=== PATIENT | male | born 1955 | race Caucasian/White ===

== ENCOUNTER 2019-12-15 21:17 | Inpatient (IN) | payer MEDICARE, SELFPAY ==
--- NOTE | 2019-12-15 21:30 | CT_ITS ---
EXAMINATION: CT HEAD WITHOUT CONTRAST CT CERVICAL SPINE WITHOUT CONTRAST CLINICAL INFORMATION: Fall. COMPARISON: None available. TECHNIQUE: Contiguous axial imaging was performed from the skull base to vertex without intravenous administration of contrast. Contiguous axial imaging was performed from the upper chest through the skull base without intravenous administration of contrast. Coronal and sagittal reformats were obtained at the acquisition workstation. This CT examination was performed using dose optimization techniques as appropriate, variously including the following: *Automated exposure control. *Adjustment of mA and/or kV according to patient size (this includes techniques or standardized protocols for targeted exams where dose is matched to indication/reason for exam; i.e. extremities or head). *Use of iterative reconstruction technique. DLP: 1166 mGy-cm FINDINGS: Head: There is a heterogeneous space occupying lesion within the high right frontal lobe, measuring 3.8 x 3.5 x 3.6 cm. This lesion appears centrally necrotic with peripheral soft tissue components and potential small volume intralesional hemorrhagic products. Prominent perilesional edema throughout the right frontal lobe exerting moderate mass effect on the frontal horn of the right lateral ventricle and splenium of the corpus callosum. Mild associated leftward midline shift (0.2 cm). There also appears to be moderate heterogeneity in the brainstem at the pontomedullary junction of indeterminate etiology. There is a degree of streak artifact through the brainstem partially limiting evaluation. No evidence of acute edematous territorial infarction. Other than the aforementioned intralesional hemorrhagic products, there is no evidence of acute intracranial hemorrhage. Proportional prominence of the ventricles and sulcal spaces without evidence of obstructive hydrocephalus. No acute soft tissue or osseous abnormalities. Moderate mucosal thickening of the visualized paranasal sinuses. There is layering hyperattenuating material within the visualized maxillary sinuses that may represent a small volume of hemorrhagic products in the acute traumatic setting. No demonstrated fractures of the partially visualized maxillofacial bones. Moderate rightward nasal septal deviation. Moderate degenerative arthropathy of the temporal mandibular joints. Moderate rightward nasal septal deviation. Bilateral enophthalmos. Otherwise, no demonstrated abnormalities of the orbits on limited evaluation. Cervical Spine: The atlantooccipital and atlantoaxial articulations remain well aligned. Mild degenerative retrolisthesis of C3 on C4 and C5 on C6. Otherwise, there is anatomic alignment of the vertebral bodies and posterior elements. No evidence of acute fracture or subluxation. The vertebral body heights are maintained. Advanced degenerative disc disease at C3-C4, C5-C6, and C6-C7. Moderate multilevel facet and uncovertebral joint arthropathy leads to osseous encroachment on the neural foramina from C3-C7. There is no prevertebral soft tissue swelling. Layering mucus within the pharynx. The Thyroid gland and remaining cervical soft tissues are normal in appearance. The lung apices demonstrate no abnormalities. CT/CT cervical spine wo con IMPRESSION: There is a 3.8 cm heterogeneous mass lesion within the right frontal lobe with significant surrounding perilesional edema. This lesion appears centrally necrotic and likely with small volume of intralesional hemorrhage. There also is some degree of heterogeneity within the pontomedullary junction. This may be artifactual in nature; however, a second intracranial lesion remains a consideration. Recommend further characterization with brain MRI. No evidence of acute traumatic intracranial hemorrhage. No evidence of acute fracture or traumatic subluxation of the cervical spine. Moderate multilevel degenerative spondyloarthropathy of the cervical spine. Moderate sinonasal mucosal disease. Hyperattenuating material within the bilateral maxillary sinuses may represent hemorrhagic products. No demonstrated fractures of the partially visualized maxillofacial bones. This critical result was discussed with Dr. Velasquez at 22:14 on 12/15/2019 and it was ascertained that the content and urgency of the report was understood at the time of direct communication.
--- NOTE | 2019-12-15 21:31 | ECG_ITS ---
Test Reason : FALL Blood Pressure : / mmHG Vent. Rate : 134 BPM Atrial Rate : 134 BPM P-R Int : 128 ms QRS Dur : 070 ms QT Int : 312 ms P-R-T Axes : 081 051 062 degrees QTc Int : 465 ms Sinus tachycardia Biatrial enlargement Nonspecific ST abnormality Abnormal ECG No previous ECGs available Referred By: Marlen Rowe Electronically Signed By:AMANDA FAJARDO MD
--- NOTE | 2019-12-15 21:31 | XR_ITS ---
EXAMINATION: XR CHEST CLINICAL INFORMATION: Cough COMPARISON: None TECHNIQUE: Frontal view of the chest was obtained. FINDINGS: Overall increased interstitial markings in the lungs. This may be chronic. Interstitial infiltrate would be a consideration. No obvious failure or effusion. XR/XR chest 1V IMPRESSION: Increased interstitial markings as described. May be chronic versus infiltrate.
--- NOTE | 2019-12-15 21:50 | ED.FALL ---
HPI - Fall General Chief Complaint: Altered Mental Status Stated Complaint: fall/?etoh Time Seen by Provider: 12/15/19 21:30 Source: patient and EMS Mode of arrival: EMS Limitations: physical limitation History of Present Illness HPI Narrative: This is a 64-year-old male known to be an alcohol drinker who states that he fell yesterday and 2 weeks ago. Additional information provided by EMS is that patient was found on the floor by his neighbors who came by to check on him. Patient states that he has been having difficulty getting off of the floor since yesterday when he fell and states that he was only able to use his right side to try to roll over. Related Data Home Medications Medication Instructions Recorded Confirmed Unobtainable 12/15/19 12/15/19 Allergies Allergy/AdvReac Type Severity Reaction Status Date / Time No Known Allergies Allergy Unverified 11/02/19 15:52 [No Known Allergies*] Review of Systems Review of Systems: Pertinent positives and negatives as stated in HPI 10 point review systems is otherwise negative. [facility] Social History Social History Alcohol intake: unknown Smoking Status: Unknown if ever smoked Use of substances other than those prescribed or required for medical reasons: Unknown Advance Directives: No Physical Exam Vital Signs: Vital Signs: Vital Signs Temp Pulse Pulse Resp BP Pulse Ox 12/16/19 00:43 100.2 F 121 H 23 H 139/85 94 12/15/19 23:42 120 H 12/15/19 22:18 98.9 F 138 H 33 H 147/94 H 92 Body Mass Index 21.7 VITAL SIGNS: Reviewed. GENERAL: Well developed, well nourished, in no acute distress. HEAD: Normocephalic/atraumatic, EYES: PERRLA, EOMI intact without pain, no nystagmus/pallor/icterus noted EARS: Ext canals without abnormality, TMs non-bulging and non-erythematous NOSE: Nares patent bilateral OROPHARYNX: no oral lesions noted, posterior pharynx clear and non-erythematous without noted tonsillar enlargement/erythema/exudates NECK: Supple, no adenopathy LUNGS: Normal breath sounds. No adventitious sounds or accessory muscle use. SpO2<> CARDIOVASCULAR: Regular rate and rhythm without noted murmurs, no JVD or lower extremity edema. ABDOMEN: Soft, non-tender, non-distended with bowel sounds. No rigidity. No guarding. No palpable masses or hernias noted MUSCULOSKELETAL: No tenderness, deformities, or effusions noted on gross inspection. EXTREMITIES: No cyanosis, clubbing or edema. SKIN: Inspection of the skin reveals no rashes, ulcerations, jaundice, pallor, or petechiae. NEUROLOGIC: Alert and oriented x 3. NIHSS-11 Course Course Course Narrative: This is a 64-year-old male with history and clinical presentation consistent with possible intracranial hemorrhage versus hemorrhagic stroke, ischemic stroke (subacute), alcohol withdrawal, brain tumor. Given that patient reports falling yesterday and unable to get himself up despite using the right side of his body time of onset places him far outside the window if this is an ischemic etiology. Suspect patient has tachypnea and tachycardia are secondary to dehydration and intracranial pathology, but on review of laboratory findings patient will be treated for severe sepsis. all labs and imaging have been reviewed, to include the later obtained pelvis and left hip after nursing staff identified a bruise to the left greater trochanteric area but these images were negative for acute fracture or dislocation. 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 2342: Patient is in rhabdo. Multiple attempts to place a urinary catheter due to patient's inability to void have been unsuccessful and a urology consult has been placed and Dr. Greenberg will be in to place the catheter. We have been attempting multiple times to reach out to patient's healthcare proxy, who is his cousin and have left voice mails. Dr. Forbes recommends trending troponins, rehydration and feels that this is most likely due to rhabdomyolysis. MDM - Fall Lab Data Result diagrams: 12/15/19 22:59 12/15/19 22:59 Labs: Lab Results 12/15/19 12/15/19 12/15/19 Range/Units 22:59 22:59 22:59 WBC 15.7 H (4.8-10.8) X10*3/uL RBC 5.71 (4.60-5.80) X10*6/uL Hgb 18.0 (14.0-18.0) g/dl Hct 52.9 H (42-52) % MCV 92.6 (80-98) fL MCH 31.5 (27.0-33.0) pg MCHC 34.0 (31.0-36.0) g/dl RDW 13.7 (11.0-16.0) % Plt Count 413 H (160-400) X10*3/uL MPV 10.7 (9.4-12.4) fL Immature Gran % (Auto) 0.3 (0.0-0.4) % Neut % (Auto) 85.2 H (45-73) % Lymph % (Auto) 5.0 L (20-40) % Pickett % (Auto) 9.3 (2-11) % Eos % (Auto) 0.0 (0-4) % Baso % (Auto) 0.2 (0-2) % Lymph # (Auto) 0.8 L (1.2-4.9) X10*3/uL Pickett # (Auto) 1.5 H (0.1-1.2) X10*3/uL Eos # (Auto) 0.0 (0.0-0.4) X10*3/uL Baso # (Auto) 0.0 (0.0-0.2) X10*3/uL Abs Immat Gran (auto) 0.04 H (0.00-0.03) X10*3/uL Absolute Neuts (auto) 13.4 H (2.0-8.3) X10*3/uL Absolute Nucleated RBC 0.000 (0.0-0.012) X10*3/uL Nucleated RBC % (auto) 0.0 (0.0-0.2) /100WBC PT (10.8-13.0) SEC INR (0.9-1.1) Sodium 144 (135-145) mmol/L Potassium 4.3 (3.3-5.1) mmol/l Chloride 105 (96-108) mmol/L Carbon Dioxide 16 L (22-29) mmol/L Anion Gap 27 H (12-20) BUN 30 H (9-16) mg/dL Creatinine 1.06 (0.5-1.4) mg/dL Estim Creat Clear Calc 60.9 Estimated GFR > 60 Random Glucose 99 (60-115) mg/dL Lactic Acid Cancelled Calcium 10.2 (8.4-10.2) mg/dL Total Bilirubin 1.0 (0.0-1.0) mg/dL AST 105 H (5-37) U/L ALT 44 H (0-40) U/L Alkaline Phosphatase 105 (39-117) U/L Total Creatine Kinase 3407 H (38-174) U/L Troponin I High Sens (<3.5-35.0) ng/L Total Protein 8.2 H (6.5-8.0) g/dL Albumin 4.6 (3.5-5.0) g/dL Lipase 13 (8-78) U/L Ethyl Alcohol 12/15/19 12/15/19 12/15/19 Range/Units 22:59 22:59 23:15 WBC (4.8-10.8) X10*3/uL RBC (4.60-5.80) X10*6/uL Hgb (14.0-18.0) g/dl Hct (42-52) % MCV (80-98) fL MCH (27.0-33.0) pg MCHC (31.0-36.0) g/dl RDW (11.0-16.0) % Plt Count (160-400) X10*3/uL MPV (9.4-12.4) fL Immature Gran % (Auto) (0.0-0.4) % Neut % (Auto) (45-73) % Lymph % (Auto) (20-40) % Pickett % (Auto) (2-11) % Eos % (Auto) (0-4) % Baso % (Auto) (0-2) % Lymph # (Auto) (1.2-4.9) X10*3/uL Pickett # (Auto) (0.1-1.2) X10*3/uL Eos # (Auto) (0.0-0.4) X10*3/uL Baso # (Auto) (0.0-0.2) X10*3/uL Abs Immat Gran (auto) (0.00-0.03) X10*3/uL Absolute Neuts (auto) (2.0-8.3) X10*3/uL Absolute Nucleated RBC (0.0-0.012) X10*3/uL Nucleated RBC % (auto) (0.0-0.2) /100WBC PT 12.5 (10.8-13.0) SEC INR 1.1 (0.9-1.1) Sodium (135-145) mmol/L Potassium (3.3-5.1) mmol/l Chloride (96-108) mmol/L Carbon Dioxide (22-29) mmol/L Anion Gap (12-20) BUN (9-16) mg/dL Creatinine (0.5-1.4) mg/dL Estim Creat Clear Calc Estimated GFR Random Glucose (60-115) mg/dL Lactic Acid Calcium (8.4-10.2) mg/dL Total Bilirubin (0.0-1.0) mg/dL AST (5-37) U/L ALT (0-40) U/L Alkaline Phosphatase (39-117) U/L Total Creatine Kinase (38-174) U/L Troponin I High Sens 2747.9 H (<3.5-35.0) ng/L Total Protein (6.5-8.0) g/dL Albumin (3.5-5.0) g/dL Lipase (8-78) U/L Ethyl Alcohol Cancelled 12/16/19 12/16/19 Range/Units 00:26 00:26 WBC (4.8-10.8) X10*3/uL RBC (4.60-5.80) X10*6/uL Hgb (14.0-18.0) g/dl Hct (42-52) % MCV (80-98) fL MCH (27.0-33.0) pg MCHC (31.0-36.0) g/dl RDW (11.0-16.0) % Plt Count (160-400) X10*3/uL MPV (9.4-12.4) fL Immature Gran % (Auto) (0.0-0.4) % Neut % (Auto) (45-73) % Lymph % (Auto) (20-40) % Pickett % (Auto) (2-11) % Eos % (Auto) (0-4) % Baso % (Auto) (0-2) % Lymph # (Auto) (1.2-4.9) X10*3/uL Pickett # (Auto) (0.1-1.2) X10*3/uL Eos # (Auto) (0.0-0.4) X10*3/uL Baso # (Auto) (0.0-0.2) X10*3/uL Abs Immat Gran (auto) (0.00-0.03) X10*3/uL Absolute Neuts (auto) (2.0-8.3) X10*3/uL Absolute Nucleated RBC (0.0-0.012) X10*3/uL Nucleated RBC % (auto) (0.0-0.2) /100WBC PT (10.8-13.0) SEC INR (0.9-1.1) Sodium (135-145) mmol/L Potassium (3.3-5.1) mmol/l Chloride (96-108) mmol/L Carbon Dioxide (22-29) mmol/L Anion Gap (12-20) BUN (9-16) mg/dL Creatinine (0.5-1.4) mg/dL Estim Creat Clear Calc Estimated GFR Random Glucose (60-115) mg/dL Lactic Acid 1.4 Calcium (8.4-10.2) mg/dL Total Bilirubin (0.0-1.0) mg/dL AST (5-37) U/L ALT (0-40) U/L Alkaline Phosphatase (39-117) U/L Total Creatine Kinase (38-174) U/L Troponin I High Sens (<3.5-35.0) ng/L Total Protein (6.5-8.0) g/dL Albumin (3.5-5.0) g/dL Lipase (8-78) U/L Ethyl Alcohol < 10 Discharge Plan Discharge Clinical Impression: Brain mass, Elevated troponin Rhabdomyolysis Qualifiers: Rhabdomyolysis type: traumatic Encounter type: initial encounter Qualified Code(s): T79.6XXA - Traumatic ischemia of muscle, initial encounter Sepsis Qualifiers: Sepsis type: sepsis due to unspecified organism Sepsis acute organ dysfunction status: without acute organ dysfunction Qualified Code(s): A41.9 - Sepsis, unspecified organism Patient Disposition: Admitted As Inpatient
[2019-12-15 22:18] VITALS: BP 147/94; PULSE 138; RESP 33; TEMP 37.2; O2SAT 92; BMI 21.7
[2019-12-15 23:07] LABS: MANUAL DIFF FLAG NO
[2019-12-15 23:08] LABS: Basophils Percent Auto 0.2 % (0-2); Hematocrit 52.9 % (42-52); Imm Gran Abs Auto 0.04 X10*3/uL (0.00-0.03); Imm Gran Pct Auto 0.3 % (0.0-0.4); Lymphocytes Absolute Auto 0.8 X10*3/uL (1.2-4.9); Mean Corpuscular Hemoglobin 31.5 pg (27.0-33.0); Mean Corpuscular Volume 92.6 fL (80-98); Mean Platelet Volume 10.7 fL (9.4-12.4); Monocytes Absolute Auto 1.5 X10*3/uL (0.1-1.2); Monocytes Percent Auto 9.3 % (2-11); Neutrophils Absolute Auto 13.4 X10*3/uL (2.0-8.3); Neutrophils Percent Auto 85.2 % (45-73); Platelet Count 413 X10*3/uL (160-400); Red Blood Count 5.71 X10*6/uL (4.60-5.80); Red Cell Distribution Width 13.7 % (11.0-16.0); White Blood Count 15.7 X10*3/uL (4.8-10.8)
[2019-12-15] MEDS: SODIUM CHLORIDE 999 ML IV (23:18)
[2019-12-15] MEDS: dexAMETHasone sod phosphate 4 MG/ML VIAL 10 MG IVPUSH (23:27)
[2019-12-15] MEDS: Piperacillin Sodium/Tazobactam 3.375 GM in 0.9 % Sodium Chloride 50 ML IV (23:29)
[2019-12-15 23:38] LABS: Alanine Aminotransferase 44 U/L (0-40); Albumin Level 4.6 g/dL (3.5-5.0); Alkaline Phosphatase 105 U/L (39-117); Anion Gap 27 (12-20); Aspartate Amino Transferase 105 U/L (5-37); Blood Urea Nitrogen 30 mg/dL (9-16); Calcium 10.2 mg/dL (8.4-10.2); Carbon Dioxide 16 mmol/L (22-29); Chloride 105 mmol/L (96-108); Creatinine Clr Calc Pharmacy 60.9; Estimated Glomerular Filt Rate > 60; Glucose Random 99 mg/dL (60-115); Lipase 13 U/L (8-78); Potassium 4.3 mmol/l (3.3-5.1); Sodium 144 mmol/L (135-145); Total Protein 8.2 g/dL (6.5-8.0)
--- NOTE | 2019-12-15 23:39 | PC.NURSE ---
RECEIVED REPORT FROM JOSE ANGEL. PT IS ALERT, PT IS CONFUSED AND NEED TO BE REDIRECTED. PT MEDICATED PER APR. PLAN IS FOR PT TO BE ADMITTED. MULTIPLE ATTEMPTS TO PLACE A [facility] UNSUCCESSFUL, DUE TO PRIOR SHIFT. PROVIDER IS AWARE.
[2019-12-15 23:41] LABS: Troponin-I High Sensitivity 2747.9 ng/L (<3.5-35.0)
[2019-12-15 23:42] VITALS: PULSE 120
[2019-12-16] VITALS (12 sets, daily range): BP systolic 115–147; BP diastolic 78–96; PULSE 76–133; RESP 15–23; TEMP 36.4–37.9; O2SAT 92–98; BMI 20.1
--- NOTE | 2019-12-16 | ECG_ITS ---
Test Reason : Elevated trop Blood Pressure : / mmHG Vent. Rate : 084 BPM Atrial Rate : 084 BPM P-R Int : 130 ms QRS Dur : 080 ms QT Int : 432 ms P-R-T Axes : 078 046 063 degrees QTc Int : 510 ms Normal sinus rhythm with sinus arrhythmia Nonspecific T wave abnormality Abnormal ECG T wave amplitude has increased in Lateral leads Referred By: Marlen Rowe Electronically Signed By:AMANDA FAJARDO MD
--- NOTE | 2019-12-16 | XR_ITS ---
EXAMINATION: XR ABDOMEN KUB CLINICAL INDICATION: Rule out foreign body before MRI. COMPARISON: None TECHNIQUE: 2 views of the abdomen. FINDINGS: The lung bases are clear. There is a nonobstructive bowel gas pattern. No metallic foreign body is seen. There is a Caputo catheter in place. Advanced degenerative changes are seen within the lumbar spine. XR/XR KUB IMPRESSION: No metallic foreign body.
[2019-12-16 00:19] LABS: INTERNATIONAL NORM RATIO 1.1 (0.9-1.1); Prothrombin Time 12.5 SEC (10.8-13.0)
--- NOTE | 2019-12-16 00:40 | PC.NURSE ---
MULTIPLE ATTEMPTS TO CONTACT HCP KG RAYA WITH NO AVAIL. MD HEATH AWARE.
--- NOTE | 2019-12-16 00:48 | PC.NURSE ---
RESPIRATORY IN TO SUCTION PT. CALLED HEALTH CARE PROXY
[2019-12-16 00:56] LABS: Lactic Acid 1.4 mmol/L (0.5-2.0)
[2019-12-16 00:58] LABS: Ethanol < 10 mg/dL
--- NOTE | 2019-12-16 01:26 | PC.NURSE ---
Provider attempt to place sosa cath unsuccessful, urology will need to be consulted.
--- NOTE | 2019-12-16 01:28 | PC.NURSE ---
ATTEMPT TO CALL FOR REPORT, RN WILL BE CALLING BACK.
--- NOTE | 2019-12-16 02:30 | XR_ITS ---
EXAMINATION: XR HIP, LEFT CLINICAL INFORMATION: Ecchymosis. Pain. COMPARISON: None TECHNIQUE: Two views of the left hip. Frontal view of the pelvis. FINDINGS: No fracture or dislocation. The femoral heads are well-seated within their acetabula. Joint spaces are maintained with mild subchondral sclerosis. The pelvic rim is intact. The sacroiliac joints and pubic symphysis are intact. The bowel gas pattern is unremarkable. XR/XR hip LT w PEL1V IMPRESSION: No fracture or malalignment. Mild degenerative change.
[2019-12-16 03:00] LABS: SARS COV2 PCR INHOUSE NEGATIVE (Negative)
--- NOTE | 2019-12-16 03:21 | PC.NURSE ---
PT INCONTINENT OF URINE, PREMA CARE COMPLETED WITH BED CHANGE. PT HAS ARE KASEY AREA TO LEFT LOWER BACK , NOTIFIED PROVIDER AND IMAGING COMPLETED.
--- NOTE | 2019-12-16 03:30 | PM.IMHP ---
History of Present Illness Date of Service: 12/16/19 Chief Complaint: fall this is a 64-year-old male with past medical history of COPD who presents to the hospital after being found down on the floor by his friend. Although patient alert and oriented, it is not clear if he is completely a reliable historian. Patient lives alone, and is a daily drinker. Per patient he tripped on his cat, fell, and had difficulty getting up due to weakness. He reports no previous fall episodes, he denies feeling any weakness, no palpitations, no dizziness, no loss of consciousness, no prodromal symptoms and no loss of consciousness. Patient has very poor hygiene, is alert and oriented, he denies having any chest pain, shortness of breath, headache, no change in vision, no weakness tingling numbness in any of his extremities. patient reports that he uses a walker to walk around the house. He denies any abdominal pain, nausea or vomiting, no diarrhea or constipation, he reports blood in his urine. he reports that he was on the floor for 3 hours. he also tells me that he lost significant amount of weight in few days. On arrival to the ED patient found to have heart rate of 138, respiratory rate of 33, blood pressure 147/94, satting 92% on 2 L of oxygen labs are significant for WBC count of 15.7, sodium of 144, BUN of 30, creatinine of 1.06, AST of 105, ALT of 44, CPK of 3407, troponin of 2747, CT of the head shows a 3.8 cm heterogeneous mass lesion within the right frontal lobe with significant surrounding perilesional edema. Necrotic center and likely with a small volume of intralesional hemorrhage. No evidence of acute traumatic intracranial hemorrhage. patient will be admitted for further management past medical history: Reports only COPD, alcohol abuse surgical history: Denies Social history: Comes from home, uses a cane to ambulate, smokes about 2 packs a day, drinks about 15 beers daily, denies illicit drugs Review of Systems Review of Systems: Yes all other systems are reviewed and are negative [facility] Medical History Alcohol abuse COPD (chronic obstructive pulmonary disease) Social History Alcohol intake: unknown Smoking Status: Unknown if ever smoked Use of substances other than those prescribed or required for medical reasons: Unknown Advance Directives: No Meds Allergies Allergy/AdvReac Type Severity Reaction Status Date / Time No Known Allergies Allergy Unverified 11/02/19 15:52 [No Known Allergies*] Home Medications Medication Instructions Recorded Confirmed Type Unobtainable 12/15/19 12/15/19 History Physical Exam Vital Signs and Narrative: Vital Signs: Last Vital Signs Temp 100.2 F 12/16/19 00:43 Pulse 121 H 12/16/19 00:43 Resp 23 H 12/16/19 00:43 BP 139/85 12/16/19 00:43 Pulse Ox 94 12/16/19 00:43 Body Mass Index 21.7 Const: Other: very poor hygiene, appears malnourished, ill-appearing General: cooperative and no acute distress Orientation/consciousness: patient oriented x3 Eyes: General: appearance normal, both eyes and all related structures Pupils: Equal, round and reactive pupils present Resp: Effort & Inspection: normal respiratory effort, able to speak in complete sentences and abnormal respiratory pattern Auscultation: clear to auscultation bilaterally Cardio: Rate: regular rate Rhythm: regular rhythm GI: Palpation (GI): Soft to palpation Auscultation: normal bowel sounds Skin: General skin exam: no rashes or lesions noted Neuro: Other: has almost 0/5 strength in upper and lower extremity, reduced sensation, 1/5 strength in the right upper and lower extremity. General: patient oriented x3 Cranial nerves: Yes Equal, round and reactive pupils present Motor exam (neuro): no asterixis and Abnormal motor strength present Extrem: General: Yes normal to inspection and Yes no pedal edema Results Labs Labs: Laboratory Tests 12/15/19 12/15/19 12/15/19 22:59 22:59 22:59 WBC 15.7 H RBC 5.71 Hgb 18.0 Hct 52.9 H MCV 92.6 MCH 31.5 MCHC 34.0 RDW 13.7 Plt Count 413 H MPV 10.7 Immature Gran % (Auto) 0.3 Neut % (Auto) 85.2 H Lymph % (Auto) 5.0 L [place] % (Auto) 9.3 Eos % (Auto) 0.0 Baso % (Auto) 0.2 Lymph # (Auto) 0.8 L [place] # (Auto) 1.5 H Eos # (Auto) 0.0 Baso # (Auto) 0.0 Abs Immat Gran (auto) 0.04 H Absolute Neuts (auto) 13.4 H Absolute Nucleated RBC 0.000 Nucleated RBC % (auto) 0.0 PT INR Sodium 144 Potassium 4.3 Chloride 105 Carbon Dioxide 16 L Anion Gap 27 H BUN 30 H Creatinine 1.06 Estim Creat Clear Calc 60.9 Estimated GFR > 60 Random Glucose 99 Lactic Acid Cancelled Calcium 10.2 Total Bilirubin 1.0 AST 105 H ALT 44 H Alkaline Phosphatase 105 Total Creatine Kinase 3407 H Troponin I High Sens Total Protein 8.2 H Albumin 4.6 Lipase 13 Ethyl Alcohol Coronavirus (PCR) 12/15/19 12/15/19 12/15/19 22:59 22:59 23:15 WBC RBC Hgb Hct MCV MCH MCHC RDW Plt Count MPV Immature Gran % (Auto) Neut % (Auto) Lymph % (Auto) [place] % (Auto) Eos % (Auto) Baso % (Auto) Lymph # (Auto) [place] # (Auto) Eos # (Auto) Baso # (Auto) Abs Immat Gran (auto) Absolute Neuts (auto) Absolute Nucleated RBC Nucleated RBC % (auto) PT 12.5 INR 1.1 Sodium Potassium Chloride Carbon Dioxide Anion Gap BUN Creatinine Estim Creat Clear Calc Estimated GFR Random Glucose Lactic Acid Calcium Total Bilirubin AST ALT Alkaline Phosphatase Total Creatine Kinase Troponin I High Sens 2747.9 H Total Protein Albumin Lipase Ethyl Alcohol Cancelled Coronavirus (PCR) 12/16/19 12/16/19 12/16/19 00:26 00:26 01:58 WBC RBC Hgb Hct MCV MCH MCHC RDW Plt Count MPV Immature Gran % (Auto) Neut % (Auto) Lymph % (Auto) [place] % (Auto) Eos % (Auto) Baso % (Auto) Lymph # (Auto) [place] # (Auto) Eos # (Auto) Baso # (Auto) Abs Immat Gran (auto) Absolute Neuts (auto) Absolute Nucleated RBC Nucleated RBC % (auto) PT INR Sodium Potassium Chloride Carbon Dioxide Anion Gap BUN Creatinine Estim Creat Clear Calc Estimated GFR Random Glucose Lactic Acid 1.4 Calcium Total Bilirubin AST ALT Alkaline Phosphatase Total Creatine Kinase Troponin I High Sens Total Protein Albumin Lipase Ethyl Alcohol < 10 Coronavirus (PCR) NEGATIVE Imaging Hip x-ray: Radiologist's impression: IMPRESSION: No fracture or malalignment. Mild degenerative change. CT scan - head: Radiologist's impression: IMPRESSION: There is a 3.8 cm heterogeneous mass lesion within the right frontal lobe with significant surrounding perilesional edema. This lesion appears centrally necrotic and likely with small volume of intralesional hemorrhage. There also is some degree of heterogeneity within the pontomedullary junction. This may be artifactual in nature; however, a second intracranial lesion remains a consideration. Recommend further characterization with brain MRI. No evidence of acute traumatic intracranial hemorrhage. No evidence of acute fracture or traumatic subluxation of the cervical spine. Moderate multilevel degenerative spondyloarthropathy of the cervical spine. Moderate sinonasal mucosal disease. Hyperattenuating material within the bilateral maxillary sinuses may represent hemorrhagic products. No demonstrated fractures of the partially visualized maxillofacial bones. This critical result was discussed with Dr. Velasqeuz at 22:14 on 12/15/2019 and it was ascertained that the content and urgency of the report was understood at the time of direct communication. Chest x-ray: Radiologist's impression: IMPRESSION: Increased interstitial markings as described. May be chronic versus infiltrate. Assessment and Plan (1) Sepsis: Qualifiers: Sepsis acute organ dysfunction status: without acute organ dysfunction Sepsis type: sepsis due to unspecified organism Qualified Code(s): A41.9 - Sepsis, unspecified organism Status: Acute (2) Alcohol abuse: Status: Acute (3) Fall: Status: Acute (4) Brain mass: Status: Acute (5) Rhabdomyolysis: Qualifiers: Encounter type: initial encounter Rhabdomyolysis type: traumatic Qualified Code(s): T79.6XXA - Traumatic ischemia of muscle, initial encounter Status: Acute (6) Elevated troponin: Status: Acute (7) COPD (chronic obstructive pulmonary disease): Status: Acute (8) Hematuria: Status: Acute this is a 64-year-old male with past medical history of alcohol abuse as well COPD who presents to the hospital after being found down by his friend. Labs in the ED shows sepsis, rhabdo, and brain lesion # sepsis - source most likely urine versus pneumonia - chest x-ray concerning for infiltrate, urine is bloody, we are unable to insert catheter to obtain urine, patient has urinary retention - has leukocytosis, tachycardia, tachypnea, febrile, normal lactic acid Plan: - Will start patient on Zosyn - blood cultures drawn - urologist consulted for Caputo insertion - IV fluids # elevated troponin - possibly type 2 in the setting of rhabdomyolysis - patient denies chest pain, Plan: - Trend troponin - hold off on anticoagulation for now - consult cardiology # brain mass - it appears to be an incidental finding showing a large 3.8 cm brain mass with surrounding edema - Has hemiparesis of the extremities bilaterally although patient denies any symptoms prior to his fall - unclear primary versus metastatic disease - has heavy smoking history a chest x-ray negative for any abnormality except for infiltrate as above plan: - neurology consulted by ED, patient received dose of the Decadron, will continue Decadron 4 mg q.6 hours - further management per Neurology, consider Hematology-Oncology consult for further workup # fall - most likely multifactorial including weakness, and alcohol abuse - patient has rhabdomyolysis - 1 need PT OT, rehab and workup of above lesion # rhabdomyolysis - although patient states he was down for only 3 hours, unlikely given significant increase in CPK - will start IV fluids - follow CPK level # hematuria - unclear etiology, could be traumatic Caputo insertion versus UTI - other patient reports hematuria prior to presenting to the hospital, he also has sepsis with the source being possibly a urine plan: - Urology consulted - IV fluids - awaiting UA and urine culture # alcohol abuse - will start patient on phenobarb protocol - thiamine and folic acid improvement DVT prophylaxis: SCDs
[2019-12-16] MEDS: PHENobarbitaL sodium 130 MG/ML VIAL 245 MG IM (04:55)
[2019-12-16] MEDS: Lactated Ringers 1,000 ML 100 ML IVCONT (04:58)
[2019-12-16 05:43] LABS: Troponin-I High Sensitivity 1857.3 ng/L (<3.5-35.0)
[2019-12-16] MEDS: dexAMETHasone sod phosphate 4 MG/ML VIAL IVPUSH ×3 (05:59→17:26)
[2019-12-16] MEDS: Piperacillin Sodium/Tazobactam 3.375 GM in 0.9 % Sodium Chloride 50 ML IV ×3 (06:00→17:24)
[2019-12-16] MEDS: PHENobarbitaL sodium 130 MG/ML VIAL 184 MG IM ×2 (07:54→11:44)
[2019-12-16] MEDS: Folic Acid 1 MG TABLET PO (07:55)
[2019-12-16] MEDS: Thiamine HCL 100 MG TABLET PO (07:55)
[2019-12-16] MEDS: 0.9 % Sodium Chloride Flush 3 ML SYRINGE IVFLUSH (07:55)
--- NOTE | 2019-12-16 09:10 | P.CNUR_ITS ---
History of Present Illness Consult details Narrative: 64-year-old male admitted to the hospital 12/15/2019 Difficult Caputo catheter placement Baseline metastatic cancer Unable to place catheter emergency room One attempt made at placing of standard catheter One attempt made at placing catheter using wire Catheter placed using cystoscopy and [place] tip. See procedure note Review of Systems Constitutional: Constitutional: Denies chills and Denies fever(s) Cardiovascular: Cardiovascular: Reports no additional cardiovascular complaints and Denies syncope Respiratory: Respiratory: Denies cough Gastrointestinal: Gastrointestinal: Denies abdominal pain and Denies heartburn Genitourinary: Genitourinary: Reports as per HPI and Denies change in libido Neurologic: Denies syncope Psychiatric: Psychiatric: Denies change in libido Endocrine: Endocrine: Denies change in libido [facility] Past Medical History Medical History Alcohol abuse COPD (chronic obstructive pulmonary disease) Social History Social History Household Members: None Housing Other:: mobile home Do you presently have visiting nurse or other home services: No Alcohol intake: unknown Smoking Status: Current every day smoker Tobacco Type: Cigarette Packs Per Day: 2 Cigarettes Per Day: 40.0 Smoked in Last 30 Days: Yes Patient Interested in Nicotine Replacement: Yes Use of substances other than those prescribed or required for medical reasons: Yes Substance Use Type: Marijuana Substance Use Frequency: Daily Last Used Substance: Hours (ago) Have you been hit, kicked, punched, or otherwise hurt by someone within the past year? If so, by whom?: No Do you feel safe in your current relationship?: Yes Is there a partner from a previous relationship who is making you feel unsafe now?: No Are you made to feel afraid or neglected: No Advance Directives: No Do you have thoughts of harming others: None Do you have a plan to hurt others: No Plan Recently lost weight without trying: Yes Meds Allergies Allergy/AdvReac Type Severity Reaction Status Date / Time No Known Allergies Allergy Unverified 11/02/19 15:52 [No Known Allergies*] Home Medications Medication Instructions Recorded Confirmed Type Unobtainable 12/15/19 12/15/19 History Physical Exam Vital Signs: Vital Signs: Vital Signs Temp Pulse Pulse Resp BP Pulse Ox 12/16/19 08:00 98.3 F 119 H 20 140/90 H 93 12/16/19 04:00 102 H 135/96 H 12/16/19 03:57 97.5 F 102 H 20 135/96 H 94 12/16/19 03:50 97.5 F 102 H 20 135/96 H 94 12/16/19 02:00 99.2 F 121 H 20 139/85 94 12/16/19 00:43 100.2 F 121 H 23 H 139/85 94 12/15/19 23:42 120 H 12/15/19 22:18 98.9 F 138 H 33 H 147/94 H 92 Body Mass Index 20.1 Const: General: cooperative, healthy appearing, comfortable and no acute distress Nutritional Appearance: average body habitus Orientation/consciousness: oriented to person, oriented to place and oriented to time Eyes: General: appearance normal, both eyes and all related structures Chest: Chest palpation & inspection: normal inspection of the chest Resp: Effort & Inspection: normal respiratory effort Cardio: Rate: regular rate GI: Inspection: Yes normal to inspection Skin: Hair: normal Neuro: General: oriented to person, oriented to place and oriented to time Extrem: General: Yes normal to inspection Results Labs Result diagrams: 12/15/19 22:59 12/15/19 22:59 Labs: Abnormal lab results 12/15/19 12/15/19 12/15/19 Range/Units 22:59 22:59 22:59 WBC 15.7 H (4.8-10.8) X10*3/uL Hct 52.9 H (42-52) % Plt Count 413 H (160-400) X10*3/uL Neut % (Auto) 85.2 H (45-73) % Lymph % (Auto) 5.0 L (20-40) % Lymph # (Auto) 0.8 L (1.2-4.9) X10*3/uL [place] # (Auto) 1.5 H (0.1-1.2) X10*3/uL Abs Immat Gran (auto) 0.04 H (0.00-0.03) X10*3/uL Absolute Neuts (auto) 13.4 H (2.0-8.3) X10*3/uL Carbon Dioxide 16 L (22-29) mmol/L Anion Gap 27 H (12-20) BUN 30 H (9-16) mg/dL AST 105 H (5-37) U/L ALT 44 H (0-40) U/L Total Creatine Kinase 3407 H (38-174) U/L Troponin I High Sens 2747.9 H (<3.5-35.0) ng/L Total Protein 8.2 H (6.5-8.0) g/dL 12/16/19 12/16/19 Range/Units 04:46 04:46 WBC (4.8-10.8) X10*3/uL Hct (42-52) % Plt Count (160-400) X10*3/uL Neut % (Auto) (45-73) % Lymph % (Auto) (20-40) % Lymph # (Auto) (1.2-4.9) X10*3/uL [place] # (Auto) (0.1-1.2) X10*3/uL Abs Immat Gran (auto) (0.00-0.03) X10*3/uL Absolute Neuts (auto) (2.0-8.3) X10*3/uL Carbon Dioxide (22-29) mmol/L Anion Gap (12-20) BUN (9-16) mg/dL AST (5-37) U/L ALT (0-40) U/L Total Creatine Kinase 3799 H (38-174) U/L Troponin I High Sens 1857.3 H (<3.5-35.0) ng/L Total Protein (6.5-8.0) g/dL Short CBC 12/15/19 Range/Units 22:59 WBC 15.7 H (4.8-10.8) X10*3/uL Hgb 18.0 (14.0-18.0) g/dl Hct 52.9 H (42-52) % Plt Count 413 H (160-400) X10*3/uL BMP 12/15/19 22:59 Sodium 144 Potassium 4.3 Chloride 105 Carbon Dioxide 16 L BUN 30 H Creatinine 1.06 Calcium 10.2 Cardiac Enzymes 12/15/19 12/16/19 Range/Units 22:59 04:46 Total Creatine Kinase 3407 H 3799 H (38-174) U/L Liver Function 12/15/19 Range/Units 22:59 Total Bilirubin 1.0 (0.0-1.0) mg/dL AST 105 H (5-37) U/L ALT 44 H (0-40) U/L Alkaline Phosphatase 105 (39-117) U/L Albumin 4.6 (3.5-5.0) g/dL All other labs normal. Assessment and Plan (1) Urinary retention with incomplete bladder emptying: Status: Acute difficult Caputo catheter placement posterior [place] from emergency room On cystoscopy able to navigate anteriorly into the bladder Glidewire placed Ureteric catheter 5 [place] placed over the wire [place] tip Caputo catheter placed Procedures Catheter Insertion (Urinary) Date of insertion: 12/16/19 Replacement of catheter present on admission: No Reason for placing: Acute urinary retention Bladder scan/ultrasound used before catheterization: Yes Estimated amount of urine (mLs): 600 Antiseptic solution prep: Povidone-Iodine Topical anesthesia used: Yes Catheter type/location: 2-way Urethral Size ([place]): 16 Catheter balloon size (mL): 10 Results: successfully catheterized-immediate flow Procedure performed: without complications Comment: required use of cystoscopy is co
--- NOTE | 2019-12-16 09:31 | P.CNNE_ITS ---
History of Present Illness Data of Consult Primary Care Provider: Unknown Physician 64 years old man with past medical history of smoking, COPD, alcohol drinking, living alone with no children or was brought to hospital after he was found on the ground at home by his friend. There was no history of any convulsion. He was unable to provide any meaningful history and was noted to have left-sided weakness. A CT scan of brain was done that revealed abnormalities and he was admitted. When I saw him he was not in any distress. There was no history of recent trauma. Review of Systems Review of Systems: It was limited but there was no history of any recent trauma cold or flu-like illness or seizure. Cardiovascular: Cardiovascular: Denies syncope Neurologic: Denies syncope PMFSH Past Medical History Medical History Alcohol abuse COPD (chronic obstructive pulmonary disease) Social History Social History Household Members: None Housing Other:: mobile home Do you presently have visiting nurse or other home services: No Alcohol intake: unknown Smoking Status: Current every day smoker Tobacco Type: Cigarette Packs Per Day: 2 Cigarettes Per Day: 40.0 Smoked in Last 30 Days: Yes Patient Interested in Nicotine Replacement: Yes Use of substances other than those prescribed or required for medical reasons: Yes Substance Use Type: Marijuana Substance Use Frequency: Daily Last Used Substance: Hours (ago) Have you been hit, kicked, punched, or otherwise hurt by someone within the past year? If so, by whom?: No Do you feel safe in your current relationship?: Yes Is there a partner from a previous relationship who is making you feel unsafe now?: No Are you made to feel afraid or neglected: No Advance Directives: No Do you have thoughts of harming others: None Do you have a plan to hurt others: No Plan Recently lost weight without trying: Yes Meds Allergies Allergy/AdvReac Type Severity Reaction Status Date / Time No Known Allergies Allergy Unverified 11/02/19 15:52 [No Known Allergies*] Home Medications Medication Instructions Recorded Confirmed Type Unobtainable 12/15/19 12/15/19 History Physical Exam Vital Signs: Vital Signs: Vital Signs Temp Pulse Pulse Resp BP Pulse Ox 12/16/19 08:00 98.3 F 119 H 20 140/90 H 93 12/16/19 04:00 102 H 135/96 H 12/16/19 03:57 97.5 F 102 H 20 135/96 H 94 12/16/19 03:50 97.5 F 102 H 20 135/96 H 94 12/16/19 02:00 99.2 F 121 H 20 139/85 94 12/16/19 00:43 100.2 F 121 H 23 H 139/85 94 12/15/19 23:42 120 H 12/15/19 22:18 98.9 F 138 H 33 H 147/94 H 92 Body Mass Index 20.1 He was little bit drowsy but easily arousable maintain eye contact and answered questions appropriately. Spontaneity and fluency of speech were intact. Comprehension was intact. He told me that he lived in [facility] and about his situation that he was single. He also told me that his closest relative was a cousin, who had 1 eye. There was no nystagmus or eye jerking. Visual valle seem to be somewhat decreased on the left side. There was central left-sided facial weakness. He was unable to lift his leg against gravity in left arm was weak. Plantars were equivocal. Deep tendon reflexes were traced trace to absent. Results Labs CBC & Chem 7: 12/15/19 22:59 12/15/19 22:59 Labs: Short CBC 12/15/19 Range/Units 22:59 WBC 15.7 H (4.8-10.8) X10*3/uL Hgb 18.0 (14.0-18.0) g/dl Hct 52.9 H (42-52) % Plt Count 413 H (160-400) X10*3/uL BMP 12/15/19 22:59 Sodium 144 Potassium 4.3 Chloride 105 Carbon Dioxide 16 L BUN 30 H Creatinine 1.06 Calcium 10.2 Cardiac Enzymes 12/15/19 12/16/19 Range/Units 22:59 04:46 Total Creatine Kinase 3407 H 3799 H (38-174) U/L Liver Function 12/15/19 Range/Units 22:59 Total Bilirubin 1.0 (0.0-1.0) mg/dL AST 105 H (5-37) U/L ALT 44 H (0-40) U/L Alkaline Phosphatase 105 (39-117) U/L Albumin 4.6 (3.5-5.0) g/dL His noncontrast head CT revealed a large right frontal heterogeneous mass. There is also slight hypodensity in the pontomedullary junction that might be artifactual or another mass. There was significant edema around the right frontal mass. There was significant cerebral and cerebellar diffuse atrophy. Assessment and Plan (1) Brain mass: Status: Acute 64 years old man with underlying history of smoking, COPD, and alcohol abuse who presented with left-sided weakness and corresponding large right frontal mass. This likely was cancer. It was not clear if this was primary malignancy or secondary as this seems to be another lesion in brainstem. I recommend MRI of brain with and without contrast to define pathology. In the meantime he should be treated with Decadron 4 mg q.6 hours. At this time antiepileptics are not recommended. Further recommendations would depend upon MRI findings. If he had only 1 lesion in right frontal lobe, he might be a candidate for resection of this mass as it was in relatively resectable area of the brain. In that case he should have a neurosurgical evaluation but that was also not urgent. Also noted was underlying rhabdomyolysis that required hydration and appropriate treatment.
--- NOTE | 2019-12-16 11:27 | MHC.CM.PN ---
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 PT REPORTS HE USES A CANE AT BASELINE AND HAS NO HOME OR COMMUNITY SERVICES. PT REPORTS HE BELIEVES HE DOES HAVE A HCP COMPLETED NAMING HIS COUSIN KG HIS AGENT. PT DOES NOT HAVE A PCP BUT REPORTS HE KNOWS THE PROCESS TO OBTAIN ONE. PT CURRENTLY PLANS TO DISCHARGE HOME WITH NO SERVICES. PT UNSURE IF HE WILL HAVE A RIDE AND IS AWARE CM CAN ASSIST. IMM EXPLAINED AND COPY PROVIDED
--- NOTE | 2019-12-16 11:42 | MR_ITS ---
EXAMINATION: MR BRAIN WITHOUT AND WITH CONTRAST CLINICAL INFORMATION: Abnormal head CT. Brain mass. COMPARISON: Head CT from 12/15/2019. TECHNIQUE: MRI of the brain was obtained using routine sequences without and with contrast following the administration of 5.5 mL of Gadavist intravenous contrast. FINDINGS: Exam is moderately motion degraded. There is a centrally necrotic mass lesion with irregular peripheral enhancement in the high right frontal lobe, measuring 3.2 x 3.1 x 3.8 cm. Internal susceptibility artifact and intrinsic T1 shortening consistent with internal hemorrhagic products. Expansile perilesional edema throughout the right frontal lobe. Associated regional sulcal effacement as well as effacement of the frontal horn of the right lateral ventricle. Minimal leftward midline shift of 0.2 cm. Otherwise, proportional prominence of the ventricles and sulcal spaces without evidence of obstructive hydrocephalus. No focal restricted diffusion is demonstrated to suggest acute or subacute cerebral ischemia. No evidence of acute or chronic hemorrhagic products extrinsic to the aforementioned mass. Scattered periventricular deep white matter T2 FLAIR hyperintensities consistent with mild underlying microangiopathy. No uncal/transtentorial herniation. The suprasellar cistern remains widely patent. Normal appearance of the pituitary gland. No abnormalities of the posterior fossa with normal appearance of the brainstem and cerebellum. Normal positioning of the cerebellar tonsils. Normal arterial and venous vascular flow voids are present. No additional abnormal contrast enhancement. Normal, homogeneous marrow signal. Moderate mucosal thickening of the paranasal sinuses. No signal abnormalities within the mastoids. MR/MR head/brain wo/w con IMPRESSION: Heterogeneous 3.8 cm mass in the right frontal lobe with internal hemorrhagic products and prominent perilesional edema. No additional abnormal intracranial enhancement is demonstrated. 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 Mild underlying microangiopathy and generalized cerebral volume loss.
--- NOTE | 2019-12-16 11:47 | P.EN_ITS ---
Event Note Event Note: 64-year-old gentleman with past medical history of COPD active alcohol and tobacco use was brought into [facility] as he was found by his friend lying on the floor in the ER patient was noted to have left hemiparesis, labs showed an elevated WBC count of 15.7 creatinine of 1.06 elevated LFTs and CPK of 3407, troponin of to 2747, head and head CT showed 3.8 centimetre heterogenous mass lesion in the right frontal lobe with significant surrounding edema patient has been admitted with multiple medical problems. Left hemiparesis with right frontal lobe mass, case discussed with Dr. Jackson will obtain an MRI study and continue Decadron further treatment plan depending on MRI report alcohol abuse and withdrawal continue phenobarb protocols and IV fluid with thiamine and folic acid follow magnesium and electrolytes closely Aniongap metabolic acidosis likely due to alcohol abuse follow labs and c ontinue IV fluid Elevated troponin EKG with prolonged QTC, nonspecific ST change, elevated trope likely due to tachycardia and rhabdo will add beta blockers, continue tele monitor, check lipid profile Rhabdomyolysis due to fall continue IV fluids follow renal function and CPK sepsis low-grade fever with tachycardia, tachypnea chest x-ray showed interstitial marking question infiltrate continue IV Zosyn and follow urinalysis
[2019-12-16 12:12] LABS: Magnesium 2.3 mg/dL (1.6-2.6)
[2019-12-16] MEDS: Lactated Ringers 1,000 ML 125 ML IVCONT ×2 (13:18→23:05)
[2019-12-16 14:15] LABS: Glucose Urine UA NEG (NEG); Leukocyte Esterase Urine NEG (NEG); Nitrite Urine NEG (NEG); PH 5.5 (5.0-8.0); Specific Gravity - Urine 1.025 (1.005-1.025); Urine Blood 3+ (NEG); Urine Ketones 15 MG/DL (NEG); Urine Protein 1+ MG/DL (NEG-TRACE)
[2019-12-16 14:20] LABS: Appearance Urine CLOUDY; Color Urine PINK
[2019-12-16 14:33] LABS: Bacteria Urine 1+ /LPF; RBC Urine TNTC /HPF (0); Squamous Epithelial Cell Urine TRACE /LPF; Uric Acid Crystals Urine 3+ /LPF; WBC Urine 0-2 /HPF (0-4)
[2019-12-16 14:51] LABS: Amphetamine Screen Urine Not Detected (Not Detect); Barbiturates, Urine POSITIVE (Not Detect); Benzodiazepines Screen Urine Not Detected (Not Detect); Cannabinoid Screen Urine POSITIVE (Not Detect); Cocaine Screen Urine Not Detected (Not Detect); Opiate Screen Urine Not Detected (Not Detect); Phencyclidine Screen Urine Not Detected (Not Detect)
[2019-12-16 16:29] LABS: Vancomycin Trough < 3.0 mcg/mL (10.0-20.0)
[2019-12-16 16:34] LABS: Anion Gap 16 (12-20); Blood Urea Nitrogen 24 mg/dL (9-16); Carbon Dioxide 22 mmol/L (22-29); Chloride 109 mmol/L (96-108); Creatinine Clr Calc Pharmacy 70.2; Estimated Glomerular Filt Rate > 60; Glucose Fasting 124 mg/dL (60-99); Potassium 3.9 mmol/l (3.3-5.1); Sodium 143 mmol/L (135-145)
[2019-12-16 17:02] LABS: Calcium 9.2 mg/dL (8.4-10.2)
[2019-12-16] MEDS: vancomycin HCL 1,000 MG in 0.9 % Sodium Chloride 250 ML 180 MG IV (17:25)
[2019-12-16 20:31] LABS: Pt Ventilation O2% 2 L
[2019-12-16 20:43] LABS: ABG PCO2 28 mmhg (32-45); pH ABG 7.47 (7.35-7.45)
[2019-12-16 20:44] LABS: Base Excess ABG -2.3; HCO3 ABG 20 mmol/l (22-26); PO2 ABG 69 mmhg (83-108)
[2019-12-16 20:45] LABS: Blood Gas Serial # 5396
[2019-12-16] MEDS: Metoprolol Tartrate 25 MG TABLET PO (22:27)
[2019-12-17] MEDS: Piperacillin Sodium/Tazobactam 3.375 GM in 0.9 % Sodium Chloride 50 ML IV ×5 (00:02→23:28)
[2019-12-17] MEDS: dexAMETHasone sod phosphate 4 MG/ML VIAL IVPUSH ×4 (00:02→18:29)
[2019-12-17 03:52] VITALS: BP 143/94; PULSE 98; RESP 18; TEMP 37.3; O2SAT 95
[2019-12-17] MEDS: 0.9 % Sodium Chloride Flush 3 ML SYRINGE IVFLUSH ×2 (04:25→23:29)
[2019-12-17 05:36] LABS: Basophils Percent Auto 0.1 % (0-2); Hematocrit 44.8 % (42-52); Imm Gran Abs Auto 0.05 X10*3/uL (0.00-0.03); Imm Gran Pct Auto 0.4 % (0.0-0.4); Lymphocytes Absolute Auto 0.6 X10*3/uL (1.2-4.9); Lymphocytes Percent Auto 5.1 % (20-40); MANUAL DIFF FLAG SCAN; Mean Corpuscular HGB Conc 33.5 g/dl (31.0-36.0); Mean Corpuscular Hemoglobin 31.3 pg (27.0-33.0); Mean Corpuscular Volume 93.3 fL (80-98); Mean Platelet Volume 10.9 fL (9.4-12.4); Monocytes Absolute Auto 0.8 X10*3/uL (0.1-1.2); Monocytes Percent Auto 6.4 % (2-11); Neutrophils Absolute Auto 10.6 X10*3/uL (2.0-8.3); Platelet Count 307 X10*3/uL (160-400); Red Cell Distribution Width 13.6 % (11.0-16.0); SCAN SMEAR FLAG 1; White Blood Count 12.1 X10*3/uL (4.8-10.8)
[2019-12-17 05:50] LABS: Anion Gap 17 (12-20); Blood Urea Nitrogen 24 mg/dL (9-16); Calcium 8.8 mg/dL (8.4-10.2); Carbon Dioxide 21 mmol/L (22-29); Chloride 111 mmol/L (96-108); Creatinine Clr Calc Pharmacy 76.5; Estimated Glomerular Filt Rate > 60; Glucose Random 103 mg/dL (60-115); Potassium 4.3 mmol/l (3.3-5.1); Sodium 145 mmol/L (135-145)
[2019-12-17 05:55] LABS: SLIDE REVIEW VERIFIED
[2019-12-17 06:00] VITALS: BMI 26.7
[2019-12-17] MEDS: vancomycin HCL 1,000 MG in 0.9 % Sodium Chloride 250 ML 250 MG IV ×2 (06:13→17:03)
[2019-12-17] MEDS: Lactated Ringers 1,000 ML 125 ML IVCONT (06:16)
[2019-12-17 08:00] VITALS: BP 118/74; PULSE 77; RESP 18; TEMP 37.1; O2SAT 93
[2019-12-17 12:00] VITALS: BP 136/72; PULSE 88; RESP 19; TEMP 36.5; O2SAT 93
--- NOTE | 2019-12-17 13:19 | HO.PM.IMPN ---
Subjective Subjective Date of Service: 12/17/19 Interval History: patient resting in bed comfortably, is somnolent and arousable offers no complaints Review of Systems unable to obtain review of system due to somnolence and speech impairment Physical Exam Vital Signs: Vital Signs: Vital Signs Temp Pulse Resp BP Pulse Ox 12/17/19 08:00 98.8 F 77 18 118/74 93 12/17/19 03:52 99.2 F 98 18 143/94 H 95 12/16/19 22:54 99.1 F 116 H 18 92 12/16/19 22:27 110 H 115/81 12/16/19 19:27 99 F 97 15 128/82 98 12/16/19 15:58 97.6 F 76 18 128/78 95 Body Mass Index 26.7 General patient resting comfortably no acute distress. Neck is supple no JVD. CVS regular rate rhythm, Respiratory lungs clear to auscultation, no respiratory distress Gastrointestinal abdomen soft, nontender, bowel sounds audible, Extremities no clubbing cyanosis or edema. Neuro left hemiparesis. Objective Data Current Medications Generic Name Dose Route Start Last Admin Trade Name Freq PRN Reason Stop Dose Admin Acetaminophen 650 mg 12/16/19 03:53 Acetaminophen 325 Mg Tablet PO Q6H PRN Pain, Mild (Pain Scale 1-3) Dexamethasone Sodium Phosphate 4 mg 12/16/19 06:00 12/17/19 12:38 Dexamethasone Sod Phosphate 4 Mg/Ml Vial IVPUSH 4 mg Q6H CHRIS Administration Docusate Sodium 100 mg 12/16/19 03:53 Docusate Sodium 100 Mg Capsule PO DAILY PRN Constipation Folic Acid 1 mg 12/16/19 09:00 12/17/19 09:45 Folic Acid 1 Mg Tablet PO Not Given DAILY CHRIS Piperacillin Sod/Tazobactam 50 mls @ 100 mls/hr 12/16/19 06:00 12/17/19 13:07 Sod 3.375 gm/ Sodium Chloride IV Infused Q6H CHRIS Infusion Lactated Ringer's 1,000 mls @ 125 mls/hr 12/16/19 03:53 12/17/19 13:15 Lr IVCONT 100 mls/hr .Q8H CHRIS Infusion Vancomycin HCl 1,000 mg/ 270 mls @ 180 mls/hr 12/16/19 17:00 12/17/19 07:18 Sodium Chloride IV Infused Q12H [facility] Infusion Medication 1 each 12/16/19 09:00 No Benzodiazepines MISCELLANE DAILY CHRIS Metoprolol Tartrate 25 mg 12/16/19 16:00 12/17/19 09:46 Metoprolol Tartrate 25 Mg Tablet PO Not Given Q6H [facility] Protocol Ondansetron HCl 4 mg 12/16/19 03:53 Ondansetron Hcl 4 Mg/2 Ml Vial IVPUSH Q8H PRN Nausea and Vomiting Pharmacy Consult 1 each 12/16/19 15:24 Consult Rx Vancomycin Dosing MISCELLANE DAILY PRN Consult order Sodium Chloride 3 ml 12/16/19 08:00 12/17/19 07:53 0.9 % Sodium Chloride Flush 3 Ml Syringe IVFLUSH Not Given QSHIFT CHRIS Thiamine HCl 100 mg 12/16/19 09:00 12/17/19 09:46 Thiamine Hcl 100 Mg Tablet PO Not Given DAILY CHRIS Labs CBC & Chem 7: 12/17/19 04:28 12/17/19 04:28 Microbiology Microbiology Results: Microbiology 12/15/19 22:59 Blood - Venous Blood Culture - Preliminary 12/15/19 22:59 Blood - Venous Blood Culture - Preliminary Assessment and Plan (1) Brain mass: Status: Acute (2) Rhabdomyolysis: Status: Acute (3) Sepsis: Status: Acute (4) Urinary retention with incomplete bladder emptying: Status: Acute (5) Hematuria: Status: Acute (6) Alcohol abuse: Status: Acute (7) Fall: Status: Acute (8) COPD (chronic obstructive pulmonary disease): Status: Acute (9) Gram-positive bacteremia: Status: Acute Assessment and Plan: 64-year-old gentleman with past medical history of COPD, active alcohol and tobacco use was brought into [facility] as he was found by his friend lying on the floor, in the ER patient was noted to have left hemiparesis, labs showed an elevated WBC count of 15.7 creatinine of 1.06, elevated LFTs and CPK of 3407, troponin of to 2747, head CT showed 3.8 centimetre heterogenous mass lesion in the right frontal lobe with significant surrounding edema patient has been admitted with multiple medical problems. 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, continue Decadron , obtain Oncology eval will obtain PT OT and speech therapy eval alcohol abuse and withdrawal continue phenobarb protocols and IV fluid with thiamine and folic acid, normal magnesium and electrolytes Aniongap metabolic acidosis likely due to alcohol abuse resolved, continue IV fluid Elevated troponin EKG with prolonged QTC, nonspecific ST change, elevated trops likely due to tachycardia and rhabdo, added beta blockers, continue tele monitor, check lipid profile, patient denies chest pain, obtain echo and Cardio eval Rhabdomyolysis due to fall continue IV fluids , CPK trending down renal function stable sepsis low-grade fever with tachycardia, tachypnea , 2 set of blood cultures positive for gram-positive cocci chest x-ray showed interstitial marking question infiltrate , UA with 1+ bacteria normal WBC continue IV Zosyn and vancomycin DVT prophylaxis will place on lovenox.
[2019-12-17] MEDS: Enoxaparin Sodium 40 MG/0.4 ML SYRINGE SUBCUT (14:44)
[2019-12-17 15:45] VITALS: BP 130/75; PULSE 86; RESP 18; TEMP 36.8; O2SAT 93
[2019-12-17] MEDS: Lactated Ringers 1,000 ML 100 ML IVCONT (15:59)
[2019-12-17 19:48] VITALS: BP 132/76; PULSE 83; RESP 20; TEMP 36.9
[2019-12-18] VITALS (8 sets, daily range): BP systolic 115–140; BP diastolic 65–80; PULSE 73–113; RESP 16–22; TEMP 36.7–37; O2SAT 92–96; BMI 20.1
--- NOTE | 2019-12-18 | ECG_ITS ---
Test Reason : prolonged qtc Blood Pressure : / mmHG Vent. Rate : 081 BPM Atrial Rate : 082 BPM P-R Int : 102 ms QRS Dur : 078 ms QT Int : 426 ms P-R-T Axes : 081 051 058 degrees QTc Int : 494 ms Normal sinus rhythm Normal ECG When compared with ECG of 16-DEC-2019 04:46, T wave amplitude has decreased in Anterolateral leads Referred By: Guero Handley Electronically Signed By:AMANDA FAJARDO MD
[2019-12-18] MEDS: Morphine Sulfate 2 MG/ML CARTRIDGE 1 MG IVPUSH ×3 (00:16→12:51)
[2019-12-18] MEDS: dexAMETHasone sod phosphate 4 MG/ML VIAL IVPUSH ×4 (02:14→19:50)
[2019-12-18 04:02] LABS: Basophils Percent Auto 0.1 % (0-2); Hematocrit 42.6 % (42-52); Hemoglobin 14.2 g/dl (14.0-18.0); Imm Gran Abs Auto 0.04 X10*3/uL (0.00-0.03); Imm Gran Pct Auto 0.4 % (0.0-0.4); Lymphocytes Absolute Auto 0.7 X10*3/uL (1.2-4.9); Lymphocytes Percent Auto 6.5 % (20-40); MANUAL DIFF FLAG NO; Mean Corpuscular HGB Conc 33.3 g/dl (31.0-36.0); Mean Corpuscular Hemoglobin 31.8 pg (27.0-33.0); Mean Corpuscular Volume 95.3 fL (80-98); Mean Platelet Volume 9.9 fL (9.4-12.4); Monocytes Absolute Auto 0.7 X10*3/uL (0.1-1.2); Monocytes Percent Auto 6.3 % (2-11); Neutrophils Absolute Auto 9.5 X10*3/uL (2.0-8.3); Neutrophils Percent Auto 86.7 % (45-73); Platelet Count 271 X10*3/uL (160-400); Red Blood Count 4.47 X10*6/uL (4.60-5.80); Red Cell Distribution Width 13.4 % (11.0-16.0); White Blood Count 10.9 X10*3/uL (4.8-10.8)
[2019-12-18 04:45] LABS: Vancomycin Trough 9.9 mcg/mL (10.0-20.0)
[2019-12-18 04:59] LABS: Anion Gap 17 (12-20); Blood Urea Nitrogen 25 mg/dL (9-16); Calcium 8.2 mg/dL (8.4-10.2); Carbon Dioxide 22 mmol/L (22-29); Chloride 110 mmol/L (96-108); Cholesterol 190 mg/dL; Creatinine Clr Calc Pharmacy 99.5; Estimated Glomerular Filt Rate > 60; Glucose Random 105 mg/dL (60-115); HDL Cholesterol 41 mg/dL; LDL Cholesterol Calculated 119 mg/dl; Potassium 3.9 mmol/l (3.3-5.1); Sodium 145 mmol/L (135-145); Triglycerides 153 mg/dL
[2019-12-18] MEDS: Piperacillin Sodium/Tazobactam 3.375 GM in 0.9 % Sodium Chloride 50 ML IV ×3 (06:23→19:50)
[2019-12-18] MEDS: Lactated Ringers 1,000 ML 100 ML IVCONT (06:24)
[2019-12-18] MEDS: vancomycin HCL 1,000 MG in 0.9 % Sodium Chloride 250 ML 250 MG IV (06:35)
--- NOTE | 2019-12-18 07:27 | MHC.PIE ---
P - PT C/O BACK PAIN & REQUESTS MS1MG IV WITH EFFECT RIBS, BACK AND RESPONDS APPROPRIATELY/COOPERATIVE WITH CARE. IMPULSIVE - UPSET RE: NPO STATUS I - MEDICATED WITH MORPHINE 1MG IVX [address] CORONA WITH EFFECT OF NODDING OFF/ON, FREQUENT ORAL CARE & EDUCATION, FREQUENT REPOSITION E -CONTINUE TO MONITOR
[2019-12-18] MEDS: 0.9 % Sodium Chloride Flush 3 ML SYRINGE IVFLUSH ×2 (10:35→17:15)
--- NOTE | 2019-12-18 11:06 | P.CONCA_ITS ---
History of Present Illness History of Present Illness Date of Consult: December 18, 2019 Requesting physician: Guero Handley Chief complaint: Brain mass, sepsis, +troponins Narrative: 64-year-old gentleman who is presenting with left-sided weakness and was found down. His brain imaging has shown brain mass. He is also growing Gram-positive cocci in his blood. His CPKs and troponin levels were elevated. He currently has dense left-sided hemiparesis. He has been started on IV steroids to decrease the edema in the brain. He denies any chest discomfort shortness of breath to me. He does not remember what happened to him before he came to the hospital. He just remembers waking up in the hospital with left- sided weakness. He has background of alcoholism and is saying that he was drinking approximately 12 beers a day. Review of Systems Review of Systems: Left-sided weakness. No chest pain or shortness of breath. Yes all other systems are reviewed and are negative Cardiovascular: Cardiovascular: Denies syncope Neurologic: Denies syncope [facility] Past Medical History Medical History Alcohol abuse COPD (chronic obstructive pulmonary disease) Social History Social History Household Members: None Housing Other:: mobile home Do you presently have visiting nurse or other home services: No Alcohol intake: unknown Smoking Status: Current every day smoker Tobacco Type: Cigarette Packs Per Day: 2 Cigarettes Per Day: 40.0 Smoked in Last 30 Days: Yes Patient Interested in Nicotine Replacement: Yes Use of substances other than those prescribed or required for medical reasons: Yes Substance Use Type: Marijuana Substance Use Frequency: Daily Last Used Substance: Hours (ago) Currently Displaying Signs/Symptoms of Drug Intoxication Withdrawal: No Have you been hit, kicked, punched, or otherwise hurt by someone within the past year? If so, by whom?: No Do you feel safe in your current relationship?: Yes Is there a partner from a previous relationship who is making you feel unsafe now?: No Are you made to feel afraid or neglected: No Advance Directives: No Do you have thoughts of harming others: None Do you have a plan to hurt others: No Plan Recently lost weight without trying: Yes service: No Current occupational status: unemployed Meds Allergies Allergy/AdvReac Type Severity Reaction Status Date / Time No Known Allergies Allergy Unverified 11/02/19 15:52 [No Known Allergies*] Home Medications Medication Instructions Recorded Confirmed Type Unobtainable 12/15/19 12/15/19 History Physical Exam Vital Signs: Vital Signs: Vital Signs Temp Pulse Resp BP Pulse Ox 12/18/19 07:52 98.2 F 79 22 H 115/67 92 12/18/19 00:16 18 12/18/19 00:00 98.2 F 80 18 131/80 93 12/17/19 19:48 98.4 F 83 20 132/76 12/17/19 15:45 98.2 F 86 18 130/75 93 12/17/19 12:00 97.7 F 88 19 136/72 93 Body Mass Index 20.1 GENERAL APPEARANCE: in no acute distress. HEENT: unremarkable. HEAD: normocephalic, atraumatic. NECK/THYROID: no carotid bruit, no jugular venous distention. SKIN: no suspicious lesions, warm and dry. HEART: no murmurs, regular rate and rhythm, S1, S2 normal. LUNGS: clear to auscultation bilaterally. ABDOMEN: normal, bowel sounds present, soft, nontender, nondistended. EXTREMITIES: no clubbing, cyanosis, or edema. PERIPHERAL PULSES: equal. NEUROLOGIC: Dense left-sided hemiparesis. PSYCH: Depressed. Results Labs and Meds Result diagrams: 12/18/19 03:52 12/18/19 03:52 Lab results: Laboratory Results - last 24 hr 12/18/19 12/18/19 12/18/19 03:52 03:52 03:52 WBC 10.9 H RBC 4.47 L Hgb 14.2 Hct 42.6 MCV 95.3 MCH 31.8 MCHC 33.3 RDW 13.4 Plt Count 271 MPV 9.9 Immature Gran % (Auto) 0.4 Neut % (Auto) 86.7 H Lymph % (Auto) 6.5 L Brooke % (Auto) 6.3 Eos % (Auto) 0.0 Baso % (Auto) 0.1 Lymph # (Auto) 0.7 L Brooke # (Auto) 0.7 Eos # (Auto) 0.0 Baso # (Auto) 0.0 Abs Immat Gran (auto) 0.04 H Absolute Neuts (auto) 9.5 H Absolute Nucleated RBC 0.000 Nucleated RBC % (auto) 0.0 Sodium 145 Potassium 3.9 Chloride 110 H Carbon Dioxide 22 Anion Gap 17 BUN 25 H Creatinine 0.75 Estim Creat Clear Calc 99.5 Estimated GFR > 60 Random Glucose 105 Calcium 8.2 L Total Creatine Kinase 1082 H D Triglycerides 153 Cancelled Cholesterol 190 Cancelled LDL Cholesterol, Calc 119 Cancelled HDL Cholesterol 41 Cancelled Vancomycin Trough 12/18/19 03:52 WBC RBC Hgb Hct MCV MCH MCHC RDW Plt Count MPV Immature Gran % (Auto) Neut % (Auto) Lymph % (Auto) Brooke % (Auto) Eos % (Auto) Baso % (Auto) Lymph # (Auto) Brooke # (Auto) Eos # (Auto) Baso # (Auto) Abs Immat Gran (auto) Absolute Neuts (auto) Absolute Nucleated RBC Nucleated RBC % (auto) Sodium Potassium Chloride Carbon Dioxide Anion Gap BUN Creatinine Estim Creat Clear Calc Estimated GFR Random Glucose Calcium Total Creatine Kinase Triglycerides Cholesterol LDL Cholesterol, Calc HDL Cholesterol Vancomycin Trough 9.9 L Imaging MRI - head: Radiologist's impression: Heterogeneous 3.8 cm mass in the right frontal lobe with internal hemorrhagic products and prominent perilesional edema. No additional abnormal intracranial enhancement is demonstrated. 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 Mild underlying microangiopathy and generalized cerebral volume loss. EKG Interpretation EKG Comments: ECG from 12/15/2019 showing sinus tachycardia, normal axis, diffuse upsloping ST depressions. QTC 465 milliseconds. ECG from December 15 showing sinus rhythm, normal axis, increased T-wave amplitude in the lateral leads and prolonged QTC of 510 milliseconds. Assessment and Plan (1) Elevated troponin: Status: Acute (2) Rhabdomyolysis: Qualifiers: Encounter type: initial encounter Rhabdomyolysis type: traumatic Qualified Code(s): T79.6XXA - Traumatic ischemia of muscle, initial encounter Status: Acute (3) Brain mass: Status: Acute (4) Left hemiparesis: Status: Acute 64-year-old gentleman who was found down and has background of alcoholism. He has been found to have left-sided dense hemiparesis with brain mass with differentials of primary brain tumor versus metastatic disease. He has elevated CPKs as well as troponin levels. ECG initially was nonspecific but now is showing some prominent T-waves in the lateral leads with prolonged QTC. He has no symptoms. I think we should do an echocardiogram to assess LV for wall motion abnormalities. He has alcoholism and his potassium and magnesium must be closely monitored and repleted. Please avoid any medications which can prolong QT. His troponin elevation is likely due to rhabdomyolysis. Also with some hemorrhagic change in the brain mass, anticoagulation or antiplatelet therapy has its consequences. I think the likely issue here is fall due to his brain tumor leading to rhabdomyolysis. We will follow along with you. Thank you for allowing me to participate in the care of your patient. Please feel free to contact me if you have any questions.
--- NOTE | 2019-12-18 11:41 | MHC.CLN ---
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
--- NOTE | 2019-12-18 12:27 | MHC.CM.PN ---
per oneyda dis rounds no dc date at this time cm will continue to follow dc plan remanins home no servceis
[2019-12-18] MEDS: Enoxaparin Sodium 40 MG/0.4 ML SYRINGE SUBCUT (12:51)
--- NOTE | 2019-12-18 13:39 | HO.PM.IMPN ---
Subjective Subjective Date of Service: 12/18/19 Interval History: patient resting in bed comfortably, complaining of shoulder pain back pain, wants to drink water, no other acute issues overnight, patient's speech seen by speech therapy and they recommend to continue NPO. Review of Systems General no headache, no dizziness ,no fever chills. CVS no chest pain, no palpitation. Respiratory no cough Gastrointestinal no nausea, no vomiting, no abdominal pain Physical Exam Vital Signs: Vital Signs: Vital Signs Temp Pulse Resp BP Pulse Ox 12/18/19 12:00 98.4 F 84 20 116/65 94 12/18/19 07:52 98.2 F 79 22 H 115/67 92 12/18/19 00:16 18 12/18/19 00:00 98.2 F 80 18 131/80 93 12/17/19 19:48 98.4 F 83 20 132/76 12/17/19 15:45 98.2 F 86 18 130/75 93 Body Mass Index 20.1 General patient resting comfortably no acute distress. Neck is supple no JVD. CVS regular rate rhythm, Respiratory lungs clear to auscultation, no respiratory distress Gastrointestinal abdomen soft, nontender, bowel sounds audible, Extremities no clubbing cyanosis or edema. Neuro left hemiparesis. speech clear Caputo with clear urine Objective Data Current Medications Generic Name Dose Route Start Last Admin Trade Name Freq PRN Reason Stop Dose Admin Acetaminophen 650 mg 12/16/19 03:53 Acetaminophen 325 Mg Tablet PO Q6H PRN Pain, Mild (Pain Scale 1-3) Dexamethasone Sodium Phosphate 4 mg 12/16/19 06:00 12/18/19 12:51 Dexamethasone Sod Phosphate 4 Mg/Ml Vial IVPUSH 4 mg Q6H CHRIS Administration Docusate Sodium 100 mg 12/16/19 03:53 Docusate Sodium 100 Mg Capsule PO DAILY PRN Constipation Enoxaparin Sodium 40 mg 12/17/19 13:45 12/18/19 12:51 Enoxaparin Sodium 40 Mg/0.4 Ml Syringe SUBCUT 40 mg Q24H CHRIS Administration Folic Acid 1 mg 12/16/19 09:00 12/18/19 10:35 Folic Acid 1 Mg Tablet PO Not Given DAILY CHRIS Piperacillin Sod/Tazobactam 50 mls @ 100 mls/hr 12/16/19 06:00 12/18/19 12:52 Sod 3.375 gm/ Sodium Chloride IV 100 mls/hr Q6H CHRIS Administration Lactated Ringer's 1,000 mls @ 100 mls/hr 12/16/19 03:53 12/18/19 06:24 Lr IVCONT 100 mls/hr .Q10H CHRIS Administration Vancomycin HCl 1,000 mg/ 270 mls @ 180 mls/hr 12/16/19 17:00 12/18/19 07:57 Sodium Chloride IV Infused Q12H [facility] Infusion Medication 1 each 12/16/19 09:00 No Benzodiazepines MISCELLANE DAILY [facility] Metoprolol Tartrate 25 mg 12/16/19 16:00 12/18/19 10:36 Metoprolol Tartrate 25 Mg Tablet PO Not Given Q6H [facility] Protocol Morphine Sulfate 1 mg 12/18/19 11:30 12/18/19 12:51 Morphine Sulfate 2 Mg/Ml Cartridge IVPUSH 1 mg Q4H PRN Administration Pain and Fever Ondansetron HCl 4 mg 12/16/19 03:53 Ondansetron Hcl 4 Mg/2 Ml Vial IVPUSH Q8H PRN Nausea and Vomiting Pharmacy Consult 1 each 12/16/19 15:24 Consult Rx Vancomycin Dosing MISCELLANE DAILY PRN Consult order Sodium Chloride 3 ml 12/16/19 08:00 12/18/19 10:35 0.9 % Sodium Chloride Flush 3 Ml Syringe IVFLUSH 3 ml QSHIFT CHRIS Administration Thiamine HCl 100 mg 12/16/19 09:00 12/18/19 10:35 Thiamine Hcl 100 Mg Tablet PO Not Given DAILY [facility] Labs CBC & Chem 7: 12/18/19 03:52 12/18/19 03:52 Microbiology Microbiology Results: Microbiology 12/15/19 22:59 Blood - Venous Blood Culture - Preliminary Coagulase-neg Staphyloccocus 12/15/19 22:59 Blood - Venous Blood Culture - Preliminary Streptococcus mitis/oralis Coag negative Staphylococcus Gram positive cocci Assessment and Plan (1) Brain mass: Status: Acute (2) Rhabdomyolysis: Status: Acute (3) Sepsis: Status: Acute (4) Urinary retention with incomplete bladder emptying: Status: Acute (5) Hematuria: Status: Acute (6) Alcohol abuse: Status: Acute (7) Fall: Status: Acute (8) COPD (chronic obstructive pulmonary disease): Status: Acute (9) Gram-positive bacteremia: Status: Acute Assessment and Plan: 64-year-old gentleman with past medical history of COPD, active alcohol and tobacco use was brought into [facility] as he was found by his friend lying on the floor, in the ER patient was noted to have left hemiparesis, labs showed an elevated WBC count of 15.7 creatinine of 1.06, elevated LFTs and CPK of 3407, troponin of to 2747, head CT showed 3.8 centimetre heterogenous mass lesion in the right frontal lobe with significant surrounding edema patient has been admitted with multiple medical problems. 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 Spann she recommend to transfer patient for neuro surgical evaluation once hemodynamically stable. will discuss Decadron tapering with . patient seen by speech therapy they recommend continue NPO and modified barium swallow that will be ordered, patient seen by physical therapy they recommended rehab since patient have some left-sided neglect and severely impaired functional mobility, alcohol abuse and withdrawal continue phenobarb protocols and IV fluid with thiamine and folic acid, normal magnesium and electrolytes, will continue to follow magnesium and potassium since patient has elevated QTC mild LFT elevation likely due to alcohol no abdominal pain. Aniongap metabolic acidosis likely due to alcohol abuse resolved, continue IV fluid Elevated troponin EKG with prolonged QTC, nonspecific ST change, elevated trops likely due to tachycardia and rhabdo, added beta blockers, continue tele monitor,ldl 119,t.chol 190, patient denies chest pain, echo and Cardio eval pend. will start low-dose statins once able to tolerate by mouth Rhabdomyolysis due to fall continue IV fluids , CPK trending down, 3799 to 1082, renal function stable. sepsis low-grade fever with tachycardia, tachypnea , 2 set of blood cultures positive for gram-positive cocci chest x-ray showed interstitial marking question infiltrate , UA with 1+ bacteria normal WBC continue IV Zosyn and vancomycin consult ID Vanco trough 9.9 will adjust dose of vanco prolonged QTC no prior EKGs for comparison, will keep magnesium greater than 2 and potassium around 4. mild malnutrition pt. npo order MBSS if remains npo will consider peg tube DVT prophylaxis on lovenox. spoke with patient's healthcare proxy Matt at phone number [phone] and updated him about patient's condition.
--- NOTE | 2019-12-18 13:58 | FL_ITS ---
EXAMINATION: XR BARIUM SWALLOW CLINICAL INFORMATION: Dysphagia COMPARISON: None TECHNIQUE: Fluoroscopic guidance was provided to speech and hearing department for modified barium swallow. Liquid barium and various food mixed with barium was a financial market dealer. FINDINGS: There is significant retention in vallecula seen with all media. There was laryngeal penetration seen at the conclusion of the exam when the patient was given solid food followed by liquid barium. No altagracia aspiration seen. FLUOROSCOPY TIME: 4.1 minutes DOSE AREA PRODUCT: 4.5 henderson per centimeter squared.) FL/FL barium swallow modified IMPRESSION: Fluoroscopic guidance for modified barium swallow. Significant retention in the vallecula seen with all media. Laryngeal penetration seen with solid food mixed with barium followed by liquid barium. See speech and hearing report for detailed findings.
--- NOTE | 2019-12-18 14:00 | CA_ITS ---
Transthoracic Echocardiogram Patient (Last, First, Middle): Nathen De Jesus A Gender: Male Date of : 1955 Age: 64 Procedure Date: 12/18/2019 Procedure Type: Transthoracic Echocardiogram Location: [facility] [place] Height: 175.26 cm Weight: 65.77 kg BSA: 1.80 m2 Heart Rate: bpm BP: 12 / 60 mmHg Mobile Application Architect: Referring MD: Jannie Yuan MD Symptoms: elevtaed troponin Study Quality: Technically Difficult ECG Rhythm: Sinus Conclusions: - Technically limited echocardiogram with off axis imaging. - Normal LVEF. - The inferoseptal wall is hypokinetic. - The basal anteroseptal and mid anteroseptal segments are akinetic. - The left atrium is severely dilated. Findings Left Ventricle Normal left ventricular size, thickness, and systolic function. The visually estimated ejection fraction is between 55-60%. There is evidence of regional wall motion abnormalities. Diastolic function is normal for age. Wall Motion Rest Echo Findings The inferoseptal wall is hypokinetic. The basal anteroseptal and mid anteroseptal segments are akinetic. Right Ventricle Normal right ventricular cavity size and systolic function. Atria The left atrium is severely dilated. Aortic Valve The aortic valve was not well visualized. There is no aortic valve stenosis. There is no aortic valve regurgitation. Mitral Valve There is moderate mitral annular calcification. There is no mitral valve regurgitation. There is no mitral valve stenosis. Pulmonic Valve Normal pulmonic valve structure and function. There is trace pulmonic valve regurgitation. Tricuspid Valve Normal tricuspid valve structure and function. Normal right atrial pressure. There is no evidence of pulmonary hypertension. Great Vessels The aorta was not well visualized. The visualized portions of the pulmonary artery and branches are normal. Venous The inferior vena cava is normal in size and collapses greater than 50% with inspiration. Pericardium/Pleural There is no evidence of pericardial effusion. Prior Study Comparison No prior study available for comparison. Measurements 2D Linear Measurements IVSd: 0.95 0.6-0.9/0.6-1.0 cm LVIDd: 4.78 3.9-5.3/4.2-5.9 cm LVIDd Index: 2.66 2.4-3.2/2.2-3.1 cm/m2 LVIDs: 3.40 2.0-3.6 cm LVPWd: 0.98 0.7-1.1 cm Ao Root: 2.60 2.1-3.5 cm LA Diam: 3.90 2.7-3.8/3.0-4.0 cm LAIDs Index: 2.17 1.5-2.3 cm/m2 LV Mass: 201.46 67-162/88-224 g LV Mass Index: 111.92 43-95/49-115 g/m2 LVOT Diam: 1.90 3.0+(-)1.3 cm Mitral Valve MV Pk E: 0.78 MV PK A: 0.84 MV Decel Time: 209.00 E/A: 0.90 E'Lateral: 9.90 E'Medial: 8.70 E/E' Med: 9.00 E/E' Lat: 7.90 PHT: 61.00 MVA PHT: 3.61 Decel Cidra: 3.74 Aortic Valve AoV Pk Ming: 1.42 AoV Mn Ming: 0.87 AoV VTI: 0.31 AoV Pk Grad: 8.00 Aov Mn Grad: 4.00 BESS Cont.VTI: 2.14 LVOT LVOT Pk Ming: 0.98 LVOT Mn Ming: 0.65 LVOT VTI: 0.23 LVOT Pk Grad: 4.00 LVOT Mn Grad: 2.00 LVOT Diam: 1.90 LVOT Area: 2.84 Diastolic Function MV Pk E: 0.78 MV Pk A: 0.84 E/A: 0.90 E'Medial: 8.70 E/E' Med: 9.00 E' Laterial: 9.90 E/E' Lat: 7.90 Tricuspid Valve TR Pk Ming: 1.46 TR Pk Grad: 9.00 RA Press: 3.00 RVSP: 12.00 Great Vessels Aorta Ao Root-2D: 2.60 2.0-3.7 cm Updated in Other Vendor System with Status of Final Jeff Quintero MD electronically signed on 12/18/2019 6:36:19 PM with status of Final
[2019-12-18 14:16] LABS: Magnesium 2.1 mg/dL (1.6-2.6)
--- NOTE | 2019-12-18 15:41 | P.DS_ITS ---
DS: Providers Provider Date of admission: 12/16/19 00:54 Primary care physician: Unknown Physician Consults: 12/16/19 03:53 Consult to Neurology Routine Consulting Provider: [facility] Reason for consultation: brain mass Has provider been notified: Yes 12/17/19 13:36 Consult to Hematology / Oncology Routine Consulting Provider: Amadeo Ramírez Reason for consultation: brain mass Has provider been notified: No 12/17/19 13:44 Consult to Cardiology Routine Consulting Provider: Flavio Forbes Reason for consultation: elevated trop prolong qtc Has provider been notified: No 12/18/19 13:40 Consult to Infectious Diseases Routine Consulting Provider: Rocio Ferrara Reason for consultation: bacteremia Has provider been notified: Yes DS: Diagnosis Discharge Diagnosis (1) Brain mass: Status: Acute (2) Rhabdomyolysis: Status: Acute (3) Sepsis: Status: Acute (4) Urinary retention with incomplete bladder emptying: Status: Acute (5) Hematuria: Status: Acute (6) Alcohol abuse: Status: Acute (7) Fall: Status: Acute (8) COPD (chronic obstructive pulmonary disease): Status: Acute (9) Gram-positive bacteremia: Status: Acute DS: Summary Hospital Course Hospital Course: HPI from admission 12/16/[address] Rowe 64-year-old male with past medical history of COPD who presents to the hospital after being found down on the floor by his friend. Although patient alert and oriented, it is not clear if he is completely a reliable historian. Patient lives alone, and is a daily drinker. Per patient he tripped on his cat, fell, and had difficulty getting up due to weakness. He reports no previous fall episodes, he denies feeling any weakness, no palpitations, no dizziness, no loss of consciousness, no prodromal symptoms and no loss of consciousness. Patient has very poor hygiene, is alert and oriented, he denies having any chest pain, shortness of breath, headache, no change in vision, no weakness tingling numbness in any of his extremities. Patient reports that he uses a walker to walk around the house. He denies any abdominal pain, nausea or vomiting, no diarrhea or constipation, he reports blood in his urine. he reports that he was on the floor for 3 hours. he also tells me that he lost significant amount of weight in few days. On arrival to the ED patient found to have heart rate of 138, respiratory rate of 33, blood pressure 147/94, satting 92% on 2 L of oxygen. Labs are significant for WBC count of 15.7, sodium of 144, BUN of 30, creatinine of 1.06, AST of 105, ALT of 44, CPK of 3407, troponin of 2774. CT of the head 12/16/19 shows a 3.8 cm heterogeneous mass lesion within the right frontal lobe with significant surrounding perilesional edema. Necrotic center and likely with a small volume of intralesional hemorrhage. No evidence of acute traumatic intracranial hemorrhage. Past medical history: Reports only COPD, alcohol abuse Surgical history: DeniesSocial history: Comes from home, uses a cane to ambulate, smokes about 2 packs a day, drinks about 15 beers daily, denies illicit drug. 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 Was seen by DR. Jackson Neurologist on 12/15 and recommended MRI and since there was no seizure, he is not recommending anti seizure meds. Dr. Spann (oncologist) recommends transfer patient for neurosurgical evaluation, possible biopsy and likely radiation therapy. He will continue Decadron at 4 mg Q6 hrs Dysphagia likely related to brain mass. Speech therapy recommend NPO and modified barium swallow showed retention in the vallecula seen with all media. Laryngeal penetration seen with solid food mixed with barium followed by liquid barium, will keep NPO for now and have repeat a speech therapy evaluation at am, patient seen by physical therapy they recommended rehab Alcohol Dependence and withdrawal--He has been treated with phenobarb protocols and IV fluid , normal magnesium and electrolytes. Replace electrolytes as needed Milfd LFT elevation (AST 105, ALT 44) likely due to alcohol no abdominal pain. Monitor Aniongap Metabolic Acidosis with Bicab of 27 on admission, likely alcoholic ketoacidosis and has resolved with IVF, last AGAP on 12/17 is 17 Elevated hightly sensitive troponin EKG with prolonged QTC, nonspecific ST change, elevated trops likely due to tachycardia.. Cardiology (Dr. Quintero) think these changes all related to rhabdo and not acute ACS and further he's not a candidate for intervention and antiplatlets or anticoagulation due to mass with hemorragic component. Echo obtained report pending Rhabdomyolysis due to fall continue IV fluids , CPK trending down, 3407 on 12/15 and 1082 on 12/17 Polymicrobial bacteremia with coag neg staph in bottle, Strep mitis/oralis, gram positive cocci--no fever--Initially was on Zosyn and Vanco for presumed sepsis but once culture became apparent ID (Dr. Ferrara ) said He has multiple different bacteria in two blood cultures bottles Coagulase negative and strep appear to be contaminant at this time He has brain lesion doubt infection and no further antiboitcs Prolonged QTC no prior EKGs, Magnesium is normal. Initially 510 and now 494 today 12/17 Status at Discharge Functional status at discharge: bed bound Time Spent with Patient Time attestation: Total time spent providing and/or coordinating discharge services: Time spent: Greater than 30 minutes Physical Exam Vital Signs: Vital Signs: Vital Signs Temp Pulse Resp BP Pulse Ox 12/18/19 12:00 98.4 F 84 20 116/65 94 12/18/19 07:52 98.2 F 79 22 H 115/67 92 12/18/19 00:16 18 12/18/19 00:00 98.2 F 80 18 131/80 93 12/17/19 19:48 98.4 F 83 20 132/76 12/17/19 15:45 98.2 F 86 18 130/75 93 Body Mass Index 20.1 DS: Data Data Completed and Pending Labs on day of discharge: Laboratory Tests 12/15/19 12/17/19 12/18/19 22:59 04:28 03:52 WBC 15.7 H 12.1 H 10.9 H Hgb 18.0 15.0 14.2 Plt Count 413 H 307 D 271 Laboratory Tests 12/15/19 12/16/19 12/17/19 22:59 15:35 04:28 Sodium 144 145 Carbon Dioxide 16 L 21 L Anion Gap 27 H 17 BUN 30 H 24 H 24 H Creatinine 1.06 0.78 12/18/19 03:52 Sodium 145 Carbon Dioxide 22 Anion Gap 17 BUN 25 H Creatinine 0.75 Laboratory Tests 12/15/19 12/16/19 12/18/19 22:59 04:46 03:52 Magnesium 2.3 2.1 Total Creatine Kinase 3407 H 3799 H 1082 H D Laboratory Tests 12/18/19 03:52 Triglycerides 153 Cholesterol 190 HDL Cholesterol 41 Laboratory Tests Brain MRI 12/17:IMPRESSION: Heterogeneous 3.8 cm mass in the right frontal lobe with internal hemorrhagic products and prominent perilesional edema. No additional abnormal intracranial enhancement is demonstrated. 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 Mild underlying microangiopathy and generalized cerebral volume loss. Dictated By:HARINI CARDENAS DO Signed By:<Electronically signed by HARINI CARDENAS DO in OV>12/16/19 1546 HIP/Pelvis xray 05/15: INDINGS: No fracture or dislocation. The femoral heads are well-seated within their acetabula. Joint spaces are maintained with mild subchondral sclerosis. The pelvic rim is intact. The sacroiliac joints and pubic symphysis are intact. The bowel gas pattern is unremarkable. CXR 12/14:MPRESSION: Increased interstitial markings as described. May be chronic versus infiltrate. Brain CT: 12/14:MPRESSION: There is a 3.8 cm heterogeneous mass lesion within the right frontal lobe with significant surrounding perilesional edema. This lesion appears centrally necrotic and likely with small volume of intralesional hemorrhage. There also is some degree of heterogeneity within the pontomedullary junction. This may be artifactual in nature; however, a second intracranial lesion remains a consideration. Recommend further characterization with brain MRI. No evidence of acute traumatic intracranial hemorrhage. No evidence of acute fracture or traumatic subluxation of the cervical spine. Moderate multilevel degenerative spondyloarthropathy of the cervical spine. Moderate sinonasal mucosal disease. Hyperattenuating material within the bilateral maxillary sinuses may represent hemorrhagic products. No demonstrated fractures of the partially visualized maxillofacial bones. This critical result was discussed with Dr. Velasquez at 22:14 on 12/15/2019 and it was ascertained that the content and urgency of the report was understood at the time of direct communication. Microbiology: Blood cultures from 12/14 Organism 1 Streptococcus mitis/oralis Organism 2 Coag negative Staphylococcus Organism 3 Gram positive cocci S mitas/or M.I.C. RX --------- --- Ampicillin Strep <=0.25 S Ceftriaxone <=0.12 S Penicillin-G <=0.06 S Vancomycin (STREP) 0.5 S Discharge Plan Discharge Anticipated Discharge Date/Time: 12/18/19 15:31 Patient Disposition: [facility] Referrals: Physician,Unknown [Primary Care Provider] - Discharge Medications: New metoprolol tartrate 25 mg Tablet 25 mg PO Q6H Qty: 30 RF: 0 ondansetron HCl (PF) 4 mg/2 mL Solution 4 mg IVPUSH Q8H PRN (Reason: Nausea And Vomiting) 5 Days RF: 0 morphine 2 mg/mL Syringe 1 mg IVPUSH Q4H PRN (Reason: Pain And Fever) 5 Days Qty: 20 RF: 0 dexamethasone sodium phosphate 4 mg/mL Solution 4 mg IVPUSH Q6H 5 Days Qty: 20 RF: 0 Continued omeprazole magnesium [Prilosec OTC] 20 mg Tablet,Delayed Release (Dr/Ec) 20 mg PO DAILY RF: 0 Discontinued acetaminophen [Tylenol Arthritis] 650 mg Tablet Extended Release 650 mg PO Q8H PRN (Reason: Pain) RF: 0 Discharge Orders: Discharge Order (Routine); Ordered 12/18/19 Ordered By: Jannie Yuan Activity on Discharge: npo Visit Report Forms: Patient Portal Discharge page Care Plan Goals: By workup for brain mass, dysphagia Health Concerns: Likely glioblastoma, sepsis with polymicrobial organisms Plan of Treatment: Transfer to [facility] for neurosurgical evaluation and management of newly diagnosed right frontal lob mass likely glioblastom and will likely require urgent radiation therapy
--- NOTE | 2019-12-18 16:16 | P.CNID_ITS ---
History of Present Illness Data of Consult Service Date: 12/18/19 Requesting physician: Jannie Yuan Primary Care Provider: Unknown Physician HPI Reason for consult: bacteremia He presents to hospital after being found down by a friend He drinks alcohol to excess He has 3.8 cm brain lesion mass with necrotic center found in right frontal area of brain He has had blood cultures staph epi and one strep viridans Review of Systems Review of Systems: Yes Unobtainable due to mental condition Cardiovascular: Cardiovascular: Denies syncope Neurologic: Denies syncope [facility] Past Medical History Medical History Alcohol abuse COPD (chronic obstructive pulmonary disease) Cognitive capacity: poor Social History Social History Household Members: None Housing Other:: mobile home Do you presently have visiting nurse or other home services: No Alcohol intake: unknown Smoking Status: Current every day smoker Tobacco Type: Cigarette Packs Per Day: 2 Cigarettes Per Day: 40.0 Smoked in Last 30 Days: Yes Patient Interested in Nicotine Replacement: Yes Use of substances other than those prescribed or required for medical reasons: Yes Substance Use Type: Marijuana Substance Use Frequency: Daily Last Used Substance: Hours (ago) Currently Displaying Signs/Symptoms of Drug Intoxication Withdrawal: No Have you been hit, kicked, punched, or otherwise hurt by someone within the past year? If so, by whom?: No Do you feel safe in your current relationship?: Yes Is there a partner from a previous relationship who is making you feel unsafe now?: No Are you made to feel afraid or neglected: No Advance Directives: No Do you have thoughts of harming others: None Do you have a plan to hurt others: No Plan Recently lost weight without trying: Yes service: No Current occupational status: unemployed Meds Allergies Allergy/AdvReac Type Severity Reaction Status Date / Time No Known Allergies Allergy Unverified 11/02/19 15:52 [No Known Allergies*] Home Medications Medication Instructions Recorded Confirmed Type acetaminophen [Tylenol Arthritis] 650 mg PO Q8H PRN 12/18/19 12/18/19 History omeprazole magnesium [Prilosec OTC] 20 mg PO DAILY 12/18/19 12/18/19 History Physical Exam Vital Signs: Vital Signs: Vital Signs Temp Pulse Resp BP Pulse Ox 12/18/19 15:47 98.6 F 87 18 140/75 H 96 12/18/19 12:00 98.4 F 84 20 116/65 94 12/18/19 07:52 98.2 F 79 22 H 115/67 92 12/18/19 00:16 18 12/18/19 00:00 98.2 F 80 18 131/80 93 12/17/19 19:48 98.4 F 83 20 132/76 Body Mass Index 20.1 Const: General: cooperative, intoxicated appearing and poor hygiene Orie ntation/consciousness: oriented to person, oriented to place and oriented to time HENMT: Head: Yes normal to inspection Ears: hearing grossly normal bilaterally Mouth: Normal oral and palatal mucosa present Eyes: General: appearance normal, both eyes and all related structures Resp: Effort & Inspection: normal respiratory effort Cardio: Rate: regular rate Rhythm: regular rhythm GI: Inspection: Yes normal to inspection and Yes scaphoid : General: Yes no CVA tenderness Back/Spine/Pelvis: Back: no CVA tenderness Skin: General skin exam: no rashes or lesions noted Neuro: General: oriented to person, oriented to place, oriented to time and Unable to assess gait Gait exam (Neuro): Unable to assess gait Coordination: No [id number] test normal Comatose Patient: No decorticate rigidity Assessment and Plan (1) Gram-positive bacteremia: Problem details: He has multiple different bacteria in two blood cultures bottles Coagulase negative and strep appear to be contaminant at this time He has brain lesion doubt infection Status: Acute No Vancomycin at this time Evaluation per Neurosurgery see what brain lesion is If it appears to be infection, check echo,but looks like necrotic tumor Results Labs CBC & Chem 7: 12/18/19 03:52 12/18/19 03:52 Labs: Short CBC 12/18/19 Range/Units 03:52 WBC 10.9 H (4.8-10.8) X10*3/uL Hgb 14.2 (14.0-18.0) g/dl Hct 42.6 (42-52) % Plt Count 271 (160-400) X10*3/uL BMP 12/18/19 03:52 Sodium 145 Potassium 3.9 Chloride 110 H Carbon Dioxide 22 BUN 25 H Creatinine 0.75 Calcium 8.2 L Cardiac Enzymes 12/18/19 Range/Units 03:52 Total Creatine Kinase 1082 H D (38-174) U/L Microbiology Microbiology Results: Microbiology 12/15/19 22:59 Blood - Venous Blood Culture - Preliminary Coagulase-neg Staphyloccocus 12/15/19 22:59 Blood - Venous Blood Culture - Preliminary Streptococcus mitis/oralis Coag negative Staphylococcus Gram positive cocci
--- NOTE | 2019-12-18 16:25 | PM.EVENT ---
Full consult to follow. Reviewed imaging with radiologist, brain to male appears to be glioblastoma. He will need neurosurgical evaluation. Agree with Decadron for brain edema. Transfer to [facility] when patient is medically stable.
--- NOTE | 2019-12-18 16:51 | PM.DS ---
DS: Providers Provider Date of admission: 12/16/19 00:54 Primary care physician: Unknown Physician Consults: 12/16/19 03:53 Consult to Neurology Routine Consulting Provider: [facility] Reason for consultation: brain mass Has provider been notified: Yes 12/17/19 13:36 Consult to Hematology / Oncology Routine Consulting Provider: Amadeo Ramírez Reason for consultation: brain mass Has provider been notified: No 12/17/19 13:44 Consult to Cardiology Routine Consulting Provider: Flavio Forbes Reason for consultation: elevated trop prolong qtc Has provider been notified: No 12/18/19 13:40 Consult to Infectious Diseases Routine Consulting Provider: Rocio Ferrara Reason for consultation: bacteremia Has provider been notified: Yes DS: Diagnosis Discharge Diagnosis (1) Brain mass: Status: Acute (2) Rhabdomyolysis: Status: Acute (3) Sepsis: Status: Acute (4) Urinary retention with incomplete bladder emptying: Status: Acute (5) Hematuria: Status: Resolved (6) Alcohol abuse: (7) Fall: Status: Resolved (8) COPD (chronic obstructive pulmonary disease): (9) Gram-positive bacteremia: Status: Acute DS: Summary Hospital Course Hospital Course: HPI from admission 12/16/[address] Rowe 64-year-old male with past medical history of COPD who presents to the hospital after being found down on the floor by his friend. Although patient alert and oriented, it is not clear if he is completely a reliable historian. Patient lives alone, and is a daily drinker. Per patient he tripped on his cat, fell, and had difficulty getting up due to weakness. He reports no previous fall episodes, he denies feeling any weakness, no palpitations, no dizziness, no loss of consciousness, no prodromal symptoms and no loss of consciousness. Patient has very poor hygiene, is alert and oriented, he denies having any chest pain, shortness of breath, headache, no change in vision, no weakness tingling numbness in any of his extremities. Patient reports that he uses a walker to walk around the house. He denies any abdominal pain, nausea or vomiting, no diarrhea or constipation, he reports blood in his urine. he reports that he was on the floor for 3 hours. he also tells me that he lost significant amount of weight in few days. On arrival to the ED patient found to have heart rate of 138, respiratory rate of 33, blood pressure 147/94, satting 92% on 2 L of oxygen. Labs are significant for WBC count of 15.7, sodium of 144, BUN of 30, creatinine of 1.06, AST of 105, ALT of 44, CPK of 3407, troponin of 2774. CT of the head 12/16/19 shows a 3.8 cm heterogeneous mass lesion within the right frontal lobe with significant surrounding perilesional edema. Necrotic center and likely with a small volume of intralesional hemorrhage. No evidence of acute traumatic intracranial hemorrhage. Past medical history: Reports only COPD, alcohol abuse Surgical history: DeniesSocial history: Comes from home, uses a cane to ambulate, smokes about 2 packs a day, drinks about 15 beers daily, denies illicit drug. 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 Was seen by DR. Jackson Neurologist on 12/15 and recommended MRI and since there was no seizure, he is not recommending anti seizure meds. Dr. Spann (oncologist) recommends transfer patient for neurosurgical evaluation, possible biopsy and likely radiation therapy. He will continue Decadron at 4 mg Q6 hrs Dysphagia likely related to brain mass. modified barium swallow showed retention in the vallecula seen with all media. Laryngeal penetration seen with solid food mixed with barium followed by liquid barium, Speech therapy recommending ground solid and honey thick liquids by tsp and to take caution since patient is at high risk for aspiration, they recommend patient to sit up during meals for at least 30-60 minutes afterwards they recommend bed to be elevated and frequent oral care patient will need continued speech therapy monitoring, patient seen by physical therapy they recommended rehab Alcohol Dependence and withdrawal--He has been treated with phenobarb protocols and IV fluid , normal magnesium and electrolytes. Replace electrolytes as needed Milfd LFT elevation (AST 105, ALT 44) likely due to alcohol no abdominal pain. Monitor Aniongap Metabolic Acidosis with Bicab of 27 on admission, likely alcoholic ketoacidosis and has resolved with IVF, last AGAP on 12/17 is 17 Elevated hightly sensitive troponin EKG with prolonged QTC, nonspecific ST change,Echo from 12/17 showed septal wall motion abnormality, EF 55-60% Dr. Quintero from Cardiology evaluated the patient and felt he's not a candidate for intervention and antiplatlets or anticoagulation due to mass with hemorragic component. Rhabdomyolysis due to fall continue IV fluids , CPK trending down, 3407 on 12/15 and 1082 on 12/17 Polymicrobial bacteremia with coag neg staph in bottle, Strep mitis/oralis, gram positive cocci--no fever--Initially was on Zosyn and Vanco for presumed sepsis but once culture became apparent ID (Dr. Ferrara ) said He has multiple different bacteria in two blood cultures bottles Coagulase negative and strep appear to be contaminant at this time He has brain lesion doubt infection and no further antiboitcs Prolonged QTC no prior EKGs, Magnesium is normal. Initially 510 and now 494 today 12/17 Time Spent with Patient Time attestation: Total time spent providing and/or coordinating discharge services: Physical Exam Vital Signs: Vital Signs: Vital Signs Temp Pulse Resp BP Pulse Ox 12/18/19 15:47 98.6 F 87 18 140/75 H 96 12/18/19 12:00 98.4 F 84 20 116/65 94 12/18/19 07:52 98.2 F 79 22 H 115/67 92 12/18/19 00:16 18 12/18/19 00:00 98.2 F 80 18 131/80 93 12/17/19 19:48 98.4 F 83 20 132/76 Body Mass Index 20.1 General patient resting comfortably no acute distress. Neck is supple no JVD. CVS regular rate rhythm, Respiratory lungs clear to auscultation, no respiratory distress Gastrointestinal abdomen soft, nontender, bowel sounds audible, Extremities no clubbing cyanosis or edema. Neuro left hemiparesis. speech clear Caputo with clear urine DS: Data Data Completed and Pending Labs on day of discharge: Laboratory Tests 12/15/19 12/17/19 12/18/19 22:59 04:28 03:52 WBC 15.7 H 12.1 H 10.9 H Hgb 18.0 15.0 14.2 Plt Count 413 H 307 D 271 Laboratory Tests 12/15/19 12/16/19 12/17/19 22:59 15:35 04:28 Sodium 144 145 Carbon Dioxide 16 L 21 L Anion Gap 27 H 17 BUN 30 H 24 H 24 H Creatinine 1.06 0.78 12/18/19 03:52 Sodium 145 Carbon Dioxide 22 Anion Gap 17 BUN 25 H Creatinine 0.75 Laboratory Tests 12/15/19 12/16/19 12/18/19 22:59 04:46 03:52 Magnesium 2.3 2.1 Total Creatine Kinase 3407 H 3799 H 1082 H D Laboratory Tests 12/18/19 03:52 Triglycerides 153 Cholesterol 190 HDL Cholesterol 41 Laboratory Tests Brain MRI 12/17:IMPRESSION: Heterogeneous 3.8 cm mass in the right frontal lobe with internal hemorrhagic products and prominent perilesional edema. No additional abnormal intracranial enhancement is demonstrated. 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 Mild underlying microangiopathy and generalized cerebral volume loss. Dictated By:HARINI CARDENAS DO Signed By:<Electronically signed by HARINI CARDENAS DO in OV>12/16/19 1546 HIP/Pelvis xray 05/15: INDINGS: No fracture or dislocation. The femoral heads are well-seated within their acetabula. Joint spaces are maintained with mild subchondral sclerosis. The pelvic rim is intact. The sacroiliac joints and pubic symphysis are intact. The bowel gas pattern is unremarkable. CXR 12/14:MPRESSION: Increased interstitial markings as described. May be chronic versus infiltrate. Brain CT: 12/14:MPRESSION: There is a 3.8 cm heterogeneous mass lesion within the right frontal lobe with significant surrounding perilesional edema. This lesion appears centrally necrotic and likely with small volume of intralesional hemorrhage. There also is some degree of heterogeneity within the pontomedullary junction. This may be artifactual in nature; however, a second intracranial lesion remains a consideration. Recommend further characterization with brain MRI. No evidence of acute traumatic intracranial hemorrhage. No evidence of acute fracture or traumatic subluxation of the cervical spine. Moderate multilevel degenerative spondyloarthropathy of the cervical spine. Moderate sinonasal mucosal disease. Hyperattenuating material within the bilateral maxillary sinuses may represent hemorrhagic products. No demonstrated fractures of the partially visualized maxillofacial bones. This critical result was discussed with Dr. Velasquez at 22:14 on 12/15/2019 and it was ascertained that the content and urgency of the report was understood at the time of direct communication. Microbiology: Blood cultures from 12/14 Organism 1 Streptococcus mitis/oralis Organism 2 Coag negative Staphylococcus Organism 3 Gram positive cocci S mitas/or M.I.C. RX --------- --- Ampicillin Strep <=0.25 S Ceftriaxone <=0.12 S Penicillin-G <=0.06 S Vancomycin (STREP) 0.5 S Discharge Plan Discharge Anticipated Discharge Date/Time: 12/18/19 15:31 Patient Disposition: [facility] Referrals: Elizabet So MD [Physician] - Physician,Unknown [Primary Care Provider] - Discharge Medications: New metoprolol tartrate 25 mg Tablet 25 mg PO Q6H Qty: 30 RF: 0 ondansetron HCl (PF) 4 mg/2 mL Solution 4 mg IVPUSH Q8H PRN (Reason: Nausea And Vomiting) 5 Days RF: 0 morphine 2 mg/mL Syringe 1 mg IVPUSH Q4H PRN (Reason: Pain And Fever) 5 Days Qty: 20 RF: 0 dexamethasone sodium phosphate 4 mg/mL Solution 4 mg IVPUSH Q6H 5 Days Qty: 20 RF: 0 Continued omeprazole magnesium [Prilosec OTC] 20 mg Tablet,Delayed Release (Dr/Ec) 20 mg PO DAILY RF: 0 Discontinued acetaminophen [Tylenol Arthritis] 650 mg Tablet Extended Release 650 mg PO Q8H PRN (Reason: Pain) RF: 0 Discharge Orders: Discharge Order (Routine); Ordered 12/18/19 Ordered By: Jannie Yuan Diet: regular diet Activity on Discharge: bedrest Discharge Date/Time: 12/18/19 22:43 Visit Report Forms: Patient Portal Discharge page Care Plan Goals: By workup for brain mass, speech therapy recommend ground solids and honey thick liquids by tsp with caution as patient is high risk for aspiration. Health Concerns: Likely glioblastoma, sepsis with polymicrobial organisms Plan of Treatment: Transfer to [facility] for neurosurgical evaluation and management of newly diagnosed right frontal lob mass likely glioblastom and will likely require urgent radiation therapy
[2019-12-18] MEDS: Metoprolol Tartrate 25 MG TABLET PO ×2 (17:14→22:21)
[2019-12-18] MEDS: vancomycin HCL 1,250 MG in 0.9 % Sodium Chloride 250 ML 180 MG IV (19:59)
--- NOTE | 2019-12-19 03:53 | PC.NURSE ---
Pt failed barrium swallow eval, suggested nectar thick liquids tolerated well with aspiration precautions maintained. took lopressor crushed in a/s tolerated well. OOB with 2-3 assist tolerated poorly for moderate BM, karli care given. Pt aware of transfer to [facility] to [place] [id number], vss, stach 118-130 before lopressor decreased to upper 50's to 70's sbrady to [facility]. Report given to Bozena GARCIA @ [phone] @ [phone]. [facility] with LR infusing as ordered & f/c in tact - drained 150 cloudy dark bozena urine before discharge. Glasses left behind & transported to [facility] in am after shift end by this RN to Lidia Tolbert
== END 2019-12-18 22:43 | disposition short-term general hospital (02) | DRG 55 ==
LOC: HO.ED 23:46 → HO.IMC 12-16 01:13
PROVIDERS: Internal Medicine; Admitting Provider Internal Medicine; Emergency Provider Student in an Organized Health Care Education/Training Program; Visit Provider Hospitalist
DX: C71.1 Malignant neoplasm of frontal lobe (principal); G81.94 Hemiplegia, unspecified affecting left nondominant side; E44.1 Mild protein-calorie malnutrition; E87.2 Acidosis; F10.239 Alcohol dependence with withdrawal, unspecified; T79.6XXA Traumatic ischemia of muscle, initial encounter; W19.XXXA Unspecified fall, initial encounter; Y93.9 Activity, unspecified; Y92.9 Unspecified place or not applicable; Y99.9 Unspecified external cause status; Z20.828 Contact with and (suspected) exposure to other viral communicable diseases; R31.9 Hematuria, unspecified; R94.31 Abnormal electrocardiogram [ECG] [EKG]; R33.9 Retention of urine, unspecified; F17.210 Nicotine dependence, cigarettes, uncomplicated; Z68.20 Body mass index [BMI] 20.0-20.9, adult; Z71.6 Tobacco abuse counseling; Z79.899 Other long term (current) drug therapy
CPT/HCPCS: 36415; 36600; 70450; 70553; 71045; 72125; 73502; 74018; 74230; 80048; 80053; 80061; 80202; 80307; 80320; 81001; 82550; 82803; 83605; 83690; 83735; 84484; 85025; 85610; 87040; 87077; 87147; 87186; 92610; 92611; 93005; 93306; 96365; 96375; 97163; 99285; A9585; J1100; J1650; J2270; J2543; J2560; J3370; U0003

== ENCOUNTER 2023-06-10 07:10 | Emergency (ER) | payer MEDICARE, SELFPAY ==
--- NOTE | ~2023-06-10 | CT_ITS ---
EXAMINATION: CT ABDOMEN AND PELVIS WITHOUT CONTRAST CLINICAL INFORMATION: Abdominal pain. Constipation. COMPARISON: 03/25/2016 TECHNIQUE: Multidetector volumetric imaging was performed from the superior aspect of the liver through the pubic symphysis. Sagittal and coronal reformatted images were obtained on the technologist's workstation. This CT examination was performed using dose optimization techniques as appropriate, variously including the following: *Automated exposure control *Adjustment of mA and/or kV according to patient size (this includes techniques or standardized protocols for targeted exams where dose is matched to indication/reason for exam; i.e. extremities or head) *Use of iterative reconstruction technique DLP: 325 mGy-cm FINDINGS: LUNG BASES: Bronchial malone are chronically, diffusely, mildly thickened. HEPATOBILIARY: Liver has normal size, shape, and attenuation. Gallbladder has a normal appearance. No dilated bile ducts. PANCREAS: The coarse calcifications within the pancreas are consistent with sequela of prior/chronic pancreatitis. There are no acute inflammatory changes. SPLEEN: Normal. ADRENAL GLANDS: 1.3 x 1.6 cm solid, smoothly marginated nodule of the left adrenal gland has density of -15 Hounsfield units, consistent with lipid rich adenoma, and this nodule is unchanged in size compared to 03/25/2016. No adrenal imaging follow-up recommended. KIDNEYS AND URETERS: Kidneys are normal in size. 0.3 cm calcification in the right hilar region appears to be a calcification/phlebolith of the renal vein. There are no calyceal stones. No hydronephrosis or perinephric edema. The ureters are unremarkable. BLADDER: Normal. BOWEL AND PERITONEUM: There is contrast material within the nondilated small bowel and colon. The stomach is underdistended. The thickness of the gastric wall appears to be greater than typically seen in an underdistended stomach. This limited examination does not exclude gastritis. No evidence of wall thickening of small or large bowel. No pericolonic fat stranding, free fluid or pneumoperitoneum. Moderate amount of fecal material is present in the colon. The rectum is distended up to 6.5 cm transverse diameter by the fecal material. This could be a manifestation of constipation. There is mild haziness of the perirectal fat no perirectal fluid collection. ABDOMINAL WALL: Unremarkable. VASCULATURE: Atherosclerotic calcification of the abdominal aorta and iliac arteries without aneurysm. LYMPH NODES: No pathologic sized lymph nodes in the abdomen or pelvis. No inguinal lymphadenopathy. PELVIC VISCERA: Prostate gland is unremarkable. No pelvic fluid collection. MUSCULOSKELETAL: Chronic severe degenerative disc disease at L3-L4, L4-L5 and L5-S1. CT/CT abdomen pelvis wo IV con IMPRESSION: * There is prominent fecal material of the rectum and sigmoid colon. This could be a manifestation of constipation. The mild haziness of the perirectal fat requires clinical correlation. This could be a manifestation of a mild stercoral proctitis. * The stomach is poorly evaluated due to lack of distention, and this examination would not be able to exclude wall thickening from gastritis. * Chronic pancreatitis. However, no evidence of acute pancreatitis. 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
[2023-06-10 07:17] VITALS: BP 114/70; PULSE 81; RESP 17; TEMP 36.8; O2SAT 97
[2023-06-10 07:22] VITALS: BP 114/70; BP 118/76; PULSE 86; PULSE 90; RESP 18; TEMP 36.8; O2SAT 96; O2SAT 98; BMI 17.4
--- NOTE | 2023-06-10 07:26 | ED_ITS ---
HPI - General Adult General Chief complaint: Urogenital-Male Stated complaint: catheter problem Time Seen by Provider: 06/10/23 07:16 Source: patient Mode of arrival: ambulatory Limitations: no limitations History of Present Illness HPI narrative: 67 yo pmhx of frontal lobe mass s/p resection at [facility] on 06/03/23, rhabdomyolysis, copd, urinary retention w/ incomplete bladder emptying, alcohol use disorder presenting with constipation and inability to void X 1 week. Patient tells me he had a sosa put in for surgery and since then has not been able to urinate or have a normal bowel movment. Tells me that at times when he goes over a bump he has small amount of diarrhea noted. He thinks he was given opiates while in the hospital but unclear exactly which. He tells me whats bothering him most is his diffuse abdominal discomfort but its worse in the lower region. Tells me he is not passing gas. Denies CP, sob, fevers, chills, nausea, vomiting. Related Data Home Medications ?Medication ?Instructions ?Recorded ?Confirmed omeprazole magnesium 20 mg 20 mg PO DAILY 12/18/19 12/18/19 tablet,delayed release (Prilosec OTC) Previous Rx's ?Medication ?Instructions ?Recorded dexamethasone sodium phosphate 4 4 mg IVPUSH Q6H 5 days #20 mL 12/18/19 mg/mL injection solution metoprolol tartrate 25 mg tablet 25 mg PO Q6H #30 tabs 12/18/19 morphine 2 mg/mL intravenous 1 mg (0.5 mL) IVPUSH Q4H PRN Pain 12/18/19 syringe And Fever 5 days #20 mL ondansetron HCl (PF) 4 mg/2 mL 4 mg (2 mL) IVPUSH Q8H PRN Nausea 12/18/19 injection solution And Vomiting 5 days cefuroxime axetil 250 mg tablet 250 mg PO BID 7 days #14 tabs 06/10/23 docusate sodium 100 mg capsule 100 mg PO BID #20 caps 06/10/23 (Colace) polyethylene glycol 3350 17 17 g PO BID #238 grams 06/10/23 gram/dose oral powder (Miralax) sennosides 8.6 mg tablet (senna) 8.6 mg PO BEDTIME #14 tabs 06/10/23 Allergies Allergy/AdvReac Type Severity Reaction Status Date / Time No Known Allergies Allergy Verified 06/10/23 07:27 [No Known Allergies*] Review of Systems 2 Review of Systems: Yes all other systems are reviewed and are negative [facility] Past Medical History Attestation statement: The following information was validated with the patient. Source: old records reviewed and nursing notes reviewed Medical History Alcohol abuse COPD (chronic obstructive pulmonary disease) Social History Social History Household Members: None Housing Other:: mobile home Do you presently have visiting nurse or other home services: No Alcohol intake: current Alcohol intake frequency: 3 or more drinks per day Comment: avasystem + Cigarette Packs Per Day: 2 Cigarettes Per Day: 40.0 Smoked in Last 30 Days: Yes Use of substances other than those prescribed or required for medical reasons: Yes Substance Use Type: Marijuana Advance Directives: Yes Advance Directives on File: Yes Advance Directives Date on File: 12/19/19 Do you have a plan to hurt others: No Plan service: No Current occupational status: unemployed Physical Exam ED Vital Signs: Vital Signs - 24 hr 06/10/23 07:17 06/10/23 07:22 06/10/23 13:08 Temperature 98.2 F 98.2 F 97.9 F Pulse Rate 81 86 79 Respiratory Rate 17 18 17 Blood Pressure 114/70 114/70 108/70 Pulse Oximetry 97 96 98 Oxygen Delivery Method Room Air Room Air Room Air BMI result Body Mass Index 17.4 vss Appearance: Alert.? Oriented X3.? No acute distress.? Head: Normocephalic, atraumatic, no step-offs or deformities Eyes: Pupils equal, round and reactive to light.? Neck: Normal inspection.? Neck supple.? CVS: Normal heart rate and rhythm.? Pulses normal.? Respiratory: No respiratory distress.? Breath sounds normal.? Abdomen: Diffuse discomfort > lower region. Slightly distended & tense to lower region. Skin: Skin warm and dry.? Normal skin color.? Normal skin turgor.? Extremities: No lower extremity edema.? No calf ttp. 5/5 strength to bilateral upper and lower extremities Back: No midline tenderness, no C-spine tenderness, full range of motion, no CVA tenderness bilaterally Neuro: Oriented X 3.? No motor deficit.? No sensory deficit. CN 2-12 intact Course Reevaluation(s) Reevaluation #1: CBC with slight leukocytosis and left shift. Chemistry no acute findings requiring emergent intervention. Normal CPK. I was informed by nursing that patient had a bladder scan done that showed 590, he voided around 250, postvoid residual of about 300. I did discuss this with urology who recommends to place a Sosa catheter for 2 weeks and 7 days of antibiotics for UTI. Patient also did have a bowel movement while here in the department. He reports his abdominal pain is feeling better. CT scan pending Time: 11:13 Reevaluation #2: CT abdomen prominent fecal material in the rectum and sigmoid colon. This is likely from constipation. Mild haziness of the perirectal fat, I do not think this is stercoral proctitis no rectal pain. Plan dc w/ atbx and sosa cath w/ urology follow up he agrees and understands plan. Educated patient on diagnosis and treatment plan, answered all question, patient verbalizes understanding. At this time patient will be discharged home, advised to return with new or worsening symptoms. Educated on worrisome signs and symptoms and when to return. At this time I feel comfortable discharge home. Time: 13:25 Medications Administered Discontinued Medications Generic Name Dose Route Start Last Admin Trade Name Aurelianoq PRN Reason Stop Dose Admin Diatrizoate Meglum/Diatrizoate Sod 30 ml 06/10/23 11:24 06/10/23 11:24 Diatrizoate Meglumine, Sodium 30 Ml Solution PO 06/10/23 11:25 30 ml ONCE ONE Administration Lidocaine HCl 10 ml 06/10/23 10:13 06/10/23 11:32 Lidocaine Hcl 2 % Urojet 10 Ml Jel.Pf.Omega TOPICAL 06/10/23 10:14 10 ml ONCE ONE Administration Medical Decision Making Medical Decision Making MDM Narrative: 67 yo m presents w/ abd discomfort, not passing gas, constipation and inability to void X 1 week. PE Diffuse discomfort > lower region. Slightly distended & tense to lower region. HX and pe concerning for urinary retention w/ incomplete bladder emptying as he has hx of this likely worsened s/p surgery also concerns for constipation likely from opiates vs obstruction . Will rule out UTI, cystitis, rhabdo and nephrolithiasis. Will rule out metabolic derangments. I do not suspect cauda equina, cord compression, acute abdomen, ischemic bowel. No trauma. Plan- labs, imaging, urine Differential Diagnosis Differential Diagnoses: The differential diagnosis associated with the presentation includes HX and pe concerning for urinary retention w/ incomplete bladder emptying as he has hx of this likely worsened s/p surgery also concerns for constipation likely from opiates vs obstruction . Will rule out UTI, cystitis, rhabdo and nephrolithiasis. Will rule out metabolic derangments. I do not suspect cauda equina, cord compression, acute abdomen, ischemic bowel. No trauma. Admission/Observation Consideration of admission/observation: Escalation of care including admission/observation considered Lab Data MDM Lab Attestation statement: I reviewed the patient's lab results. 06/10/23 07:42 06/10/23 07:42 Labs: Lab Results 06/10/23 06/10/23 06/10/23 Range/Units 07:42 07:43 08:49 WBC 10.9 H (4.8-10.8) X10*3/uL RBC 4.04 L (4.60-5.80) X10*6/uL Hgb 12.8 L (14.0-18.0) g/dl Hct 37.2 L (42.0-52.0) % MCV 92.1 (80.0-98.0) fL MCH 31.7 (27.0-33.0) pg MCHC 34.4 (31.0-36.0) g/dl RDW 12.8 (11.0-16.0) % Plt Count 314 (160-400) X10*3/uL MPV 9.0 L (9.4-12.4) fL Immature Gran % (Auto) 0.5 H (0.0-0.4) % Neut % (Auto) 85.3 H (45-73) % Lymph % (Auto) 5.2 L (20-40) % [place] % (Auto) 8.2 (2-11) % Eos % (Auto) 0.5 (0-4) % Baso % (Auto) 0.3 (0-2) % Lymph # (Auto) 0.6 L (1.2-4.9) X10*3/uL [place] # (Auto) 0.9 (0.1-1.2) X10*3/uL Eos # (Auto) 0.1 (0.0-0.4) X10*3/uL Baso # (Auto) 0.0 (0.0-0.2) X10*3/uL Abs Immat Gran (auto) 0.05 H (0.00-0.03) X10*3/uL Absolute Neuts (auto) 9.3 H (2.0-8.3) x10*3/uL Absolute Nucleated RBC 0.000 (0.0-0.012) X10*3/uL Nucleated RBC % (auto) 0.0 (0.0-0.2) /100WBC PT 11.9 (11.1-13.3) SEC INR 1.0 (0.9-1.1) Sodium 139 (135-145) mmol/L Potassium 3.6 (3.3-5.1) mmol/L Chloride 104 (96-108) mmol/L Carbon Dioxide 28 (22-29) mmol/L Anion Gap 11 L (12-20) BUN 22 H (9-16) mg/dL Creatinine 0.85 (0.5-1.4) mg/dL Estim Creat Clear Calc 63.6 Estimated GFR > 60 Random Glucose 116 H (60-115) mg/dL Calcium 9.8 D (8.4-10.2) mg/dL Magnesium 1.9 (1.6-2.6) mg/dL Total Bilirubin 0.8 (0.0-1.0) mg/dL AST 18 (5-37) U/L ALT 31 (0-40) U/L Alkaline Phosphatase 112 (39-117) U/L Total Creatine Kinase 58 (38-174) U/L Total Protein 7.5 (6.5-8.0) g/dL Albumin 4.2 (3.5-5.0) g/dL Urine Color Yellow Urine Appearance Clear Urine pH 5.5 (5.0-9.0) Ur Specific [place] 1.020 (1.005-1.025) Urine Protein Trace (Neg-Trace) mg/dL Urine Glucose (UA) Negative (Negative) mg/dL Urine Ketones Negative (Negative) mg/dL Urine Blood Negative (Negative) Urine Nitrite Positive H (Negative) Ur Leukocyte Esterase Large (3+) H (Negative) Urine RBC 0-2 (0-2) /HPF Urine WBC >50 H (0-5) /HPF Ur Squamous Epith Cells 0-2 (0-2) /HPF Urine Bacteria Trace (None Seen) Hyaline Casts 0-2 (0-2) /LPF Ethyl Alcohol < 10 mg/dL Independent Interpretation I performed an independent interpretation of an: CT Scan (CT/CT abdomen pelvis wo IV con IMPRESSION: * There is prominent fecal material of the rectum and sigmoid colon. This could be a manifestation of constipation. The mild haziness of the perirectal fat requires clinical correlation. This could be a manifestation of a mild stercoral proctitis. * The) Radiology Impression Discussion of test interpretation with radiology: I have reviewed the radiologist's reading. Prescription Management I considered prescription management with: Antibiotic Chronic Conditions Patient?s care impacted by: Other (benedicto tumor sp resection) Critical Care Time Critical Care Time Critical Care Time: Yes Total Critical Care Time: 35 Attestation: I attest to this time spent taking care of the patient, obtaining history, physical, reviewing labs, imaging, speaking to my attending, specialist or hospitalist. Discharge Plan Discharge Clinical Impression: Acute UTI, Acute on chronic urinary retention, Constipation Patient Disposition: Home, Self-Care Instructions: Constipation (ED), Urinary Tract Infection in Men (ED), High Fiber Diet (ED), Acute Abdominal Pain (ED) Additional Instructions: Take your medications as prescribed. If you were prescribed antibiotics today, it is important that you take your medication to their entirety, do not skip any doses, do not finish them early. Follow-up with your primary care provider this week. Return to the emergency department with new or worsening symptoms. Such as fevers, chills, chest pain, shortness of breath, nausea, vomiting, dizziness, headache, vision changes, lethargy In case of emergency call 911 Call to schedule an appointment with Urology today. You should see them within [address]/CT abdomen pelvis wo IV con IMPRESSION: * There is prominent fecal material of the rectum and sigmoid colon. This could be a manifestation of constipation. The mild haziness of the perirectal fat requires clinical correlation. This could be a manifestation of a mild stercoral proctitis. * The stomach is poorly evaluated due to lack of distention, and this examination would not be able to exclude wall thickening from gastritis. * Chronic pancreatitis. However, no evidence of acute pancreatitis. 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 Prescriptions: New cefuroxime axetil 250 mg tablet 250 mg PO BID 7 Days Qty: 14 0RF sennosides [senna] 8.6 mg tablet 8.6 mg PO BEDTIME Qty: 14 0RF docusate sodium [Colace] 100 mg capsule 100 mg PO BID Qty: 20 0RF polyethylene glycol 3350 [Miralax] 17 gram/dose powder 17 g PO BID Qty: 238 0RF No Action omeprazole magnesium [Prilosec OTC] 20 mg Tablet,Delayed Release (Dr/Ec) 20 mg PO DAILY metoprolol tartrate 25 mg Tablet 25 mg PO Q6H Qty: 30 0RF Protocol: Hold for SBP/HR < HOLD for SBP < : 90 HOLD for HR < : 60 ondansetron HCl (PF) 4 mg/2 mL Solution 4 mg IVPUSH Q8H PRN (Reason: Nausea And Vomiting) 5 Days 0RF morphine 2 mg/mL Syringe 1 mg IVPUSH Q4H PRN (Reason: Pain And Fever) 5 Days Qty: 20 0RF dexamethasone sodium phosphate 4 mg/mL Solution 4 mg IVPUSH Q6H 5 Days Qty: 20 0RF Referrals: [facility] [place] [place] [facility] [Provider Group] - 1 day Braden Mullins MD [Primary Care Provider] - 2 days Stand Alone Forms: Work/School Release Print Language: Mohawk
--- NOTE | 2023-06-10 07:30 | PC.NURSE ---
pt is alert and oriented, skin pwd, respirations even and unlabored, pt reports having brain surgery performed on at [facility], had a sosa cath inserted for surgery and removed on last wednesday is reporting that he is unable to void for the last two days, and reports lower abd pain, abd slightly hard and tender at this time, pt reports pain at 8/10. pt does report drinking alcohol daily anywhere from 3-6 drinks, last drink was yesterday, no signs of alcohol with drawl at this time, vs stable
[2023-06-10 07:45] LABS: MANUAL DIFF FLAG NO
[2023-06-10 07:48] LABS: Basophils Percent Auto 0.3 % (0-2); Eosinophils Absolute Auto 0.1 X10*3/uL (0.0-0.4); Eosinophils Percent Auto 0.5 % (0-4); Hematocrit 37.2 % (42.0-52.0); Hemoglobin 12.8 g/dl (14.0-18.0); Imm Gran Abs Auto 0.05 X10*3/uL (0.00-0.03); Imm Gran Pct Auto 0.5 % (0.0-0.4); Lymphocytes Absolute Auto 0.6 X10*3/uL (1.2-4.9); Lymphocytes Percent Auto 5.2 % (20-40); Mean Corpuscular HGB Conc 34.4 g/dl (31.0-36.0); Mean Corpuscular Hemoglobin 31.7 pg (27.0-33.0); Mean Corpuscular Volume 92.1 fL (80.0-98.0); Monocytes Absolute Auto 0.9 X10*3/uL (0.1-1.2); Monocytes Percent Auto 8.2 % (2-11); Neutrophils Absolute Auto 9.3 x10*3/uL (2.0-8.3); Neutrophils Percent Auto 85.3 % (45-73); Platelet Count 314 X10*3/uL (160-400); Red Blood Count 4.04 X10*6/uL (4.60-5.80); Red Cell Distribution Width 12.8 % (11.0-16.0); White Blood Count 10.9 X10*3/uL (4.8-10.8)
--- OUTSIDE RECORDS SUMMARY | 2023-06-10 07:57 | XMS_ITS | Continuity of Care Document ---
Author Organization [facility] Ranjit Nicholson Jack Address [address] [place] [address]- Care Team Providers Care Master At Arms Name Role Phone Susanna NATH, Braden Blackburn Primary Care Physician Encounter [facility] Date(s): 08/27/21 - 09/26/21 [facility] Adult [address] [place] [address]- Allergies, Adverse Reactions, Alerts No Known Allergies Immunizations Given and Recorded Vaccine Date Status Refusal Reason SARS-CoV-2 mRNA ([id number]) vax 08/25/21 Given pneumococcal 13-valent vaccine 08/25/21 Given SARS-CoV-2 (COVID-19) mRNA BNT-162b2 vac 02/10/21 Given SARS-CoV-2 (COVID-19) mRNA BNT-162b2 vac 06/16/20 Recorded influenza virus vaccine, inactivated 12/04/20 Mark rded influenza virus vaccine, inactivated 12/20/19 Give n SARS-CoV-2 (COVID-19) mRNA-1273 vaccine 07/09/20 R ecorded SARS-CoV-2 (COVID-19) mRNA-1273 vaccine 06/10/20 R ecorded tetanus/diphtheria/pertussis, acel(Tdap) 01/29/20 Given pneumococcal 23-valent vaccine 12/28/19 Given pneumococcal 23-valent vaccine 05/18/17 Recorded Zoster Vaccine Live 06/12/16 Recorded tetanus-diphtheria toxoids (Td) 11/19/06 Recorded Not Given Vaccine Date Status Refusal Reason pneumococcal 23-valent vaccine 12/20/19 Not Given Patient Refuses Medications aspirin 81 mg oral delayed release tablet 81 mg, 1, tablet, By Mouth, Daily, Refills 0, Maintenance, 07/29/20 13:33:00 EDT, Partial fill uponpatient request if the prescription is for a schedule II opioid drug. Start Date: 07/29/20 Status: Ordered atorvastatin 40 mg oral tablet See Instructions, TAKE ONE TABLET BY MOUTH EVERY DAY, # 30 Unknown, 5 Refills, [facility], 167, cm, 05/20/21 13:36:00 EDT, Height, 57.2, kg, 05/20/21 13:36:00 EDT, Dry Weight Start Date: 05/23/21 Status: Ordered dexamethasone 4 mg oral tablet See Instructions, 1 tablet By Mouth 30 min before chemotherapy, # 20 tablet, 0 Refills, Maintenance, 06/27/21 14:53:00 EDT, [facility], 167, cm, 06/27/21 14:31:00 EDT, Height, 57.3,kg, 06/27/21 14:31:00 EDT, Dry Weight Start Date: 06/27/21 Status: Ordered folic acid 1 mg oral tablet See Instructions, TAKE ONE TABLET BY MOUTH EVERY DAY, # 90 tablet, Refills 1, Instructions Replace Required Details, Route to Pharmacy Electronically, [facility], 167, cm, 06/27/21 14:31:00 EDT, Height, 57.3, kg, 06/27/21 14:31:00 EDT, D... Start Date: 07/26/21 Status: Ordered levETIRAcetam 500 mg oral tablet 1 tablet = 500 mg, By Mouth, 2 times a day, # 180 tablet, 1 Refills, Maintenance, 05/13/21 20:17:00EDT, [facility], 167, cm, 04/23/21 13:19:00 EST, Height, 57.2, kg, 04/23/21 13:19:00 EST, Dry Weight Start Date: 05/13/21 Stop Date: 11/09/21 Status: Ordered LORazepam 1 mg oral tablet See Instructions, 1 tablet By Mouth 30 min before chemotherapy, # 10 tablet, 1 Refills, Maintenance, 06/27/21 14:53:00 EDT, [facility], 167, cm, 06/27/21 14:31:00 EDT, Height, 57.3,kg, 06/27/21 14:31:00 EDT, Dry Weight Start Date: 06/27/21 Status: Ordered Melatonin 10 mg oral tablet 1 tablet = 10 mg, By Mouth, Daily at bedtime, for 30 days, # 30 tablet, 11 Refills, Acute 08/20/22 14:43:00 EDT, 08/25/21 14:43:00 EDT, [facility], Partial fill upon patient requestif the prescription is for a schedule II opioid drug.,... Start Date: 08/25/21 Stop Date: 08/20/22 Status: Ordered Milk of Magnesia Liquid 30 mL, By Mouth, Daily, PRN Constipation, 0 Refills, Maintenance, 01/02/20 10:55:00 EST, Suspension, Partial fill upon patient request Start Date: 01/02/20 Status: Ordered ondansetron 8 mg oral tablet See Instructions, 1 tablet By Mouth 30 minutes before chemotherapy and every 8 hours if needed for nausea, # 15 tablet, 5 Refills, Maintenance, 03/20/21 13:40:00 EST, [facility], ., 167, cm, 03/20/21 13:12:00 EST, Height, 56.7, kg, 0... Start Date: 03/20/21 Status: Ordered ondansetron 8 mg oral tablet See Instructions, 1 tablet By Mouth 3 times a day, # 15 tablet, 6 Refills, Maintenance, 04/11/20 15:47:00 EST, Partial fill upon patient request if the prescription is for a schedule II opioid drug. Start Date: 04/11/20 Status: Ordered pantoprazole 40 mg oral delayed release tablet 1 tablet, By Mouth, Daily, # 90 tablet, 0 Refills, 167, cm, 09/08/21 14:08:00 EDT, Height, 54.4, kg, 09/08/21 14:08:00 EDT, Dry Weight Start Date: 09/18/21 Status: Ordered Senna Plus 50 mg-8.6 mg oral tablet 2 tablet, By Mouth, Daily at bedtime, PRN Constipation, # 60 tablet, 3 Refills, Maintenance, 07/29/21 15:04:00 EDT, Tablet, [facility], Partial fill upon patient request if the prescription is for a schedule II opioid drug., 2 tablet By... Start Date: 07/29/21 Status: Ordered Temozolomide Refills 0, Maintenance, 11/11/20 14:26:00 EDT, Partial fill upon patient request if the prescription is for a schedule II opioid drug. Start Date: 11/11/20 Status: Ordered traZODone 50 mg oral tablet 50 mg, 1, tablet, By Mouth, Daily at bedtime, # 30 tablet, Refills 5, Tot. Refills 5, Maintenance, 01/23/21 11:49:00 EST, Route to Pharmacy Electronically, [facility], Partial fill upon patient request if the prescription is for a schedu... Start Date: 01/23/21 Stop Date: 07/22/21 Status: Ordered Vitamin B6 25 mg oral tablet 1 tablet = 25 mg, By Mouth, Daily, # 30 tablet, 11 Refills, Acute 11/11/21 8:00:00 EDT, 11/11/20 13:19:00 EDT, [facility], Partial fill upon patient request if the prescription is for a schedule II opioid drug., 167, cm, 10/23/20 10:42:0... Start Date: 11/11/20 Stop Date: 11/11/21 Status: Ordered Problem List Condition Effective Dates Status Health Status Inform ant Alcohol dependence(Confirmed) Active Bacteremia(Confirmed) Active Bladder outlet obstruction(Confirmed) Active Cerebral venous sinus thrombosis(Confirmed) Active COPD (chronic obstructive pu lmonary disease)(Confirmed) Active Esophageal reflux(Confirmed) Active GBM (glioblastoma multiforme)(Confirmed) Active Hypercholesterolemia(Confirmed) Active Incarcerated right inguinal hernia(Confirmed) Active Brain mass(Confirmed) Active Elevated PSA(Confirmed) Active Rhabdomyolysis(Confirmed) Active Thrombosis cerebral vein(Confirmed) Active Tobacco abuse(Confirmed) Active Caputo catheter in place(Confirmed) Active Social History Social History Type Response Smoking Status 10 or more cigarette s (1/2 pack or more)/day in last 30 days entered on: 01/12/20 Sex
--- OUTSIDE RECORDS SUMMARY | 2023-06-10 07:57 | XMS_ITS | Continuity of Care Document ---
Author Organization [facility] Ranjit Nicholson Jack lt Address [address] [place] [address]- Care Team Providers Care Packing Tractor Machine Operator Name Role Phone Braden Mullins MD Primary Care Physician Encounter [facility] Date(s): 02/26/20 - 03/27/20 [facility] Adult [address] [place] [address]- Allergies, Adverse Reactions, Alerts Substance Reaction Severity Status NKA Active Immunizations Given and Recorded Vaccine Date Status Refusal Reason tetanus/diphtheria/pertussis, acel(Tdap) 01/29/20 Given pneumococcal 23-valent vaccine 12/28/19 Given influenza virus vaccine, inactivated 12/20/19 Give n Not Given Vaccine Date Status Refusal Reason pneumococcal 23-valent vaccine 12/20/19 Not Given Patient Refuses Medications atorvastatin 40 mg oral tablet 1 tablet = 40 mg, By Mouth, Daily, # 30 tablet, 3 Refills, Maintenance, 01/29/20 12:17:00 EST, Tablet, [id number], Partial fill upon patient request if the prescription is for a schedule II opioid drug., 167, cm, 01/29/20 11:32:00 EST... Start Date: 01/29/20 Stop Date: 05/28/20 Status: Ordered Bactrim DS 800 mg-160 mg oral tablet See Instructions, 1 tablet By Mouth Every Wed during radiation therapy, # 18 tablet, 0 Refills, Maintenance, 01/10/20 15:51:00 EST, Partial fill upon patient request Start Date: 01/10/20 Status: Ordered folic acid 1 mg oral tablet 1 mg, 1, tablet, By Mouth, Daily, # 30 tablet, Refills 5, Tot. Refills 5, Maintenance, 02/15/20 6:50:00 EST, Route to Pharmacy Electronically, [facility] #[id number], Partial fill upon patient request if the prescription is for a schedule II opio... Start Date: 02/15/20 Stop Date: 08/13/20 Status: Ordered Keppra 500 mg oral tablet 1 tablet = 500 mg, By Mouth, 2 times a day, # 60 tablet, 11 Refills, Maintenance, 03/11/20 11:26:00EST, Tablet, [facility] #[id number], Partial fill upon patient request if the prescription is for a schedule II opioid drug., 167, cm, 03/11/20 10... Start Date: 03/11/20 Status: Ordered Melatonin 10 mg oral tablet 1 tablet = 10 mg, By Mouth, Daily at bedtime, for 30 days, need ov in 6 months, # 30 tablet, 5 Refills, Acute 08/13/20 6:50:00 EDT, 02/15/20 6:50:00 EST, [facility] #[id number], Partial fill upon patient request if the prescription is for a sched... Start Date: 02/15/20 Stop Date: 08/13/20 Status: Ordered Milk of Magnesia Liquid 30 mL, By Mouth, Daily, PRN Constipation, 0 Refills, Maintenance, 01/02/20 10:55:00 EST, Suspension, Partial fill upon patient request Start Date: 01/02/20 Status: Ordered pantoprazole 40 mg oral delayed release tablet 1 tablet = 40 mg, By Mouth, Daily, # 30 tablet, 0 Refills, Maintenance, 01/02/20 10:55:00 EST, EC Tablet Start Date: 01/02/20 Status: Ordered Pradaxa 150 mg oral capsule 1 capsule = 150 mg, By Mouth, 2 times a day, # 180 capsule, 1 Refills, Maintenance, 03/27/20 13:42:00 EST, Capsule, [facility], Partial fill upon patient request if the prescriptionis for a schedule II opioid drug., 167, cm, 03/11/20 10... Start Date: 03/27/20 Stop Date: 09/23/20 Status: Ordered traZODone 50 mg oral tablet 50 mg, 1, tablet, By Mouth, Daily at bedtime, # 30 tablet, Refills 11, Tot. Refills 11, Maintenance, 01/29/20 11:49:00 EST, Route to Pharmacy Electronically, [facility] #[id number], Partial fillupon patient request if the prescription is for a s... Start Date: 01/29/20 Stop Date: 01/23/21 Status: Ordered Vitamin B6 25 mg oral tablet 1 tablet = 25 mg, By Mouth, Daily, for 30 days, # 30 tablet, 5 Refills, Acute 08/13/20 6:50:00 EDT,02/15/20 6:50:00 EST, [facility] #[id number], Partial fill upon patient request if the prescription is for a schedule II opioid drug., 167, cm, 12... Start Date: 02/15/20 Stop Date: 08/13/20 Status: Ordered Problem List Condition Effective Dates Status Health Status Inform ant Alcohol dependence(Confirmed) Active Bacteremia(Confirmed) Active Bladder outlet obstruction(Confirmed) Active Cerebral venous sinus thrombosis(Confirmed) Active COPD (chronic obstructive pu lmonary disease)(Confirmed) Active GBM (glioblastoma multiforme)(Confirmed) Active Hypercholesterolemia(Confirmed) Active Brain mass(Confirmed) Active Elevated PSA(Confirmed) Active Rhabdomyolysis(Confirmed) Active Thrombosis cerebral vein(Confirmed) Active Tobacco abuse(Confirmed) Active Caputo catheter in place(Confirmed) Active Social History Social History Type Response Smoking Status 10 or more cigarette s (1/2 pack or more)/day in last 30 days entered on: 01/12/20 Sex
--- OUTSIDE RECORDS SUMMARY | 2023-06-10 07:57 | XMS_ITS | Continuity of Care Document ---
Author Organization [facility] Address [address] [place] [address]- Care Team Providers Care Surgeon Chief Name Role Phone Braden Mullins MD Primary Care Physician [place] [facility] [place]02/20 [facility] [address] [place] [id number] Attending Physician: AdmAsya beverly Admitting Physician: AdmtrAsya Referring Physician: AdmtrAsya Allergies, Adverse Reactions, Alerts Substance Reaction Severity [...] 3 Refills, Maintenance, 01/29/20 12:17:00 EST, Tablet, [id number], Partial fill upon patient request if the [...] patient request Start Date: 01/10/20 Status: Ordered Carafate 1 gm oral tablet 1 Gm, 1, tablet, By Mouth, 2 times a day, # 60 tablet, Refills 0, Maintenance, 01/12/20 11:15:00 EST, Partial fill upon patient request Start Date: 01/12/20 Status: Ordered folic acid 1 mg oral tablet 1 mg, 1, tablet, By Mouth, Daily, # 30 tablet, Refills 0, Maintenance, 12/19/19 1:28:00 EST Start Date: 12/19/19 Status: Ordered levETIRAcetam 100 mg/mL oral solution 5 mL = 500 mg, By Mouth, 2 times a day, 0 Refills, Maintenance, 01/02/20 10:55:00 EST, Solution, Partial fill upon patient request Start Date: 01/02/20 Status: Ordered melatonin 10 mg oral tablet By Mouth, Daily at bedtime, 0 Refills, Maintenance, 01/02/20 10:55:00 EST, Tablet, Partial fill upon patient request Start Date: 01/02/20 Status: Ordered Milk of Magnesia Liquid 30 mL, By Mouth, Daily, PRN Constipation, 0 Refills, Maintenance, 01/02/20 10:55:00 EST, Suspension, Partial fill upon patient request Start Date: 01/02/20 Status: Ordered ondansetron 8 mg oral tablet 1 tablet = 8 mg, By Mouth, Daily, 30 minutes before chemotherapy, # 42 tablet, 0 Refills, Maintenance, 01/10/20 15:51:00 EST, Partial fill upon patient request Start Date: 01/10/20 Stop Date: 02/21/20 Status: Ordered pantoprazole 40 mg oral delayed release tablet 1 tablet = 40 mg, By Mouth, Daily, # 30 tablet, 0 Refills, Maintenance, 01/02/20 10:55:00 EST, EC Tablet Start Date: 01/02/20 Status: Ordered Pradaxa 150 mg oral capsule 1 capsule = 150 mg, By Mouth, 2 times a day, # 180 capsule, 1 Refills, Maintenance, 01/30/20 13:00:00 EST, [facility]apsule, [id number], Partial fill upon patient request if the prescription is for a schedule II opioid drug., 167, cm, 01/29/20... Start Date: 01/30/20 Stop Date: 07/28/20 Status: Ordered temozolomide 100 mg oral capsule 1 capsule = 100 mg, By Mouth, Daily at bedtime, for 42 days, total daily dose 130 mg, # 42 capsule,0 Refills, Acute 02/21/20 15:50:00 EST, 01/10/20 15:50:00 EST, Partial fill upon patient request Start Date: 01/10/20 Stop Date: 02/21/20 Status: Ordered temozolomide 20 mg oral capsule 1 capsule = 20 mg, By Mouth, Daily at bedtime, for 42 days, total daily dose 130 mg, # 42 capsule, 0 Refills, Acute 02/21/20 15:50:00 EST, 01/10/20 15:50:00 EST, Partial fill upon patient request Start Date: 01/10/20 Stop Date: 02/21/20 Status: Ordered temozolomide 5 mg oral capsule 2 capsule = 10 mg, By Mouth, Daily at bedtime, for 42 days, total daily dose 130 mg, # 84 capsule, 0 Refills, Acute 02/21/20 15:50:00 EST, 01/10/20 15:50:00 EST, Partial fill upon patient request Start Date: 01/10/20 Stop Date: 02/21/20 Status: Ordered traZODone 50 mg oral tablet 50 mg, 1, tablet, By Mouth, Daily at bedtime, # 30 tablet, Refills 11, Tot. Refills 11, Maintenance, 01/29/20 11:49:00 EST, Route to Pharmacy Electronically, [facility] #[id number], Partial fillupon patient request if the prescription is for a s... Start Date: 01/29/20 Stop Date: 01/23/21 Status: Ordered Problem List Condition Effective Dates [...]
--- OUTSIDE RECORDS SUMMARY | 2023-06-10 07:58 | XMS_ITS | Continuity of Care Document ---
Author Organization [facility] Bharat Jack lt Address [address] [place] [address]- Care Team Providers Care Dethistler Operator Name Role Phone Braden Mullins MD Primary Care Physician [phone] Encounter [facility] Date(s): 10/26/22 - 11/02/22 [facility] Adult [address] [place] [address]- Attending Physician: Braden Mullins MD Allergies, Adverse Reactions, Alerts No Known Allergies Immunizations Given and Recorded Vaccine Date Status Refusal Reason [id number] 12y+ bivalent booster vax 02/02/22 Recorded influenza virus vaccine, inactivated 12/04/21 Mark rded influenza virus vaccine, inactivated 12/04/20 Mark rded influenza virus vaccine, inactivated 12/20/19 Give n influenza virus vaccine, inactivated 12/09/16 Mark rded SARS-CoV-2 mRNA ([id number]) vax 08/25/21 Given pneumococcal 13-valent vaccine 08/25/21 Given tetanus-diphtheria toxoids (Td) 07/29/21 Recorded tetanus-diphtheria toxoids (Td) 11/19/06 Recorded SARS-CoV-2 (COVID-19) mRNA BNT-162b2 vac 02/10/21 Given SARS-CoV-2 (COVID-19) mRNA BNT-162b2 vac 06/16/20 Recorded SARS-CoV-2 (COVID-19) mRNA-1273 vaccine 07/09/20 R ecorded SARS-CoV-2 (COVID-19) mRNA-1273 vaccine 06/10/20 R ecorded tetanus/diphtheria/pertussis, acel(Tdap) 01/29/20 Given pneumococcal 23-valent vaccine 12/28/19 Given pneumococcal 23-valent vaccine 05/18/17 Recorded Zoster Vaccine Live 06/12/16 Recorded Medications aspirin 81 mg oral delayed release tablet 81 mg, 1, tablet, By Mouth, Daily, Refills 0, Maintenance, 07/29/20 13:33:00 EDT, Partial fill uponpatient request if the prescription is for a schedule II opioid drug. Start Date: 07/29/20 Status: Ordered atorvastatin 40 mg oral tablet 1 tablet, By Mouth, Daily, # 90 tablet, 3 Refills, Maintenance, 03/24/22 15:24:00 EST, [facility], 167, cm, 03/24/22 14:57:00 EST, Height, 55.3, kg, 03/16/22 13:19:00 EST, Dry Weight Start Date: 03/24/22 Stop Date: 03/19/23 Status: Ordered folic acid 1 mg oral tablet 1, tablet, By Mouth, Daily, # 90 tablet, Refills 1, Maintenance, 09/18/22 6:30:00 EDT, Route to Pharmacy Electronically, [facility], 167, cm, 06/22/22 13:02:00 EDT, Height, 56.7, kg, 06/22/22 13:02:00 EDT, Dry Weight Start Date: 09/18/22 Status: Ordered levETIRAcetam 500 mg oral tablet 1 tablet = 500 mg, By Mouth, 2 times a day, # 180 tablet, 3 Refills, Maintenance, 03/24/22 15:24:00EST, [facility], 167, cm, 03/24/22 14:57:00 EST, Height, 55.3, kg, 03/16/22 13:19:00 EST, Dry Weight Start Date: 03/24/22 Stop Date: 03/19/23 Status: Ordered pantoprazole 40 mg oral delayed release tablet 1 tablet, By Mouth, Daily, for 90 days, # 90 tablet, 3 Refills, Physician Stop 03/19/23 15:24:00 EST, 03/24/22 15:24:00 EST, 167, cm, 03/24/22 14:57:00 EST, Height, 55.3, kg, 03/16/22 13:19:00 EST, Dry Weight Start Date: 03/24/22 Stop Date: 03/19/23 Status: Ordered Senna Plus 50 mg-8.6 mg oral tablet 2 tablet, By Mouth, Daily at bedtime, PRN Constipation, # 60 tablet, 3 Refills, Maintenance, 07/29/21 15:04:00 EDT, Tablet, [facility], Partial fill upon patient request if the prescription is for a schedule II opioid drug., 2 tablet By... Start Date: 07/29/21 Status: Ordered traZODone 50 mg oral tablet 1, tablet, By Mouth, Daily at bedtime, # 270 tablet, Refills 0, Maintenance, 11/12/21 14:35:00 EDT,Route to Pharmacy Electronically, [facility], 167, cm, 11/10/21 10:17:00 EDT, Height, 55.4, kg, 11/10/21 10:17:00 EDT, Dry Weight Start Date: 11/12/21 Status: Ordered Problem List Condition Confirmation Course Effective Dates Status Health Status Informant Alcohol dependence Confirmed Active Bacteremia Confirmed Active Bladder outlet obstruction Confirmed Active Cerebral venous sinus thrombosis Confirmed Active COPD (chronic obstructive pulmonary disease) Confirmed Active Esophageal reflux Confirmed Active GBM (glioblastoma multiforme) Confirmed Active Hypercholesterolemia Confirmed Active Incarcerated right inguinal hernia Confirmed Active Brain mass Confirmed Active Elevated PSA Confirmed Active Rhabdomyolysis Confirmed Active Thrombosis cerebral vein Confirmed Active Tobacco abuse Confirmed Active Caputo catheter in place Confirmed Active Vital Signs Most recent to oldest [Reference Range]: 1 Height 167 cm (10/26/22 1:46 PM) Weight 57.6 kg (10/26/22 1:46 PM) Oxygen Saturation [94-100 %] 96 % (10/26/22 1:46 PM) Pulse Rate [55-90 bpm] 69 bpm (10/26/22 1:46 PM) Body Mass Index [18.5-24.99 kg/m2] 20.65 kg/m2 (10/26/22 1:46 PM) Blood Pressure [90-138/55-84 mm Hg] 84/5 0mm Hg *L* (10/26/22 1:46 PM) Mode of Delivery (Oxygen) Room air (10/26/22 1:46 PM) Blood pressure sites Arm, left (10/26/22 1:46 PM) Weight Obtained Via Standing scale (10/26/22 1:46 PM) Social History Social History Type Response Smoking Status 10 or more cigarette s (1/2 pack or more)/day in last 30 days entered on: 01/12/20 Sex Patient Care team information Care Team Personnel Name: Mayte , Fadumo Position: [facility] RN Member Role: Primary Care Nurse Name: Manuel Rees MA Position: [facility] RN Member Role: Primary Care Nurse Name: Debbie Franks RN Position: [facility] ED RN W/OE and Tasks Member Role: Primary Care Nurse Name: Tonie Castro RN Position: [facility] Onco RN Member Role: Primary Care Nurse Name: Myrna Banda Position: [facility] Onco RN Member Role: Primary Care Nurse Name: Braden Mullins MD Position: [facility] Physician - Primary Care Member Role: PCP Address: Address: [address] [place] [id number]- Name: Candy Moreno RN Position: [facility] OB RN Member Role: Primary Care Nurse Name: Ranjit Puri RN Position: S RN Member Role: Primary Care Nurse Name: Levon Kenyon RN Position: [facility] RN Supv Member Role: Primary Care Nurse Name: Elysia Byers MA Position: [facility] Onco RN Member Role: Primary Care Nurse Name: Bridgette Lewis RN Position: S RN Member Role: Primary Care Nurse Name: Rosa Brunner RN Position: S RN Member Role: Primary Care Nurse Name: Christi Florentino RN Position: [facility] RN Supv Member Role: Primary Care Nurse Name: Miguel Ruiz RN Position: S RN Member Role: Primary Care Nurse Name: Roxann Estrada RN Position: S RN Member Role: Primary Care Nurse Care Team Related Persons Name: KG RAYA
--- OUTSIDE RECORDS SUMMARY | 2023-06-10 07:58 | XMS_ITS | Continuity of Care Document ---
Author Organization [facility] Bharat Jack Address [address] [place] [address]- Care Team Providers Care Wire Drawing Die Maker Name Role Phone Braden Mullins MD Primary Care Physician Encounter [facility] [place] Date(s): 11/11/20 - 11/18/20 [facility] Adult [address] [place] [address]- Encounter Diagnosis Alcohol dependence(Discharge Diagnosis) - 11/11/20 COPD (chronic obstructive pulmonary disease)(Discharge Diagnosis) - 11/11/20 GBM (glioblastoma multiforme)(Discharge Diagnosis) - 11/11/20 Tobacco abuse(Discharge Diagnosis) - 11/11/20 Hypercholesterolemia(Discharge Diagnosis) - 11/11/20 Attending Physician: Braden Mullins MD Allergies, Adverse Reactions, Alerts Substance Reaction Severity Status NKA Active Immunizations Given and Recorded Vaccine Date Status Refusal Reason SARS-CoV-2 (COVID-19) mRNA BNT-162b2 vac 06/16/20 Recorded SARS-CoV-2 (COVID-19) mRNA-1273 vaccine 06/10/20 R ecorded [...] Ordered atorvastatin 40 mg oral tablet 1 tablet = 40 mg, By Mouth, Daily, # 30 tablet, 5 Refills, Maintenance, 05/24/20 11:49:00 EDT, Tablet, [facility], Partial fill upon patient request if the prescription is for a schedule II opioid drug., 167, cm, 05/16/20 10:57:00 EDT, H... Start Date: 05/24/20 Stop Date: 11/20/20 Status: Ordered folic acid 1 mg oral tablet 1 mg, 1, tablet, By Mouth, Daily, # 30 tablet, Refills 4, Tot. Refills 4, Maintenance, 05/10/20 16:21:00 EDT, Route to Pharmacy Electronically, [facility], Partial fill upon patientrequest if the prescription is for a schedule II opioid... Start Date: 05/10/20 Stop Date: 10/07/20 Status: Ordered Keppra 500 mg oral tablet 1 tablet = 500 mg, By Mouth, 2 times a day, # 60 tablet, 11 Refills, Maintenance, 03/11/20 11:26:00EST, Tablet, [facility] #[id number], Partial fill upon patient request if the prescription is for a schedule II opioid drug., 167, cm, 03/11/20 10... Start Date: 03/11/20 Status: Ordered Milk of Magnesia Liquid 30 [...] = 40 mg, By Mouth, Daily, # 90 tablet, 3 Refills, Maintenance, 05/24/20 12:29:00 EDT, EC Tablet, 167, cm, 05/16/20 10:57:00 EDT, Height, 56.2, kg, 05/16/20 10:57:00 EDT, Dry Weight Start Date: 05/24/20 Stop Date: 05/19/21 Status: Ordered Temozolomide Refills 0, Maintenance, 11/11/20 [...] Date: 11/11/20 Stop Date: 11/11/21 Status: Ordered Vitamin B6 25 mg oral tablet 1 tablet = 25 mg, By Mouth, Daily, for 30 days, # 30 tablet, 11 Refills, Acute 11/06/22 8:00:00 EDT, 11/11/21 8:00:00 EDT, [facility], Partial fill upon patient request if the prescription is for a schedule II opioid drug., 167, cm, 10/17... Start Date: 11/11/21 Stop Date: 11/06/22 Status: Ordered Problem List Condition Effective Dates [...] abuse(Confirmed) Active Caputo catheter in place(Confirmed) Active Diagnosis Diagnosis Type Effective Dates Health Status Clinical Service Informant Alcohol dependence Discharge Diagnosis 11/11/20 COPD (chronic obstructive pulmonary disease) Discharge Diagnosis 11/11/20 GBM (glioblastoma multiforme) Discharge Diagnosis 11/11/20 Tobacco abuse Discharge Diagnosis 11/11/20 Hypercholesterolemia Discharge Diagnosis 11/11/20 Vital Signs Most recent to oldest [Reference Range]: 1 Height 167 cm (11/11/20 1:59 PM) Weight 57.3 kg (11/11/20 1:59 PM) Oxygen Saturation [94-100 %] 98 % (11/11/20 1:59 PM) Pulse Rate [55-90 bpm] 84 bpm (11/11/20 1:59 PM) Body Mass Index [18.5-24.99] 20.55 (11/11/20 1:59 PM) Blood Pressure [90-138/55-84 mm Hg] 112/ 66mm Hg (11/11/20 1:59 PM) Mode of Delivery (Oxygen) Room air (11/11/20 1:59 PM) Blood pressure sites Arm, left (11/11/20 1:59 PM) Weight Obtained Via Standing scale (11/11/20 1:59 PM) Social History Social History Type Response Smoking Status 10 or more cigarette s (1/2 pack or more)/day in last 30 days entered on: 01/12/20 Sex
--- OUTSIDE RECORDS SUMMARY | 2023-06-10 07:58 | XMS_ITS | Continuity of Care Document ---
Author Organization [facility] Address [address] [place] [address]- Care Team Providers Care Fruit Packer Face And Fill Name Role Phone Braden Mullins MD Primary Care Physician Encounter [facility] [place] Date(s): 03/11/20 - 03/18/20 [facility] Ranj[facility] Sterlingley Adult [address] [place] [address]- Encounter Diagnosis Alcohol dependence(Discharge Diagnosis) - 03/11/20 COPD (chronic obstructive pulmonary disease)(Discharge Diagnosis) - 03/11/20 GBM (glioblastoma multiforme)(Discharge Diagnosis) - 03/11/20 Elevated PSA(Discharge Diagnosis) - 03/11/20 Hypercholesterolemia(Discharge Diagnosis) - 03/11/20 Thrombosis cerebral vein(Discharge Diagnosis) - 03/11/20 Tobacco abuse(Discharge Diagnosis) - 03/11/20 Attending Physician: Braden Mullins MD Allergies, Adverse [...] 3 Refills, Maintenance, 01/29/20 12:17:00 EST, Tablet, [facility] #[id number], Partial fill upon patient request if the [...] 02/15/20 6:50:00 EST, Route to Pharmacy Electronically, [facility] #[id number], Partial fill upon patient request if the prescription is for a schedule II opio... Start Date: 02/15/20 Stop Date: 08/13/20 Status: Ordered Keppra 500 mg oral tablet 1 tablet = 500 mg, By Mouth, 2 times a day, # 60 tablet, 11 Refills, Maintenance, 03/11/20 11:26:00EST, Tablet, [facility] #[id number], Partial fill upon patient request if the prescription is for a schedule II opioid drug., 167, cm, 03/11/20 10... Start Date: 03/11/20 Status: Ordered Melatonin 10 mg oral tablet 1 tablet = 10 mg, By Mouth, Daily at bedtime, for 30 days, need ov in 6 months, # 30 tablet, 5 Refills, Acute 08/13/20 6:50:00 EDT, 02/15/20 6:50:00 EST, [facility] #[id number], Partial fill upon patient request if the [...] 1 Refills, Maintenance, 01/30/20 13:00:00 EST, Capsule, [facility] #[id number], Partial fill upon patient request if the prescription is for a schedule II opioid drug., 167, cm, 01/29/20... Start Date: 01/30/20 Stop Date: 07/28/20 Status: Ordered traZODone 50 mg oral tablet 50 mg, 1, tablet, By Mouth, Daily at bedtime, # 30 tablet, Refills 11, Tot. Refills 11, Maintenance, 01/29/20 11:49:00 EST, Route to Pharmacy Electronically, [facility] #[id number], Partial fillupon patient request if the prescription is for a s... Start Date: 01/29/20 Stop Date: 01/23/21 Status: Ordered Vitamin B6 25 mg oral tablet 1 tablet = 25 mg, By Mouth, Daily, for 30 days, # 30 tablet, 5 Refills, Acute 08/13/20 6:50:00 EDT,02/15/20 6:50:00 EST, [facility] #[id number], Partial fill upon patient request if the [...] Clinical Service Informant Alcohol dependence Discharge Diagnosis 03/11/20 COPD (chronic obstructive pulmonary disease) Discharge Diagnosis 03/11/20 GBM (glioblastoma multiforme) Discharge Diagnosis 03/11/20 Elevated PSA Discharge Diagnosis 03/11/20 Hypercholesterolemia Discharge Diagnosis 03/11/20 Thrombosis cerebral vein Discharge Diagnosis 03/11/20 Tobacco abuse Discharge Diagnosis 03/11/20 Vital Signs Most recent to oldest [Reference Range]: 1 Height 167 cm (03/11/20 10:58 AM) Weight 58.2 kg (03/11/20 10:58 AM) Oxygen Saturation [94-100 %] 96 % (03/11/20 10:58 AM) Pulse Rate [55-90 bpm] 86 bpm (03/11/20 10:58 AM) Body Mass Index [18.5-24.99] 20.87 (03/11/20 10:58 AM) Blood Pressure [90-138/55-84 mm Hg] 102/ 64mm Hg (03/11/20 10:58 AM) Respiratory Rate [16-30 br/min] 16 br/mi n (03/11/20 10:58 AM) Temperature [96.8-100.4 DegF] 97.9 DegF (03/11/20 10:58 AM) Mode of Delivery (Oxygen) Room air (03/11/20 10:58 AM) Blood pressure sites Arm, right (03/11/20 10:58 AM) Temperature Route Oral (03/11/20 10:58 AM) Weight Obtained Via Standing scale (03/11/20 10:58 AM) Social History Social History Type Response Smoking Status 10 or more cigarette s (1/2 pack or more)/day in last 30 days entered on: 01/12/20 Sex
--- OUTSIDE RECORDS SUMMARY | 2023-06-10 07:58 | XMS_ITS | Continuity of Care Document ---
Author Organization [facility] Address [address] [place] [address] [address], [address] [place] [address]- Care Team Providers Care Forming And Assembling Supervisor Name Role Phone Susanna NATH, Braden Blackburn Primary Care Physician Encounter [facility] Date(s): 04/21/23 - 05/21/[address] [place], [place] [address] Allergies, Adverse Reactions, Alerts No Known Allergies Immunizations Given and Recorded Vaccine Date Status Refusal Reason RSV vaccine, preF A-preF B, recombinant 11/13/22 R ecorded influenza virus vaccine, inactivated 11/13/22 Mark rded influenza virus vaccine, inactivated 12/04/21 Mark rded influenza virus vaccine, inactivated 12/04/20 Mark rded influenza virus vaccine, inactivated 12/20/19 Give n influenza virus vaccine, inactivated 12/09/16 Mark rded SARS-CoV-2(COVID-19)mRNA-LNP vac([id number]) 11/13/22 Recorded [id number] 12y+ bivalent booster vax 02/02/22 Recorded SARS-CoV-2 mRNA ([id number]) vax 08/25/21 Given pneumococcal 13-valent vaccine 08/25/21 [...] tablet, 3 Refills, Maintenance, 03/24/22 15:24:00 EST, [facility], 167, cm, 03/24/22 14:57:00 EST, Height, 55.3, kg, 03/16/22 13:19:00 EST, Dry Weight Start Date: 03/24/22 Stop Date: 03/19/23 Status: Ordered folic acid 1 mg oral tablet 1, tablet, By Mouth, Daily, # 90 tablet, Refills 3, Maintenance, 04/19/23 14:36:00 EST, Route to Pharmacy Electronically, [facility], 167, cm, 04/12/23 13:17:00 EST, Height, 56.2, kg, 04/07/23 14:11:00 EST, Dry Weight Start Date: 04/19/23 Status: Ordered levETIRAcetam 500 mg oral tablet 1 tablet = 500 mg, By Mouth, 2 times a day, # 180 tablet, 3 Refills, Maintenance, 03/24/22 15:24:00EST, [facility], 167, cm, 03/24/22 14:57:00 EST, Height, 55.3, kg, 03/16/22 13:19:00 EST, Dry Weight Start Date: 03/24/22 Stop Date: 03/19/23 Status: Ordered pantoprazole 40 mg oral delayed release tablet 0 Refills, Maintenance, 04/12/23 13:17:00 EST Start Date: 04/12/23 Status: Ordered Senna Plus 50 mg-8.6 mg oral tablet 2 tablet, By Mouth, Daily at bedtime, PRN Constipation, # 60 tablet, 3 Refills, Maintenance, 07/29/21 15:04:00 EDT, Tablet, [facility], Partial fill upon patient request if the prescription is for a schedule II opioid drug., 2 tablet By... Start Date: 07/29/21 Status: Ordered tamsulosin 0.4 mg oral capsule Refills 0, Maintenance, 04/12/23 13:17:00 EST, Partial fill upon patient request if the prescription is for a schedule II opioid drug. Start Date: 04/12/23 Status: Ordered traZODone 50 mg oral tablet 1, tablet, By Mouth, Daily at bedtime, # 270 tablet, Refills 0, Maintenance, 11/12/21 14:35:00 EDT,Route to Pharmacy Electronically, [facility], 167, cm, 11/10/21 10:17:00 EDT, Height, 55.4, kg, 11/10/21 10:17:00 EDT, Dry Weight Start Date: 11/12/21 Status: Ordered Vit B Complex Tablet 0 Refills, Maintenance, 04/27/23 15:07:00 EDT, Partial fill upon patient request if the prescription is for a schedule II opioid drug. Start Date: 04/27/23 Status: Ordered Problem List Condition Confirmation Course Effective Dates Status Health Status Informant Alcohol dependence Confirmed Active Bacteremia Confirmed Active Bladder outlet obstruction Confirmed Active Cerebral venous sinus thrombosis Confirmed Active COPD (chronic obstructive pulmonary disease) Confirmed Active Esophageal reflux Confirmed Active GBM (glioblastoma multiforme) Confirmed Active History of insomnia Confirmed Active Hypercholesterolemia Confirmed Active Incarcerated right inguinal hernia Confirmed Active Brain mass Confirmed Active Elevated PSA Confirmed Active Rhabdomyolysis Confirmed Active Shoulder pain, bilateral Confirmed Active Thrombosis cerebral vein Confirmed Active Tobacco abuse Confirmed Active Caputo catheter in place Confirmed Active Social History Social History Type Response Smoking Status 10 or more cigarette s (1/2 pack or more)/day in last 30 days; Interested in cessation: No; Patient wants NRT during admission No entered on: 05/19/23 Sex Patient Care team information Care Team Personnel Name: Fadumo Hu Position: S [facility] RN Member Role: Primary Care Nurse Name: Debbie Franks RN Position: [facility] ED RN W/OE and Tasks Member Role: Primary Care Nurse Name: Tonie Castro RN Position: [facility] RN Member Role: Primary Care Nurse Name: Myrna Banda Position: [facility] On[facility] RN Member Role: Primary Care Nurse Name: Braden Mullins MD Position: [facility] Physician - Primary Care Member Role: PCP Address: Address: [address] [place] [address]- Name: Candy Moreno RN Position: [facility] OB RN Member Role: Primary Care Nurse Name: Ranjit Puri RN Position: S RN Member Role: Primary Care Nurse Name: Levon Kenyon RN Position: [facility] RN Supv Member Role: Primary Care Nurse Name: Elysia Byers [place] Position: [facility] Onco RN Member Role: Primary Care Nurse Name: Bridgette Lewis RN Position: S RN Member Role: Primary Care Nurse Name: Rosa Brunner RN Position: S RN Member Role: Primary Care Nurse Name: Christi Florentino RN Position: [facility] RN Supv Member Role: Primary Care Nurse Name: Miguel Ruiz RN Position: [facility] RN Member Role: Primary Care Nurse Care Team Related Persons Name: KG RAYA
--- OUTSIDE RECORDS SUMMARY | 2023-06-10 07:58 | XMS_ITS | Continuity of Care Document ---
Author Organization [facility] Address [address] [place] [address] [address]inger del [address], [address] [place] [address]- Care Team Providers Care Tea And Spice Supervisor Name Role Phone Braden Mullins MD Primary Care Physician Encounter [facility] Date(s): 01/10/20 - 02/09/20 [facility] [address] [place] [address] Drive, [address] [place], [place] [address] Allergies, Adverse Reactions, Alerts Substance Reaction Severity [...] 3 Refills, Maintenance, 01/29/20 12:17:00 EST, Tablet, [facility] #[id number], Partial fill upon patient request if the [...] 1 Refills, Maintenance, 01/30/20 13:00:00 EST, Capsule, [facility] #[id number], Partial fill upon patient request if the [...] 01/29/20 11:49:00 EST, Route to Pharmacy Electronically, [facility] #[id number], Partial fillupon patient request if the prescription [...]
--- OUTSIDE RECORDS SUMMARY | 2023-06-10 07:58 | XMS_ITS | Continuity of Care Document ---
Author Organization [facility] Address [address] [place] [address]- Care Team Providers Care Tobacco Stripper Name Role Phone Susanna NATH, Braden Blackburn Primary Care Physician [phone] [place]counter [facility] [place] Date(s): 02/25/22 - 03/27/22 [facility] [address] [place] [address]- Allergies, Adverse Reactions, Alerts No Known Allergies Immunizations Given and Recorded Vaccine Date Status Refusal Reason [id number] 12y+ bivalent booster vax 02/02/22 Recorded influenza virus vaccine, inactivated 12/04/21 Mark rded influenza virus vaccine, inactivated 12/04/20 Mark rded influenza virus vaccine, inactivated 12/20/19 Give n influenza virus vaccine, inactivated 12/09/16 Mark rded SARS-CoV-2 mRNA ([id number]) vax 08/25/21 Given pneumococcal 13-valent vaccine 08/25/21 [...] 05/18/17 Recorded Zoster Vaccine Live 06/12/16 Recorded Not Given Vaccine Date Status Refusal [...] tablet, 3 Refills, Maintenance, 03/24/22 15:24:00 EST, [facility], 167, cm, 03/24/22 14:57:00 EST, Height, 55.3, kg, 03/16/22 13:19:00 EST, Dry Weight Start Date: 03/24/22 Stop Date: 03/19/23 Status: Ordered folic acid 1 mg oral tablet 1, tablet, By Mouth, Daily, # 90 tablet, Refills 1, Maintenance, 02/18/22 7:38:00 EST, Route to Pharmacy Electronically, [facility], 167, cm, 02/02/22 12:58:00 EST, Height, 55.5, kg, 02/02/22 12:58:00 EST, Dry Weight Start Date: 02/18/22 Status: Ordered levETIRAcetam 500 mg oral tablet 1 tablet = 500 mg, By Mouth, 2 times a day, # 180 tablet, 3 Refills, Maintenance, 03/24/22 15:24:00EST, [facility], 167, cm, 03/24/22 14:57:00 EST, Height, 55.3, kg, 03/16/22 13:19:00 EST, Dry Weight Start Date: 03/24/22 Stop Date: 03/19/23 Status: Ordered Melatonin 10 mg oral tablet 1 tablet = 10 mg, By Mouth, Daily at bedtime, for 30 days, # 30 tablet, 11 Refills, Acute 08/20/22 14:43:00 EDT, 08/25/21 14:43:00 EDT, [facility], Partial fill upon patient requestif the prescription is for a schedule II opioid drug.,... Start Date: 08/25/21 Stop Date: 08/20/22 Status: Ordered pantoprazole 40 mg oral delayed [...] Care Team Personnel Name: Fadumo Hu Position: [facility] Onco RN Member Role: Primary Care Nurse Name: Debbie Franks RN Position: [facility] ED RN W/OE and Tasks Member Role: Primary Care Nurse Name: Tonie Castro RN Position: [facility] Onco RN Member Role: Primary Care Nurse Name: Myrna Banda Position: [facility] Onco RN Member Role: Primary Care Nurse Name: Braden Mullins MD Position: [facility] Primary Care Physician Member Role: PCP Address: Address: [address] [place] [address]- Name: Candy Moreno RN Position: [facility] OB RN Member Role: Primary Care Nurse Name: Ranjit Puri RN Position: S RN Member Role: Primary Care Nurse Name: Levon Kenyon RN Position: [facility] RN Supv Member Role: Primary Care Nurse Name: Elysia Byers [place] Position: [facility] Onco RN Member Role: Primary Care Nurse Name: Bridgette Lewis RN Position: [facility] RN Member Role: Primary Care Nurse Name: Rosa Brunner RN Position: [facility] RN Member Role: Primary Care Nurse Name: Christi Florentino RN Position: [facility] RN Supv Member Role: Primary Care Nurse Name: Miguel Ruiz RN Position: [facility] RN Member Role: Primary Care Nurse Name: Roxann Estrada RN Position: [facility] RN Member Role: Primary Care Nurse Care Team Related Persons Name: KG RAYA
--- OUTSIDE RECORDS SUMMARY | 2023-06-10 07:58 | XMS_ITS | Continuity of Care Document ---
Author Organization [facility] Address [address] [place] [address]- Care Team Providers Care Clip Bolter And Wrapper Name Role Phone Braden Mullins MD Primary Care Physician Encounter [facility] [place] Date(s): 04/26/23 - 05/03/23 [facility] Adult [address] [place] [address]- Attending Physician: Braden Mullins MD Allergies, Adverse [...] virus vaccine, inactivated 12/09/16 Mark rded SARS-CoV-2(COVID-19)mRNA-LNP vac([id number]) 11/13/22 Recorded [id number] 12y+ bivalent booster vax 02/02/22 Recorded SARS-CoV-2 mRNA ([id number]-[id number]) vax 08/25/21 Given pneumococcal 13-valent vaccine 08/25/21 [...] Refills, Maintenance, 03/24/22 15:24:00 EST, [facility], 167, cm, 03/24/22 14:57:00 EST, Height, 55.3, kg, 03/16/22 13:19:00 EST, Dry Weight Start Date: 03/24/22 Stop Date: 03/19/23 Status: Ordered folic acid 1 mg oral tablet 1, tablet, By Mouth, Daily, # 90 tablet, Refills 3, Maintenance, 04/19/23 14:36:00 EST, Route to Pharmacy Electronically, [facility], 167, cm, 04/12/23 13:17:00 EST, Height, 56.2, kg, 04/07/23 14:11:00 EST, Dry Weight Start Date: 04/19/23 Status: Ordered levETIRAcetam 500 mg oral tablet 1 tablet = 500 mg, By Mouth, 2 times a day, # 180 tablet, 3 Refills, Maintenance, 03/24/22 15:24:00EST, [facility], 167, cm, 03/24/22 14:57:00 EST, [...] oldest [Reference Range]: 1 Height 167 cm (04/26/23 4:09 PM) Weight 56.5 kg (04/26/23 4:09 PM) Oxygen Saturation [94-100 %] 96 % (04/26/23 4:09 PM) Pulse Rate [55-90 bpm] 116 bpm *H* (04/26/23 4:09 PM) Body Mass Index [18.5-24.99 kg/m2] 20.26 kg/m2 (04/26/23 4:09 PM) Blood Pressure [90-138/55-84 mm Hg] 102/ 60mm Hg (04/26/23 4:09 PM) Mode of Delivery (Oxygen) Room air (04/26/23 4:09 PM) Blood pressure sites Arm, left (04/26/23 4:09 PM) Weight Obtained Via Standing scale (04/26/23 4:09 PM) Social History Social History Type Response Smoking Status 10 or more cigarette s (1/2 pack or more)/day in last 30 days entered on: 01/12/20 Sex Patient Care team information Care Team Personnel Name: Fadumo Hu Position: [facility] Onco RN Member Role: Primary Care Nurse Name: Debbie Franks RN Position: [facility] ED RN W/OE and Tasks Member Role: Primary Care Nurse Name: Tonie Castro RN Position: [facility] Onco RN Member Role: Primary Care Nurse Name: Myrna Banda Position: [facility] Onco RN Member Role: Primary Care Nurse Name: Braden Mullins MD Position: [facility] Physician - Primary Care Member Role: PCP Address: Address: [address] [place] [id number] Name: Candy Moreno RN Position: [facility] OB RN Member Role: Primary Care Nurse Name: Ranjit Puri RN Position: S RN Member Role: Primary Care Nurse Name: Levon Kenyon RN Position: S RN Supv Member Role: Primary Care Nurse Name: Elysia Byers [place] Position: [facility] Onco RN Member Role: Primary Care Nurse Name: Bridgette Lewis RN Position: S RN Member Role: Primary Care Nurse Name: Rosa Brunner RN Position: S RN Member Role: Primary Care Nurse Name: Christi Florentino RN Position: S RN Supv Member Role: Primary Care Nurse Name: Miguel Ruiz RN Position: S RN Member Role: Primary Care Nurse Care Team Related Persons Name: KG RAYA
--- OUTSIDE RECORDS SUMMARY | 2023-06-10 07:58 | XMS_ITS | Continuity of Care Document ---
Author Organization [facility] Ranjit Nicholson Jack lt Address [address] [place] [address]- Care Team Providers Care Embossing Machine Operator Name Role Phone Braden Mullins MD Primary Care Physician [place] [facility] [place] - 04/11/20 [facility] Adult [address] [place] [address]- Allergies, Adverse Reactions, Alerts Substance Reaction Severity [...] 3 Refills, Maintenance, 01/29/20 12:17:00 EST, Tablet, [id number], Partial fill upon patient request if the [...] 02/15/20 6:50:00 EST, Route to Pharmacy Electronically, [facility] #[id number], Partial fill upon patient request if the prescription is for a schedule II opio... Start Date: 02/15/20 Stop Date: 08/13/20 Status: Ordered Keppra 500 mg oral tablet 1 tablet = 500 mg, By Mouth, 2 times a day, # 60 tablet, 11 Refills, Maintenance, 03/11/20 11:26:00EST, Tablet, [facility] #[id number], Partial fill upon patient request if the prescription is for a schedule II opioid drug., 167, cm, 03/11/20 10... Start Date: 03/11/20 Status: Ordered Melatonin 10 mg oral tablet 1 tablet = 10 mg, By Mouth, Daily at bedtime, for 30 days, need ov in 6 months, # 30 tablet, 3 Refills, Acute 08/08/20 14:21:00 EDT, 04/10/20 14:21:00 EST, [facility], Partial fill upon patient request if the prescription is for a schedu... Start Date: 04/10/20 Stop Date: 08/08/20 Status: Ordered Milk of Magnesia Liquid 30 [...] Date: 03/27/20 Stop Date: 09/23/20 Status: Ordered temozolomide 100 mg oral capsule 1 capsule = 100 mg, By Mouth, Daily at bedtime, for 5 days, total daily dose 245 mg, # 5 capsule, 0Refills, Acute 04/16/20 15:49:00 EST, 04/11/20 15:49:00 EST, Partial fill upon patient request if the prescription is for a schedule II opioid drug. Start Date: 04/11/20 Stop Date: 04/16/20 Status: Ordered temozolomide 140 mg oral capsule 1 capsule = 140 mg, By Mouth, Daily at bedtime, for 5 days, total daily dose 245 mg, # 5 capsule, 0Refills, Acute 04/16/20 15:50:00 EST, 04/11/20 15:50:00 EST, Partial fill upon patient request if the prescription is for a schedule II opioid drug. Start Date: 04/11/20 Stop Date: 04/16/20 Status: Ordered temozolomide 5 mg oral capsule 1 capsule = 5 mg, By Mouth, Daily at bedtime, for 5 days, total daily dose 245 mg, # 5 capsule, 0 Refills, Acute 04/16/20 15:49:00 EST, 04/11/20 15:49:00 EST, Partial fill upon patient request if theprescription is for a schedule II opioid drug. Start Date: 04/11/20 Stop Date: 04/16/20 Status: Ordered traZODone 50 mg oral tablet 50 mg, 1, tablet, By Mouth, Daily at bedtime, # 30 tablet, Refills 11, Tot. Refills 11, Maintenance, 01/29/20 11:49:00 EST, [id number], Partial fillupon patient request if the prescription is for a s... Start Date: 01/29/20 Stop Date: 01/23/21 Status: Ordered Vitamin B6 25 mg oral tablet 1 tablet = 25 mg, By Mouth, Daily, for 30 days, # 30 tablet, 3 Refills, Acute 08/08/20 14:21:00 EDT, 04/10/20 14:21:00 EST, [facility], Partial fill upon patient request if the prescription is for a schedule II opioid drug., 167, cm, 01/... Start Date: 04/10/20 Stop Date: 08/08/20 Status: Ordered Problem List Condition Effective Dates [...]
--- OUTSIDE RECORDS SUMMARY | 2023-06-10 07:58 | XMS_ITS | Continuity of Care Document ---
Author Organization [facility] Bharat Jack lt Address [address] [place] [address]- Care Team Providers Care News Editor Name Role Phone Braden Mullins MD Primary Care Physician [place] [facility] [place]/20 [facility] Adult [address] [place] [address]- Allergies, Adverse Reactions, Alerts Substance Reaction Severity Status NKA Active Immunizations Given and Recorded Vaccine Date Status Refusal Reason SARS-CoV-2 (COVID-19) mRNA BNT-162b2 vac 06/16/20 Recorded tetanus/diphtheria/pertussis, acel(Tdap) 01/29/20 Given pneumococcal 23-valent vaccine [...] Date: 05/24/20 Stop Date: 11/20/20 Status: Ordered Bactrim DS 800 mg-160 mg [...] tablet, 11 Refills, Maintenance, 03/11/20 11:26:00EST, Tablet, [id number], Partial fill upon patient request if the [...] Date: 05/24/20 Stop Date: 05/19/21 Status: Ordered Pradaxa 150 mg oral capsule [...] a schedule II opioid drug., 167, cm, ... Start Date: 04/10/20 Stop Date: 08/08/20 Status: [...]
--- OUTSIDE RECORDS SUMMARY | 2023-06-10 07:58 | XMS_ITS | Continuity of Care Document ---
Author Organization [facility] Address [address] [place] [address], [address] [place] [address]- Care Team Providers Care Security Director Name Role Phone Braden Mullins MD Primary Care Physician Encounter [facility] Date(s): 03/09/23 - 04/08/23 [facility] [address] [place] [address], [address] [place], [place] [address] Allergies, Adverse Reactions, Alerts No Known Allergies Immunizations Given and Recorded Vaccine Date Status Refusal Reason [id number] 12y+ bivalent booster vax 02/02/22 Recorded influenza virus vaccine, inactivated 12/04/21 Mark rded influenza virus vaccine, inactivated 12/04/20 Mark rded influenza virus vaccine, inactivated 12/20/19 Give n influenza virus vaccine, inactivated 12/09/16 Mark rded SARS-CoV-2 mRNA ([id number]) vax 08/25/21 Given pneumococcal 13-valent vaccine 08/25/21 [...] 09/18/22 6:30:00 EDT, Route to Pharmacy Electronically, [facility] #[facility], 167, cm, 06/22/22 13:02:00 EDT, Height, 56.7, kg, 06/22/22 13:02:00 EDT, Dry Weight Start Date: 09/18/22 Status: Ordered levETIRAcetam 500 mg oral tablet 1 tablet = 500 mg, By Mouth, 2 times a day, # 180 tablet, 3 Refills, Maintenance, 03/24/22 15:24:00EST, [facility], 167, cm, 03/24/22 14:57:00 EST, Height, 55.3, kg, 03/16/22 13:19:00 EST, Dry Weight Start Date: 03/24/22 Stop Date: 03/19/23 Status: Ordered Senna Plus 50 mg-8.6 mg oral tablet 2 tablet, By Mouth, Daily at bedtime, PRN Constipation, # 60 tablet, 3 Refills, Maintenance, 07/29/21 15:04:00 EDT, Tablet, [facility], Partial fill upon [...] Care Team Personnel Name: Fadumo Hu Position: [facility] Onco RN Member Role: Primary Care Nurse Name: Debbie Franks RN Position: [facility] ED RN W/OE and Tasks Member Role: Primary Care Nurse Name: Tonie Castro RN Position: [facility] Onco RN Member Role: Primary Care Nurse Name: Myrna Banda Position: [facility] Onco RN Member Role: Primary Care Nurse Name: Braden Mullins MD Position: [facility] Physician - Primary Care Member Role: PCP Address: Address: [address] [place] [id number] Name: Candy Moreno RN Position: [facility] OB RN Member Role: Primary Care Nurse Name: Ranjit Puri RN Position: S RN Member Role: Primary Care Nurse Name: Levon Kenyon RN Position: [facility] RN Supv Member Role: Primary Care Nurse Name: Elysia Byers [place] Position: [facility] Onco RN Member Role: Primary Care Nurse Name: Bridgette Lewis RN Position: S RN Member Role: Primary Care Nurse Name: Rosa Brunner RN Position: S RN Member Role: Primary Care Nurse Name: Christi Florentino RN Position: [facility] RN Supv Member Role: Primary Care Nurse Name: Miguel Ruiz RN Position: [facility] RN Member Role: Primary Care Nurse Care Team Related Persons Name: KG RAYA
--- OUTSIDE RECORDS SUMMARY | 2023-06-10 07:58 | XMS_ITS | Continuity of Care Document ---
Author Organization [facility] Bharat Jack lt Address [address] [place] [address]- Care Team Providers Care Electrician Substation Supervisor Name Role Phone Braden Mullins MD Primary Care Physician [place] [facility] [place] [facility] [address] [place] [address]- Encounter Diagnosis Alcohol dependence(Discharge Diagnosis) - 08/25/21 COPD (chronic obstructive pulmonary disease)(Discharge Diagnosis) - 08/25/21 GBM (glioblastoma multiforme)(Discharge Diagnosis) - 08/25/21 Hypercholesterolemia(Discharge Diagnosis) - 08/25/21 Tobacco abuse(Discharge Diagnosis) - 08/25/21 Attending Physician: Braden Mullins MD Allergies, Adverse Reactions, Alerts No Known Allergies Immunizations Given and Recorded Vaccine Date Status Refusal Reason SARS-CoV-2 mRNA ([id number]) vax 08/25/21 Given pneumococcal 13-valent vaccine 08/25/21 Given SARS-CoV-2 (COVID-19) mRNA BNT-162b2 vac 02/10/21 Given SARS-CoV-2 (COVID-19) mRNA BNT-162b2 vac 06/16/20 Recorded influenza virus vaccine, inactivated 12/04/20 Mark rded influenza virus vaccine, inactivated 12/20/19 Give n SARS-CoV-2 (COVID-19) mRNA-1273 vaccine 07/09/20 R ecorded SARS-CoV-2 (COVID-19) mRNA-1273 vaccine 06/10/20 R ecorded tetanus/diphtheria/pertussis, acel(Tdap) 01/29/20 Given pneumococcal 23-valent vaccine 12/28/19 Given pneumococcal 23-valent vaccine 4/3/18 Recorded Zoster Vaccine Live 06/12/16 Recorded tetanus-diphtheria [...] EVERY DAY, # 30 Unknown, 5 Refills, [facility], 167, cm, 05/20/21 13:36:00 EDT, Height, 57.2, kg, 05/20/21 13:36:00 EDT, Dry Weight Start Date: 05/23/21 Status: Ordered dexamethasone 4 mg oral tablet See Instructions, 1 tablet By Mouth 30 min before chemotherapy, # 20 tablet, 0 Refills, Maintenance, 06/27/21 14:53:00 EDT, [facility] #[facility], 167, cm, 06/27/21 14:31:00 EDT, Height, 57.3,kg, 06/27/21 14:31:00 EDT, Dry Weight Start Date: 06/27/21 Status: Ordered folic acid 1 mg oral tablet See Instructions, TAKE ONE TABLET BY MOUTH EVERY DAY, # 90 tablet, Refills 1, Instructions Replace Required Details, Route to Pharmacy Electronically, [facility] #[facility], 167, cm, 06/27/21 14:31:00 EDT, Height, 57.3, kg, 06/27/21 14:31:00 EDT, D... Start Date: 07/26/21 Status: Ordered levETIRAcetam 500 mg oral tablet 1 tablet = 500 mg, By Mouth, 2 times a day, # 180 tablet, 1 Refills, Maintenance, 05/13/21 20:17:00EDT, [facility] #[facility], 167, cm, 04/23/21 13:19:00 EST, [...] tablet, 5 Refills, Maintenance, 03/20/21 13:40:00 EST, [facility], ., 167, cm, 03/20/21 13:12:00 [...] pantoprazole 40 mg oral delayed release tablet See Instructions, TAKE ONE TABLET BY MOUTH EVERY DAY, # 90 tablet, 0 Refills, 167, cm, 05/20/21 13:36:00 EDT, Height, 57.2, kg, 05/20/21 13:36:00 EDT, Dry Weight Start Date: 05/23/21 Status: Ordered Senna Plus 50 mg-8.6 mg [...] Clinical Service Informant Alcohol dependence Discharge Diagnosis 08/25/21 COPD (chronic obstructive pulmonary disease) Discharge Diagnosis 08/25/21 GBM (glioblastoma multiforme) Discharge Diagnosis 08/25/21 Hypercholesterolemia Discharge Diagnosis 08/25/21 Tobacco abuse Discharge Diagnosis 08/25/21 Vital Signs Most recent to oldest [Reference Range]: 1 Height 167 cm (08/25/21 2:21 PM) Weight 58.3 kg (08/25/21 2:21 PM) Oxygen Saturation [94-100 %] 95 % (08/25/21 2:21 PM) Pulse Rate [55-90 bpm] 84 bpm (08/25/21 2:21 PM) Body Mass Index [18.5-24.99] 20.9 (08/25/21 2:21 PM) Blood Pressure [90-138/55-84 mm Hg] 110/ 78mm Hg (08/25/21 2:21 PM) Mode of Delivery (Oxygen) Room air (08/25/21 2:21 PM) Blood pressure sites Arm, left (08/25/21 2:21 PM) Weight Obtained Via Standing scale (08/25/21 2:21 PM) Social History Social History Type Response Smoking Status 10 or more cigarette s (1/2 pack or more)/day in last 30 days entered on: 01/12/20 Sex
--- OUTSIDE RECORDS SUMMARY | 2023-06-10 07:58 | XMS_ITS | Continuity of Care Document ---
Author Organization [facility] Address [address] [place] [address] D[address] [place] [address]- Care Team Providers Care Anesthesia Assistant Name Role Phone Braden Mullins MD Primary Care Physician [phone] Encounter [facility] [place] Date(s): 08/02/20 - 09/01/[address] [place] [address]- Allergies, Adverse Reactions, Alerts Substance Reaction Severity [...] tablet, 11 Refills, Maintenance, 03/11/20 11:26:00EST, Tablet, [facility] #[id number], Partial fill upon patient request if the [...] Date: 05/24/20 Stop Date: 05/19/21 Status: Ordered traZODone 50 mg oral tablet 50 mg, 1, tablet, By Mouth, Daily at bedtime, # 30 tablet, Refills 5, Tot. Refills 5, Maintenance, 01/23/21 11:49:00 EST, Route to Pharmacy Electronically, [facility], Partial fill upon patient request if the prescription is for a schedu... Start Date: 01/23/21 Stop Date: 07/22/21 Status: Ordered Problem List Condition Effective Dates [...]
--- OUTSIDE RECORDS SUMMARY | 2023-06-10 07:58 | XMS_ITS | Continuity of Care Document ---
Author Organization [facility] Address [address] [place] [address]- Care Team Providers Care Operating Room Surgical Technician Name Role Phone Braden Mullins MD Primary Care Physician [phone] [place] [facility] [place] 03[place] [facility] [address] [place] [id number] Attending Physician: AdmAsya beverly Admitting Physician: AdmtrAsya Referring Physician: Admtr, Ar8 Allergies, Adverse Reactions, Alerts No Known Allergies Immunizations Given and Recorded Vaccine Date Status Refusal Reason SARS-CoV-2 (COVID-19) mRNA BNT-162b2 vac 02/10/21 Given [...] [facility], 167, cm, 11/20/20 13:48:00 EDT, Height, 57.2, kg, 11/20/20 13:48:00 EDT, Dry Weight Start Date: 11/21/20 Status: Ordered folic acid 1 mg oral tablet 1 mg, 1, tablet, By Mouth, Daily, # 90 tablet, Refills 1, Tot. Refills 1, Maintenance, 01/21/21 10:29:00 EST, Route to Pharmacy Electronically, [facility], Partial fill upon patientrequest if the prescription is for a schedule II opioid... Start Date: 01/21/21 Stop Date: 06/20/21 Status: Ordered Keppra 500 mg oral tablet 1 tablet = 500 mg, By Mouth, 2 times a day, # 60 tablet, 11 Refills, Maintenance, 03/11/20 11:26:00EST, Tablet, [facility] #[id number], Partial fill upon patient request if the [...] tablet, 5 Refills, Maintenance, 03/20/21 13:40:00 EST, [facility], ., 167, cm, 03/20/21 [...] 01/23/21 11:49:00 EST, Route to Pharmacy Electronically, [facility], Partial fill upon patient request if the prescription is for a schedu... Start Date: 01/23/21 Stop Date: 07/22/21 Status: Ordered Vitamin B6 25 mg oral tablet 1 tablet = 25 mg, By Mouth, Daily, # 30 tablet, 11 Refills, Acute 11/11/21 8:00:00 EDT, 11/11/20 13:19:00 EDT, [facility], Partial fill upon patient request if the prescription is for a schedule II opioid drug., 167, cm, 10/23/20 10:42:0... Start Date: 11/11/20 Stop Date: 11/11/21 Status: Ordered Vitamin B6 25 mg oral tablet 1 tablet = 25 mg, By Mouth, Daily, for 30 days, # 30 tablet, 11 Refills, Acute 11/06/22 8:00:00 EDT, 11/11/21 8:00:00 EDT, [facility], Partial fill upon patient request [...]
--- OUTSIDE RECORDS SUMMARY | 2023-06-10 07:58 | XMS_ITS | Continuity of Care Document ---
Author Organization [facility] Ranjit Nicholson Jack lt Address [address] [place] [address]- Care Team Providers Care Commodity Management Specialist Name Role Phone Braden Mullins MD Primary Care Physician [place] [facility] [place] 02[place]20 [facility] Adult [address] [place] [address]- Allergies, Adverse Reactions, Alerts Substance Reaction Severity [...] 3 Refills, Maintenance, 01/29/20 12:17:00 EST, Tablet, [facility] #[id number], Partial fill upon patient request if the [...] 02/15/20 6:50:00 EST, Route to Pharmacy Electronically, [facility] #[id number], Partial fill upon patient request if the prescription is for a schedule II opio... Start Date: 02/15/20 Stop Date: 08/13/20 Status: Ordered folic acid 1 mg oral tablet 1 mg, 1, tablet, By Mouth, Daily, # 30 tablet, Refills 0, Maintenance, 12/19/19 1:28:00 EST Start Date: 12/19/19 Status: Ordered levETIRAcetam 100 mg/mL oral solution 5 mL = 500 mg, By Mouth, 2 times a day, 0 Refills, Maintenance, 01/02/20 10:55:00 EST, Solution, Partial fill upon patient request Start Date: 01/02/20 Status: Ordered Melatonin 10 mg oral tablet 1 tablet = 10 mg, By Mouth, Daily at bedtime, for 30 days, need ov in 6 months, # 30 tablet, 5 Refills, Acute 08/13/20 6:50:00 EDT, 02/15/20 6:50:00 EST, [facility] #[id number], Partial fill upon patient request if the prescription is for a sched... Start Date: 02/15/20 Stop Date: 08/13/20 Status: Ordered melatonin 10 mg oral tablet [...] Daily, # 30 tablet, 5 Refills, Maintenance, 02/15/20 6:50:00 EST, [facility], 167, cm, 01/29/20 11:32:00 EST, Height, 57.8, kg, 01/10/20 13:18:00 EST, Dry Weight Start Date: 02/15/20 Stop Date: 08/13/20 Status: Ordered pantoprazole 40 mg oral delayed release tablet 1 tablet = 40 mg, By Mouth, Daily, # 30 tablet, 0 Refills, Maintenance, 01/02/20 10:55:00 EST, [facility] Tablet Start Date: 01/02/20 Status: Ordered Pradaxa 150 mg oral capsule 1 capsule = 150 mg, By Mouth, 2 times a day, # 180 capsule, 1 Refills, Maintenance, 01/30/20 13:00:00 EST, Capsule, [facility] #[id number], Partial fill upon patient request if the prescription is for a schedule II opioid drug., 167, cm, 01/29/20... Start Date: 01/30/20 Stop Date: 07/28/20 Status: Ordered traZODone 50 mg oral tablet 50 mg, 1, tablet, By Mouth, Daily at bedtime, # 30 tablet, Refills 11, Tot. Refills 11, Maintenance, 01/29/20 11:49:00 EST, Route to Pharmacy Electronically, [facility] #[id number], Partial fillupon patient request if the prescription is for a s... Start Date: 01/29/20 Stop Date: 01/23/21 Status: Ordered Vitamin B6 25 mg oral tablet 1 tablet = 25 mg, By Mouth, Daily, for 30 days, # 30 tablet, 5 Refills, Acute 08/13/20 6:50:00 EDT,02/15/20 6:50:00 EST, [facility] #[id number], Partial fill upon patient request if the [...]
--- OUTSIDE RECORDS SUMMARY | 2023-06-10 07:58 | XMS_ITS | Continuity of Care Document ---
Author Organization [facility] Ranjit Nicholson Jack lt Address [address] [place] [address]- Care Team Providers Care Hat Cutter Name Role Phone Braden Mullins MD Primary Care Physician [phone] En[place] [facility] [place](s): 05/10/20 - 06/09/20 [facility] [address] [place] [address]- Allergies, Adverse Reactions, Alerts Substance Reaction Severity [...] tablet, 11 Refills, Maintenance, 03/11/20 11:26:00EST, Tablet, [facility] #[id number], Partial fill upon patient request if the [...] Status: Ordered temozolomide 100 mg oral capsule 3 capsule = 300 mg, By Mouth, Daily at bedtime, for 5 days, total daily dose 320 mg, # 15 capsule, 4 Refills, Acute 06/10/20 16:49:00 EDT, 05/16/20 16:49:00 EDT, Partial fill upon patient request if the prescription is for a schedule II opioid drug. Start Date: 05/16/20 Stop Date: 06/10/20 Status: Ordered temozolomide 20 mg oral capsule 1 capsule = 20 mg, By Mouth, Daily at bedtime, for 5 days, total daily dose 320 mg, # 5 capsule, 4 Refills, Acute 06/10/20 16:49:00 EDT, 05/16/20 16:49:00 EDT, Partial fill upon patient request if the prescription is for a schedule II opioid drug. Start Date: 05/16/20 Stop Date: 06/10/20 Status: Ordered traZODone 50 mg oral tablet 50 mg, 1, tablet, By Mouth, Daily at bedtime, for 30 days, # 30 tablet, Refills 11, Tot. Refills 11, Hard Stop 01/23/21 11:49:00 EST, 01/29/20 11:49:00 EST, [id number], Partial fill upon patient reque... Start Date: 01/29/20 Stop Date: 01/23/21 Status: Ordered traZODone 50 mg oral tablet [...] a schedule II opioid drug., 167, cm, . Start Date: 04/10/20 Stop Date: 08/08/20 Status: [...]
--- OUTSIDE RECORDS SUMMARY | 2023-06-10 07:58 | XMS_ITS | Continuity of Care Document ---
Author Organization [facility] Ranjit Nicholson Jack lt Address [address] [place] [address]- Care Team Providers Care Cosmetics Machine Operator Name Role Phone Braden Mullins MD Primary Care Physician [phone] [place] [facility] [place](s[place] 03/24/22 - 03/31/22 [facility] Ranjit Sterlingley Adult [address] [place] [address]- Encounter Diagnosis Alcohol dependence(Discharge Diagnosis) - 03/24/22 COPD (chronic obstructive pulmonary disease)(Discharge Diagnosis) - 03/24/22 GBM (glioblastoma multiforme)(Discharge Diagnosis) - 03/24/22 Hypercholesterolemia(Discharge Diagnosis) - 03/24/22 Tobacco abuse(Discharge Diagnosis) - 03/24/22 Attending Physician: Braden Mullins MD Allergies, Adverse Reactions, Alerts No Known Allergies Immunizations Given and Recorded Vaccine Date Status Refusal Reason [id number] 12y+ bivalent booster vax 02/02/22 Recorded influenza virus vaccine, inactivated 12/04/21 Mark rded influenza virus vaccine, inactivated 12/04/20 Mark rded influenza virus vaccine, inactivated 12/20/19 Give n influenza virus vaccine, inactivated 12/09/16 Mark rded SARS-CoV-2 mRNA ([id number]) vax 08/25/21 Given pneumococcal 13-valent vaccine 08/25/21 [...] Refills, Maintenance, 03/24/22 15:24:00 EST, [facility], 167, cm, 03/24/22 14:57:00 EST, Height, 55.3, kg, 03/16/22 13:19:00 EST, Dry Weight Start Date: 03/24/22 Stop Date: 03/19/23 Status: Ordered folic acid 1 mg oral tablet 1, tablet, By Mouth, Daily, # 90 tablet, Refills 1, Maintenance, 02/18/22 7:38:00 EST, Route to Pharmacy Electronically, [facility] #[facility], 167, cm, 02/02/22 12:58:00 EST, Height, 55.5, kg, 02/02/22 12:58:00 EST, Dry Weight Start Date: 02/18/22 Status: Ordered levETIRAcetam 500 mg oral tablet 1 tablet = 500 mg, By Mouth, 2 times a day, # 180 tablet, 3 Refills, Maintenance, 03/24/22 15:24:00EST, [facility] #[facility], 167, cm, 03/24/22 14:57:00 EST, Height, 55.3, kg, 03/16/22 13:19:00 EST, Dry Weight Start Date: 03/24/22 Stop Date: 03/19/23 Status: Ordered Melatonin 10 mg oral tablet 1 tablet = 10 mg, By Mouth, Daily at bedtime, for 30 days, # 30 tablet, 11 Refills, Acute 08/20/22 14:43:00 EDT, 08/25/21 14:43:00 EDT, [facility], Partial fill upon patient requestif [...] 3 Refills, Maintenance, 07/29/21 15:04:00 EDT, Tablet, [facility], Partial fill upon patient request if the prescription is for a schedule II opioid drug., 2 tablet By... Start Date: 07/29/21 Status: Ordered traZODone 50 mg oral tablet 1, tablet, By Mouth, Daily at bedtime, # 270 tablet, Refills 0, Maintenance, 11/12/21 14:35:00 EDT,Route to Pharmacy Electronically, [facility], 167, cm, 11/10/21 10:17:00 EDT, [...] Active Caputo catheter in place Confirmed Active Diagnosis Diagnosis Type Effective Dates Health Status Clinical Service Informant Alcohol dependence Discharge Diagnosis 03/24/22 COPD (chronic obstructive pulmonary disease) Discharge Diagnosis 03/24/22 GBM (glioblastoma multiforme) Discharge Diagnosis 03/24/22 Hypercholesterolemia Discharge Diagnosis 03/24/22 Tobacco abuse Discharge Diagnosis 03/24/22 Vital Signs Most recent to oldest [Reference Range]: 1 Height 167 cm (03/24/22 2:57 PM) Weight 55.8 kg (03/24/22 2:57 PM) Oxygen Saturation [94-100 %] 97 % (03/24/22 2:57 PM) Pulse Rate [55-90 bpm] 89 bpm (03/24/22 2:57 PM) Body Mass Index [18.5-24.99 kg/m2] 20.01 kg/m2 (03/24/22 2:57 PM) Blood Pressure [90-138/55-84 mm Hg] 108/ 64mm Hg (03/24/22 2:57 PM) Mode of Delivery (Oxygen) Room air (03/24/22 2:57 PM) Blood pressure sites Arm, left (03/24/22 2:57 PM) Weight Obtained Via Standing scale (03/24/22 2:57 PM) Social History Social History Type Response Smoking Status 10 or more cigarette s (1/2 pack or more)/day in last 30 days entered on: 01/12/20 Sex Note * Shannon Gibson: PERFORM, SIGN, VERIFY Event Display: Patient Education/Instruction Authored Date: [id number] [facility] *[facility] Char López Clinical Summary Name COLEMAN MARTINEZ Age 66 Years 1955 PCP Braden Mullins MD PCP [facility]# [id number] Visit Date 03/24/2022 14:49:00 Additional Instructions: Scheduled Appointments?? Future Appointments ?No Future Appointments Scheduled Follow-Up Instructions ?? With: Address: When: Braden Mullins MD In 6 months Diagnosis Pure hypercholesterolemia, unspecified; Tobacco use; Chronic obstructive pulmonary disease, unspecified; Alcohol dependence, uncomplicated; Malignant neoplasm of brain, unspecified Medications: Please continue your medications until treatment is completed or stopped by your provider. Discuss any questions related to medications with your provider. Medications to Continue Taking That Have Changed [facility], [address] [place] [id number], [phone] - Atorvastatin (atorvastatin 40 mg oral tablet) 1 tab(s) Oral Daily for 90 Days. Refills: 3. Next Dose: - Pantoprazole (pantoprazole 40 mg oral delayed release tablet) 1 tab(s) Oral Daily for 90 Days. Refills: 3. Next Dose: Medications to Continue with No Changes [facility] [address] [place] [id number], [phone] levETIRAcetam (levETIRAcetam 500 mg oral tablet) 1 tab(s) Oral twice a day for 90 Days. Refills: 3. Next Dose: These medications were not printed or sent to your pharmacy Aspirin (aspirin 81 mg oral delayed release tablet) 1 tab(s) Oral Daily. Next Dose: Docusate-Senna (Senna Plus 50 mg-8.6 mg oral tablet) 2 tab(s) Oral Daily at Bedtime as needed Constipation. Refills: 3. Next Dose: Folic Acid (folic acid 1 mg oral tablet) 1 tab(s) Oral Daily. Refills: 1. Next Dose: Melatonin (Melatonin 10 mg oral tablet) 1 tab(s) Oral Daily at Bedtime for 30 Days. Refills: 11. Next Dose: Trazodone (traZODone 50 mg oral tablet) 1 tab(s) Oral Daily at Bedtime. Refills: 0. Next Dose: No Longer Take the Following Medications Dexamethasone (dexamethasone 2 mg oral tablet) 1 tab(s) Oral Daily. with food. Refills: 1. Dexamethasone (dexamethasone 4 mg oral tablet) 1 tablet By Mouth 30 min before chemotherapy. Refills: 0. Famotidine (famotidine 20 mg oral tablet) 1 tab(s) Oral twice a day for 30 Days. Refills: 11. Lorazepam (LORazepam 1 mg oral tablet) 1 tablet By Mouth 30 min before chemotherapy. Refills: 1. Milk of Magnesia (Milk of Magnesia Liquid) 30 Milliliter Oral Daily as needed Constipation. Ondansetron (ondansetron 8 mg oral tablet) 1 tablet By Mouth 30 minutes before chemotherapy and every 8 hours if needed for nausea. Refills: 5. Ondansetron (ondansetron 8 mg oral tablet) 1 tablet By Mouth 3 times a day. Refills: 6. Temozolomide Allergy Info:?? NKA Medications Given This Visit Future Orders ?No future orders Vital Signs Height 167 cm Weight 55.8 kg BMI 20.01 kg/m2 Blood Pressure 108 mm Hg/64 mm Hg Temperature Pulse Rate 89 bpm Respiratory Rate 02 Sat Mode of Delivery 97 %/Room air You can now view a summary of your hospital visit from the comfort of your home through a free online portal called Tuee. Tuee is a website that allows you to securely view your medical information including discharge summary, medications and follow-up visits. ??You can alsosend a secure electronic message to your doctor???s office to request appointments, renew medications or just ask a question. You can enroll at [email or web address] or register during your next office visit. Disclaimer:?? The information provided is of a general nature and is intended to be used in conjunction with the recommendations and advice of your health care practitioner. ??Every effort has been made to ensure that the information provided is accurate and complete at the time it is provided to you however, as your needs change, or, as new ??information becomes available, different or additional instructions may be required. If you have questions, please consult with your primary care provider or pharmacist, as appropriate. ??This information is not intended to serve as substitution for assessment and evaluation by a qualified health care provider. If you do not have a primary care provider, you may find a [facility] provider by calling [facility] Link at [phone]. For information about the plan of care including goals and instructions for your diagnosis, please see the patient education orders section of this document. Patient Education Materials?? The content of this educational material or handout may have been modified, supplemented, or adapted from its original content and format to support your individualized medical care. Patient Care team information Care Team Personnel Name: Fadumo Hu Position: [facility] Onco RN Member Role: Primary Care Nurse Name: Debbie Franks RN Position: [facility] ED RN W/OE and Tasks Member Role: Primary Care Nurse Name: Tonie Castro RN Position: [facility] Onco RN Member Role: Primary Care Nurse Name: Myrna Banda Position: [facility] Onco RN Member Role: Primary Care Nurse Name: Braden Mullins MD Position: [facility] Primary Care Physician Member Role: PCP Address: Address: [address] [place] [id number] Name: Candy Moreno RN Position: [facility] OB RN Member Role: Primary Care Nurse Name: Ranjit Puri RN Position: S RN Member Role: Primary Care Nurse Name: Levon Kenyon RN Position: S RN Supv Member Role: Primary Care Nurse Name: Elysia Byers [place] Position: [facility] Onco RN Member Role: Primary Care Nurse [...]
--- OUTSIDE RECORDS SUMMARY | 2023-06-10 07:58 | XMS_ITS | Continuity of Care Document ---
Author Organization [facility] Address [address] [place] [address]- Care Team Providers Care Golf Cart Attendant Name Role Phone Braden Mullins MD Primary Care Physician [id number] Date[facility] - 10/28/20 [facility] Care [address] [place] [address]- Discharge Disposition: A-D/C Home Attending Physician: Tiffani Lowe MD Admitting Physician: Tiffani Lowe MD Referring Physician: Braden Mullins MD Allergies, Adverse Reactions, [...] tablet, 11 Refills, Maintenance, 03/11/20 11:26:00EST, Tablet, [id number], Partial fill upon patient request if the [...] abuse(Confirmed) Active Caputo catheter in place(Confirmed) Active Vital Signs Most recent to oldest [Reference Range]: 1 Height 167 cm (10/23/20 10:42 AM) Weight 56.5 kg (10/23/20 10:42 AM) Pulse Rate [55-90 bpm] 77 bpm (10/23/20 10:42 AM) Body Mass Index [18.5-24.99] 20.26 (10/23/20 10:42 AM) Blood Pressure [90-138/55-84 mm Hg] 105/ 62mm Hg (10/23/20 10:42 AM) Temperature [96.8-100.4 DegF] 99.3 DegF (10/23/20 10:42 AM) Blood pressure sites Arm, left (10/23/20 10:42 AM) Temperature Route Temporal (10/23/20 10:42 AM) Dry Weight 56.5 kg (10/23/20 10:42 AM) Weight Obtained Via Standing scale (10/23/20 10:42 AM) Dry Weight Obtained Via Standing scale (10/23/20 10:42 AM) Social History Social History Type Response Smoking Status 10 or more cigarette s (1/2 pack or more)/day in last 30 days entered on: 01/12/20 Sex
--- OUTSIDE RECORDS SUMMARY | 2023-06-10 07:58 | XMS_ITS | Continuity of Care Document ---
Author Organization [facility] ancer [facility] Address [address] [place] [address]- Care Team Providers Care Restaurant Crew Member Name Role Phone Braden Mullins MD Primary Care Physician Encounter [facility] [place] Date(s): 05/15/20 - 06/14/20 [facility] [address] [place] [id number] Attending Physician: Asya Copeland Admitting Physician: AdmtrAsya Referring Physician: AdmtrAsya Allergies, [...] tablet, 11 Refills, Maintenance, 03/11/20 11:26:00EST, [id number], Partial fill upon patient request if the [...] 01/29/20 11:49:00 EST, Route to Pharmacy Electronically, [facility] #[id number], Partial fill upon patient reque... Start Date: [...]
--- OUTSIDE RECORDS SUMMARY | 2023-06-10 07:58 | XMS_ITS | Continuity of Care Document ---
Author Organization [facility] Address [address], [address] Floor, [address] [place] [address]- Care Team Providers Care Records Management Manager Name Role Phone Braden Mullins MD Primary Care Physician Encounter [facility] Date(s): 04/13/23 - 05/13/23 [facility] [address], [address] [place] [id number] Allergies, Adverse Reactions, Alerts No Known Allergies Immunizations Given and Recorded Vaccine Date Status Refusal Reason RSV vaccine, preF A-preF B, recombinant 11/13/22 R ecorded influenza virus vaccine, inactivated 11/13/22 Mark rded influenza virus vaccine, inactivated 12/04/21 Mark rded influenza virus vaccine, inactivated 12/04/20 Mark rded influenza virus vaccine, inactivated 12/20/19 Give n influenza virus vaccine, inactivated 12/09/16 Mark rded SARS-CoV-2(COVID-19)mRNA-LNP vac([id number]) 11/13/22 Recorded [id number] 12y+ bivalent booster vax 02/02/22 Recorded SARS-CoV-2 mRNA ([id number]-[id number]) vax 08/25/21 Given pneumococcal 13-valent vaccine 08/25/21 [...] Refills, Maintenance, 03/24/22 15:24:00 EST, [facility], 167, cm, 03/24/22 14:57:00 EST, Height, 55.3, kg, 03/16/22 13:19:00 EST, Dry Weight Start Date: 03/24/22 Stop Date: 03/19/23 Status: Ordered folic acid 1 mg oral tablet 1, tablet, By Mouth, Daily, # 90 tablet, Refills 3, Maintenance, 04/19/23 14:36:00 EST, Route to Pharmacy Electronically, [facility], 167, cm, 04/12/23 13:17:00 EST, Height, 56.2, kg, 04/07/23 14:11:00 EST, Dry Weight Start Date: 04/19/23 Status: Ordered levETIRAcetam 500 mg oral tablet 1 tablet = 500 mg, By Mouth, 2 times a day, # 180 tablet, 3 Refills, Maintenance, 03/24/22 15:24:00EST, [facility], 167, cm, 03/24/22 14:57:00 EST, [...] Care Nurse Name: Debbie Franks RN Position: [facility] ED RN W/OE and Tasks Member Role: Primary Care Nurse Name: Tonie Castro RN Position: S Onco RN Member Role: Primary Care Nurse Name: Myrna Banda Position: [facility] RN Member Role: Primary Care Nurse Name: Braden Mullins MD Position: [facility] Physician - Primary Care Member Role: PCP Address: Address: [address] [place] [address]- Name: Candy Moreno RN Position: [facility] OB RN Member Role: Primary Care Nurse Name: Ranjit Puri RN Position: S RN Member Role: Primary Care Nurse Name: Levon Kenyon RN Position: [facility] RN Supv Member Role: Primary Care Nurse Name: Elysia Byers [place] Position: [facility] Onco RN Member Role: Primary Care Nurse Name: Bridgette Lewis RN Position: S RN Member Role: Primary Care Nurse Name: Rosa Brunner RN Position: [facility] RN Member Role: Primary Care Nurse Name: Christi Florentino RN Position: [facility] RN Supv Member Role: Primary Care Nurse Name: Miguel Ruiz RN Position: S RN Member Role: Primary Care Nurse Care Team Related Persons Name: KG RAYA
--- OUTSIDE RECORDS SUMMARY | 2023-06-10 07:58 | XMS_ITS | Continuity of Care Document ---
Author Organization [facility] Bharat Jack lt Address [address] [place] [address]- Care Team Providers Care Economics Analyst Name Role Phone Braden Mullins MD Primary Care Physician [place] [facility] [place] 11[place]26/22 [facility] Adult [address] [place] [address]- Allergies, Adverse Reactions, Alerts No Known Allergies Immunizations Given and Recorded Vaccine Date Status Refusal Reason [id number] 12y+ bivalent booster vax 02/02/22 Recorded influenza virus vaccine, inactivated 12/04/21 Mark rded influenza virus vaccine, inactivated 12/04/20 Mark rded influenza virus vaccine, inactivated 12/20/19 Give n influenza virus vaccine, inactivated 12/09/16 Mark rded SARS-CoV-2 mRNA (eiduxyr-tesd-unuxx) vax 08/25/21 Given pneumococcal 13-valent vaccine 08/25/21 [...] Refills, Maintenance, 03/24/22 15:24:00 EST, [facility], 167, cm, 03/24/22 14:57:00 EST, Height, 55.3, kg, 03/16/22 13:19:00 EST, Dry Weight Start Date: 03/24/22 Stop Date: 03/19/23 Status: Ordered folic acid 1 mg oral tablet 1, tablet, By Mouth, Daily, # 90 tablet, Refills 1, Maintenance, 09/18/22 6:30:00 EDT, Route to Pharmacy Electronically, [facility], 167, cm, 06/22/22 13:02:00 EDT, Height, 56.7, kg, 06/22/22 13:02:00 EDT, Dry Weight Start Date: 09/18/22 Status: Ordered levETIRAcetam 500 mg oral tablet 1 tablet = 500 mg, By Mouth, 2 times a day, # 180 tablet, 3 Refills, Maintenance, 03/24/22 15:24:00EST, [facility], 167, cm, 03/24/22 14:57:00 EST, [...] Care Team Personnel Name: Fadumo Hu Position: [facility] Onco RN Member Role: Primary Care Nurse Name: Manuel Rees [place] Position: [facility] Onco RN Member Role: Primary Care Nurse Name: Debbie Franks RN Position: [facility] ED RN W/OE and Tasks Member Role: Primary Care Nurse Name: Tonie Castro RN Position: [facility] Onco RN Member Role: Primary Care Nurse Name: Myrna Banda Position: S [facility] RN Member Role: Primary Care Nurse Name: Braden Mullins MD Position: [facility] Physician - Primary Care Member Role: PCP Address: Address: [address] [place] [address]- Name: Candy Moreno RN Position: [facility] OB RN Member Role: Primary Care Nurse Name: Ranjit uPri RN Position: [facility] RN Member Role: Primary Care Nurse Name: Levon Kenyon RN Position: [facility] RN Supv Member Role: Primary Care Nurse Name: Elysia Byers [place] Position: [facility] Onco RN Member Role: Primary Care Nurse Name: Bridgette Lewis RN Position: [facility] RN Member Role: Primary Care Nurse Name: Rosa Brunner RN Position: [facility] RN Member Role: Primary Care Nurse Name: Christi Florentino RN Position: [facility] RN Supv Member Role: Primary Care Nurse Name: Miguel Ruiz RN Position: [facility] RN Member Role: Primary Care Nurse Care Team Related Persons Name: KG RAYA
--- OUTSIDE RECORDS SUMMARY | 2023-06-10 07:58 | XMS_ITS | Continuity of Care Document ---
Author Organization [facility] Address [address] [place] [address]- Care Team Providers Care Milk Drying Machine Operator Name Role Phone Braden Mullins MD Primary Care Physician Encounter [facility] [place] Date(s): 06/18/22 - 07/18/22 [facility] Care [address] [place] [address]- Attending Physician: AdmAsya beverly Admitting Physician: AdmtrAsya Referring Physician: Admtr, Ar8 Allergies, Adverse Reactions, Alerts No Known Allergies Immunizations Given and Recorded Vaccine Date Status Refusal Reason [id number] 12y+ bivalent booster vax 02/02/22 Recorded influenza virus vaccine, inactivated 12/04/21 Mark rded influenza virus vaccine, inactivated 12/04/20 Mark rded influenza virus vaccine, inactivated 12/20/19 Give n influenza virus vaccine, inactivated 12/09/16 Mark rded SARS-CoV-2 mRNA (oljrzzw-gnux-jpvcq) vax 08/25/21 Given pneumococcal 13-valent vaccine 08/25/21 [...] 02/18/22 7:38:00 EST, Route to Pharmacy Electronically, [facility], 167, cm, 02/02/22 12:58:00 EST, [...] last 30 days entered on: 01/12/20 Sex Radiology * Event Display: MRI Head, Non- BH Authored Date: Patient Care team information Care Team Personnel Name: Fadumo Hu Position: [facility] Onco RN Member Role: Primary Care Nurse Name: Debbie Franks RN Position: [facility] ED RN W/OE and Tasks Member Role: Primary Care Nurse Name: Tonie Castro RN Position: [facility] Onco RN Member Role: Primary Care Nurse Name: Myrna Banda Position: [facility] Onco RN Member Role: Primary Care Nurse Name: Braden Mullins MD Position: [facility] Physician - Primary Care Member Role: PCP Address: Address: [address] [place] [address]- Name: Candy Moreno RN Position: [facility] OB RN Member Role: Primary Care Nurse Name: Ranjit Puri RN Position: [facility] RN Member Role: Primary Care Nurse Name: Levon Kenyon RN Position: [facility] RN Supv Member Role: Primary Care Nurse Name: Elysia Byers [place] Position: [facility] Onco RN Member Role: Primary Care Nurse Name: Bridgette Lewis RN Position: [facility] RN Member Role: Primary Care Nurse Name: Rosa Brunner RN Position: [facility] RN Member Role: Primary Care Nurse Name: Christi Florentino RN Position: [facility] RN Supv Member Role: Primary Care Nurse Name: Miguel Ruiz RN Position: [facility] RN Member Role: Primary Care Nurse Name: Roxann Estrada RN Position: [facility] RN Member Role: Primary Care Nurse Care Team Related Persons Name: KG RAYA
--- OUTSIDE RECORDS SUMMARY | 2023-06-10 07:58 | XMS_ITS | Continuity of Care Document ---
Author Organization [facility] Bharat Jack lt Address [address] [place] [address]- Care Team Providers Care Residential Pest Control Technician Name Role Phone Braden Mullins MD Primary Care Physician Encounter [facility] [place] Date(s): 06/21/20 - 06/28/20 [facility] Adult [address] [place] [address]- Encounter Diagnosis Alcohol dependence(Discharge Diagnosis) - 06/21/20 COPD (chronic obstructive pulmonary disease)(Discharge Diagnosis) - 06/21/20 GBM (glioblastoma multiforme)(Discharge Diagnosis) - 06/21/20 Hypercholesterolemia(Discharge Diagnosis) - 06/21/20 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 Tobacco abuse(Discharge Diagnosis) - 06/21/20 Attending Physician: Braden Mullins MD Allergies, Adverse [...] Instructions, 1 tablet By Mouth Every Wed Wed Wed during radiation therapy, # 18 tablet, [...] tablet, 11 Refills, Maintenance, 03/11/20 11:26:00EST, Tablet, [facility] #[id number], Partial fill upon patient request if the [...] Clinical Service Informant Alcohol dependence Discharge Diagnosis 06/21/20 COPD (chronic obstructive pulmonary disease) Discharge Diagnosis 06/21/20 GBM (glioblastoma multiforme) Discharge Diagnosis 06/21/20 Hypercholesterolemia Discharge Diagnosis 06/21/20 Thrombosis cerebral vein Discharge Diagnosis 06/21/20 Tobacco abuse Discharge Diagnosis 06/21/20 Vital Signs Most recent to oldest [Reference Range]: 1 Height 167 cm (06/21/20 10:48 AM) Weight 59.0 kg (06/21/20 10:48 AM) Oxygen Saturation [94-100 %] 93 % *L* (06/21/20 10:48 AM) Body Mass Index [18.5-24.99] 21.16 (06/21/20 10:48 AM) Blood Pressure [90-138/55-84 mm Hg] 82/5 2mm Hg *L* (06/21/20 10:48 AM) Respiratory Rate [16-30 br/min] 64 br/mi n *H* (06/21/20 10:48 AM) Mode of Delivery (Oxygen) Room air (06/21/20 10:48 AM) Blood pressure sites Arm, left (06/21/20 10:48 AM) Weight Obtained Via Standing scale (06/21/20 10:48 AM) Social History Social History Type Response Smoking Status 10 or more cigarette s (1/2 pack or more)/day in last 30 days entered on: 01/12/20 Sex
--- OUTSIDE RECORDS SUMMARY | 2023-06-10 07:58 | XMS_ITS | Continuity of Care Document ---
Author Organization [facility] Address [address] [place] [address]- Care Team Providers Care Hatchery Attendant Name Role Phone Braden Mullins MD Primary Care Physician Encounter [facility] Date(s): 09/23/20 - 10/23/20 [facility] [address] [place], [place] [address] Attending Physician: Admtr, Ar8 Admitting Physician: Admtr, Ar8 Referring Physician: Admtr, Ar8 Allergies, Adverse Reactions, Alerts Substance Reaction Severity [...] tablet, 11 Refills, Maintenance, 03/11/20 11:26:00EST, Tablet, [facility] #[id number], Partial fill upon patient request if the [...]
--- OUTSIDE RECORDS SUMMARY | 2023-06-10 07:58 | XMS_ITS | Continuity of Care Document ---
Author Organization [facility] ter Address [address] [place] [address]- Care Team Providers Care Painter Structural Steel Name Role Phone Braden Mullins MD Primary Care Physician En[place] [facility] Date(s): 12/20/19 - 01/25/[address] [address] Attending Physician: Medhat Trevino MD Referring Physician: Medhat Trevino MD Allergies, Adverse Reactions, Alerts Substance Reaction Severity Status NKA Active Immunizations Given and Recorded Vaccine Date Status Refusal Reason pneumococcal 23-valent vaccine 12/28/19 Given influenza virus vaccine, inactivated 12/20/19 Give n Not Given Vaccine Date Status Refusal Reason pneumococcal 23-valent vaccine 12/20/19 Not Given Patient Refuses Medications Bactrim DS 800 mg-160 mg oral tablet [...] patient request Start Date: 01/12/20 Status: Ordered Enoxaparin 0.9 mL = 90 mg, Subcutaneous Injection, Every 24 hours, 0 Refills, Maintenance, 01/02/20 10:55:00 EST, Injection, Partial fill upon patient request Start Date: 01/02/20 Status: Ordered folic acid 1 mg oral [...] EC Tablet Start Date: 01/02/20 Status: Ordered Pyridoxine Tablet 50 mg, By Mouth, Daily, Refills 0, Maintenance, 01/02/20 10:55:00 EST, Partial fill upon patient request Start Date: 01/02/20 Status: Ordered temozolomide 100 mg oral capsule [...] Date: 01/10/20 Stop Date: 02/21/20 Status: Ordered thiamine 100 mg oral tablet 100 mg, 1, tablet, By Mouth, Daily, # 14 tablet, Refills 0, Maintenance, 12/19/19 1:34:00 EST Start Date: 12/19/19 Stop Date: 01/02/20 Status: Ordered traZODone 50 mg oral tablet 25 mg, 0.5, tablet, By Mouth, Daily at bedtime, PRN, Refills 0, Maintenance, Insomnia, 01/02/20 10:55:00 EST, Partial fill upon patient request Start Date: 01/02/20 Status: Ordered Tylenol 325 mg oral tablet 650 mg, 2, tablet, By Mouth, Every 6 hours, PRN, # 120 tablet, Refills 0, Maintenance, Pain , Mild,12/19/19 1:26:00 EST Start Date: 12/19/19 Status: Ordered Problem List Condition Effective Dates Status Health Status Inform ant Alcohol dependence(Confirmed) Active Bacteremia(Confirmed) Active Bladder outlet obstruction(Confirmed) Active Cerebral venous sinus thrombosis(Confirmed) Active COPD (chronic obstructive pu lmonary disease)(Confirmed) Active GBM (glioblastoma multiforme)(Confirmed) Active Brain mass(Confirmed) Active Rhabdomyolysis(Confirmed) Active Tobacco abuse(Confirmed) Active Caputo catheter in place(Confirmed) Active Social History Social History Type Response Smoking Status 10 or more cigarette s (1/2 pack or more)/day in last 30 days entered on: 01/12/20 Sex
--- OUTSIDE RECORDS SUMMARY | 2023-06-10 07:58 | XMS_ITS | Continuity of Care Document ---
Author Organization [facility] Address [address] [place] [address] [address] [place] [address]- Care Team Providers Care Casino Worker Name Role Phone Braden Mullins MD Primary Care Physician [phone] [place] [facility] [place] - 07/24/[address] [place] [address]- Attending Physician: Krunal Vegas MD Referring Physician: Braden Mullins MD Allergies, [...] tablet, 11 Refills, Maintenance, 03/11/20 11:26:00EST, Tablet, [facility] #[id number], Partial fill upon patient request if the [...]
--- OUTSIDE RECORDS SUMMARY | 2023-06-10 07:58 | XMS_ITS | Continuity of Care Document ---
Author Organization [facility] ter Address [address] [place] [address]- Care Team Providers Care Press Tender Star Signal Name Role Phone Braden Mullins MD Primary Care Physician Encounter [facility] Date(s): 04/13/23 - 05/29/[address] [address] Attending Physician: Medhat Trevino MD Referring Physician: Medhat Trevino MD Allergies, Adverse Reactions, Alerts No Known Allergies Immunizations Given and Recorded Vaccine Date Status Refusal Reason RSV vaccine, preF A-preF B, recombinant 11/13/22 R ecorded influenza virus vaccine, inactivated 11/13/22 Mark rded influenza virus vaccine, inactivated 12/04/21 Mark rded influenza virus vaccine, inactivated 12/04/20 Mark rded influenza virus vaccine, inactivated 12/20/19 Give n influenza virus vaccine, inactivated 12/09/16 Mark rded SARS-CoV-2(COVID-19)mRNA-LNP vac([id number]) 11/13/22 Recorded [id number] 12y+ bivalent booster vax 02/02/22 Recorded SARS-CoV-2 mRNA ([id number]) vax 08/25/21 Given pneumococcal 13-valent vaccine 08/25/21 [...] Refills, Maintenance, 03/24/22 15:24:00 EST, [facility], 167, cm, 03/24/22 14:57:00 EST, Height, 55.3, kg, 03/16/22 13:19:00 EST, Dry Weight Start Date: 03/24/22 Stop Date: 03/19/23 Status: Ordered folic acid 1 mg oral tablet 1, tablet, By Mouth, Daily, # 90 tablet, Refills 3, Maintenance, 04/19/23 14:36:00 EST, Route to Pharmacy Electronically, [facility] #[facility], 167, cm, 04/12/23 13:17:00 EST, Height, 56.2, kg, 04/07/23 14:11:00 EST, Dry Weight Start Date: 04/19/23 Status: Ordered levETIRAcetam 500 mg oral tablet 1 tablet = 500 mg, By Mouth, 2 times a day, # 180 tablet, 3 Refills, Maintenance, 03/24/22 15:24:00EST, [facility], 167, cm, 03/24/22 14:57:00 EST, [...] vein Confirmed Active Tobacco abuse Confirmed Active Underweight Confirmed Active Caputo catheter in place Confirmed Active Vital Signs Most recent to oldest [Reference Range]: 1 Height 167.0 cm (04/27/23 3:19 PM) Weight 56.5 kg (04/27/23 3:19 PM) Body Mass Index [18.5-24.99 kg/m2] 20.26 kg/m2 (04/27/23 3:19 PM) Dry Weight 56.5 kg (04/27/23 3:19 PM) Dry Weight Obtained Via Patient/family s tated (04/27/23 3:19 PM) Social History Social History Type Response Smoking Status 10 or more cigarette s (1/2 pack or more)/day in last 30 days; Interested in cessation: No; Patient wants NRT during admission No entered on: 05/19/23 Sex Patient Care team information Care Team Personnel Name: Fadumo Hu Position: S Onco RN Member Role: Primary Care Nurse Name: Debbie Franks RN Position: [facility] ED RN W/OE and Tasks Member Role: Primary Care Nurse Name: Tonie Castro RN Position: [facility] Onco RN Member Role: Primary Care Nurse Name: Myrna Banda Position: [facility] Onco RN Member Role: Primary Care Nurse Name: Braden Mullins MD Position: [facility] Physician - Primary Care Member Role: PCP Address: Address: [address] [place] [address]- Name: Candy Moreno RN Position: [facility] OB RN Member Role: Primary Care Nurse Name: Ranjit Puri RN Position: S RN Member Role: Primary Care Nurse Name: Levon Kenyon RN Position: [facility] RN Supv Member Role: Primary Care Nurse Name: Elysia Byers [place] Position: [facility] Onco RN Member Role: Primary Care Nurse Name: Arnel Owens RN Position: S RN Member Role: Primary Care Nurse Name: Bridgette Lewis RN Position: S RN Member Role: Primary Care Nurse Name: Rosa Brunner RN Position: S RN Member Role: Primary Care Nurse Name: Christi Florentino RN Position: [facility] RN Supv Member Role: Primary Care Nurse Name: Miguel Ruiz RN Position: [facility] RN Member Role: Primary Care Nurse Care Team Related Persons Name: KG RAYA Address: [facility]
--- OUTSIDE RECORDS SUMMARY | 2023-06-10 07:58 | XMS_ITS | Continuity of Care Document ---
Author Organization [facility] Address [address] [place] [address] abundio, [address] [place] [address]- Care Team Providers Care Junior Loan Processor Name Role Phone Braden Mullins MD Primary Care Physician Encounter [facility] Date(s): 01/08/20 - 02/07/20 [facility] [address] [place] [address], [address] [place], [place] [address] Attending Physician: AdmAsya beverly Admitting [...] 3 Refills, Maintenance, 01/29/20 12:17:00 EST, Tablet, [facility] #[id number], Partial fill upon patient request if the [...] 1 Refills, Maintenance, 01/30/20 13:00:00 EST, Capsule, [facility] #[id number], Partial fill upon patient request if the [...] 01/29/20 11:49:00 EST, Route to Pharmacy Electronically, [facility] #[id number], Partial fillupon patient request if the prescription [...]
--- OUTSIDE RECORDS SUMMARY | 2023-06-10 07:58 | XMS_ITS | Continuity of Care Document ---
Author Organization [facility] Ranjit Nicholson Jack lt Address [address] [place] [address]- Care Team Providers Care Carpenter General Name Role Phone Braden Mullins MD Primary Care Physician [phone] Encounter [facility] Date(s): 12/17/21 - 12/24/21 [facility] Nicholson Adult [address] [place] [address]- Attending Physician: Braden Mullins MD Allergies, Adverse Reactions, Alerts No Known Allergies Immunizations Given and Recorded Vaccine Date Status Refusal Reason influenza virus vaccine, inactivated 12/04/21 Mark rded influenza virus vaccine, inactivated 12/04/20 Mark rded influenza virus vaccine, inactivated 12/20/19 Give n SARS-CoV-2 mRNA ([id number]) vax 08/25/21 Given pneumococcal 13-valent vaccine 08/25/21 [...] tablet 1 tablet, By Mouth, Daily, # 30 Unknown, 5 Refills, Maintenance, 12/19/21 15:53:00 EDT, [facility], 167, cm, 12/17/21 14:50:00 EDT, Height, 56.1, kg, 12/08/21 13:32:00 EDT, Dry Weight Start Date: 12/19/21 Status: Ordered dexamethasone 2 mg oral tablet 1 tablet = 2 mg, By Mouth, Daily, with food, # 30 tablet, 1 Refills, Maintenance, 10/17/21 15:23:00EDT, [facility], Partial fill upon patient request if the prescription is for a schedule II opioid drug., 167, cm, 10/14/21 13:34:00 EDT,... Start Date: 10/17/21 Status: Ordered dexamethasone 4 mg oral tablet See Instructions, 1 tablet By Mouth 30 min before chemotherapy, # 20 tablet, 0 Refills, Maintenance, 06/27/21 14:53:00 EDT, [facility], 167, cm, 06/27/21 14:31:00 EDT, Height, 57.3,kg, 06/27/21 14:31:00 EDT, Dry Weight Start Date: 06/27/21 Status: Ordered famotidine 20 mg oral tablet 20 mg, 1, tablet, By Mouth, 2 times a day, # 60 tablet, Refills 11, Tot. Refills 11, Maintenance, 12/17/21 15:08:00 EDT, Route to Pharmacy Electronically, [facility], Partial fill upon patient request if the prescription is for a schedul... Start Date: 12/17/21 Stop Date: 12/12/22 Status: Ordered folic acid 1 mg oral [...] 180 tablet, 1 Refills, Maintenance, 05/13/21 20:17:00EDT, [facility] #[facility], 167, cm, 04/23/21 13:19:00 EST, Height, 57.2, kg, 04/23/21 13:19:00 EST, Dry Weight Start Date: 05/13/21 Stop Date: 11/09/21 Status: Ordered LORazepam 1 mg oral tablet See Instructions, 1 tablet By Mouth 30 min before chemotherapy, # 10 tablet, 1 Refills, Maintenance, 06/27/21 14:53:00 EDT, [facility], 167, cm, 06/27/21 14:31:00 EDT, Height, 57.3,kg, 06/27/21 14:31:00 EDT, Dry Weight Start Date: 06/27/21 Status: Ordered Melatonin 10 mg oral tablet 1 tablet = 10 mg, By Mouth, Daily at bedtime, for 30 days, # 30 tablet, 11 Refills, Acute 08/20/22 14:43:00 EDT, 08/25/21 14:43:00 EDT, [facility], Partial fill upon patient requestif [...] tablet, 5 Refills, Maintenance, 03/20/21 13:40:00 EST, [facility], ., 167, cm, 03/20/21 [...] tablet 1 tablet, By Mouth, Daily, for 30 days, # 30 tablet, 11 Refills, Physician Stop 12/12/22 15:09:00 EDT, 12/17/21 15:09:00 EDT, 167, cm, 12/17/21 14:50:00 EDT, Height, 56.1, kg, 12/08/21 13:32:00 EDT, Dry Weight Start Date: 12/17/21 Stop Date: 12/12/22 Status: Ordered Senna Plus 50 mg-8.6 mg oral tablet 2 tablet, By Mouth, Daily at bedtime, PRN Constipation, # 60 tablet, 3 Refills, Maintenance, 07/29/21 15:04:00 EDT, Tablet, [facility], Partial fill upon patient request [...] 14:35:00 EDT,Route to Pharmacy Electronically, [facility], 167, cm, 11/10/21 10:17:00 EDT, [...] oldest [Reference Range]: 1 Height 167 cm (12/17/21 2:50 PM) Weight 58.9 kg (12/17/21 2:50 PM) Oxygen Saturation [94-100 %] 97 % (12/17/21 2:50 PM) Pulse Rate [55-90 bpm] 89 bpm (12/17/21 2:50 PM) Body Mass Index [18.5-24.99 kg/m2] 21.12 kg/m2 (12/17/21 2:50 PM) Blood Pressure [90-138/55-84 mm Hg] 98/5 2mm Hg (12/17/21 2:50 PM) Mode of Delivery (Oxygen) Room air (12/17/21 2:50 PM) Blood pressure sites Arm, left (12/17/21 2:50 PM) Weight Obtained Via Standing scale (12/17/21 2:50 PM) Social History Social History Type Response Smoking Status 10 or more cigarette s (1/2 pack or more)/day in last 30 days entered on: 01/12/20 Sex Patient Care team information Care Team Personnel Name: Fadumo Hu Position: [facility] Onco RN Member Role: Primary Care Nurse Name: Myrna Banda Position: S Onco RN Member Role: Primary Care Nurse Name: Braden Mullins MD Position: [facility] Primary Care Physician Member Role: PCP Address: Address: [address] [place] [id number] Name: Candy Moreno RN Position: [facility] OB RN Member Role: Primary Care Nurse Name: Ranjit Puri RN Position: S RN Member Role: Primary Care Nurse Name: Levon Kenyon RN Position: [facility] RN Supv Member Role: Primary Care Nurse Name: Elysia Byers [place] Position: [facility] Onco RN Member Role: Primary Care Nurse Name: Bridgette Lewis RN Position: S RN Member Role: Primary Care Nurse Name: Rosa Brunner RN Position: S RN Member Role: Primary Care Nurse Name: Debbie Delgado RN Position: [facility] ED RN W/OE and Tasks Member Role: Primary Care Nurse Name: Christi Florentino RN Position: [facility] RN Member Role: Primary Care Nurse Name: Miguel Ruiz RN Position: [facility] RN Member Role: Primary Care Nurse Name: Roxann Estrada RN Position: [facility] RN Member Role: Primary Care Nurse Name: Tonie Boyer RN Position: [facility] Onco RN Member Role: Primary Care Nurse Care Team Related Persons Name: KG RAYA
--- OUTSIDE RECORDS SUMMARY | 2023-06-10 07:58 | XMS_ITS | Continuity of Care Document ---
Author Organization [facility] Bharat Jack lt Address [address] [place] [address]- Care Team Providers Care Kersey Department Supervisor Name Role Phone Braden Mullins MD Primary Care Physician [phone] Encounter [facility] Date(s): 04/19/23 - 05/19/23 [facility] Adult [address] [place] [address]- Allergies, Adverse Reactions, Alerts No Known Allergies Immunizations Given and Recorded Vaccine Date Status Refusal Reason RSV vaccine, preF A-preF B, recombinant 11/13/22 R ecorded influenza virus vaccine, inactivated 11/13/22 Mark rded influenza virus vaccine, inactivated 12/04/21 Mark rded influenza virus vaccine, inactivated 12/04/20 Mark rded influenza virus vaccine, inactivated 12/20/19 Give n influenza virus vaccine, inactivated 12/09/16 Mark rded SARS-CoV-2(COVID-19)mRNA-LNP vac([id number]) 11/13/22 Recorded [id number] 12y+ bivalent booster vax 02/02/22 Recorded SARS-CoV-2 mRNA ([id number]) vax 08/25/21 Given pneumococcal 13-valent vaccine 08/25/21 [...] Refills, Maintenance, 03/24/22 15:24:00 EST, [facility], 167, cm, 03/24/22 14:57:00 EST, Height, 55.3, kg, 03/16/22 13:19:00 EST, Dry Weight Start Date: 03/24/22 Stop Date: 03/19/23 Status: Ordered folic acid 1 mg oral tablet 1, tablet, By Mouth, Daily, # 90 tablet, Refills 3, Maintenance, 04/19/23 14:36:00 EST, Route to Pharmacy Electronically, [facility] #[facility], 167, cm, 04/12/23 13:17:00 EST, Height, 56.2, kg, 04/07/23 14:11:00 EST, Dry Weight Start Date: 04/19/23 Status: Ordered levETIRAcetam 500 mg oral tablet 1 tablet = 500 mg, By Mouth, 2 times a day, # 180 tablet, 3 Refills, Maintenance, 03/24/22 15:24:00EST, [facility] #[facility], 167, cm, 03/24/22 14:57:00 EST, [...] Care Nurse Name: Debbie Franks RN Position: [facility] ED RN W/OE and Tasks Member Role: Primary Care Nurse Name: Tonie Castro RN Position: [facility] Onco RN Member Role: Primary Care Nurse Name: Myrna Banda Position: [facility] Onco RN Member Role: Primary Care Nurse Name: Braden Mullins MD Position: [facility] Physician - Primary Care Member Role: PCP Address: Address: [address] [place] [address]- Name: Candy Moreno RN Position: [facility] OB RN Member Role: Primary Care Nurse Name: Ranjit Puri RN Position: S RN Member Role: Primary Care Nurse Name: Levon Kenyon RN Position: [facility] RN Supv Member Role: Primary Care Nurse Name: Elysia Byers [place] Position: [facility] Onco RN Member Role: Primary Care Nurse Name: Bridgette Lewis RN Position: S RN Member Role: Primary Care Nurse Name: Rosa Brunner RN Position: [facility] RN Member Role: Primary Care Nurse Name: Christi Florentino RN Position: [facility] RN Supv Member Role: Primary Care Nurse Name: Miguel Ruiz RN Position: [facility] RN Member Role: Primary Care Nurse Care Team Related Persons Name: KG RAYA
--- OUTSIDE RECORDS SUMMARY | 2023-06-10 07:58 | XMS_ITS | Continuity of Care Document ---
Author Organization [facility] Address [address] [place] [address]- Care Team Providers Care Surveillance Observer Name Role Phone Susanna NATH, Braden Blackburn Primary Care Physician [phone] Encounter [facility] [place] [facility] Date(s): 01/03/20 - 05/15/20 [facility] [address] [place], [place] [address] Discharge Disposition: A-D/C Home Attending Physician: Chrissy NATH, Tiffani Georges Admitting Physician: Shiva NATH, [place] Referring Physician: Not on Staff, Referring MD Allergies, Adverse Reactions, Alerts Substance Reaction [...] tablet = 40 mg, By Mouth, Daily, for 30 days, # 30 tablet, 3 Refills, Hard Stop 05/28/20 12:17:00EDT, 01/29/20 12:17:00 EST, Tablet, [id number], Partial fill upon patient request if the prescription is for a schedule II opioid drug... Start Date: 01/29/20 Stop Date: 05/28/20 Status: Ordered atorvastatin 40 mg oral tablet 1 tablet = 40 mg, By Mouth, Daily, # 30 tablet, 5 Refills, Maintenance, 05/28/20 12:17:00 EDT, Tablet, [facility], Partial fill upon patient request if the prescription is for a schedule II opioid drug., 167, cm, 04/11/20 14:12:00 EST, H... Start Date: 05/28/20 Stop Date: 11/24/20 Status: Ordered Bactrim DS 800 mg-160 mg [...] tablet, 11 Refills, Maintenance, 03/11/20 11:26:00EST, Tablet, [facility] #[id number], Partial fill upon patient request if the [...] 01/29/20 11:49:00 EST, Route to Pharmacy Electronically, [id number], Partial fill upon patient reque... Start Date: [...] Most recent to oldest [Reference Range]: 1 2 3 Height 167 cm (04/11/20 2:12 PM) 167 cm (01/19/20 2:08 PM) 175 cm (01/10/20 1:18 PM) Weight 57.9 kg (04/11/20 2:12 PM) 56.3 kg (01/19/20 2:08 PM) 57.8 kg (01/10/20 1:18 PM) Pulse Rate [55-90 bpm] 75 bpm (04/11/20 2:12 PM) 100 bpm *H* (01/10/20 1:18 PM) Body Mass Index [18.5-24.99] 20.76 (04/11/20 2:12 PM) 18.87 (01/10/20 1:18 PM) Blood Pressure [90-138/55-84 mm Hg] 126/71mm Hg (04/11/20 2:12 PM) 123/78mm Hg (01/10/20 1:18 PM) Temperature [96.8-100.4 DegF] 98.8 DegF (04/11/20 2:12 PM) 99.0 DegF (01/10/20 1:18 PM) Blood pressure sites Arm, left (04/11/20 2:12 PM) Arm, left (01/10/20 1:18 PM) Temperature Route Temporal (04/11/20 2:12 PM) Temporal (01/10/20 1:18 PM) Dry Weight 57.9 kg (04/11/20 2:12 PM) 57.8 kg (01/10/20 1:18 PM) Weight Obtained Via Standing scale (04/11/20 2:12 PM) Standing scale (01/19/20 2:08 PM) Standing scale (01/10/20 1:18 PM) Dry Weight Obtained Via Standing scale (04/11/20 2:12 PM) Standing scale (01/10/20 1:18 PM) Social History Social History Type Response Smoking Status 10 or more cigarette s (1/2 pack or more)/day in last 30 days entered on: 01/12/20 Sex
--- OUTSIDE RECORDS SUMMARY | 2023-06-10 07:58 | XMS_ITS | Continuity of Care Document ---
Author Organization [facility] Bharat Jack lt Address [address] [place] [address]- Care Team Providers Care Weigher Production Name Role Phone Braden Mullins MD Primary Care Physician [phone] Encounter [facility] Date(s): 07/29/20 - 08/05/20 [facility] Adult [address] [place] [address]- Encounter Diagnosis Alcohol dependence(Discharge Diagnosis) - 07/29/20 GBM (glioblastoma multiforme)(Discharge Diagnosis) - 07/29/20 Tobacco abuse(Discharge Diagnosis) - 07/29/20 Incarcerated right inguinal hernia(Discharge Diagnosis) - 07/29/20 Cerebral venous sinus thrombosis(Discharge Diagnosis) - 07/29/20 Attending Physician: Braden Mullins MD Allergies, Adverse [...] tablet, 11 Refills, Maintenance, 03/11/20 11:26:00EST, Tablet, [facility] #[id number], Partial fill upon patient request if the [...] EST, Route to Pharmacy Electronically, [facility], Partial fill upon patient request if the prescription is for a schedu... Start Date: 01/23/21 Stop Date: 07/22/21 Status: Ordered Vitamin B6 25 mg oral tablet 1 tablet = 25 mg, By Mouth, Daily, for 30 days, # 30 tablet, 3 Refills, Acute 08/08/20 14:21:00 EDT, 04/10/20 14:21:00 EST, [facility], Partial fill upon patient request [...] Clinical Service Informant Alcohol dependence Discharge Diagnosis 07/29/20 GBM (glioblastoma multiforme) Discharge Diagnosis 07/29/20 Tobacco abuse Discharge Diagnosis 07/29/20 Incarcerated right inguinal hernia Discharge Diagnosis 07/29/20 Cerebral venous sinus thrombosis Discharge Diagnosis 07/29/20 Vital Signs Most recent to oldest [Reference Range]: 1 Height 167 cm (07/29/20 1:07 PM) Weight 58.3 kg (07/29/20 1:07 PM) Oxygen Saturation [94-100 %] 98 % (07/29/20 1:07 PM) Pulse Rate [55-90 bpm] 86 bpm (07/29/20 1:07 PM) Body Mass Index [18.5-24.99] 20.9 (07/29/20 1:07 PM) Blood Pressure [90-138/55-84 mm Hg] 98/6 2mm Hg (07/29/20 1:07 PM) Blood pressure sites Arm, left (07/29/20 1:07 PM) Weight Obtained Via Standing scale (07/29/20 1:07 PM) Social History Social History Type Response Smoking Status 10 or more cigarette s (1/2 pack or more)/day in last 30 days entered on: 01/12/20 Sex
--- OUTSIDE RECORDS SUMMARY | 2023-06-10 07:59 | XMS_ITS | Continuity of Care Document ---
Author Organization [facility] Address [address] [place] [address]- Care Team Providers Care Associate Professor Computer Science Name Role Phone Braden Mullins MD Primary Care Physician Encounter [facility] [place] Date(s): 05/15/20 - 09/23/20 [facility] Care [address] [place] [address]- Discharge Disposition: A-D/C Home Attending Physician: Tiffani Lowe MD Admitting Physician[facility] Referring Physician: Braden Mullins MD Allergies, Adverse [...] tablet, 11 Refills, Maintenance, 03/11/20 11:26:00EST, Tablet, [facility] #[id number], Partial fill upon patient request if the [...] Date: 05/24/20 Stop Date: 05/19/21 Status: Ordered temozolomide 100 mg oral capsule 3 capsule = 300 mg, By Mouth, Daily at bedtime, for 5 days, total daily dose 320 mg, # 15 capsule, 4 Refills, Acute 10/15/20 15:31:00 EDT, 09/20/20 15:31:00 EDT, [facility], Dx: Glioblastoma, 167, cm, 09/11/20 11:15:00 EDT, Height, 57... Start Date: 09/20/20 Stop Date: 10/15/20 Status: Ordered temozolomide 20 mg oral capsule 1 capsule = 20 mg, By Mouth, Daily at bedtime, for 5 days, total daily dose 320 mg, # 5 capsule, 4 Refills, Acute 10/15/20 15:32:00 EDT, 09/20/20 15:32:00 EDT, [facility], dx: glioblastoma, 167, cm, 09/11/20 11:15:00 EDT, Height, 57.4... Start Date: 09/20/20 Stop Date: 10/15/20 Status: Ordered traZODone 50 mg oral tablet [...] Range]: 1 2 3 Height 167 cm (7/28/21 11:15 AM) 167 cm (07/18/20 AM) 167 cm (06/20/20 AM) Weight 57.4 kg (09/11/20 AM) 56.7 kg (07/18/20: AM) 58.6 kg (06/20/20 AM) Oxygen Saturation [94-100 %] 99 % (07/18/20 AM) Pulse Rate [55-90 bpm] 68 bpm (09/11/20 AM) 75 bpm (07/18/20 AM) 74 bpm (06/20/20 AM) Body Mass Index [18.5-24.99] 20.58 (09/11/20 AM) 20.33 (07/18/20 AM) 21.01 (06/20/20 AM) Blood Pressure [90-138/55-84 mm Hg] 112/69mm Hg (09/11/20 AM) 123/71mm Hg (07/18/20 AM) 106/62mm Hg (06/20/20 AM) Temperature [96.8-100.4 DegF] 97.8 DegF (09/11/20 AM) 97.9 DegF (07/18/20 AM) 97.4 DegF (06/20/20 AM) Blood pressure sites Arm, left (09/11/20 AM) Arm, left (07/18/20 AM) Arm, left (06/20/20 AM) Temperature Route Temporal (09/11/20 AM) Temporal (07/18/20 AM) Temporal (06/20/20 AM) Dry Weight 57.4 kg (09/11/20:15 AM) 56.7 kg (07/18/20 AM) 58.6 kg (06/20/20 AM) Weight Obtained Via Standing scale (09/11/20:15 AM) Standing scale (07/18/20:09 AM) Standing scale (06/20/20 AM) Dry Weight Obtained Via Standing scale (7/28/21 11:15 AM) Standing scale (07/18/20 11:09 AM) Standing scale (06/20/20 11:51 AM) Social History Social History Type Response Smoking Status 10 or more cigarette s (1/2 pack or more)/day in last 30 days entered on: 01/12/20 Sex
--- OUTSIDE RECORDS SUMMARY | 2023-06-10 07:59 | XMS_ITS | Continuity of Care Document ---
Author Organization [facility] Address [address] [place] [address]- Care Team Providers Care Automatic Die Cutting Machine Operator Name Role Phone Susanna NATH, Braden Blackburn Primary Care Physician [place] [facility] [place](s[place] 10/08/21 - 11/07/21 [facility] [address] [place] [address]- Attending Physician: Asya Copeland Admitting Physician: Asya Copeland Referring Physician: AdmtrAsya Allergies, Adverse Reactions, Alerts No Known Allergies Immunizations Given and Recorded Vaccine Date Status Refusal Reason SARS-CoV-2 mRNA ([id number]) vax 08/25/21 Given pneumococcal 13-valent vaccine 08/25/21 [...] Weight Start Date: 05/23/21 Status: Ordered dexamethasone 2 mg oral tablet [...] Maintenance, 07/29/21 15:04:00 EDT, Tablet, [facility], Partial fill upon patient request [...] EST, Route to Pharmacy Electronically, [facility] #[facility], Partial fill upon patient request if the prescription is for a schedu... Start Date: 01/23/21 Stop Date: 07/22/21 Status: Ordered Vitamin B6 25 mg oral tablet 1 tablet = 25 mg, By Mouth, Daily, # 30 tablet, 11 Refills, Acute 11/11/21 8:00:00 EDT, 11/11/20 13:19:00 EDT, [facility] #[facility], Partial fill upon patient request [...] last 30 days entered on: 01/12/20 Sex Care Team Personnel Name: Susanna NATH, Braden Blackburn Address: [address] [place] [address]-
--- OUTSIDE RECORDS SUMMARY | 2023-06-10 07:59 | XMS_ITS | Continuity of Care Document ---
Author Organization [facility] Address [address] [place] [address]- Care Team Providers Care Wrist Closer Name Role Phone Braden Mullins MD Primary Care Physician Encounter [facility] [place] Date(s): 01/29/20 - 02/05/20 [facility] [address] [place] [address]- Encounter Diagnosis Tobacco abuse(Discharge Diagnosis) - 01/29/20 GBM (glioblastoma multiforme)(Discharge Diagnosis) - 01/29/20 Attending Physician: Braden Mullins MD Allergies, Adverse [...] 3 Refills, Maintenance, 01/29/20 12:17:00 EST, Tablet, [facility] #[id number], Partial fill upon patient request if the [...] 1 Refills, Maintenance, 01/30/20 13:00:00 EST, Capsule, [email or web address] #[id number], Partial fill upon patient request if the [...] 01/29/20 11:49:00 EST, Route to Pharmacy Electronically, [facility] #[id number], Partial fillupon patient request if the prescription [...] Diagnosis Diagnosis Type Effective Dates Health Status Cl inical Service Informant Tobacco abuse Discharge Diagnosis 01/29/20 GBM (glioblastoma multiforme) Discharge Diagnosis 01/29/20 Vital Signs Most recent to oldest [Reference Range]: 1 Height 167 cm (01/29/20 11:32 AM) Weight 60.5 kg (01/29/20 11:32 AM) Oxygen Saturation [94-100 %] 96 % (01/29/20 11:32 AM) Pulse Rate [55-90 bpm] 92 bpm *H* (01/29/20 11:32 AM) Body Mass Index [18.5-24.99] 21.69 (01/29/20 11:32 AM) Blood Pressure [90-138/55-84 mm Hg] 98/6 0mm Hg (01/29/20 11:32 AM) Mode of Delivery (Oxygen) Room air (01/29/20 11:32 AM) Blood pressure sites Arm, left (01/29/20 11:32 AM) Weight Obtained Via Standing scale (01/29/20 11:32 AM) Social History Social History Type Response Smoking Status 10 or more cigarette s (1/2 pack or more)/day in last 30 days entered on: 01/12/20 Sex
--- OUTSIDE RECORDS SUMMARY | 2023-06-10 07:59 | XMS_ITS | Continuity of Care Document ---
Author Organization [facility] Address [address] [place] [address] Dr [address] [place] [address]- Care Team Providers Care Rn Cvor Name Role Phone Braden Mullins MD Primary Care Physician [phone] [place] [facility] [place] - 08/21/[address] [place] [address]- Attending Physician: Admtr, Ar8 Admitting Physician: Admtr, [...] tablet, 11 Refills, Maintenance, 03/11/20 11:26:00EST, Tablet, [facility] #[id number], Partial fill upon patient request if the [...]
--- OUTSIDE RECORDS SUMMARY | 2023-06-10 07:59 | XMS_ITS | Continuity of Care Document ---
Author Organization [facility] Address [address] [place] [address]- Care Team Providers Care Prison Keeper Name Role Phone Braden Mullins MD Primary Care Physician [place] [facility] [place](s): 03/05/23 - 04/04/23 [facility] Care [address] [place] [id number] Attending Physician: AdmAsya beverly Admitting Physician: AdmtrAsya Referring Physician: Admtr, Ar8 Allergies, Adverse Reactions, Alerts No Known Allergies Immunizations Given and Recorded Vaccine Date Status Refusal Reason [id number] 12y+ bivalent booster vax 02/02/22 Recorded influenza virus vaccine, inactivated 12/04/21 Mark rded influenza virus vaccine, inactivated 12/04/20 Mark rded influenza virus vaccine, inactivated 12/20/19 Give n influenza virus vaccine, inactivated 12/09/16 Mrak rded SARS-CoV-2 mRNA ([id number]-[id number]-rdkhh) vax 08/25/21 Given pneumococcal 13-valent vaccine 08/25/21 Given tetanus-diphtheria toxoids (Td) 07/29/21 Recorded tetanus-diphtheria toxoids (Td) 11/19/06 Recorded SARS-CoV-2 (COVID-19) mRNA BNT-162b2 vac 02/10/21 Given SARS-CoV-2 (COVID-19) mRNA BNT-162b2 vac 06/16/20 Recorded SARS-CoV-2 (COVID-19) mRNA-1273 vaccine 07/09/20 R ecorded SARS-CoV-2 (COVID-19) mRNA-1273 vaccine 06/10/20 R ecorded tetanus/diphtheria/pertussis, acel(Tdap) 12/14/20 Given pneumococcal 23-valent vaccine 12/28/19 Given pneumococcal [...] Refills, Maintenance, 03/24/22 15:24:00 EST, [email or web address], 167, cm, 03/24/22 14:57:00 EST, Height, 55.3, kg, 03/16/22 13:19:00 EST, Dry Weight Start Date: 03/24/22 Stop Date: 03/19/23 Status: Ordered folic acid 1 mg oral tablet 1, tablet, By Mouth, Daily, # 90 tablet, Refills 1, Maintenance, 09/18/22 6:30:00 EDT, Route to Pharmacy Electronically, [facility], 167, cm, 06/22/22 13:02:00 EDT, Height, 56.7, kg, 06/22/22 13:02:00 EDT, Dry Weight Start Date: 09/18/22 Status: Ordered levETIRAcetam 500 mg oral tablet 1 tablet = 500 mg, By Mouth, 2 times a day, # 180 tablet, 3 Refills, Maintenance, 03/24/22 15:24:00EST, [email or web address], 167, cm, 03/24/22 14:57:00 EST, [...] Care Team Personnel Name: Fadumo Hu Position: [facility] Onco RN Member Role: Primary Care Nurse Name: Debbie Franks RN Position: [facility] ED RN W/OE and Tasks Member Role: Primary Care Nurse Name: Tonie Castro RN Position: [facility] Onco RN Member Role: Primary Care Nurse Name: Myrna Banda Position: [facility] Onco RN Member Role: Primary Care Nurse Name: Braden Mullins MD Position: [facility] Physician - Primary Care Member Role: PCP Address: Address: [address] [place] [address]- [place] Name: Candy Moreno RN Position: [facility] OB RN Member Role: Primary Care Nurse Name: Ranjit Puri RN Position: S RN Member Role: Primary Care Nurse Name: Levon Kenyon RN Position: [facility] RN Supv Member Role: Primary Care Nurse Name: Elysia Byers [place] Position: [facility] Onco RN Member Role: Primary Care Nurse Name: Bridgette Lewis RN Position: S RN Member Role: Primary Care Nurse Name: Rosa Brunner RN Position: [facility] RN Member Role: Primary Care Nurse Name: Christi Florentino RN Position: [facility] RN Supv Member Role: Primary Care Nurse Name: Miguel Ruiz RN Position: [facility] RN Member Role: Primary Care Nurse Care Team Related Persons Name: KG RAYA
--- OUTSIDE RECORDS SUMMARY | 2023-06-10 07:59 | XMS_ITS | Continuity of Care Document ---
Author Organization [facility] Address [address] [place] [address], [address] [place] [address]- Care Team Providers Care Marine Oiler Name Role Phone Susanna NATH, Braden Blackburn Primary Care Physician [phone] [place] [facility] [place]s): 04/12/23 - 04/19/23 [facility] [address] [place] [address], [address] [place], [place] [address] Attending Physician: Medhat Trevino MD Referring Physician: Jean Mullins MD Allergies, Adverse Reactions, Alerts No Known Allergies Immunizations Given and Recorded Vaccine Date Status Refusal Reason [id number] 12y+ bivalent booster vax 02/02/22 Recorded influenza virus vaccine, inactivated 12/04/21 Mark rded influenza virus vaccine, inactivated 12/04/20 Mark rded influenza virus vaccine, inactivated 12/20/19 Give n influenza virus vaccine, inactivated 12/09/16 Mark rded SARS-CoV-2 mRNA ([id number]) vax 08/25/21 Given pneumococcal 13-valent vaccine 08/25/21 [...] 04/19/23 14:36:00 EST, Route to Pharmacy Electronically, [facility], 167, cm, 04/12/23 13:17:00 EST, [...] oldest [Reference Range]: 1 Height 167 cm (04/12/23 1:17 PM) Weight 56.2 kg (04/12/23 1:17 PM) Body Mass Index [18.5-24.99 kg/m2] 20.15 kg/m2 (04/12/23 1:17 PM) Social History Social History Type Response Smoking Status 10 or more cigarette s (1/2 pack or more)/day in last 30 days entered on: 01/12/20 Sex Patient Care team information Care Team Personnel Name: Fadumo Hu Position: [facility] Onco RN Member Role: Primary Care Nurse Name: Debbie Franks RN Position: [facility] ED RN W/OE and Tasks Member Role: Primary Care Nurse Name: Tonie Castro RN Position: S Onco RN Member Role: Primary Care Nurse Name: Myrna Banda Position: S Onco RN Member Role: Primary Care Nurse Name: Braden Mullins MD Position: [facility] Physician - Primary Care Member Role: PCP Address: Address: [address] [facility] [address]- [place] Name: Candy Moreno RN Position: [facility] OB RN Member Role: Primary Care Nurse Name: Ranjit Puri RN Position: S RN Member Role: Primary Care Nurse Name: Levon Kenyon RN Position: [facility] RN Supv Member Role: Primary Care Nurse Name: Elysia Byers [place] Position: [facility] Onco RN Member Role: Primary Care Nurse Name: Bridgette Lewis RN Position: S RN Member Role: Primary Care Nurse Name: Rosa Brunner RN Position: S RN Member Role: Primary Care Nurse Name: Christi Florentino RN Position: [facility] RN Supv Member Role: Primary Care Nurse Name: Miguel Ruiz RN Position: [facility] RN Member Role: Primary Care Nurse Care Team Related Persons Name: KG RAYA
--- OUTSIDE RECORDS SUMMARY | 2023-06-10 07:59 | XMS_ITS | Continuity of Care Document ---
Author Organization [facility] Address [address] [place] [address]- Care Team Providers Care Inventory Worker Name Role Phone Susanna NATH, Braden Blackbrun Primary Care Physician [place] [facility] [place] 04/13/23 - 05/22/23 [facility] [address] [place], [place] [address] Attending Physician: Jerald Arciniega MD Referring Physician: Belinda NATH, Medhat Irwin Allergies, Adverse Reactions, Alerts No Known Allergies Immunizations Given and Recorded Vaccine Date Status Refusal Reason RSV vaccine, preF A-preF B, recombinant 11/13/22 R ecorded influenza virus vaccine, inactivated 11/13/22 Mark rded influenza virus vaccine, inactivated 12/04/21 Mark rded influenza virus vaccine, inactivated 12/04/20 Mark rded influenza virus vaccine, inactivated 12/20/19 Give n influenza virus vaccine, inactivated 12/09/16 Mark rded SARS-CoV-2(COVID-19)mRNA-LNP vac([id number]) 11/13/22 Recorded [id number] 12y+ bivalent booster vax 02/02/22 Recorded SARS-CoV-2 mRNA (ahsrooc-kfqy-yefrr) vax 08/25/21 Given pneumococcal 13-valent vaccine 08/25/21 [...] tablet, 3 Refills, Maintenance, 03/24/22 15:24:00 EST, [facility], 167, cm, 03/24/22 14:57:00 EST, Height, 55.3, kg, 03/16/22 13:19:00 EST, Dry Weight Start Date: 03/24/22 Stop Date: 03/19/23 Status: Ordered folic acid 1 mg oral tablet 1, tablet, By Mouth, Daily, # 90 tablet, Refills 3, Maintenance, 04/19/23 14:36:00 EST, Route to Pharmacy Electronically, [facility] #[facility], 167, cm, 04/12/23 13:17:00 EST, Height, 56.2, kg, 04/07/23 14:11:00 EST, Dry Weight Start Date: 04/19/23 Status: Ordered levETIRAcetam 500 mg oral tablet 1 tablet = 500 mg, By Mouth, 2 times a day, # 180 tablet, 3 Refills, Maintenance, 03/24/22 15:24:00EST, [facility] #[facility], 167, cm, 03/24/22 14:57:00 EST, [...] Care Nurse Name: Debbie Franks RN Position: [facility] ED RN W/OE and Tasks Member Role: Primary Care Nurse Name: Tonie Castro RN Position: [facility] Onco RN Member Role: Primary Care Nurse Name: Myrna Banda Position: S Onco RN Member Role: Primary Care Nurse Name: Braden Mullins MD Position: [facility] Physician - Primary Care Member Role: PCP Address: Address: [address] [place] [address]- Name: Candy Moreno RN Position: [facility] OB RN Member Role: Primary Care Nurse Name: Ranjit Puri RN Position: S RN Member Role: Primary Care Nurse Name: Levon Kenyon RN Position: [facility] RN Supv Member Role: Primary Care Nurse Name: Elysia Byers [place] Position: [facility] Onco RN Member Role: Primary Care Nurse Name: Bridgette Lewis RN Position: S RN Member Role: Primary Care Nurse Name: Rosa Brunner RN Position: S RN Member Role: Primary Care Nurse Name: Christi Florentino RN Position: [facility] RN Supv Member Role: Primary Care Nurse Name: Miguel Ruiz RN Position: [facility] RN Member Role: Primary Care Nurse Care Team Related Persons Name: KG RAYA
--- OUTSIDE RECORDS SUMMARY | 2023-06-10 07:59 | XMS_ITS | Continuity of Care Document ---
Author Organization [facility] Address [address] [place] [address] [address] [place] [address]- Care Team Providers Care In Flight Technician Name Role Phone Braden Mullins MD Primary Care Physician Encounter [facility] [place] Date(s): 07/22/20 - 07/29/[address] [place] [address]- Attending Physician: Krunal Vegas MD Referring Physician: [...] See Instructions, 1 tablet By Mouth Every Mon Wed Wed during radiation therapy, # 18 [...] tablet, 11 Refills, Maintenance, 03/11/20 11:26:00EST, Tablet, [facility] #[id number], Partial fill upon patient request if the [...] EST, Route to Pharmacy Electronically, [facility], Partial fill upon patient request if the prescription is for a schedu... Start Date: 01/23/21 Stop Date: 07/22/21 Status: Ordered Vitamin B6 25 mg oral tablet 1 tablet = 25 mg, By Mouth, Daily, for 30 days, # 30 tablet, 3 Refills, Acute 08/08/20 14:21:00 EDT, 04/10/20 14:21:00 EST, [facility], Partial fill upon patient request if the prescription is for a schedule II opioid drug., 167, cm, .. Start Date: 04/10/20 Stop Date: 08/08/20 Status: [...] oldest [Reference Range]: 1 Height 167 cm (07/22/20 9:46 AM) Weight 56.5 kg (07/22/20 9:46 AM) Oxygen Saturation [94-100 %] 97 % (07/22/20 9:46 AM) Pulse Rate [55-90 bpm] 77 bpm (07/22/20 9:46 AM) Body Mass Index [18.5-24.99] 20.26 (07/22/20 9:46 AM) Blood Pressure [90-138/55-84 mm Hg] 115/ 70mm Hg (07/22/20 9:46 AM) Respiratory Rate [16-30 br/min] 14 br/mi n *L* (07/22/20 9:46 AM) Blood pressure sites Arm, left (07/22/20 9:46 AM) Weight Obtained Via Pediatric scale (07/22/20 9:46 AM) Social History Social History Type Response Smoking Status 10 or more cigarette s (1/2 pack or more)/day in last 30 days entered on: 01/12/20 Sex
--- OUTSIDE RECORDS SUMMARY | 2023-06-10 07:59 | XMS_ITS | Continuity of Care Document ---
Author Organization [facility] Address [address] [place] [address]- Care Team Providers Care Staff Development Manager Name Role Phone Braden Mullins MD Primary Care Physician Encounter [facility] [place] Date(s): 10/23/20 - 02/18/21 [facility] [address] [place] [address]- Discharge Disposition: A-D/C Home Attending Physician: Chrissy NATH, Tiffani Georges Admitting Physician: Tiffani Lowe MD Referring Physician: [...] tablet, By Mouth, Daily, Refills 0, Maintenance, 06/14/21 13:33:00 EDT, Partial fill uponpatient request if [...] tablet, 11 Refills, Maintenance, 03/11/20 11:26:00EST, Tablet, [facility] #[id number], Partial fill upon patient request if the [...] opioid drug. Start Date: 11/11/20 Status: Ordered temozolomide 100 mg oral capsule 3 capsule = 300 mg, By Mouth, Daily at bedtime, for 5 days, total daily dose 320 mg, # 15 capsule, 1 Refills, Acute 02/28/21 20:05:00 EST, 02/18/21 20:05:00 EST, [facility], Partial fill upon patient request if the prescription is for... Start Date: 02/18/21 Stop Date: 02/28/21 Status: Ordered temozolomide 20 mg oral capsule 1 capsule = 20 mg, By Mouth, Daily at bedtime, for 5 days, total daily dose 320 mg, # 5 capsule, 1 Refills, Acute 02/28/21 20:06:00 EST, 02/18/21 20:06:00 EST, [facility], Partial fill upon patient request if the prescription is for a... Start Date: 02/18/21 Stop Date: 02/28/21 Status: Ordered traZODone 50 mg oral tablet [...] 8:00:00 EDT, 11/11/21 8:00:00 EDT, [facility], Partial [...] Range]: 1 2 3 Height 167 cm (02/18/21 2:02 PM) 167 cm (01/20/21 2:55 PM) 167 cm (12/17/20 2:43 PM) Weight 57.2 kg (02/18/21 2:02 PM) 56.1 kg (01/20/21 2:55 PM) 57.7 kg (12/17/20 2:43 PM) Pulse Rate [55-90 bpm] 62 bpm (02/18/21 2:02 PM) 81 bpm (01/20/21 2:55 PM) 84 bpm (12/17/20 2:43 PM) Body Mass Index [18.5-24.99] 20.51 (02/18/21 2:02 PM) 20.12 (01/20/21 2:55 PM) 20.69 (12/17/20 2:43 PM) Blood Pressure [90-138/55-84 mm Hg] 135/74mm Hg (02/18/21 2:02 PM) 125/77mm Hg (01/20/21 2:55 PM) 123/75mm Hg (12/17/20 2:43 PM) Temperature [96.8-100.4 DegF] 98.7 DegF (02/18/21 2:02 PM) 98.6 DegF (01/20/21 2:55 PM) 98.6 DegF (12/17/20 2:43 PM) Blood pressure sites Arm, left (02/18/21 2:02 PM) Arm, left (01/20/21 2:55 PM) Arm, left (12/17/20 2:43 PM) Temperature Route Temporal (02/18/21 2:02 PM) Temporal (01/20/21 2:55 PM) Temporal (12/17/20 2:43 PM) Dry Weight 57.2 kg (02/18/21 2:02 PM) 56.1 kg (01/20/21 2:55 PM) 57.7 kg (12/17/20 2:43 PM) Weight Obtained Via Standing scale (02/18/21 2:02 PM) Standing scale (01/20/21 2:55 PM) Standing scale (12/17/20 2:43 PM) Dry Weight Obtained Via Standing scale (02/18/21 2:02 PM) Standing scale (01/20/21 2:55 PM) Standing scale (12/17/20 2:43 PM) Social History Social History Type Response Smoking Status 10 or more cigarette s (1/2 pack or more)/day in last 30 days entered on: 01/12/20 Sex
--- OUTSIDE RECORDS SUMMARY | 2023-06-10 07:59 | XMS_ITS | Continuity of Care Document ---
Author Organization [facility] ancer Care Address [address] [place] [address]- Care Team Providers Care Ham Clerk Name Role Phone Susanna NATH, Braden Blackburn Primary Care Physician Encounter [facility] Date(s): 03/16/22 - 04/15/22 [facility] [address] [place] [address]- Allergies, Adverse Reactions, Alerts No Known Allergies Immunizations Given and Recorded Vaccine Date Status Refusal Reason [id number] 12y+ bivalent booster vax 02/02/22 Recorded influenza virus vaccine, inactivated 12/04/21 Mark rded influenza virus vaccine, inactivated 12/04/20 Mark rded influenza virus vaccine, inactivated 12/20/19 Give n influenza virus vaccine, inactivated 12/09/16 Mark rded SARS-CoV-2 mRNA ([id number]) vax 08/25/21 Given pneumococcal 13-valent vaccine 08/25/21 [...] EST, Route to Pharmacy Electronically, [facility], 167, cm, 02/02/22 12:58:00 EST, [...] 14:43:00 EDT, 08/25/21 14:43:00 EDT, [facility], Partial fill upon patient requestif [...] 14:35:00 EDT,Route to Pharmacy Electronically, [facility], 167, cm, 11/10/21 10:17:00 EDT, [...] Care Team Personnel Name: Fadumo Hu Position: [facility] Onco RN Member Role: Primary Care Nurse Name: Debbie Franks RN Position: [facility] ED RN W/OE and Tasks Member Role: Primary Care Nurse Name: Tonie Castro RN Position: [facility] Onco RN Member Role: Primary Care Nurse Name: Myrna Banda Position: [facility] Onco RN Member Role: Primary Care Nurse Name: Braden Mullins MD Position: [facility] Primary Care Physician Member Role: PCP Address: Address: [address] [place] [address]- Name: Candy Moreno RN Position: [facility] OB RN Member Role: Primary Care Nurse Name: Ranjit Puri RN Position: S RN Member Role: Primary Care Nurse Name: Levon Kenyon RN Position: [facility] RN Supv Member Role: Primary Care Nurse Name: Elysia Byers [place] Position: [facility] Onco RN Member Role: Primary Care Nurse Name: Bridgette Lewis RN Position: [facility] RN Member Role: Primary Care Nurse Name: Rosa Brunner RN Position: [facility] RN Member Role: Primary Care Nurse Name: Christi Florentino RN Position: [facility] RN Supv Member Role: Primary Care Nurse Name: Miguel Ruiz RN Position: [facility] RN Member Role: Primary Care Nurse Name: Roxann Estrada RN Position: [facility] RN Member Role: Primary Care Nurse Care Team Related Persons Name: KG RAYA
--- OUTSIDE RECORDS SUMMARY | 2023-06-10 07:59 | XMS_ITS | Continuity of Care Document ---
Author Organization [facility] Jack Address [address] [place] [address]- Care Team Providers Care Blow Molder Name Role Phone Braden Mullins MD Primary Care Physician En[place] [facility] [place](s): 02/10/21 - 02/17/21 [facility] Adult [address] [place] [address]- Attending Physician: Braden Mullins MD Allergies, Adverse [...] tablet, 11 Refills, Maintenance, 03/11/20 11:26:00EST, Tablet, [facility] #[id number], Partial fill upon patient request if the [...] 8:00:00 EDT, 11/11/21 8:00:00 EDT, [facility], Partial fill upon patient request [...] oldest [Reference Range]: 1 Height 167 cm (02/10/21 1:57 PM) Weight 58.6 kg (02/10/21 1:57 PM) Oxygen Saturation [94-100 %] 98 % (02/10/21 1:57 PM) Pulse Rate [55-90 bpm] 79 bpm (02/10/21 1:57 PM) Body Mass Index [18.5-24.99] 21.01 (02/10/21 1:57 PM) Blood Pressure [90-138/55-84 mm Hg] 113/ 65mm Hg (02/10/21 1:57 PM) Blood pressure sites Arm, right (02/10/21 1:57 PM) Weight Obtained Via Standing scale (02/10/21 1:57 PM) Social History Social History Type Response Smoking Status 10 or more cigarette s (1/2 pack or more)/day in last 30 days entered on: 01/12/20 Sex
--- OUTSIDE RECORDS SUMMARY | 2023-06-10 07:59 | XMS_ITS | Continuity of Care Document ---
Author Organization [facility] Ranjit Nicholson Jack lt Address [address] [place] [address]- Care Team Providers Care Visitor Service Assistant Name Role Phone Braden Mullins MD Primary Care Physician [phone] Encounter [facility] [place] Date(s): 02/26/20 - 03/27/20 [facility] Adult [address] [place] [address]- Allergies, Adverse Reactions, Alerts Substance Reaction Severity [...] 3 Refills, Maintenance, 01/29/20 12:17:00 EST, Tablet, [id number], Partial fill upon patient request if the [...] Route to Pharmacy Electronically, [facility] #[id number], Partial fill upon patient request if the prescription is for a schedule II opio... Start Date: 02/15/20 Stop Date: 08/13/20 Status: Ordered Keppra 500 mg oral tablet 1 tablet = 500 mg, By Mouth, 2 times a day, # 60 tablet, 11 Refills, Maintenance, 03/11/20 11:26:00EST, Tablet, [facility] #[id number], Partial fill upon patient request if the prescription is for a schedule II opioid drug., 167, cm, 03/11/20 10... Start Date: 03/11/20 Status: Ordered Melatonin 10 mg oral tablet 1 tablet = 10 mg, By Mouth, Daily at bedtime, for 30 days, need ov in 6 months, # 30 tablet, 5 Refills, Acute 08/13/20 6:50:00 EDT, 02/15/20 6:50:00 EST, [facility] #[id number], Partial fill upon patient request if the [...] 01/29/20 11:49:00 EST, Route to Pharmacy Electronically, [facility] #[id number], Partial fillupon patient request if the prescription is for a s... Start Date: 01/29/20 Stop Date: 01/23/21 Status: Ordered Vitamin B6 25 mg oral tablet 1 tablet = 25 mg, By Mouth, Daily, for 30 days, # 30 tablet, 5 Refills, Acute 08/13/20 6:50:00 EDT,02/15/20 6:50:00 EST, [facility] #[id number], Partial fill upon patient request if the [...]
--- OUTSIDE RECORDS SUMMARY | 2023-06-10 07:59 | XMS_ITS | Continuity of Care Document ---
Author Organization [facility] an[facility] Address [address] [place] [address]- Care Team Providers Care Fiscal Services Manager Name Role Phone Braden Mullins MD Primary Care Physician [place] [facility] [place] 10/08/21 - 05/16/22 [facility] [address] [place] [address] Discharge Disposition: A-D/C Home Attending Physician: Evelio NATH, Nacho Yeung Admitting Physician: Nacho Fraser MD Referring Physician: Braden Mullins MD Allergies, Adverse Reactions, Alerts No Known Allergies Immunizations Given and Recorded Vaccine Date Status Refusal Reason [id number] 12y+ bivalent booster vax 02/02/22 Recorded influenza virus vaccine, inactivated 12/04/21 Mark rded influenza virus vaccine, inactivated 12/04/20 Mark rded influenza virus vaccine, inactivated 12/20/19 Give n influenza virus vaccine, inactivated 12/09/16 Mark rded SARS-CoV-2 mRNA ([id number]) vax 08/25/21 Given pneumococcal 13-valent vaccine 08/25/21 [...] Refills, Maintenance, 03/24/22 15:24:00 EST, [facility], 167, cm, 03/24/22 14:57:00 EST, Height, 55.3, kg, 03/16/22 13:19:00 EST, Dry Weight Start Date: 03/24/22 Stop Date: 03/19/23 Status: Ordered folic acid 1 mg oral tablet 1, tablet, By Mouth, Daily, # 90 tablet, Refills 1, Maintenance, 02/18/22 7:38:00 EST, Route to Pharmacy Electronically, [facility], 167, cm, 02/02/22 12:58:00 EST, Height, 55.5, kg, 02/02/22 12:58:00 EST, Dry Weight Start Date: 02/18/22 Status: Ordered levETIRAcetam 500 mg oral tablet 1 tablet = 500 mg, By Mouth, 2 times a day, # 180 tablet, 3 Refills, Maintenance, 03/24/22 15:24:00EST, [facility], 167, cm, 03/24/22 14:57:00 EST, [...] 3 Refills, Maintenance, 07/29/21 15:04:00 EDT, Tablet, [facility] #[facility], Partial fill upon patient request if the prescription is for a schedule II opioid drug., 2 tablet By... Start Date: 07/29/21 Status: Ordered traZODone 50 mg oral tablet 1, tablet, By Mouth, Daily at bedtime, # 270 tablet, Refills 0, Maintenance, 11/12/21 14:35:00 EDT,Route to Pharmacy Electronically, [facility] #[facility], 167, cm, 11/10/21 10:17:00 EDT, [...] Range]: 1 2 3 Height 167 cm (03/16/22 1:19 PM) 167 cm (02/02/22 12:58 PM) 167 cm (01/05/22 2:36 PM) Weight 55.3 kg (03/16/22 1:19 PM) 55.5 kg (02/02/22 12:58 PM) 56.4 kg (01/05/22 2:36 PM) Oxygen Saturation [94-100 %] 97 % (03/16/22 1:19 PM) 99 % (02/02/22 12:58 PM) 95 % (12/08/21 1:32 PM) Pulse Rate [55-90 bpm] 78 bpm (03/16/22 1:19 PM) 82 bpm (02/02/22 12:58 PM) 94 bpm *H* (01/05/22 2:36 PM) Body Mass Index [18.5-24.99 kg/m2] 19.83 kg/m2 (03/16/22 1:19 PM) 19.9 kg/m2 (02/02/22 12:58 PM) 20.22 kg/m2 (01/05/22 2:36 PM) Blood Pressure [90-138/55-84 mm Hg] 125/75mm Hg (03/16/22 1:19 PM) 124/74mm Hg (02/02/22 12:58 PM) 125/85mm Hg (01/05/22 2:36 PM) Temperature [96.8-100.4 DegF] 98.5 DegF (03/16/22 1:19 PM) 97.7 DegF (02/02/22 12:58 PM) 98.4 DegF (01/05/22 2:36 PM) Mode of Delivery (Oxygen) Room air (03/16/22 1:19 PM) Room air (02/02/22 12:58 PM) Blood pressure sites Arm, right (03/16/22 1:19 PM) Arm, right (02/02/22 12:58 PM) Arm, left (01/05/22 2:36 PM) Temperature Route Oral (03/16/22 1:19 PM) Oral (02/02/22 12:58 PM) Temporal (01/05/22 2:36 PM) Dry Weight 55.3 kg (03/16/22 1:19 PM) 55.5 kg (02/02/22 12:58 PM) 56.4 kg (01/05/22 2:36 PM) Weight Obtained Via Standing scale (03/16/22 1:19 PM) Standing scale (02/02/22 12:58 PM) Standing scale (01/05/22 2:36 PM) Dry Weight Obtained Via Standing scale (03/16/22 1:19 PM) Standing scale (02/02/22 12:58 PM) Standing scale (01/05/22 2:36 PM) Social History Social History Type Response Smoking Status 10 or more cigarette s (1/2 pack or more)/day in last 30 days entered on: 01/12/20 Sex Note * Myrna Banda: PERFORM, SIGN, VERIFY Event Display: Patient Education/Instruction Authored Date: [id number] [facility] *Heme/Onc Adult Clinical Summary Name COLEMAN MARTINEZ Age 66 Years 1955 PCP Braden Mullins MD PCP Visit Date 10/08/2021 08:35:00 Additional Instructions: Scheduled Appointments?? Future Appointments ?*[facility] [address],??[address] ?Phone:??--?Fax:??-- ?Appt. Date:??03/24/2022?2:50 PM ?Scheduled Provider:??Braden Mullins MD Follow-Up Instructions ?? With: Address: When: [facility] [address] [place] [address] [place] [address] Business (1) 06/08/2022 1:45 PM With: Address: [facility] [place] [address] Business (1) 03/16/2022 1:15 PM Diagnosis Medications: Please continue your medications until treatment is completed or stopped by your provider. Discuss any questions related to medications with your provider. Medications to Continue Taking That Have Changed [facility], [address] [place] [id number], [phone] - Dexamethasone (dexamethasone 2 mg oral tablet) 1 tab(s) Oral Daily. with food. Refills: 1. Next Dose: These medications were not printed or sent to your pharmacy - Atorvastatin (atorvastatin 40 mg oral tablet) 1 tab(s) Oral Daily. Refills: 5. Next Dose: - Dexamethasone (dexamethasone 4 mg oral tablet) 1 tablet By Mouth 30 min before chemotherapy. Refills: 0. Next Dose: - Folic Acid (folic acid 1 mg oral tablet) 1 tab(s) Oral Daily. Refills: 1. Next Dose: - Pantoprazole (pantoprazole 40 mg oral delayed release tablet) 1 tab(s) Oral Daily for 30 Days. Refills: 11. Next Dose: - Temozolomide Next Dose: - Trazodone (traZODone 50 mg oral tablet) 1 tab(s) Oral Daily at Bedtime. Refills: 0. Next Dose: Medications to Continue with No Changes These medications were not printed or sent to your pharmacy Aspirin (aspirin 81 mg oral delayed release tablet) 1 tab(s) Oral Daily. Next Dose: Docusate-Senna (Senna Plus 50 mg-8.6 mg oral tablet) 2 tab(s) Oral Daily at Bedtime as needed Constipation. Refills: 3. Next Dose: Famotidine (famotidine 20 mg oral tablet) 1 tab(s) Oral twice a day for 30 Days. Refills: 11. Next Dose: levETIRAcetam (levETIRAcetam 500 mg oral tablet) 1 tab(s) Oral twice a day for 90 Days. Refills: 1. Next Dose: Lorazepam (LORazepam 1 mg oral tablet) 1 tablet By Mouth 30 min before chemotherapy. Refills: 1. Next Dose: Melatonin (Melatonin 10 mg oral tablet) 1 tab(s) Oral Daily at Bedtime for 30 Days. Refills: 11. Next Dose: Milk of Magnesia (Milk of Magnesia Liquid) 30 Milliliter Oral Daily as needed Constipation. Next Dose: Ondansetron (ondansetron 8 mg oral tablet) 1 tablet By Mouth 30 minutes before chemotherapy and every 8 hours if needed for nausea. Refills: 5. Next Dose: Ondansetron (ondansetron 8 mg oral tablet) 1 tablet By Mouth 3 times a day. Refills: 6. Next Dose: Allergy Info:?? NKA Medications Given This Visit Future Orders ?CBC w/ Differential? Order Date:04/13/22?- Complete by?04/20/22 Vital Signs Height 167 cm Weight 55.3 kg BMI 19.83 kg/m2 Blood Pressure 125 mm Hg/75 mm Hg Temperature 98.5 DegF Pulse Rate 78 bpm Respiratory Rate 02 Sat Mode of Delivery 97 %/Room air You can now view a summary of your hospital visit from the comfort of your home through a free online portal called [employer]. [employer] is a website that allows you to securely view your medical information including discharge summary, medications and follow-up visits. ??You can alsosend a secure electronic message to your doctor???s office to request appointments, renew medications or just ask a question. You can enroll at [email or web address] or register during your next office visit. [...] primary care provider, you may find a [facility] provider by calling [facility] at [phone]. For information about the plan of care including goals and instructions for your diagnosis, please see the patient education orders section of this document. Patient Education Materials?? The content of this educational material or handout may have been modified, supplemented, or adapted from its original content and format to support your individualized medical care. * Caterina Morrow: PERFORM, SIGN, VERIFY Event Display: Patient Education/Instruction Authored Date: [id number] [facility] *Heme/Onc Adult Clinical Summary Name COLEMAN MARTINEZ Age 66 Years 1955 PCP Susanna NATH, Braden Blackburn PCP Visit Date 10/08/2021 08:35:00 Additional Instructions: Scheduled Appointments?? Future Appointments ?*[facility] [address] ?Phone:??--?Fax:??-- ?Appt. Date:??03/24/2022?2:50 PM ?Scheduled Provider:??Susanna NATH, Braden Blackburn Follow-Up Instructions ?? With: Address: When: [facility], [facility] [place] [address] Business (1) 03/16/2022 1:15 PM Diagnosis Medications: Please continue your medications until treatment is completed or stopped by your provider. Discuss any questions related to medications with your provider. Medications to Continue Taking That Have Changed [facility], [address] [place] [phone], [phone] - Dexamethasone (dexamethasone 2 mg oral tablet) 1 tab(s) Oral Daily. with food. Refills: 1. Next Dose: These medications were not printed or sent to your pharmacy - Atorvastatin (atorvastatin 40 mg oral tablet) 1 tab(s) Oral Daily. Refills: 5. Next Dose: - Dexamethasone (dexamethasone 4 mg oral tablet) 1 tablet By Mouth 30 min before chemotherapy. Refills: 0. Next Dose: - Pantoprazole (pantoprazole 40 mg oral delayed release tablet) 1 tab(s) Oral Daily for 30 Days. Refills: 11. Next Dose: - Temozolomide Next Dose: - Trazodone (traZODone 50 mg oral tablet) 1 tab(s) Oral Daily at Bedtime. Refills: 0. Next Dose: Medications to Continue with No Changes These medications were not printed or sent to your pharmacy Aspirin (aspirin 81 mg oral delayed release tablet) 1 tab(s) Oral Daily. Next Dose: Docusate-Senna (Senna Plus 50 mg-8.6 mg oral tablet) 2 tab(s) Oral Daily at Bedtime as needed Constipation. Refills: 3. Next Dose: Famotidine (famotidine 20 mg oral tablet) 1 tab(s) Oral twice a day for 30 Days. Refills: 11. Next Dose: Folic Acid (folic acid 1 mg oral tablet) TAKE ONE TABLET BY MOUTH EVERY DAY. Refills: 1. Next Dose: levETIRAcetam (levETIRAcetam 500 mg oral tablet) 1 tab(s) Oral twice a day for 90 Days. Refills: 1. Next Dose: Lorazepam (LORazepam 1 mg oral tablet) 1 tablet By Mouth 30 min before chemotherapy. Refills: 1. Next Dose: Melatonin (Melatonin 10 mg oral tablet) 1 tab(s) Oral Daily at Bedtime for 30 Days. Refills: 11. Next Dose: Milk of Magnesia (Milk of Magnesia Liquid) 30 Milliliter Oral Daily as needed Constipation. Next Dose: Ondansetron (ondansetron 8 mg oral tablet) 1 tablet By Mouth 30 minutes before chemotherapy and every 8 hours if needed for nausea. Refills: 5. Next Dose: Ondansetron (ondansetron 8 mg oral tablet) 1 tablet By Mouth 3 times a day. Refills: 6. Next Dose: Allergy Info:?? NKA Medications Given This Visit Future Orders ?No future orders Vital Signs Height 167 cm Weight 55.5 kg BMI 19.9 kg/m2 Blood Pressure 124 mm Hg/74 mm Hg Temperature 97.7 DegF Pulse Rate 82 bpm Respiratory Rate 02 Sat Mode of Delivery 99 %/Room air You can now view a summary of your hospital visit from the comfort of your home through a free online portal called [employer]. [employer] is a website that allows you to securely view your medical information including discharge summary, medications and follow-up visits. ??You can alsosend a secure electronic message to your doctor???s office to request appointments, renew medications or just ask a question. You can enroll at [email or web address] or register during your next office visit. [...] primary care provider, you may find a [facility] provider by calling [facility] at [phone]. For information about the plan of care including goals and instructions for your diagnosis, please see the patient education orders section of this document. Patient Education Materials?? The content of this educational material or handout may have been modified, supplemented, or adapted from its original content and format to support your individualized medical care. Patient Care team information Care Team Personnel Name: MayteFadumo mckeon Position: [facility] RN Member Role: Primary Care Nurse Name: Debbie Franks RN Position: [facility] ED RN W/OE and Tasks Member Role: Primary Care Nurse Name: Tonie Castro RN Position: [facility] Onco RN Member Role: Primary Care Nurse Name: Myrna Banda Position: [facility] RN Member Role: Primary Care Nurse Name: Braden Mullins MD Position: [facility] Primary Care Physician Member Role: PCP Address: Address: [address] [place] [address] Name: Candy Moreno RN Position: [facility] OB RN Member Role: Primary Care Nurse Name: Ranjit Puri RN Position: S RN Member Role: Primary Care Nurse Name: Levon Kenyon RN Position: [facility] RN Supv Member Role: Primary Care Nurse Name: Elysia Byers [place] Position: [facility] Onco RN Member Role: Primary [...]
--- OUTSIDE RECORDS SUMMARY | 2023-06-10 07:59 | XMS_ITS | Summary of Care ---
Author Organization [facility] Address [address] [place] [id number]- Care Team Providers Care Silk Worker Name Role Phone Susanna NATH, Braden Blackburn Primary Care Physician Unavaila ble Encounter 06/02/23 - 06/07/[address] [address]- Discharge Disposition: 01H Discharged to Home or Self Care Attending Physician: Dominic NATH, Garrett Cloud Admitting Physician: Garrett Alfaro MD Referring Physician: Medhat Trevino M.D. Allergies, Adverse Reactions, Alerts No Known Medication Allergies Substance Reaction Severity Status Pollen Active Medications albuterol CFC free 90 mcg/inh inhalation aerosol 180 mcg, 2 puff, Aerosol, INH, q4hr RT PRN, 1 EA, 0 Refill(s), Shortness of breath or wheezing, Route to Pharmacy Electronically, [facility], 175, cm, 06/03/23 11:55:00 EDT, Height/Length Dosing, 55.8, kg, 06/02/23 19:12:00 EDT, Weight D... Start Date: 06/06/23 Status: Ordered aspirin 81 mg oral delayed release tablet 81 mg, = 1 tab, Indication: Transient ischemic event, Tx and prophyl Tab-EC, Oral, Daily, 0 Refill(s) Start Date: 06/06/23 Status: Ordered atorvastatin 40 mg oral tablet 40 mg = 1 tab, Tab, Oral, QHS, 30 tab, 0 Refill(s), Route to Pharmacy Electronically, [facility], 175, 06/03/23 11:55:00 EDT, Height/Length Dosing, cm, 55.8, 06/02/23 19:12:00 EDT, Weight Dosing, kg Start Date: 06/06/23 Status: Ordered folic acid 1 mg oral tablet 1 mg = 1 tab, Tab, Oral, Daily, 0 Refill(s) Start Date: 06/06/23 Status: Ordered levETIRAcetam 500 mg oral tablet 500 mg, 1 tab, Tab, Oral, BID, 60 tab, 0 Refill(s), Route to Pharmacy Electronically, [facility], 175, 06/03/23 11:55:00 EDT, Height/Length Dosing, cm, 55.8, 06/02/23 19:12:00 EDT, Weight Dosing, kg Start Date: 06/06/23 Status: Ordered Lidoderm 5% topical film 1 patch, Film, Transdermal, qAM, 30 patch, 0 Refill(s), Route to Pharmacy Electronically, [facility], 398, 06/03/23 11:55:00 EDT, Height/Length Dosing, cm, 55.8, 06/02/23 19:12:00 EDT, Weight Dosing, kg Start Date: 06/06/23 Status: Ordered magnesium oxide 400 mg oral tablet 400 mg = 1 tab, Tab, Oral, Daily, 15 tab, 0 Refill(s), Route to Pharmacy Electronically, [facility], 862, 06/03/23 11:55:00 EDT, Height/Length Dosing, cm, 55.8, 06/02/23 19:12:00 EDT, Weight Dosing, kg Start Date: 06/06/23 Status: Ordered melatonin 3 mg oral tablet 3 mg = 1 tab, Tab, Oral, QHS, 0 Refill(s) Start Date: 06/06/23 Status: Ordered Multiple Vitamins oral tablet 1 tab, Tab, Oral, QLUNCH, 0 Refill(s) Start Date: 06/06/23 Status: Ordered oxyCODONE 5 mg oral tablet 5 mg = 1 tab, Tab, Oral, q6hr PRN, 20 tab, 0 Refill(s), Partial fill upon patient request., PAIN (Scale 1-10), Route to Pharmacy Electronically, [facility], 590, 06/03/23 11:55:00 EDT, Height/Length Dosing, cm, 55.8, 06/02/23 19:12:00 ED... Start Date: 06/06/23 Status: Ordered pantoprazole 40 mg oral delayed release tablet 40 mg = 1 tab, Tab-DR, Oral, Before breakfast, 30 tab, 0 Refill(s), Route to Pharmacy Electronically, [facility], 175, 06/03/23 11:55:00 EDT, Height/Length Dosing, cm, 55.8, 06/02/23 19:12:00 EDT, Weight Dosing, kg Start Date: 06/06/23 Status: Ordered tamsulosin 0.4 mg oral capsule 0.4 mg = 1 cap, Cap, Oral, QHS, 0 Refill(s) Start Date: 06/06/23 Status: Ordered traZODone 50 mg oral tablet 50 mg = 1 tab, Tab, Oral, QHS, 0 Refill(s) Start Date: 06/06/23 Status: Ordered Trelegy Ellipta 200 mcg-62.5 mcg-25 mcg/inh inhalation powder 1 puff, Powder, INH, Daily RT, 1 EA, 0 Refill(s), [facility], [facility], cm, 06/03/23 11:55:00 EDT, Height/Length Dosing, 55.8, kg, 06/02/23 19:12:00 EDT, Weight Dosing Start Date: 06/06/23 Status: Ordered Vitamin B1 100 mg oral tablet 100 mg = 1 tab, Tab, Oral, Daily, 0 Refill(s) Start Date: 06/06/23 Status: Ordered Vitamin C 500 mg oral tablet 500 mg = 1 tab, Tab, Oral, Daily, 0 Refill(s) Start Date: 06/06/23 Status: Ordered Zinc-220 oral capsule 220 mg = 1 cap, Cap, Oral, Daily, 0 Refill(s) Start Date: 06/06/23 Status: Ordered Problem List Condition Confirmation Course Effective Dates Status H ealth Status Informant Alcohol dependence Confirmed Active At risk of venous thromboembolus 1 Confirmed 01/03/20 Active Bladder outlet obstruction Confirmed Active Cerebral venous thrombosis Confirmed Active colon cancer Confirmed Active COPD - Chronic obstructive pulmonary disease Confirmed Active EtOH - Alcohol Confirmed Active GERD - Gastro-esophageal reflux disease Confirmed Active Glioblastoma Confirmed Active HLD - Hyperlipidemia Confirmed Active HTN - Hypertension Confirmed Active Suspected disease caused by 2019 novel coronavirus 2 Confirmed 06/03/23 - 06/03/23 Resolved 1Problem added by Discern Expert Rule: EBN_VTERISKPROB_3 2Problem added automatically by Discern Expert based on clinical documentation Results Most recent to oldest [Reference Range]: 1 2 Creatinine Level 0.77 mg/dL (06/05/23 3:19 PM) 0.77 mg/dL (06/03/23 6:39 PM) Estimated Creatinine Clearance 56.58 mL/ min 1 (06/05/23 3:19 PM) 56.58 mL/min 2 (06/03/23 6:39 PM) 1Result Comment: Calculated using method: Cockcroft-Gault (default) Calculated using Formula : (140-ageInYears)*weightInKG/(72) Age: 67 (13739349264.0) Serum Creatinine: 0.77 mg/dL (57476150594.0) Height: 175 cm (08880372458.0) Weight: 55.8 kg (Actual Body Weight used) 2Result Comment: Calculated using method: Cockcroft-Gault (default) Calculated using Formula : (140-ageInYears)*weightInKG/(72) Age: 67 (60682505772.0) Serum Creatinine: 0.77 mg/dL (86670261865.0) Height: 175 cm (36732872717.0) Weight: 55.8 kg (Actual Body Weight used) Vital Signs Most recent to oldest [Reference Range]: 1 2 3 Temperature Oral F [96.4-99.1 DegF] 97.7 DegF (06/07/23 4:22 AM) 98.6 DegF (06/06/23 2:48 PM) 98.4 DegF (06/06/23 4:27 AM) Peripheral Pulse Rate [60-100 bpm] 75 bpm (06/07/23 4:23 AM) 79 bpm (06/06/23 2:48 PM) 72 bpm (06/06/23 4:27 AM) Respiratory Rate [14-20 br/min] 18 br/min (06/07/23 4:22 AM) 18 br/min (06/06/23 2:48 PM) 18 br/min (06/06/23 4:27 AM) Blood Pressure [90-140/60-90 mmHg] 112/65mmHg (06/07/23 4:22 AM) 105/64mmHg (06/06/23 2:48 PM) 112/77mmHg (06/06/23 4:27 AM) Mean Arterial Pressure, Cuff 80 mmHg (06/07/23 4:22 AM) 77 mmHg (06/06/23 2:48 PM) 89 mmHg (06/06/23 4:27 AM) Extremity used to obtain blood pressure Right Arm (06/04/23 8:08 PM) Temperature Oral 36.5 DegC 1 (06/07/23 4:22 AM) 37.0 DegC 2 (06/06/23 2:48 PM) 36.9 DegC 3 (06/06/23 4:27 AM) 1Result Comment: Charted by SYSTEM secondary to charting of Temperature Oral F on a Vitals Monitor. Rule: VITALSLINK_CALCULATIONS_2 2Result Comment: Charted by SYSTEM secondary to charting of Temperature Oral F on a Vitals Monitor. Rule: VITALSLINK_CALCULATIONS_2 3Result Comment: Charted by SYSTEM secondary to charting of Temperature Oral F on a Vitals Monitor. Rule: VITALSLINK_CALCULATIONS_2 Social History Social History Type Response Sex Male Patient Care team information Personnel Name: Braden Mullins MD
--- OUTSIDE RECORDS SUMMARY | 2023-06-10 07:59 | XMS_ITS | Continuity of Care Document ---
Author Organization [facility] Address [address] [place] [address], [address] [place] [address]- Care Team Providers Care Services Rep Name Role Phone Susanna NATH, Braden Blackburn Primary Care Physician Encounter [facility] Date(s): 03/19/23 - 04/23/23 [facility] [address] [place] [address], [address] [place], [place] [address] Attending Physician: Medhat Trevino MD Referring Physician: Brent VACA, Tiffani Allergies, Adverse Reactions, Alerts No Known Allergies Immunizations Given and Recorded Vaccine Date Status Refusal Reason [id number] 12y+ bivalent booster vax 02/02/22 Recorded influenza virus vaccine, inactivated 12/04/21 Mark rded influenza virus vaccine, inactivated 12/04/20 Mark rded influenza virus vaccine, inactivated 12/20/19 Give n influenza virus vaccine, inactivated 12/09/16 Mark rded SARS-CoV-2 mRNA ([id number]) vax 08/25/21 Given pneumococcal 13-valent vaccine 08/25/21 [...] EST, Route to Pharmacy Electronically, [facility], 167, cm, 04/12/23 13:17:00 EST, [...] Care Team Personnel Name: Fadumo Hu Position: [facility] Onco RN Member Role: Primary Care Nurse Name: Debbie Franks RN Position: [facility] ED RN W/OE and Tasks Member Role: Primary Care Nurse Name: Tonie Castro RN Position: [facility] Onco RN Member Role: Primary Care Nurse Name: Myrna Banda Position: [facility] Onco RN Member Role: Primary Care Nurse Name: Braden Mullins MD Position: [facility] Physician - Primary Care Member Role: PCP Address: Address: [address] [place] [id number]- Name: Candy Moreno RN Position: [facility] OB RN Member Role: Primary Care Nurse Name: Ranjit Puri RN Position: S RN Member Role: Primary Care Nurse Name: Levon Kenyon RN Position: [facility] RN Supv Member Role: Primary Care Nurse Name: Elysia Byers [place] Position: [facility] Onco RN Member Role: Primary Care Nurse Name: Bridgette [place] RN Position: [facility] RN Member Role: Primary Care Nurse Name: Rosa Brunner RN Position: S RN Member Role: Primary Care Nurse Name: Christi Florentino RN Position: [facility] RN Supv Member Role: Primary Care Nurse Name: Miguel Ruiz RN Position: [facility] RN Member Role: Primary Care Nurse Care Team Related Persons Name: KG RAYA
--- OUTSIDE RECORDS SUMMARY | 2023-06-10 07:59 | XMS_ITS | Continuity of Care Document ---
Author Organization [facility] ter Address [address] [place] [id number]- Care Team Providers Care Product Mgr Name Role Phone Susanna NATH, Braden Blackburn Primary Care Physician Encounter [facility] Date(s): 05/27/23 - 06/02/[address] [address] Discharge Disposition: Transferred to short-term general hospit Attending Physician: Medhat Trevino MD Admitting Physician: Medhat Trevino MD Referring Physician: Medhat [...] virus vaccine, inactivated 12/09/16 Mark rded SARS-CoV-2(COVID-19)mRNA-LNP vac([id number]) 11/13/22 Recorded [id number] 12y+ bivalent booster vax 02/02/22 Recorded SARS-CoV-2 mRNA ([id number]) vax 08/25/21 Given pneumococcal 13-valent vaccine 08/25/21 [...] Refills, Maintenance, 03/24/22 15:24:00 EST, [facility], 167, cm, 03/24/22 14:57:00 EST, Height, 55.3, kg, 03/16/22 13:19:00 EST, Dry Weight Start Date: 03/24/22 Stop Date: 03/19/23 Status: Ordered folic acid 1 mg oral tablet 1, tablet, By Mouth, Daily, # 90 tablet, Refills 3, Maintenance, 04/19/23 14:36:00 EST, Route to Pharmacy Electronically, [facility] #[facility], 167, cm, 04/12/23 13:17:00 EST, Height, 56.2, kg, 04/07/23 14:11:00 EST, Dry Weight Start Date: 04/19/23 Status: Ordered levETIRAcetam 500 mg oral tablet 1 tablet = 500 mg, By Mouth, 2 times a day, # 180 tablet, 3 Refills, Maintenance, 03/24/22 15:24:00EST, [facility], 167, cm, 03/24/22 14:57:00 EST, Height, 55.3, kg, 03/16/22 13:19:00 EST, Dry Weight Start Date: 03/24/22 Stop Date: 03/19/23 Status: Ordered oxyCODONE 5 mg oral tablet 5 mg, 1, tablet, By Mouth, Every 6 hours, PRN, for 5 days, # 20 tablet, Refills 0, Tot. Refills 0, Acute 06/07/23 12:32:00 EDT, Pain , Moderate, 06/02/23 12:32:00 EDT, Print Requisition, Partial fillupon patient request if the prescription is for a s... 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 Active Esophageal reflux Confirmed Active GBM (glioblastoma multiforme) Confirmed Active History of insomnia Confirmed Active Hypercholesterolemia Confirmed Active Moderate malnutrition Confirmed Active Alcohol use disorder, moderate, dependence Confirmed Active Tobacco use disorder Confirmed Active Underweight Confirmed Active Results Radiology Reports * Exam Date Time Procedure Performing Provider Status 05/28/23 2:11 AM MRI Brain W+W/O Contrast Aguila Brown; Auth (Verified) Notes: (MRI Brain W+W/O Contrast) Reason For Exam: post-operative craniotomy;Other: RESULT: MRI Brain W+W/O Contrast MRI Brain W+W/O Contrast INDICATION / CLINICAL QUESTION: Reason: Other:; post-operative craniotomy; Order Comment: Please see Reference Text for complete list of contraindications TECHNIQUE: MRI of the brain was performed with and without contrast utilizing sagittal and axial T1, axial T2, axial FLAIR, axial SWAN, and axial DWI sequences, and post-contrast 3D T1 MORALES with multiplanar reformats. 12 mL of Clariscan was administered intravenously. COMPARISON: MRI brain 05/24/2013. FINDINGS: BRAIN and EXTRA-AXIAL SPACES: There has been interval right pterional craniotomy for resection of tumor. Bifrontal pneumocephalusis noted. Small postoperative extra axial fluid adjacent to the craniotomy site as well as mild dural thickening and enhancement of this region is noted. Small amount of blood products are present within the right anterior temporal resection cavity, greatest medially, with a rim of intrinsic T1 shortening. Evaluation for superimposed enhancement is somewhat degraded by the area of intrinsic T1 shortening, but there appears to be some mild superimposed enhancement at the margins of the cavity, greatest superiorly measuring up to 4 mm in thickness (e.g. 801:32). The bulk of the previously seen nodularity has been resected. There is a thin band of shifted diffusion compatible with marginal ischemia in the anterior right temporal lobe with slight superior extension to the posterior insula. Nodistant areas of diffusion restriction are seen. The extent of surrounding edema in the right temporal lobe is not significantly changed. There remains medialization of the right uncus. No new mass effect is seen. Chronic changes from prior right superior frontal parietal craniotomy are similar to prior examination. There remains mild dural thickening and enhancement of the craniotomy site, as well as linear enhancement extending through the resection cavity. Patchy and linear enhancement in the deep aspect o f the resection cavity extending towards the frontal horn is unchanged in size and configuration from the prior examination. There is ex vacuo dilatation of the adjacent right frontal horn. No new nodularity or mass effect is seen. Confluent T2 prolongation is noted in the centrum semiovale, right greater than left, similar to the prior study. Punctate microhemorrhages noted in the left centrum semiovale, unchanged. Small enhancing nodules posterior to the intradural vertebral arteries are unchanged from multiple prior studies, compatible with benign enhancing lesions of the foramen magnum. No new sites of abnormal enhancement are seen. The midline structures are unremarkable. Ventricles, cisterns, and sulci are moderately prominent, consistent with volume loss, without hydrocephalus. There is no change in a chronic nonocclusive filling defect in the left transverse and sigmoid sinuses extending to the left jugular bulb. Remaining major intracranial flow voids are present. EXTRACRANIAL SOFT TISSUES: Orbits are unremarkable. There is minimal scattered mucosal thickening in the paranasal sinuses, without fluid levels. Gas and fluid are noted in the right frontotemporal scalp adjacent to the craniotomy site. BONES: Marrow signal is preserved. IMPRESSION: 1. Interval resection of the right anterior frontal lobe enhancing mass, with expected postoperative findings. There is mild intrinsic T1 hyperintense signal at the margin of the resection cavity related to blood products, degrading evaluation for superimposed enhancement; within this limitation, there is likely a thin rim of residual enhancement, greatest superiorly. Continued close follow- up isrecommended. 2. Small area of marginal ischemia at the posterior margin of the right temporal resection cavity. 3. Unchanged chronic posttreatment appearance of the superior right frontal lobe. 4. Unchanged chronic nonocclusive thrombus in the left transverse and sigmoid sinuses. WSN: [id number] Ordering Physician: Salma Fairchild Dictated By: Patti Tapia MD Dictated Date/Time: 05/28/23 9:12 am Reviewed By: Patti Tapia MD Signed By: Patti Tapia MD Signed Date/Time: 05/28/23 9:12 am Transcribed By: DELROY Transcribed Date/Time: 05/28/23 8:54 am * Exam Date Time Procedure Performing Provider Status 05/27/23 5:[address] Head/Brain W/O Contrast Karina Resendiz [facility]; Auth (Verified) Notes: (CT Head/Brain W/O Contrast) Reason For Exam: post-crani left sided weakness;Other: RESULT: CT Head/Brain W/O Contrast CT Head/Brain W/O Contrast Reason: post-crani left sided weakness; TECHNIQUE: Noncontrast head CT using axial technique and reconstructed in axial and coronal planes.Iterative reconstruction techniques are used to optimize dose and image quality. CTDIvol Head: 48.30 mGy, DLP Head: 773 mGy*cm. COMPARISON: MRI brain with and without gadolinium enhancement-05/25/2023. FINDINGS: Front End Developer view findings, lines and tubes: None. BRAIN AND EXTRA-AXIAL SPACES: No parenchymal hemorrhage, midline shift, or mass effect. Reid-white matter differentiation is wellpreserved. No acute infarct. Negative insular ribbon sign. Atherosclerotic vascular calcification of the carotid arteries but negative hyperdense vessel sign. Postoperative cavity with heterogeneous internal contents in the anterior right medial temporal lobe measures about 2.4 x 3.8 cm (202:41), slightly increased from the comparison MRI. Moderate pneumocephalus in the bilateral anterior frontotemporal regions with additional extension along the falx. Postsurgical changes following tumor resection in the left frontal lobe, also with pneumocephalus which may be due to recent instrumentation in the right side. Encephalomalacia in the anterior right frontal lobe. Moderate prominence of the ventricles and sulci consistent with parenchymal volume loss. Mild low-density white matter changes. No subarachnoid hemorrhage. No subdural or epidural collection. CALVARIUM, SKULL BASE, AND SOFT TISSUES: No fractures or suspicious bony lesions. Craniotomy defects in the anterior left frontal bone and right temporal bone. Trace mucosal thickening in the right frontal sinus and left maxillary sinus. Otherwise, visualizedparanasal sinuses and mastoid air cells are clear. Visualized orbits and globes are intact. Soft tissue gas and edema overlying the right temporal bone in the region of the craniotomy defect. IMPRESSION: 1. Moderate pneumocephalus in the bilateral anterior frontal/frontotemporal regions, with evidence of extension superiorly along the falx. 2. No obvious intracranial hemorrhage or herniation. 3. Postoperative cavity in the anterior right medial temporal lobe is minimally increased when compared to the MRI dated 05/25/2023. I have personally reviewed the images and I agree with this report. WSN: [id number] Ordering Physician: Salma Fairchild Dictated By: Jerel Valentin MD Dictated Date/Time: 05/27/23 6:08 pm Reviewed By: Donnell Nicole MD Signed By: Donnell Nicole MD Signed Date/Time: 05/27/23 6:13 pm Transcribed By: DELROY Transcribed Date/Time: 05/27/23 6:07 pm Vital Signs Most recent to oldest [Reference Range]: 1 2 3 Height 175.26 cm (06/01/23 3:37 PM) 175.26 cm (06/01/23 8:14 AM) 175.26 cm (05/30/23 3:52 AM) Weight 58 kg (05/31/23 9:51 AM) 58 kg (05/31/23 9:50 AM) 58.9 kg (05/29/23 6:47 AM) Oxygen Saturation [94-100 %] 97 % (06/02/23 8:00 AM) 96 % (06/02/23 3:00 AM) 97 % (06/02/23 12:00 AM) Pulse Rate [55-90 bpm] 78 bpm (06/02/23 8:00 AM) 54 bpm *L* (06/02/23 3:00 AM) 63 bpm (06/02/23 12:00 AM) Body Mass Index [18.5-24.99 kg/m2] 18.35 kg/m2 *L* (05/27/23 8:35 AM) 18.35 kg/m2 *L* (05/26/23 8:40 AM) 20.51 kg/m2 (05/25/23 10:24 AM) Blood Pressure [90-138/55-84 mm Hg] 113/61mm Hg (06/02/23 8:00 AM) 101/52mm Hg (06/02/23 3:00 AM) 116/67mm Hg (06/02/23 12:00 AM) Respiratory Rate [16-30 br/min] 18 br/min (06/02/23 8:00 AM) 18 br/min (06/02/23 3:00 AM) 18 br/min (06/02/23 12:00 AM) Temperature [96.8-100.4 DegF] 97.9 DegF (06/02/23 8:00 AM) 98.3 DegF (06/02/23 3:00 AM) 97.4 DegF (06/02/23 12:00 AM) Liters per Minute 4 L/min (05/27/23 12:00 PM) Mode of Delivery (Oxygen) Room air (06/02/23 8:00 AM) Room air (06/02/23 3:00 AM) Room air (06/02/23 12:00 AM) Blood pressure sites Arm, right (06/02/23 8:00 AM) Arm, right (06/02/23 3:00 AM) Arm, right (06/02/23 12:00 AM) Temperature Route Oral (06/02/23 8:00 AM) Temporal (06/02/23 3:00 AM) Temporal (06/02/23 12:00 AM) Dry Weight 56.3 kg (05/27/23 8:35 AM) 56.36 kg (05/26/23 8:40 AM) 57.2 kg (05/25/23 10:24 AM) Weight Obtained Via Bed scale (05/29/23 6:47 AM) Bed scale (05/28/23 5:31 AM) Bed scale (05/27/23 3:28 PM) Dry Weight Obtained Via Standing scale (05/27/23 8:35 AM) Patient/family stated (05/26/23 8:40 AM) Social History Social History Type Response Smoking Status 10 or more cigarette s (1/2 pack or more)/day in last 30 days; Interested in cessation: No; Patient wants NRT during admission No entered on: 05/19/23 Sex History and physical note * Event Display: History and Physical Hospital Authored Date: Admission evaluation note * Salma Fairchild MD: MODIFY, MODIFY, MODIFY, MODIFY, SIGN, VERIFY, MODIFY, PERFORM, MODIFY, MODIFY, MODIFY, MODIFY, MODIFY, MODIFY Event Display: Admission Note Authored Date: Patient: NATHEN MARTINEZ Age: 67 years Sex: Male : 1955 Associated Diagnoses: None Author: Salma Fairchild MD History of Present Illness: Nathen Martinez is a 67yo male with prior history of glioblastoma multiforme s/p right frontal craniotomy, resection, chemotherapy and radiation (2019), cerebral venous thrombosis, prior EtOH use, COPD, HLD, and GERD. He had been doing well since his initial surgery however he was found to have a new focal uptake of contrast seen on surveillance imaging, concerning for possible tumor in the right medial temporal lobe. He presented to [facility] on 05/26 and underwent right temporal craniotomy and tumor resection with Neurosurgery. Postoperatively, he was transferred to STICU for Q1 hour neuro checksand close hemodynamic monitoring. Past Medical History: -Glioblastoma multiforme -Cerebral venous thrombosis -COPD -HLD -GERD Past Surgical History: -Craniotomy, resection of mass -Appendectomy -Inguinal hernia repair Medications: -Atorvastatin -Aspirin -Folic acid -Keppra -Senna -Tamsulosin -Trazodone Allergies: -No known drug allergies Family History: -No family history reported Social History: -Prior history of EtOH use -Tobacco use -Prior history of marijuana use Review of systems: Constitutional: No fevers, chills, or fatigue Eyes: No changes in vision ENT: No difficulty swallowing or hemoptysis Cardiovascular: No chest pain or palpitations Respiratory: no SOB, cough or wheezes Gastrointestinal: No abdominal pain, nausea, vomiting, diarrhea, or constipation Genitourinary: No dysuria Musculoskeletal: No stiffness or swelling Integumentary: no rashes Neurological: no headaches or numbness Endocrine: no excessive thirst or sweating All others negative as per HPI Health Status Problem list All Problems Alcohol dependence / SNOMED CT 365060860 / Confirmed Bacteremia / SNOMED CT 27795689 / Confirmed Bladder outlet obstruction / SNOMED CT 312053925 / Confirmed Cerebral venous sinus thrombosis / SNOMED CT 422841188 / Confirmed COPD (chronic obstructive pulmonary disease) / SNOMED CT 09173089 / Confirmed Esophageal reflux / SNOMED CT 303408557 / Confirmed GBM (glioblastoma multiforme) / SNOMED CT 2277482440 / Confirmed History of insomnia / SNOMED CT 747381703 / Confirmed Hypercholesterolemia / SNOMED CT 35037947 / Confirmed Incarcerated right inguinal hernia / SNOMED CT 603375729 / Confirmed Brain mass / SNOMED CT 5641477182 / Confirmed Elevated PSA / SNOMED CT 3616860609 / Confirmed Rhabdomyolysis / SNOMED CT 707361666 / Confirmed Shoulder pain, bilateral / SNOMED CT 67953071 / Confirmed Thrombosis cerebral vein / SNOMED CT 322200921 / Confirmed Tobacco abuse / SNOMED CT 486153983 / Confirmed Underweight / SNOMED CT 702275238 / Confirmed Caputo catheter in place / SNOMED CT 6049424037 / Confirmed Current medications (Selected) Inpatient Medications Ordered Bisacodyl Supp: 10 mg, Suppository, Rectally, 2 times a day, PRN for Constipation, Routine, 05/27/23 12:31:00 EDT Colace Liquid: 100 mg, Liquid, By Mouth, 2 times a day, PRN for Constipation, Routine, 05/27/23 12:31:00 EDT Milk of Magnesia Liquid: 30 mL, Suspension, By Mouth, 2 times a day, PRN for Constipation, Routine,05/27/23 12:31:00 EDT ceFAZolin Inj *: 1 Gm, IV Push Slowly, Injection, call worker to OR for 1 doses/times, Indicated for: Surgical Prophylaxis, Routine, 05/27/23 7:02:00 EDT Incomplete Ancef Inj: 1 Gm, Premix, IVPB, call worker to OR for 1 doses/times, Indicated for: Surgical Prophylaxis, Routine, 04/28/23 9:46:00 EDT Prescriptions Prescribed Senna Plus 50 mg-8.6 mg oral tablet: 2 tablet, By Mouth, Daily at bedtime, PRN Constipation, # 60 tablet, 3 Refills, Maintenance, 07/29/21 15:04:00 EDT, Tablet, [facility], Partial fill upon patient request if the prescription is for a schedule II opioid drug., 2 tablet By... atorvastatin 40 mg oral tablet: 1 tablet, By Mouth, Daily, # 90 tablet, 3 Refills, Maintenance, 03/24/22 15:24:00 EST, [facility], 167, cm, 03/24/22 14:57:00 EST, Height, 55.3, kg, 03/16/22 13:19:00 EST, Dry Weight folic acid 1 mg oral tablet: 1, tablet, By Mouth, Daily, # 90 tablet, Refills 3, Maintenance, 04/19/23 14:36:00 EST, Route to Pharmacy Electronically, [facility], 167, cm, 04/12/23 13:17:00 EST, Height, 56.2, kg, 04/07/23 14:11:00 EST, Dry Weight levETIRAcetam 500 mg oral tablet: 1 tablet = 500 mg, By Mouth, 2 times a day, # 180 tablet, 3 Refills, Maintenance, 03/24/22 15:24:00 EST, [facility], 167, cm, 03/24/22 14:57:00 EST, Height, 55.3, kg, 03/16/22 13:19:00 EST, Dry Weight traZODone 50 mg oral tablet: 1, tablet, By Mouth, Daily at bedtime, # 270 tablet, Refills 0, Maintenance, 11/12/21 14:35:00 EDT, Route to Pharmacy Electronically, [facility], 167, cm, 11/10/21 10:17:00 EDT, Height, 55.4, kg, 11/10/21 10:17:00 EDT, Dry Weight Documented Medications Documented Vit B Complex Tablet: 0 Refills, Maintenance, 04/27/23 15:07:00 EDT, Partial fill upon patient request if the prescription is for a schedule II opioid drug. aspirin 81 mg oral delayed release tablet: 81 mg, 1, tablet, By Mouth, Daily, Refills 0, Maintenance, 07/29/20 13:33:00 EDT, Partial fill upon patient request if the prescription is for a schedule IIopioid drug. pantoprazole 40 mg oral delayed release tablet: 0 Refills, Maintenance, 04/12/23 13:17:00 EST tamsulosin 0.4 mg oral capsule: Refills 0, Maintenance, 04/12/23 13:17:00 EST, Partial fill upon patient request if the prescription is for a schedule II opioid drug. Results Review Recent Labs: BLOOD BANK RBC Unit ID [id number] () 05/27/2023 09:11 RBC Available IS () 05/27/2023 09:11 Vital Signs Weight 05/27/2023 8:35 EDT Weight 56.36 kg Pulse Rate 05/27/2023 8:35 EDT Pulse Rate 90 bpm Respiratory Rate 05/27/2023 8:35 EDT Respiratory Rate 17 br/min Temperature 05/27/2023 8:35 EDT Temperature 98 DegF Oxygen Saturation 05/27/2023 8:35 EDT Oxygen Saturation 96 % Labs WBC 05/12/2023 14:50 EDT WBC 4.5 k/mm3 Hct 05/12/2023 14:50 EDT Hct 37.3 % L Platelet Count 05/12/2023 14:50 EDT Platelet Count 266 k/mm3 Sodium 05/12/2023 14:57 EDT Sodium 141 mmol/L Potassium 05/12/2023 14:57 EDT Potassium 3.4 mmol/L L Chloride 05/12/2023 14:57 EDT Chloride 104 mmol/L Bicarbonate Level 05/12/2023 14:57 EDT Bicarbonate Level 23 mmol/L BUN 05/12/2023 14:57 EDT BUN 17 mg/dL Creatinine-Blood 05/12/2023 14:57 EDT Creatinine-Blood 1.0 mg/dL Glucose level 05/12/2023 14:57 EDT Glucose Level 107 mg/dL H New Results 05/12/2023 14:57 EDT Calcium 9.6 mg/dL 03/08/2023 15:27 EST Calcium 9.5 mg/dL 10/26/2022 14:34 EDT Calcium 9.8 mg/dL Magnesium 03/08/2023 15:27 EST Magnesium 1.5 mg/dL L Physical Examination Vitals: Temperature 98 (08:45) Systolic Blood Pressure 126 (08:45) Diastolic Blood Pressure 76 (08:45) Pulse 90 (08:45) SpO2 96 (08:45) Respiratory Rate 17 (08:45) Drips- None Tubes, Lines, & Drains- Left radial arterial line Caputo catheter Physical Examination- Constitutional: patient lying supine in bed, responsive, follows commands. Neuro: GCS 15. Pupils 2mm brisk bilaterally. 5/5 strength in right upper and lower extremities. 4/5strength in left upper and lower extremities with some delayed response. Unable to raise right eyebrow. Tongue deviates slightly to the right, smile slightly droops towards the right. HEENT: Head normocephalic & atraumatic. Mucous membranes pink, moist, and intact. CV: Regular rate & rhythm. Pulm: Breathing comfortably on room air. GI: Abdomen soft, non-tender, non-distended. : Caputo catheter in place with yellow urine noted. Integ/MSK: Right craniotomy incision with dressing c/d/i. Intake and Output Results No results in record. Impression and Plan Nathen Martinez is a 67yo male with prior history of glioblastoma multiforme s/p right frontal craniotomy, resection, chemotherapy and radiation (2019), cerebral venous thrombosis, prior EtOH use, COPD, HLD, and GERD. He had been doing well since his initial surgery however he was found to have a new focal uptake of contrast seen on surveillance imaging, concerning for possible tumor in the right medial temporal lobe. He presented to [facility] on 05/26 and underwent right temporal craniotomy and tumor resection with Neurosurgery. Postoperatively, he was transferred to STICU for Q1 hour neuro checksand close hemodynamic monitoring. He was found to be slightly weak on the left upper and lower extremities and had some facial drooping. STAT CT head ordered to evaluate post-operatively. Neuro Acute postop pain Hx Glioblastoma multiforme s/p crani, rxn, chemo/rads (2019) Hx Cerebral venous thrombosis Hx Daily EtOH use Home meds: Keppra, trazodone, folic acid, Aspirin Plan -STAT CT head due to left-sided weakness/facial drooping -Pain regimen: Tylenol 650mg Q6h PRN, Oxycodone 5mg Q6h PRN -Holding home Aspirin -Keppra 500mg BID -Trazodone 50mg PRN QHS for sleep -CIWA protocol -Phenobarbital PRN for symptoms of EtOH withdrawal -Daily multivitamin, folic acid, pyridoxine, BID thiamine -Q1 hour neuro checks -HOB >30 degrees -Dexamethasone 4mg Q6 hours -MRI brain with and without contrast tonight at 8pm CV Hx Hyperlipidemia Home meds: atorvastatin Plan -Continue home atorvastatin 40mg daily -Continuous cardiac monitoring -Goal SBP 100-140 -Fluid boluses as needed -Monitor BP/HR Pulm Hx COPD Plan -ABG PRN -Duonebs PRN -Incentive spirometry, acapella FEN/GI Hx GERD Home meds: omeprazole Plan -Diet: Dental soft diet -Monitor and record bowel movements -Bowel regimen: Colace, Milk of Magnesia, Suppository PRN -Omeprazole 20mg daily -Monitor daily Ins/Outs -Replete lytes per ICU Ca/Phos/Potassium protocol Renal Hx urinary incontinence Caputo placed 05/26 Baseline Cr: 1.0 Plan -Caputo catheter for critical output monitoring -Daily renal labs -Monitor urine output -Tamsulosin 0.4mg daily MSK/Integ Incisions: Right temporal craniotomy incision Plan -Dry dressing to craniotomy incision -Monitor skin for breakdown -PT consult for discharge planning Heme No active heme issues Plan -Will obtain STAT CBC and transfuse for Hgb < 7.0 per ICU protocol -Daily CBC -Monitor H/H trends -Holding chemical DVT ppx Endocrine No active endocrine issues Plan -ICU insulin protocol -Daily glucose level ID Completed Antibiotics: Ancef 2mg perioperatively Plan -Monitor fever curve -Trend WBC's Social HCP: Matt Mena [phone] Prophylaxis HOB > 30 degrees GI: Omeprazole 20mg daily DVT: Pneumoboots, holding chemical DVT ppx Code Status: Full Code Primary Team: Neurosurgery Consultants: None Disposition: Continue SICU Critical Care due to q1 neuro checks. Please page [phone] or call [phone] SICU Team with any questions Patient seen and plan of care discussed with attending, Dr. Castro. Cardiology * Event Display: Cardiac Rhythm Strips Authored Date: * Event Display: Cardiac Rhythm Strips Authored Date: Hospital Progress note * Nina Joe RN: SIGN, PERFORM, SIGN, VERIFY, MODIFY Event Display: Progress Note Hospital Authored Date: Patient: NATHEN MARTINEZ Age: 67 years Sex: Male : 1955 Associated Diagnoses: None Author: Nina Joe RN Findings Problem Related to Alteration in Neurological : Alteration in Neurological Function/new 06/02/2023 8:00 EDT Alteration in Neuro status Related to Neurology Procedure Goals & Outcomes, Neurological Lab studies/diagnostic tests within pt specific limits, Pt is safe with transfers & activities, Pt will be discharged without infection, Pt will be hemodynamically stable, Pt will be Neurologically stable, Pt will become pain free with appropriate intervention, Pt will maintain intact skin integrity, Pt will remain free from injury, Pt will resume/maintain ad equate cardiac output, Pt will state importance of adhering to medication regime, Pt/caregiver willreceive psychosocial support as needed, Pt/caregiver will state understanding of rehab plan, Pt/caregiver will state strategies to reduce risk factors Interventions, Neurological Assess/monitor for abnormal posturing, Assess/monitor for gaze pattern/extraocular movements, Assess/monitor for increased Intracranial Pressure, Assess/monitor neurologicstatus, Assess/monitor VS per unit standards & prn, Call/Report variances in assessments to provider, Maintain patient safety if unsteady gait, Monitor for headaches, nausea, vomiting, Monitor speech fluency, aphasia, word finding difficulty, Physical assessment per unit standards, Provide emotional support to Pt/caregiver Goals/Interventions, Neurological Yes Neurological, Problem Start 02/15/2024 15:25 Reviewed plan with, Neurological Patient Patient Progression, Neurological Pt progressing according to plan . Nursing Data Neurological Data. : Neurological Data. 06/02/2023 8:00 EDT Neurological Symptoms Alteration in level of consciousness, Double vision, Unsteady gait/Ataxia Level of Consciousness Confusion (Modified) Orientated to person, place, time Person, Place, Time Facial Symmetry Intact Characteristics of Speech Clear and normal Pupil description, left Regular Pupil description, right Regular Pupil reaction, left Brisk Pupil reaction, right Brisk Strength LUE 5-Active movement against gravity & full resistance Strength RUE 5-Active movement against gravity & full resistance Strength LLE 5-Active movement against gravity & full resistance Strength RLE 5-Active movement against gravity & full resistance Tone LUE Normal Tone RUE Normal Tone LLE Normal Tone RLE Normal Sensation LUE Intact Sensation RUE Intact Sensation LLE Intact Sensation RLE Intact Movement LUE To command, Spontaneous Movement RUE To command, Spontaneous Movement LLE To command, Spontaneous Movement RLE To command, Spontaneous Gait Unsteady Response Eye Opening Spontaneously Motor Response-Adult Obeys commands Verbal Response-Adult Oriented and converses Harpreet Coma Score 15 1 - 10 Pain Scale Score 5 Neuro WNL except Corneal/Blink Reflex Intact right, Intact left Eyes and Movements Conjugate gaze: Move in same direction at same speed Swallow - Neuro Normal . Evaluation Pt. Is A&O x3 confused. Pt. denies dizziness, blurry and double vision. Complains of 5/10 headache, Tylenol given with some relief. Visual valle appear to be intact, no cuts or deficits reportedor observed, + PEERL. Complains of double vision, MD aware Face is symmetrical, ? right eye ptosis no changes in speech or swallow reported or observed, takes pills whole with water. Strength: ESPARZA 5/5 denies numbness, tingling, or pain. Pt one assist to bathroom. Lung sounds are clear, occasional cough no SOB or chest pain reported, Normal Sinus rhythm on telemetry. Abdomen is soft, non-tender, +bowel sounds in all four quadrants last BM 05/31, voiding with urinal. Surgical incision on head, clean dry and intact. Safety precautions in place Bed alarm activated, call ferrera within reach, bed in lowest position, wheels locked. Pt awaiting discharge to facility today. Report given to ambulance, IV removed and intact. Discharge instructions given to ambulance. . Discharge Information Case Management Discharge Plan : Case Management Discharge Plan Data 06/02/2023 10:55 EDT Discharge Level of Care at Discharge Inpatient Rehab Facility/Unit Discharge Nursing Homes/Rehab Facilities [facility] Discharge Transportation Arranged [facility] [phone] [facility] [id number] [phone] Discharge Arranged Transport Date/Time 06/02/2023 12:30 Mode of Transportation Arranged Ambulance Service Categories #1 Occupational Therapy, Physical Therapy, Correction Name of Person Notified of Transfer The pt is aware of the planned discharge to rehab today Rehabilitation Discharge : Rehab Discharge Index 05/31/2023 10:54 EDT Walker: distance >50 05/31/2023 8:49 EDT Comments on treatment indicated ADLs, func mob, txfers, safety, visual/perceptual exercises Full chart review completed Yes Hospital course See comment: 05/28/2023 8:58 EDT Comments on treatment indicated See pt for ther ex, ther act, and gait with LRD Walker: distance >50 Distance pt will ambulate 100 ft with LRD Full chart review completed Yes Hospital course see comment Other findings See comments Plan of care PT Gait training, Transfer training, Therapeutic exercise, Functional Activities, Balance training * Sonya Love RN: MODIFY, SIGN, VERIFY, PERFORM Event Display: Progress Note Hospital Authored Date: Patient: NATHEN MARTINEZ Age: 67 years Sex: Male : 1955 Associated Diagnoses: None Author: Sonya Love RN Findings Problem Related to Alteration in Neurological : Alteration in Neurological Function/new 06/02/2023 0:00 EDT Alteration in Neuro status Related to Neurology Procedure Goals & Outcomes, Neurological Lab studies/diagnostic tests within pt specific limits, Pt is safe with transfers & activities, Pt will be discharged without infection, Pt will be hemodynamically stable, Pt will be Neurologically stable, Pt will become pain free with appropriate intervention, Pt will maintain intact skin integrity, Pt will remain free from injury, Pt will resume/maintain ad equate cardiac output, Pt will state importance of adhering to medication regime, Pt/caregiver willreceive psychosocial support as needed, Pt/caregiver will state understanding of rehab plan, Pt/caregiver will state strategies to reduce risk factors Interventions, Neurological Assess/monitor for abnormal posturing, Assess/monitor neurologic status, Assess/monitor VS per unit standards & prn, Call/Report variances in assessments to provider, Collaborate w/ provider to implement appropriate guidelines, Collaborate with Nutrition, Collaboratewith provider re: medication regime, Document & Monitor O2 Sats; Administer O2 as ordered, Emergency airway equipment at bedside, Identify psychosocial issues related to diagnosis/illness, If no bowel movement in 3 days activate bowel regime, [place] alternate means of communication, Keep patient's head & body in good alignment, Maintain HOB at least 30 deg, Maintain normothermia, report temp >101.5 F, Maintain patient safety if unsteady gait, Maintain strict intake & output, Monitor Fluid & Electrolytes, Serum Osmolarity, Monitor for headaches, nausea, vomiting, Monitor speech fluency, aphasia, word finding difficulty, Physical assessment per unit standards, Provide emotional support to Pt/caregiver, Teach & encourage deep breath & cough exercises, Teach and e ncourage use of Incentive spirometer, Teach pt/caregiver discharge plan & follow up care, Teachpt/caregiver on plan of care, treatment, s/s & meds, Teach pt/caregiver on use of pain scale Goals/Interventions, Neurological Yes Neurological, Problem Start 02/15/2024 15:25 Reviewed plan with, Neurological Patient Patient Progression, Neurological Pt progressing according to plan . Nursing Data Neurological Data. : Neurological Data. 06/01/2023 21:00 EDT Neurological Symptoms Alteration in level of consciousness, Back pain, Double vision, Headache: persistent, changing or sudden, Weakness or loss of muscle strength Level of Consciousness Confusion Orientated to person, place, time Person, Place, Time Facial Symmetry Ptosis right Characteristics of Speech Clear and normal Swallowing Difficulty None Pupil description, left Regular Pupil description, right Regular Pupil reaction, left Brisk Pupil reaction, right Brisk Strength LUE 5-Active movement against gravity & full resistance Strength RUE 5-Active movement against gravity & full resistance Strength LLE 5-Active movement against gravity & full resistance Strength RLE 5-Active movement against gravity & full resistance Tone LUE Normal Tone RUE Normal Tone LLE Normal Tone RLE Normal Sensation LUE Intact Sensation RUE Intact Sensation LLE Intact Sensation RLE Intact Movement LUE Spontaneous, To command Movement RUE Spontaneous, To command Movement LLE Spontaneous, To command Movement RLE Spontaneous, To command Response Eye Opening Spontaneously Motor Response-Adult Obeys commands Verbal Response-Adult Disoriented and converses [place] Coma Score 14 Pain Interventions Pharmacological Pain relief acceptable Yes Neuro WNL except Eyes and Movements Conjugate gaze: Move in same direction at same speed Swallow - Neuro Normal . Evaluation A&Ox3. Forgetful. Paranoid at times. Able to make needs known and follow commands. Speech clear. R eye ptosis. Pt reports double vision. ESPARZA 06/19. VSS on RA. On tele, NSR. Mixed incontinence. LastBM 05/31. R head incision wero, cdi. Seizure precautions maintained, no seizure activity noted this shift.Safety maintained. See CIS for more information.. Discharge Information Rehabilitation Discharge : Rehab Discharge Index 05/31/2023 10:54 EDT Walker: distance >50 05/31/2023 8:49 EDT Comments on treatment indicated ADLs, func mob, txfers, safety, visual/perceptual exercises Full chart review completed Yes Hospital course See comment: 05/28/2023 8:58 EDT Comments on treatment indicated See pt for ther ex, ther act, and gait with LRD Walker: distance >50 Distance pt will ambulate 100 ft with LRD Full chart review completed Yes Hospital course see comment Other findings See comments Plan of care PT Gait training, Transfer training, Therapeutic exercise, Functional Activities, Balance training * Ryan Santos DO: PERFORM Event Display: Progress Note Hospital Authored Date: [id number] Patient: ??NATHEN MARTINEZ ? Age:??67 Years?Sex:??Male?:??1955?? Subjective Patient seen and examined at bedside. Continues to endorse some hallucinations of wavy background similar to being on LSD. He does report diplopia which is new, also commented on yesterday. This appears to be distance dependent as any object I hold up at arms length and even at foot of the bed seems to reproduce these disturbances, however moving to the far back wall of the patient room there is no concern of diplopia. It is unlikely that delirium or steroids are causing diplopia, recommendations for head imaging or neuro consult communicated with primary team. He denies any auditory hallucinations or SI/HI or other individuals in the room at this time, but does acknowledge previously he was seeing friends. Review of Systems A full review of systems was completed and is otherwise negative except as mentioned in history of present illness. Allergies Allergies ?(Active and Proposed Allergies Only) NKA? (Severity: Unknown severity, Onset: Unknown) ? Objective Vital Signs?? Temperature: 97.3 DegF (06/01/23 08:14:00) Temperature Route: Temporal (06/01/23 08:14:00) Pulse Rate: 80 bpm (06/01/23 08:14:00) Respiratory Rate: 20 br/min (06/01/23 08:14:00) Systolic Blood Pressure: 105 mm Hg (06/01/23 08:14:00) Diastolic Blood Pressure: 70 mm Hg (06/01/23 08:14:00) Blood pressure sites: Arm, right (06/01/23 08:14:00) Mean Arterial Pressure: 82 mm Hg (06/01/23 08:14:00) Pulse Pressure: 35 mm Hg (06/01/23 08:14:00) Oxygen Saturation: 96 % (06/01/23 08:14:00) Mode of Delivery (Oxygen): Room air (06/01/23 08:14:00) Early Warning Score: 3 (06/01/23 08:14:41) ? Ventilator Settings?? No qualifying data available. ?? Intake/Output? 05/26 06:56 05/31 07:00 05/30 07:00 05/29 07:00 05/28 07:00 ?? 05/31 14:06 05/31 14:06 05/31 06:59 05/30 06:59 05/29 06:59 Intake ? 6197 ?0 ? 1500 ?954 ?360 Output ? 7310 ?400 ? 1575 ? 2175 ?850 Net Total ?-1113 ? -400 ?-75 ?-1221 ? -490 ? Urine Count ? 10 ?0 ?1 ?3 ?6 ? Physical Exam General: No acute distress HEENT: EOMI, mucous membranes moist. Pupils equal and reactive bilaterally with normal convergence CV: RRR S1 S2 present. No murmurs, gallops, rubs appreciated. No JVD. No edema. Respiratory: All valle clear to auscultation bilaterally. No wheezes, rales, rhonchi appreciated Abdominal: Soft, nontender. No rebound tenderness. Bowel sounds noted all four quadrants. : No suprapubic tenderness. Neuro: A&OX3. Moving upper and lower extremities. No gross neurological deficits Psych: Affect appropriate Skin: No acute lesions, wounds, rashes. _ Inpatient Medications Medications (25) Active SCHEDULED: (14) Aspirin 81 mg EC Tablet (aspirin 81 mg oral delayed release tablet) ??81 mg, By Mouth, Daily Atorvastatin 40 mg Tablet (atorvastatin 40 mg oral tablet) ??40 mg, By Mouth, Daily ceFAZolin 1 Gm Inj (ceFAZolin Inj *) ??1 Gm, IV Push Slowly, call worker to OR Dexamethasone 4 mg Tablet (Decadron Tablet) ??4 mg, By Mouth, 2 times a day Folic Acid 1 mg Tablet (Folic Acid Tablet) ??1 mg, By Mouth, Daily Levetiracetam 250 mg Tablet (Keppra 500 mg oral tablet) ??750 mg, By Mouth, 2 times a day Multivitamin Therapeutic / Minerals Tablet (Multivit Therapeutic/Minerals Tablet) ??1 tablet, By Mouth, Daily Nicotine 14 mg / 24 hour Patch (Nicotine Topical) ??14 mg, Topically, Daily Pantoprazole 20 mg EC Tablet (Protonix 20 mg oral delayed release tablet) ??20 mg, By Mouth, 2 times a day Pyridoxine 50 mg Tablet (Pyridoxine Tablet) ??50 mg, By Mouth, Daily Remove Patch (Remove ??Patch) ??1 each, Topically, Daily Remove Patch (Remove ??Patch) ??1 each, Topically, Daily Tamsulosin 0.4 mg Capsule (tamsulosin 0.4 mg oral capsule) ??0.4 mg, By Mouth, Daily Thiamine 100 mg Tablet (Thiamine Tablet) ??100 mg, By Mouth, 2 times a day CONTINUOUS: (1) Lactated Ringers (1000 mL) Cont IV 1,000 mL (LR 1,000 mL) ??1,000 mL, IV Infusion, 75 mL/hr PRN: (10) Acetaminophen 325 mg Tablet (Acetaminophen Tablet) ??650 mg, By Mouth, Every 6 hours Albuterol/Ipratropium Inhalation Aileen 3mL (Duoneb Inhalation Solution) ??1 vials, BAND Nebulizer, Every 4 hours Bisacodyl 10 mg Suppository (Bisacodyl Supp) ??10 mg 1 supp, Rectally, 2 times a day Docusate Sodium 10 mg/mL Liquid UD (Colace Liquid) ??100 mg 10 mL, By Mouth, 2 times a day Magnesium Hydroxide 8% Susp UD (Milk of Magnesia Liquid) ??30 mL, By Mouth, 2 times a day Ondansetron 2mg/mL Inj (2mL Vial) (Zofran Inj) ??4 mg, IV Push, Every 6 hours OxyCODONE 5 mg IR Tablet (oxyCODONE 5 mg oral tablet) ??5 mg, By Mouth, Every 4 hours Phenobarbital 130 mg/mL Inj (Phenobarbital Inj) ??130 mg 1 mL, IV Push, Once Phenobarbital 65 mg/mL Inj (Phenobarbital Inj) ??65 mg 1 mL, IV Push, Every 2 hours Trazodone 50 mg Tablet (traZODone 50 mg oral tablet) ??50 mg, By Mouth, Daily at bedtime ? Results Recent Labs BLOOD COUNT & DIFF WBC 8.8 k/mm3 ()?? 06/01/2023 01:31 RBC 3.78 m/mm3 (Low)?? 06/01/2023 01:31 Hgb 12.1 Gm/dL (Low)?? 06/01/2023 01:31 Hct 34.9 % (Low)?? 06/01/2023 01:31 MCV 92.3 femtoliters ()?? 06/01/2023 01:31 MCH 32.0 pg ()?? 06/01/2023 01:31 MCHC 34.7 g/dL ()?? 06/01/2023 01:31 Platelet Count 268 k/mm3 ()?? 06/01/2023 01:31 RDW-SD 42.8 femtoliters ()?? 06/01/2023 01:31 MPV 9.7 femtoliters ()?? 06/01/2023 01:31 Nucleated RBC (Automated) 0.0 #/100 WBC'S ()?? 06/01/2023 01:31 Abs. NRBC 0.0 k/mm3 ()?? 06/01/2023 01:31 Abs. Neut 7.6 k/mm3 (High)?? 06/01/2023 01:31 Abs. Lymph 0.6 k/mm3 (Low)?? 06/01/2023 01:31 Abs. [place] 0.6 k/mm3 ()?? 06/01/2023 01:31 Abs. Eo 0.0 k/mm3 ()?? 06/01/2023 01:31 Abs. Baso 0.0 k/mm3 ()?? 06/01/2023 01:31 Neut % 85.7 % (High)?? 06/01/2023 01:31 Lymph % 6.8 % (Low)?? 06/01/2023 01:31 [place] % 6.7 % ()?? 06/01/2023 01:31 Eos % 0.2 % ()?? 06/01/2023 01:31 Baso % 0.1 % ()?? 06/01/2023 01:31 Imm Gran 0.5 % ()?? 06/01/2023 01:31 Abs. Imm Gran 0.0 k/mm3 ()?? 06/01/2023 01:31 ?? CHEM GENERAL Sodium 135 mmol/L ()?? 06/01/2023 01:31 Potassium 4.1 mmol/L ()?? 06/01/2023 01:31 Chloride 98 mmol/L ()?? 06/01/2023 01:31 Bicarbonate Level 25 mmol/L ()?? 06/01/2023 01:31 Anion Gap 12 ()?? 06/01/2023 01:31 Glucose Level 129 mg/dL (High)?? 06/01/2023 01:31 BUN 24 mg/dL (High)?? 06/01/2023 01:31 Creatinine-Blood 0.8 mg/dL ()?? 06/01/2023 01:31 Estimated GFR Creatinine 98 ML/MIN/1.73 M2 ()?? 06/01/2023 01:31 Calcium, Ionized pH Corrected 1.35 mmol/L (High)?? 06/01/2023 01:31 Phosphorus 3.8 mg/dL ()?? 06/01/2023 01:31 Magnesium 1.7 mg/dL ()?? 06/01/2023 01:31 ?? ENDOCRINE/TUMOR MARKER PTH, Intact 27 pg/mL ()?? 05/31/2023 02:19 ?? MISC. CHEMISTRY 25 OH-Vitamin D Level 41.3 ng/mL ()?? 05/31/2023 02:19 ?? URINE OTHER Est Creatinine Clearance 71.35 mL/min ()?? 06/01/2023 02:19 ? Assessment/Plan ??NATHEN??MICHELLE??is a??67 Years??Male??with glioblastoma status post right frontal craniotomy and resection (05/26; Dr. Sanchez) course complicated by visual hallucinations. ?? Diplopia (H53.2) Visual hallucination (R44.1):? Presents with what seems like complex visual hallucinations with people in the room who are previously . He also notes what sounds like diplopia with duplicates of objects. He also notes movement of the ceiling. He has a history of alcohol use disorder and drinks approximately 6 pack of beer per day and has no history of alcohol withdrawal seizures. His last drink was 05/26 which was 4 days prior to today. Neurological exam otherwise unremarkable except for right unilateral brow ptosis. He is alert and oriented x 3 on exam and CAM negative making delirium less likely. Given the duration of time from his last drink, alcohol withdrawal seizures are less likely. Given the diplopia and right brow ptosis, recommend CT imaging to assess for any structural changes but ultimately defer to the primary neurosurgical team. ?? Recommendations: ??? Seizure precautions ??? CT head without contrast but ultimately defer to primary neurosurgical team ?? Glioblastoma (C71.9):? Recommendations: - Continue steroids per primary team - Pain regimen and DVT prophylaxis per primary team ?? Hypercalcemia (E83.52):??75cc/hr LR and trend daily. Elevated ionized Ca with inappropriately normal PTH, can follow outpatient. Unlikely cause for patient's mental status changes Hypophosphatemia (E83.39):??resolved ?? Normocytic anemia (D64.9):??Baseline 13 to 14 g/dL.??At baseline ?? Moderate malnutrition (E44.0):??Nutrition following COPD (chronic obstructive pulmonary disease) (J44.9):??Not in exacerbation. Duonebs PRN Tobacco use disorder (F17.200):??Smokes 1 pack/day with [id number]-[id number] history. Nicotine replacement therapy and cessation information on discharge Alcohol use disorder, moderate, dependence (F10.20):??Likely not in withdrawal. 6 beers a day. 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 Patient seen and discussed with attending physician, Dr. Marcos Santos, DO, PGY-3 Medicine consult service to sign off Histories Allergies Allergies ?(Active and Proposed Allergies Only) NKA? (Severity: Unknown severity, Onset: Unknown) ? 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 Past Surgical History Craniotomy-frontal for GBM: 12/26/19 ORIF - right arm, multilevel ORIF - right hand fracture Appendectomy; History of inguinal hernia surgery Right frontal craniotomy and resection (05/26; Dr. Sanchez) ?? Social History 1 ppd tobacco smoker since 14 for 53 pack year history.?? Drinks 6 beers a day.?? Takes marijuana edibles daily and smokes occasionally. ?? Family History Mother: Stomach cancer aged 84 Father: [place] aged 72 Maternal aunt:??Brain cance Medications Home Medications Aspirin (aspirin 81 mg oral delayed release tablet)?81?Milligram?1?tablet?By Mouth?Daily Atorvastatin (atorvastatin 40 mg oral tablet)?1?tab(s)?By Mouth?Daily?for 90?Days Docusate-Senna (Senna Plus 50 mg-8.6 mg oral tablet)?2?tab(s)?By Mouth?Daily at bedtime?as needed?Constipation Folic Acid (folic acid 1 mg oral tablet)?1?tablet?By Mouth?Daily levETIRAcetam (levETIRAcetam 500 mg oral tablet)?1?tab(s)?500?Milligram?By Mouth?2 times a day?for 90?Days Trazodone (traZODone 50 mg oral tablet)?1?tablet?By Mouth?Daily at bedtime ? Results ?Test Name ??Test Result ??Date/Time ??Hgb ??13.1 Gm/dL ??05/31/2023 02:19 EDT ??Bicarbonate Level ??19 mmol/L ??05/31/2023 02:19 EDT ??Glucose Level ??125 mg/dL ??05/31/2023 02:19 EDT ??Calcium, Ionized pH Corrected ??1.34 mmol/L ??05/31/2023 02:19 EDT ??Phosphorus ??2.4 mg/dL ??05/31/2023 02:19 EDT ? Remainder of CBC, electrolytes, BUN, creatinine unremarkable. ?? Imaging(s) ?CT Head/Brain W/O Contrast ?? 05/27/2023 17:05??by Donnell Nicole MD ?1. Moderate pneumocephalus in the bilateral anterior frontal/frontotemporal regions, with evidence of extension superiorly along the falx. 2. No obvious intracranial hemorrhage or herniation. 3. Postoperative cavity in the anterior right medial temporal lobe is minimally increased when compared to the MRI dated 05/25/2023. ?MRI Brain W+W/O Contrast ?? 05/28/2023 02:11??by Patti Tapia MD ?1. Interval resection of the right anterior frontal lobe enhancing mass, with expected postoperative findings. There is mild intrinsic T1 hyperintense signal at the margin of the resection cavity related to blood products, degrading evaluation for superimposed enhancement; within this li mitation, there is likely a thin rim of residual enhancement, greatest superiorly. Continued close follow-up is recommended. 2. Small area of marginal ischemia at the posterior margin of the right temporal resection cavity. 3. Unchanged chronic posttreatment appearance of the superior right frontal lobe. Consult note * Joni Rodríguez MD: MODIFY, PERFORM, MODIFY Event Display: Consultation Note Authored Date: Patient: ??NATHEN MARTINEZ ? Age:??67 Years?Sex:??Male?:??1955?? History of Present Illness NATHEN??MICHELLE??is a??67 Years??Male??with glioblastoma status post right frontal craniotomy andresection (05/26; Dr. Sanchez). ?? Initially presented for confusion and hallucination with imaging showing brain mass status post subtotal resection (12/26/2019) followed by chemoradiation therapy with temozolomide completed 04/07 andreceived Temodar 3/21 - 03/09 is been on surveillance since then.?? He was seen by hematology/oncology on 05/19/2023 (Dr. Page) where concern for recurrent disease were raised.?? He underwent right frontal craniotomy and resection (05/27/2023; Dr. Sanchez).?? STICU course significant for slight left upper and lower extremity weakness and facial drooping with unremarkable CT head and MRI for ischemia.?? He underwent EEG on 05/27 with potentially epileptogenic activity seen on the right central temporal region with up titration of Keppra.?? Medicine was consulted for hallucinations. ?Referring Physician: Consultation question:??Visual hallucinations Review of Systems ROS positive for: Visual hallucinations, R1/2 numbness ?? CONSTITUTIONAL: ??Denies any fever EYES:??Denies any changes to vision, burning or diplopia. CV:??Denies any CP PULM: Denies any SOB, wheezing, cough or production of phlegm. ABD: Denies any abdominal pain, N/V/D : Denies dysuria MS: Denies any joint or muscle pain NEURO: Visual hallucinations.??Denies any weakness, changes to speech confusion or memory loss.?? PSYCH: Denies any depression or anxiety.?? Objective ?? Physical Exam Vital Signs (24 hrs) Last Charted?? Minimum?? Maximum?? Resp Rate?? 18?? 05/31/2023 12:00?? 16?? 05/30/2023 21:14 ?? 18?? 05/30/2023 16:00?? SBP?? 121?? 05/31/2023 12:00?? 110?? 05/31/2023 03:00 ?? 121?? 05/31/2023 12:00?? DBP?? 81?? 05/31/2023 12:00?? 66?? 05/31/2023 07:00 ?? 81?? 05/31/2023 12:00? General Appearance: The patient is?? in NAD. Cardiovascular: RRR S1 and S2 heard with no M/R/G.?? Respiratory: ??Breath sounds clear to auscultation bilaterally. No wheezing. Good air movement throughout both lungs. GI: Soft. Nontender and nondistended. Normal bowel sounds present throughout abdomen.?? MS: ??No edema or erythema in the lower extremities.?? Neuro: ??No slurred speech. ??Patient seen moving their upper and lower extremities independently.??CN II - XII intact except for right brow??ptosis.??EOM's intact. Upper and??lower??extremity??strength??5/5??equal and bilateral.?? Psych: Alert and oriented x3. Appropriate and pleasant. CAM Negative. Lines: Peripheral IV in place.?? Assessment/Plan Assessment:??NATHEN??MICHELLE??is a??67 Years??Male??with glioblastoma status post right frontal craniotomy and resection (05/26; Dr. Sanchez) course complicated by visual hallucinations. ?? Visual hallucination (R44.1):? Presents with what seems like complex visual hallucinations with people in the room who are previously . He also notes what sounds like diplopia with duplicates of objects. He also notes movement of the ceiling. He has a history of alcohol use disorder and drinks approximately 6 pack of beer per day and has no history of alcohol withdrawal seizures. His last drink was 05/26 which was 4 days prior to today. Neurological exam otherwise unremarkable except for right unilateral brow ptosis. He is alert and oriented x 3 on exam and CAM negative making delirium less likely. Given the duration of time from his last drink, alcohol withdrawal seizures are less likely. Given the diplopia and right brow ptosis, I recommend CT imaging to assess for any structural changes but ultimately defer to the primary neurosurgical team. I would also recommend touching base with the neurology team who signed off 05/27 to see if repeat EEG is indicated and whether further titration of Keppra is indicated at this time. ?? Recommendations: ??? Seizure precautions ??? CT head without contrast but ultimately defer to primary neurosurgical team ??? Discuss with neurology whether further EEG is necessary to further characterize etiology of visual hallucinations ?? Glioblastoma (C71.9):? Recommendations: - Continue steroids per primary team - Pain regimen and DVT prophylaxis per primary team ?? Hypercalcemia (E83.52):??75cc/hr LR and trend daily. ?? Hypophosphatemia (E83.39):??Add on PTH and vitamin D3. Replete ?? Normocytic anemia (D64.9):??Baseline 13 to 14 g/dL.??At baseline ?? Moderate malnutrition (E44.0):??Nutrition following COPD (chronic obstructive pulmonary disease) (J44.9):??Not in exacerbation. Duonebs PRN Tobacco use disorder (F17.200):??Smokes 1 pack/day with 73-[id number]-bbir history. Nicotine replacement therapy and cessation information on discharge Alcohol use disorder, moderate, dependence (F10.20):??Likely not in withdrawal. 6 beers a day. 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 Recommendations sent to primary team (Filomena HAN) on 05/31/2023 via [facility] ?? Please page [phone] for any questions. ?? Medicine will continue to follow. Histories Allergies Allergies ?(Active and Proposed Allergies Only) NKA? (Severity: Unknown severity, Onset: Unknown) ? 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 Past Surgical History Craniotomy-frontal for GBM: 12/26/19 ORIF - right arm, multilevel ORIF - right hand fracture Appendectomy; History of inguinal hernia surgery Right frontal craniotomy and resection (05/26; Dr. Sanchez) ?? Social History 1 ppd tobacco smoker since 14 for 53 pack year history.?? Drinks 6 beers a day.?? Takes marijuana edibles daily and smokes occasionally. ?? Family History Mother: Stomach cancer aged 84 Father: [place] aged 72 Maternal aunt:??Brain cance Medications Home Medications Aspirin (aspirin 81 mg oral delayed release tablet)?81?Milligram?1?tablet?By Mouth?Daily Atorvastatin (atorvastatin 40 mg oral tablet)?1?tab(s)?By Mouth?Daily?for 90?Days Docusate-Senna (Senna Plus 50 mg-8.6 mg oral tablet)?2?tab(s)?By Mouth?Daily at bedtime?as needed?Constipation Folic Acid (folic acid 1 mg oral tablet)?1?tablet?By Mouth?Daily levETIRAcetam (levETIRAcetam 500 mg oral tablet)?1?tab(s)?500?Milligram?By Mouth?2 times a day?for 90?Days Trazodone (traZODone 50 mg oral tablet)?1?tablet?By Mouth?Daily at bedtime ? Results ?? Test Name Test Result Date/Time Hgb 13.1 Gm/dL 05/31/2023 02:19 EDT Bicarbonate Level 19 mmol/L 05/31/2023 02:19 EDT Glucose Level 125 mg/dL 05/31/2023 02:19 EDT Calcium, Ionized pH Corrected 1.34 mmol/L 05/31/2023 02:19 EDT Phosphorus 2.4 mg/dL 05/31/2023 02:19 EDT ?? Remainder of CBC, electrolytes, BUN, creatinine unremarkable. ?? Imaging(s) ?CT Head/Brain W/O Contrast ?? 05/27/2023 17:05??by Donnell Nicole MD ?1. Moderate pneumocephalus in the bilateral anterior frontal/frontotemporal regions, with evidence of extension superiorly along the falx. 2. No obvious intracranial hemorrhage or herniation. 3. Postoperative cavity in the anterior right medial temporal lobe is minimally increased when compared to the MRI dated 05/25/2023. ?MRI Brain W+W/O Contrast ?? 05/28/2023 02:11??by Patti Tapia MD ?1. Interval resection of the right anterior frontal lobe enhancing mass, with expected postoperative findings. There is mild intrinsic T1 hyperintense signal at the margin of the resection cavity related to blood products, degrading evaluation for superimposed enhancement; within this li mitation, there is likely a thin rim of residual enhancement, greatest superiorly. Continued close follow-up is recommended. 2. Small area of marginal ischemia at the posterior margin of the right temporal resection cavity. 3. Unchanged chronic posttreatment appearance of the superior right frontal lobe. 4. Unchanged chronic nonocclusive thrombus in the left transverse and sigmoid sinuses. ? * Charmaine Srinivasan NP: PERFORM, MODIFY Event Display: Consultation Note Authored Date: Patient: ??NATHEN MARTINEZ ? Age:??67 Years?Sex:??Male?:??1955?? History of Present Illness CC: post r. crani and??gbm resection,?? developed L. sided weakness,?? see by neurology for L.sidedweakness post surgery. ?? Mr. Martinez,??67-year-old??right-handed male??with history of glioblastoma multiforme??status post right frontal Crani/resection/chemo and radiation in 2019??history of CVT,??history of daily EtOH use??says drinks 6 beers a day??and would have a single shot most days??as well,??COPD, HLD and GERD??who is admitted for??right Crani.??and tumor resection??after on the recent scan he was found tohave new focal uptake of contrast??concerning for possible tumor??in the right medial temporal lobe,??he underwent surgery on 05/26??after which he was??found??to have??new left upper and new left lower extremity weakness??with reported facial weakness on the right, a head CT was obtained which which showed??expected postop changes??including pneumocephalus, there was no evidence of subdural largeIPH,??neurology was called for question of possible seizure.?? There was no report of patient having??any seizure-like activity.?? Patient was evaluated with??a brain MRI overnight??when it felt gadolinium which had showed interval resection of the right anterior frontal lobe??enhancing mass with ex pected postoperative findings,??Small area of marginal ischemia at the posterior margin of the right temporal resection cavity was seen.?He has been on Keppra and after??there was concern for the left-sided weakness his Keppra dose was increased from 500 mg twice daily to 750 mg twice daily.?? This morning patient is awake and alert, he says he is doing well??reports I am alive .?Patient says he at baseline has left-sided weakness??and has been using a cane at home.?? He at present he feels he is at his baseline Review of Systems no headache pain at right side head/neck no dizziness no lightheadedness no weakness no new numbness. Physical Exam Vitals & Measurements T:??98.8?F?? HR:??83??(Monitored)?? RR:??13?? BP:??117/67?? BP:??148/109(Line)?? SpO2:??95%?? HT:??175.26??cm?? WT:??56.5??kg?? BMI:??18.35? GENERAL APPERANCE: ??stated age HEENT:??right sided crani site w/ clean dressing with surrounding swelling NECK: supple LUNGS: ??Normal I:E HEART: RRR ABD: soft, ND, NT. EXT: No clubbing, no edema SKIN: no obvious rashes NEURO:??awake and alert oriented to his name, age, place, mo,y r names well follows commands Cranial Nerves:?? Pupils: PERRL Visual:?? VFF Extra ocular movements: Intact Facial sensation:??intact b/l, not able to wrinkle forehead on the right, left facial weakness Hearing: intact bilaterally to finger rub Speech: clear, fluent, appropriate Tongue: Protrudes Midline Gag: soft palate raises equally Shoulder shru/5 Neck musculature: 5/5 Motor Exam: Strength:??RUE 5/5, LUE 5-/5, RLE 5/5, LLE 5/5. Sensory: sensation to light touch intact and equal bilaterally to face, bilateral upper extremities, and bilateral lower extremities, left sensory and visual neglect. Coordination: FTN intact b/l, noted mild dysmetria b/l. Gait; not tested ? (05/28/2023 02:11 EDT MRI Brain W+W/O Contrast) IMPRESSION: ?? 1. ??Interval resection of the right anterior frontal lobe enhancing mass, with expected postoperative findings. There is mild intrinsic T1 hyperintense signal at the margin of the resection cavity related to blood products, degrading evaluation for superimposed enhancement; within this limitation,there is likely a thin rim of residual enhancement, greatest superiorly. Continued close follow- up is recommended. 2. ??Small area of marginal ischemia at the posterior margin of the right temporal resection cavity. 3. ??Unchanged chronic posttreatment appearance of the superior right frontal lobe. 4. ??Unchanged chronic nonocclusive thrombus in the left transverse and sigmoid sinuses. ? WSN: [id number] [1] Assessment/Plan 67-year-old male, right-handed??with history of GBM??he had undergone??resection and chemotherapy and radiation??in 2020 who now presented for??elective tumor resection after a recent surveillance scan showed??tumor recurrence, postop was found to have worsening left-sided weakness,??head CT??was found to be stable, his Keppra was increased from 500 mg twice daily to 750 mg twice daily, neurologywas called to see for same, there was no seizure-like activity noted at the time, this morning??he reports he feels at baseline and has some degree of left-sided weakness normally??uses a cane for ambulation. ??He was evaluated for brain MRI with and without gadolinium overnight showing postsurgical changes.?? It is possible that his weakness had worsened??in setting of cerebral edema related to surgery,??less likely related to seizure,??and or may have worsened in setting of sedation/anesthesia??and now is improved back to baseline.?? It would be fine to continue on his??home dose of Keppra??at this time. ??He??already had a routine EEG this morning, however he was noted to be awake and alert??following commands appropriately and was oriented at the time. ?? dw Dr. Mathur. Please call for any questions. Neurology signing off. Problem List/Past Medical History Ongoing Alcohol dependence Bacteremia Bladder outlet obstruction Brain mass Cerebral venous sinus thrombosis COPD (chronic obstructive pulmonary disease) Elevated PSA Esophageal reflux Caputo catheter in place GBM (glioblastoma multiforme) History of insomnia Hypercholesterolemia Incarcerated right inguinal hernia Rhabdomyolysis Shoulder pain, bilateral Thrombosis cerebral vein Tobacco abuse Underweight Procedure/Surgical History Craniotomy-frontal for GBM: 12/26/19 ORIF - right arm, multilevel ORIF - right hand fracture Appendectomy; History of inguinal hernia surgery Home Medications Aspirin: 81 mg = 1 tablet, By Mouth, Daily Atorvastatin: 1 tablet, By Mouth, Daily Docusate-Senna: 2 tablet, By Mouth, Daily at bedtime, PRN (Constipation) Folic Acid: 1 tablet, By Mouth, Daily levETIRAcetam: 500 mg = 1 tablet, By Mouth, 2 times a day Multivitamin Pantoprazole Tamsulosin Trazodone: 1 tablet, By Mouth, Daily at bedtime Allergies NKA Social History Alcohol Use: Past. Other: Quit drinking with recent hospitalization for glioblastoma multiforme. Was drinking 12 beers per day. Employment/School Status: Disabled. 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 Exercise Self assessment: Fair condition. Home/Environment Living situation: Home/Independent. Lives with: Alone. Nutrition/Health Diet: Regular. Substance Abuse Use: Past. Type: Marijuana. Tobacco Use: 10 or more cigarettes (1/2 pack or more)/day in last 30 days. Interested in cessation: No. No Family History No family history recorded. [1]??MRI Brain W+W/O Contrast; Regina NATH, Patti Georges 05/28/2023 02:11 EDT * Kevan NATH, Enmanuel Watson: PERFORM Event Display: Consultation Note Authored Date: [id number] Patient is a 67-year-old man with history of right temporal GBM with prior resection and chemotherapy who presented for elective repeat resection of tumor after surveillance scan showed tumor recurrence.?? Postop was found to have worsening left-sided weakness and neurology team consulted for workup for additional possible etiologies including seizure.?? Covering nurse today reported that she took care of him yesterday and noted deficits immediately upon coming out of anesthesia and the deficits have continued to improve from yesterday to today.?? No reports of any convulsive activity or sudden decreased mental status to suggest seizure.?? Patient reports he is on Keppra 500 mg twice daily baseline since his initial surgery however denies having any seizures in the past.?? Drinks alcohol daily but reports he has come off alcohol in the past and no alcohol withdrawal seizures in the past. ?? On review of systems complaining of leg pain and weakness which she says is chronic after his initial back surgery.?? Otherwise denies any new focal weakness, numbness or other focal neurologic deficits.?? Denies any chest pain or shortness of breath. ?? On exam patient was awake, alert, oriented to person, place, date and situation.?? Speech was clearfluent and appropriate.?? Follows all commands. CN: PERRL, EOMI, visual valle full, reported intact sensation to light touch, hearing intact to voice, tongue midline Motor: 5/5 in the arms bilaterally with no pronator drift, 5 - in the legs bilaterally, full strength but some shaking and unsteadiness on standing to move from bed to wheelchair for transport Sensory: Reports intact sensation to light touch in the arms and legs bilaterally ?? Impression and recommendations: 67-year-old man with some left-sided weakness postop from repeat resection of right-sided tumor.?? Based on description patient and nursing symptoms appear to be present on awaking from anesthesia and have continued to improve.?? Patient now not complaining of any new deficits beyond baseline.?? Noreported convulsive activity, no sudden alteration mental status, no other signs or symptoms of seizure.?? Patient denies any alcohol withdrawal seizures in the past and no signs of alcohol withdrawal at this time clinically.?? Suspect symptoms due to some local edema at resection site which is near to the right internal capsule which is resolving.?? Additionally could be some delayed effects of anesthesia in the setting of known brain lesion.?? Reasonable to continue his home Keppra.?? No clear location for further workup unless he has new symptoms. ?? Neurology will sign off at this time.?? Please call back with any further questions. * Zan Vanegas: PERFORM Event Display: Consultation Note Authored Date: neurology called back for intermittent visual hallucinations (seeing moths), since 4/11 but only reported by patient today. we dont think seizure is a likely explanation for this, as it is the only symptom. most likely would be med effect (oxy and decadron). no role for VEEG at this time. d/w Dr. Olea and Filomena HAN Note * Tatyana GARCIA, Nina: PERFORM Event Display: Discharge/Transfer Note Hospital Authored Date: Nursing Discharge Note Entered On: 06/02/2023 12:58 EDT Performed On: 06/02/2023 12:57 EDT by Nina Joe RN Nursing Discharge Note 2 Discharge Time : 06/02/2023 12:57 EDT Discharge Level of Care at Discharge : Inpatient Rehab Facility/Unit Discharge Nursing Homes/Rehab Facilities : [facility] Patient Left Unit Via : Ambulance Patient Accompanied Off Unit with : Ambulance/Chair Van Personnel Handover Given to Transport Personnel : Yes DC Instructions Provided & Signed by Pt : Unable Patient Understands D/C Instructions : Unable Patient Instructions Discharge Signed : No Did Pt have Specialty Bed or Wound Vac : Yes Tatyana GARCIA, Nina - 06/02/2023 12:57 EDT * Angus HAN, Anders Mcginnis: PERFORM, MODIFY Event Display: Discharge/Transfer Note Hospital Authored Date: Patient: ??NATHEN MARTINEZ ? Age:??67 Years?Sex:??Male?:??1955?? Admit Date Admission Date: 05/27/2023 Discharge Date 06/02/23 Discharge Diagnoses 1.??Glioblastoma, 05/31/2023 2.??Epilepsy due to external causes, 05/31/2023 3.??COPD (chronic obstructive pulmonary disease), 05/31/2023 4.??Tobacco use disorder, 05/31/2023 5.??Alcohol use disorder, moderate, dependence, 05/31/2023 6.??BPH without urinary obstruction, 05/31/2023 7.??Moderate malnutrition, 05/31/2023 8.??Normocytic anemia, 05/31/2023 9.??Hypercalcemia, 05/31/2023 10.??Hypophosphatemia, 05/31/2023 11.??Diplopia, 06/01/2023 Visual hallucination, 05/31/2023 Objective/Physical Exam on Day of Discharge Vitals & Measurements T:??97.9?F?? HR:??78??(Peripheral)?? RR:??18?? BP:??113/61?? BP:??148/109(Line)?? SpO2:??97%?? HT:??175.26??cm?? WT:??58??kg?? BMI:??18.35?Nathen is a pleasant 67-year-old gentleman??with a known??GBM that I resected??in 01/04 after hepresented to the??ER with altered mental status.?? He had completed adjuvant therapy. ??He had an incidental finding of a new focus of GBM in the mesial right temporal lobe on routine imaging.?? I saw him in the office??at the end of 04/10 with plans for a right temporal craniotomy.?? Unfortunately??Nathen did not show up for his preoperative??clearance appointments, likely due to intoxication??and surgery was delayed.?? Just prior to today's surgery,??I repeated the MRI and the??right temporal tumor??had significantly increased in size since his index imaging from 03/10.?? Nathen was brought the operating room on 05/27/23 ??for??a neuro navigated right temporal craniotomy for GBM. Patient tolerated procedure well POD 0 developed right ferrera's palsy and periods of diplopia.??He also experience periods of hallucinations associated with decadron.??Medicine/Neurology consultation during his stay regarding ferrera's Palsy. Patient is much improved PT evaluation with recommendation for rehab. ?? Analgesics : Oxycodone 5 mg 1 table by mouth every 6 hours PRN pain Future Appointments Wednesday 11:30 AM EDT ?? With: Belinda NATH, Medhat Irwin Where: [facility] [address] [place] [address] Drive [address] [place] [address]- Status: Pending Patient Discharge Condition stable Discharge Disposition rehab Home Health Face to Face ^HomeHealthFT[facility] Inpatient Medications Medications (25) Active SCHEDULED: (14) Aspirin 81 mg EC Tablet (aspirin 81 mg oral delayed release tablet) ??81 mg, By Mouth, Daily Atorvastatin 40 mg Tablet (atorvastatin 40 mg oral tablet) ??40 mg, By Mouth, Daily ceFAZolin 1 Gm Inj (ceFAZolin Inj *) ??1 Gm, IV Push Slowly, call worker to OR Dexamethasone 4 mg Tablet (Decadron Tablet) ??4 mg, By Mouth, 2 times a day Folic Acid 1 mg Tablet (Folic Acid Tablet) ??1 mg, By Mouth, Daily Levetiracetam 250 mg Tablet (Keppra 500 mg oral tablet) ??750 mg, By Mouth, 2 times a day Multivitamin Therapeutic / Minerals Tablet (Multivit Therapeutic/Minerals Tablet) ??1 tablet, By Mouth, Daily Nicotine 14 mg / 24 hour Patch (Nicotine Topical) ??14 mg, Topically, Daily Pantoprazole 20 mg EC Tablet (Protonix 20 mg oral delayed release tablet) ??20 mg, By Mouth, 2 times a day Pyridoxine 50 mg Tablet (Pyridoxine Tablet) ??50 mg, By Mouth, Daily Remove Patch (Remove ??Patch) ??1 each, Topically, Daily Remove Patch (Remove ??Patch) ??1 each, Topically, Daily Tamsulosin 0.4 mg Capsule (tamsulosin 0.4 mg oral capsule) ??0.4 mg, By Mouth, Daily Thiamine 100 mg Tablet (Thiamine Tablet) ??100 mg, By Mouth, 2 times a day CONTINUOUS: (1) Lactated Ringers (1000 mL) Cont IV 1,000 mL (LR 1,000 mL) ??1,000 mL, IV Infusion, 75 mL/hr PRN: (10) Acetaminophen 325 mg Tablet (Acetaminophen Tablet) ??650 mg, By Mouth, Every 6 hours Albuterol/Ipratropium Inhalation Aileen 3mL (Duoneb Inhalation Solution) ??1 vials, BAND Nebulizer, Every 4 hours Bisacodyl 10 mg Suppository (Bisacodyl Supp) ??10 mg 1 supp, Rectally, 2 times a day Docusate Sodium 10 mg/mL Liquid UD (Colace Liquid) ??100 mg 10 mL, By Mouth, 2 times a day Magnesium Hydroxide 8% Susp UD (Milk of Magnesia Liquid) ??30 mL, By Mouth, 2 times a day Ondansetron 2mg/mL Inj (2mL Vial) (Zofran Inj) ??4 mg, IV Push, Every 6 hours OxyCODONE 5 mg IR Tablet (oxyCODONE 5 mg oral tablet) ??5 mg, By Mouth, Every 4 hours Phenobarbital 130 mg/mL Inj (Phenobarbital Inj) ??130 mg 1 mL, IV Push, Once Phenobarbital 65 mg/mL Inj (Phenobarbital Inj) ??65 mg 1 mL, IV Push, Every 2 hours Trazodone 50 mg Tablet (traZODone 50 mg oral tablet) ??50 mg, By Mouth, Daily at bedtime Discharge Medications Aspirin (aspirin 81 mg oral delayed release tablet)?81?Milligram?1?tablet?By Mouth?Daily Atorvastatin (atorvastatin 40 mg oral tablet)?1?tab(s)?By Mouth?Daily?for 90?Days Docusate-Senna (Senna Plus 50 mg-8.6 mg oral tablet)?2?tab(s)?By Mouth?Daily at bedtime?as needed?Constipation Folic Acid (folic acid 1 mg oral tablet)?1?tablet?By Mouth?Daily levETIRAcetam (levETIRAcetam 500 mg oral tablet)?1?tab(s)?500?Milligram?By Mouth?2 times a day?for 90?Days Trazodone (traZODone 50 mg oral tablet)?1?tablet?By Mouth?Daily at bedtime Labs Last 24 Hours BLOOD COUNT & DIFF ? Event Name?? Event Result?? Date/Time?? WBC 8.6 k/mm3 06/02/23 02:04:00 RBC 3.84 m/mm3??Low 06/02/23 02:04:00 Hgb 12 Gm/dL??Low 06/02/23 02:04:00 Hct 35 %??Low 06/02/23 02:04:00 MCV 91.1 femtoliters 06/02/23 02:04:00 MCH 31.3 pg 06/02/23 02:04:00 MCHC 34.3 g/dL 06/02/23 02:04:00 Platelet Count 277 k/mm3 06/02/23 02:04:00 MPV 9.6 femtoliters 06/02/23 02:04:00 Nucleated RBC (Automated) 0 #/100 WBC'S 06/02/23 02:04:00 ? CHEM GENERAL ? Event Name?? Event Result?? Date/Time?? Sodium 135 mmol/L 06/02/23 02:05:00 Chloride 100 mmol/L 06/02/23 02:05:00 Bicarbonate Level 24 mmol/L 06/02/23 02:05:00 Anion Gap 11 06/02/23 02:05:00 Glucose Level 124 mg/dL??High 06/02/23 02:05:00 BUN 19 mg/dL 06/02/23 02:05:00 Creatinine-Blood 0.7 mg/dL 06/02/23 02:05:00 Calcium, Ionized pH Corrected 1.33 mmol/L??High 06/02/23 02:05:00 Phosphorus 4 mg/dL 06/02/23 02:05:00 Magnesium 1.6 mg/dL 06/02/23 02:05:00 ? * Lyly Bailon RN: PERFORM, SIGN, VERIFY Event Display: Case Management Discharge Plan Authored Date: [id number] Patient: NATHEN MARTINEZ Age: 67 years Sex: Male : 1955 Associated Diagnoses: None Author: Lyly Bailon RN Discharge Plan Case Management Discharge Plan : Case Management Discharge Plan Data 06/02/2023 10:55 EDT Discharge Level of Care at Discharge Inpatient Rehab Facility/Unit Discharge Nursing Homes/Rehab Facilities [facility] Discharge Transportation Arranged [facility] [address] [phone] Discharge Arranged Transport Date/Time 06/02/2023 12:30 Mode of Transportation Arranged Ambulance Service Categories #1 Occupational Therapy, Physical Therapy, Correction Name of Person Notified of Transfer The pt is aware of the planned discharge to rehab today * Tatyana GARCIA, Nina: PERFORM Event Display: Patient Education/Instruction Authored Date: [id number] Inpatient Adult Discharge Instructions. [address] [address] Name: NATHEN MARTINEZ : 1955?? Visit: 05/27/2023 06:56?? Current Date: 06/02/2023 12:47 ?? Account: [id number]?? Inpatient Adult Discharge Instructions We would like to thank you for allowing us to assist you with your healthcare needs. The following includes patient education materials and information regarding your injury/illness. Our entire staffstrives to provide an excellent experience for our patients and their families. PLEASE ENSURE YOU FOLLOW-UP PER THE INSTRUCTIONS BELOW! ?? YOUR OPINION IS IMPORTANT TO US! Please complete the survey you may receive by mail or email. Your feedback will be used to make improvements to the healthcare experiences of our patients and their families. Surveys are administered by [email or web address] ?? If further treatment with your primary care physician or another doctor is recommended, it is important for you to keep the appointment. Call your primary care physician or return to the Emergency Department immediately if your condition worsens, fails to improve, or new symptoms develop. If you need to find a doctor, you can call [facility] for a referral at [phone] or toll free at [phone] or log in to [email or web address].. ?? [facility], in keeping with [facility] guidance, no longer requires face masks for staff, patientsor visitors in most situations. Similiar to time spent indoors at other locations, there is the chance that you were exposed to repiratory viruses during your time with us (such as flu or COVID-19). If you develop symptoms concerning for a viral respiratory infection, please seek testing (and treatment if indicated) from your medical provider or home test kit. ?? You can view and manage your care through the patient portal or by using a health care mason of your choosing. [employer] is a website that allows you to securely view your medical information including your hospital discharge summary, office visit summaries, medications and follow-up visits. You can also request appointments, renew medications, and request access to your medical information using a health care mason of your choosing, or just ask a question. You can enroll at [email or web address] or register during your next office visit. You have been discharged from [facility], Patient Care Unit: D5A??. If you have any questions regarding these instructions, including results of studies pending, afteryou leave, please call us and we will be happy to assist you 07/09. [facility] Your Care Team Attending Physician Medhat Trevino MD?? Consulting Providers Medhat Trevino MD?? 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 You may have had other tests and procedures not included in this list. Please discuss all test results with your provider. 25OH VITAMIN D BUN CBC w/ Differential COVID-19 (2019 Novel Coronavirus) PCR Creatinine Glucose Level GLUCOSE POC Ionized Calcium Lytes Magnesium Level Phosphorus Level PTH, INTACT CT Head/Brain W/O Contrast MRI Brain W+W/O Contrast Add On Lab Order?? BUN?? CBC w/ Differential?? Creatinine?? Electrolytes (Lytes)?? Glucose Level?? Ionized Calcium?? Magnesium Level?? Pathology Tissue Request ()?? Phosphorus Level?? RBCs on Hold?? Primary Care Provider Braden Mullins MD? Advance Directive Health Care Proxy on File Yes - Health Care Proxy Discharge Vitals Temperature: 97.9 DegF Height: 175.26 cm Pulse Rate: 78 bpm Weight: 58 kg Respiratory Rate: 18 br/min Body Mass Index:??18.35 kg/m2??Low Systolic Blood Pressure: 113 mm Hg Body surface area: 1.66 Diastolic Blood Pressure: 61 mm Hg ?? Oxygen Saturation: 97 % ?? Studies Pending All studies ordered during this hospital stay have been completed unless listed below. Please discuss all pending results with your provider listed above in these instructions. ?? Add On Lab Order?? BUN?? CBC w/ Differential?? Creatinine?? Electrolytes (Lytes)?? Glucose Level?? Ionized Calcium?? Magnesium Level?? Pathology Tissue Request ()?? Phosphorus Level?? RBCs on Hold?? What to do next Instructions From Your Doctor ?? Orders? 06/02/23 12:46:00 EDT?? Scheduled Follow-Up Appointments Wednesday 11:30 AM EDT ?? With: Belinda NATH, Medhat Irwin Where: [address] [place] [address]- Status: Pending Discharge Medications MICHELLENATHEN HODGES :1955 Visit Date:05/27/2023 Medications: Please continue your medications until treatment is completed or stopped by your provider. Medications not listed below should be discontinued. Discuss any questions related to medications with your provider. What How Much When Instructions Next Dose New Oxycodone (oxyCODONE 5 mg oral tablet) 1 tab(s) Oral Every 6 hours as needed for Pain , Moderate Duration: 5 Days Printed Prescription as needed last dose 05/29 Unchanged Aspirin (aspirin 81 mg oral delayed release tablet) 1 tab(s) Oral Daily tomorrow 06/02 9AM Unchanged Atorvastatin (atorvastatin 40 mg oral tablet) 1 tab(s) Oral Daily Duration: 90 Days tomorrow 06/02 9AM Unchanged Docusate-Senna (Senna Plus 50 mg-8.6 mg oral tablet) 2 tab(s) Oral Daily at Bedtime as needed for Constipation tonight 06/01 9 pm Unchanged Folic Acid (folic acid 1 mg oral tablet) 1 tab(s) Oral Daily tomorrow 06/02 9AM Unchanged levETIRAcetam (levETIRAcetam 500 mg oral tablet) 1 tab(s) Oral Twice a day Duration: 90 Days tonight 06/01 9 pm Unchanged Multivitamin (Vit B Complex Tablet) Daily tomorrow 06/02 9AM Unchanged Pantoprazole (pantoprazole 40 mg oral delayed release tablet) Twice a day tonight 06/01 9 pm Unchanged Tamsulosin (tamsulosin 0.4 mg oral capsule) Daily tomorrow 06/02 9AM Unchanged Trazodone (traZODone 50 mg oral tablet) 1 tab(s) Oral Daily at Bedtime tonight 06/01 9 pm Prescription Given During Visit Oxycodone (oxyCODONE 5 mg oral tablet) - 1 tablet = 5 mg, By Mouth, Every 6 hours, # 20 tablet, 0 Refills?? Laboratory Results Below is a partial list of the most recent Laboratory test results done prior to this discharge. You may have had other tests and procedures not included in this list. Please discuss all test resultswith your provider. Est Creatinine Clearance - 81.55 mL/min (06/02/2023) RBC Available - RE (05/27/2023) RBC Unit ID - [id number] (05/27/2023) 25OH VITAMIN D (05/31/2023) ???25 OH-Vitamin D Level - 41.3 ng/mL BUN (06/02/2023) ???BUN - 19 mg/dL CBC w/ Differential (06/02/2023) ???WBC - 8.6 k/mm3???RBC - 3.84 m/mm3???Hgb - 12.0 Gm/dL???Hct - 35.0 %???MCV - 91.1 femtoliters???MCH - 31.3 pg???MCHC - 34.3 g/dL???Platelet Count - 277 k/mm3???RDW-SD - 41.6 femtoliters???MPV - 9.6 femtoliters???Nucleated RBC (Automated) - 0.0 #/100 WBC'S???Abs. NRBC - 0.0 k/mm3???Abs. Neut - 7.4 k/mm3???Abs. Lymph - 0.6 k/mm3???Abs. [place] - 0.5 k/mm3???Abs. Eo - 0.0 k/mm3???Abs. Baso - 0.0 k/mm3???Neut % - 87.0 %???Lymph % - 6.7 %???[place] % - 5.6 %???Eos % - 0.2 %???Baso % - 0.1 %???Imm Gran - 0.4 %???Abs. Imm Gran - 0.0 k/mm3 COVID-19 (2019 Novel Coronavirus) PCR (05/27/2023) ???COVID-19 PCR Specimen Source - NASAL???COVID-19 PCR Result - NEGATIVE Creatinine (06/02/2023) ???Creatinine-Blood - 0.7 mg/dL???Estimated GFR Creatinine - 101 ML/MIN/1.73 M2 Glucose Level (06/02/2023) ???Glucose Level - 124 mg/dL GLUCOSE POC (05/27/2023) ???Glucose, POC - 108 mg/dL Ionized Calcium (06/02/2023) ???Calcium, Ionized pH Corrected - 1.33 mmol/L Lytes (06/02/2023) ???Sodium - 135 mmol/L???Potassium - 4.4 mmol/L???Chloride - 100 mmol/L???Bicarbonate Level - 24 mmol/L???Anion Gap - 11 Magnesium Level (06/02/2023) ???Magnesium - 1.6 mg/dL Phosphorus Level (06/02/2023) ???Phosphorus - 4.0 mg/dL PTH, INTACT (05/31/2023) ???PTH, Intact - 27 pg/mL Allergies (NKA means No Known Allergies) NKA Problems Active Problems??(13) Alcohol use disorder, moderate, dependence?? Bladder outlet obstruction?? BPH without urinary obstruction?? Cerebral venous sinus thrombosis?? COPD (chronic obstructive pulmonary disease)?? 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 Esophageal reflux?? GBM (glioblastoma multiforme)?? History of insomnia?? Hypercholesterolemia?? Moderate malnutrition?? Tobacco use disorder?? Underweight?? Education Materials Below is the list of Educational Leaflet Providered with your Discharge Instructions. [employer] Patient Education - Neurosurgery-Craniotomy for Tumor Resection?? [employer] Patient Education - Neurosurgery-Craniotomy for Tumor Resection?? Valuables and Belongings I fully understand and agree that [facility] accepts no responsibility for all my personal property including clothing, toilet articles, radios, jewelry, dentures, hearing aids, rings, money, or any other property that is in my possession or is brought to me after admission. I understand certain valuables may be placed in a hospital safe for a short period of time. I understand that the hospital is not liable for loss or damage due to accident, fire, or other natural occurrence while said property is in the safe. I accept full responsibility for any personal property that I keep with me, and will not hold the hospital responsible in case of loss or disappearance. I acknowledge that i have been encouraged to send valuables and belongings home. ?? Review of Valuable and Belonging List: With patient Possessions released to: to lockers / pacu Date for Pt to Sign Valuables/Belongings: 05/28/23 16:25:00 ?? Other Discharge Information ? Case Management Discharge Plan?? Discharge Plan?? Discharge Agency Information?? Discharge Level of Care at Discharge: Inpatient Rehab Facility/Unit Service Categories #1: Occupational Therapy, Physical Therapy, Correction Discharge Transportation Arranged: [facility] [address] [facility] [phone] Name of Person Notified of Transfer: The pt is aware of the planned discharge to rehab today Mode of Transportation Arranged: Ambulance ?? Discharge Arranged Transport Date/Time: 06/02/23 12:30:00 ?? Discharge Nursing Homes/Rehab Facilities: [facility] ? Pulmonary Rehab Status?? Pulmonary Rehab Discharge Status?? Respiratory Rate: 18 br/min ? Common Emergency Awareness Tips IS IT A STROKE? Act FAST and Check for these signs: FACE Does the face look uneven? ARM Does one arm drift down? SPEECH Does their speech sound strange? TIME Call at any sign of stroke ?? Heart Attack Signs Chest discomfort: Most heart attacks involve discomfort in the center of the chest and lasts more than a few minutes, or goes away and comes back. It can feel like uncomfortable pressure, squeezing, fullness or pain. Discomfort in upper body: Symptoms can include pain or discomfort in one or both arms, back, neck, jaw or stomach. Shortness of breath: With or without discomfort. Other signs: Breaking out in a cold sweat, nausea, or lightheaded. Remember, MINUTES DO MATTER. If you experience any of these heart attack warning signs, call to get immediate medical attention! ?? Smoking can increase your chances of developing chronic health problems and can cause harmful effects to other family members in your house. If you smoke, you are strongly encouraged to quit. Please call [facility] at [phone] or [phone] or log in to [email or web address] for referrals to smoking cessation programs. ?? 030 Suicide & Crisis Lifeline is available 07/09 if you or someone you know needs to find a reason to keep living. By calling 207 you'll be connected to a skilled, trained counselor at a crisis center in your area. INPATIENT DISCHARGE INSTRUCTIONS SIGNATURE PAGE MICHELLE NATHEN Location:[facility] Registration Date and Time:05/27/2023 06:56 EDT Primary Care Physician: Braden Mullins MD, Attending Physician: Belinda NATH, Medhat Irwin, I NATHEN MARTINEZ, have received the above patient education materials/instructions and have verbalized understanding. If ambulance or transport services are being used I further acknowledge being given a choice of service. ?? If you need to contact me, please call me at this number: . 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 204 Craniotomy for Tumor Resection ?? What can I expect post operatively? After a craniotomy you may go home or you may referred to rehab for a short stay depending on how you are doing after surgery. It is common after leaving the hospital to feel worn down or very tired, and may feel like you needto sleep more than normally do. You will be kept out of work for a few weeks. Final pathology from samples sent in the operating room take 1-2 weeks to come back.?? Results of the pathology may be discussed with you at your follow up visit or with your oncologist. ?? What activities can I do and what should I avoid? We encourage walking as much as tolerated.?? Start with short distances and increase as tolerated. You may need assistance with house hold chores immediately after surgery but may slowly resume activity as tolerated. Do not lift more than 5-10 pounds (about the weight of a gallon of milk). Driving ? Do not drive if you are taking prescription pain medications. These medications? can cause you to be drowsy. ? Do not drive if you have had any seizure activity.?? [place] law requires? you be seizure free for [address]. You are able to sit in a car.?? If for prolonged periods of time, take frequent breaks to stretch and walk.?? You may have sexual activity when you are comfortable with it. ?? Follow these activity limitations until your follow up appointment. ?? Medications?? You will get prescription pain medications when discharged from the hospital.?? Many people only need a few days of this and then are able to control discomfort with over the counter medications. ?? If you are given steroids pay attention to the taper.?? Every few days the dose will decrease.?? Steroids can cause appetite changes, emotional changes, heart burn, and insomnia.?? We recommend taking a medication to protect your stomach from upset while taking the steroids.?? If you are a diabeticsteroids will increase your glucose level. ?? Anti-seizure medications are given prophylactically and are taken for a few weeks after surgery.?? If you had a seizure then you will need to follow up with neurology to determine how long you need to be on the medications.?? These are usually well tolerated medications. ?? You may restart any antiplatelet or anticoagulation medications 1 week post- operative, please consult with your prescribing physician on these medications.? How can I take care of myself at home? Walk around your house at least every 1 ??-2 hours while you are awake, to stay as active as possible, keep the back muscles strong, and to help prevent blood clots in your legs. ?? Once you are comfortable with walking, you can gradually increase the amount or length of time thatyou do walk. ?? Do not push yourself to do too much too soon. ??You may sleep how you are most comfortable, with the exception of stomach sleeping. ?? Ice: You may ice the area to help with pain. Place a towel over the surgical site to protect your skin, and then use an ice pack for 30 minutes,usually about 4 times per day. Do not leave the pack on longer than 30 minutes since it may actually increase your pain. ?? Washing/wound care: Your surgical dressing will remain in place for 3 days postoperatively; you may remove it on day 3 after surgery and shower normally. ?? Please do not wear baseball caps over your fresh incision, constant rubbing of the hat on the incision can cause it to open up or become infected. ?? Scarves lightly wrapped are ok. If they become damp or sweaty do not leave it on.?? Incision shouldbe dry and clean throughout the day. ?? It is important that you wash your surgical wounds at least once per day with soap and water, and pat it dry afterwards. ?? Do not be afraid of hurting the wound because of the soap and water. You should take showers. Do not submerge/soak incision in a tub, Jacuzzi or sarita for four weeks after surgery. You will be seen two weeks after your procedure.?? If you have arnav or removal sutures these will be removed at that time.?Some sutures are absorbable and will stay in place until absorbed. ?? Numbness along the incision is common and may last for several months. ?? When should I call my doctor? Contact our office at the appropriate number listed below if you have any of the following signs and symptoms: ?? Increasing redness or swelling around your incision with or without any soreness The edges of your incision start coming apart. Incision is draining, especially if yellow/green and/or bad smelling. Fever over 101 F. ? * Christi Florentino RN: PERFORM Event Display: Patient Education Leaflets Authored Date: [id number] Neurosurgery-Craniotomy for Tumor Resection ?? 204 Craniotomy for Tumor Resection ?? What can I expect post operatively? After a craniotomy you may go home or you may referred to rehab for a short stay depending on how you are doing after surgery. It is common after leaving the hospital to feel worn down or very tired, and may feel like you needto sleep more than normally do. You will be kept out of work for a few weeks. Final pathology from samples sent in the operating room take 1-2 weeks to come back.?? Results of the pathology may be discussed with you at your follow up visit or with your oncologist. ?? What activities can I do and what should I avoid? We encourage walking as much as tolerated.?? Start with short distances and increase as tolerated. You may need assistance with house hold chores immediately after surgery but may slowly resume activity as tolerated. Do not lift more than 5-10 pounds (about the weight of a gallon of milk). Driving ? Do not drive if you are taking prescription pain medications. These medications? can cause you to be drowsy. ? Do not drive if you have had any seizure activity.?? [place] law requires? you be seizure free for 6 [address]. You are able to sit in a car.?? If for prolonged periods of time, take frequent breaks to stretch and walk.?? You may have sexual activity when you are comfortable with it. ?? Follow these activity limitations until your follow up appointment. ?? Medications?? You will get prescription pain medications when discharged from the hospital.?? Many people only need a few days of this and then are able to control discomfort with over the counter medications. ?? If you are given steroids pay attention to the taper.?? Every few days the dose will decrease.?? Steroids can cause appetite changes, emotional changes, heart burn, and insomnia.?? We recommend taking a medication to protect your stomach from upset while taking the steroids.?? If you are a diabeticsteroids will increase your glucose level. ?? Anti-seizure medications are given prophylactically and are taken for a few weeks after surgery.?? If you had a seizure then you will need to follow up with neurology to determine how long you need to be on the medications.?? These are usually well tolerated medications. ?? You may restart any antiplatelet or anticoagulation medications 1 week post- operative, please consult with your prescribing physician on these medications.? How can I take care of myself at home? Walk around your house at least every 1 ??-2 hours while you are awake, to stay as active as possible, keep the back muscles strong, and to help prevent blood clots in your legs. ?? Once you are comfortable with walking, you can gradually increase the amount or length of time thatyou do walk. ?? Do not push yourself to do too much too soon. ??You may sleep how you are most comfortable, with the exception of stomach sleeping. ?? Ice: You may ice the area to help with pain. Place a towel over the surgical site to protect your skin, and then use an ice pack for 30 minutes,usually about 4 times per day. Do not leave the pack on longer than 30 minutes since it may actually increase your pain. ?? Washing/wound care: Your surgical dressing will remain in place for 3 days postoperatively; you may remove it on day 3 after surgery and shower normally. ?? Please do not wear baseball caps over your fresh incision, constant rubbing of the hat on the incision can cause it to open up or become infected. ?? Scarves lightly wrapped are ok. If they become damp or sweaty do not leave it on.?? Incision shouldbe dry and clean throughout the day. ?? It is important that you wash your surgical wounds at least once per day with soap and water, and pat it dry afterwards. ?? Do not be afraid of hurting the wound because of the soap and water. You should take showers. Do not submerge/soak incision in a tub, Jacuzzi or sarita for four weeks after surgery. You will be seen two weeks after your procedure.?? If you have arnav or removal sutures these will be removed at that time.?Some sutures are absorbable and will stay in place until absorbed. ?? Numbness along the incision is common and may last for several months. ?? When should I call my doctor? Contact our office at the appropriate number listed below if you have any of the following signs and symptoms: ?? Increasing redness or swelling around your incision with or without any soreness The edges of your incision start coming apart. Incision is draining, especially if yellow/green and/or bad smelling. Fever over 101 F. ? * Oleg Dunlap DO: MODIFY Oleg Dunlap DO: MODIFY, PERFORM Oleg Dunlap DO: PERFORM, SIGN Oleg Dunlap DO: SIGN, VERIFY Oleg Dunlap DO: VERIFY, MODIFY, MODIFY, MODIFY, MODIFY, MODIFY Event Display: Discharge/Transfer Note Hospital Authored Date: Patient: NATHEN MARTINEZ [facility]: [id number] Age: 67 years Sex: Male : 1955 Associated Diagnoses: None Author: Oleg Dunlap DO Interval Events: Patient seen and examined at bedside this morning. No acute events overnight. Patient has remained hemodynamically stable and afebrile. MRI brain was performed. Neuro exam has remained the same as post-operatively. Patient continues to have weakness of the left upper and lower extremities with some delay in movement. States that he always has a facial droop at home. Has been unable to eat much due to not having his dentures, despite being on a dental soft diet. Denies other concerns. Health Status Problem list All Problems Alcohol dependence / SNOMED CT 849673035 / Confirmed Bacteremia / SNOMED CT 58281738 / Confirmed Bladder outlet obstruction / SNOMED CT 218403577 / Confirmed Cerebral venous sinus thrombosis / SNOMED CT 804165752 / Confirmed COPD (chronic obstructive pulmonary disease) / SNOMED CT 69752195 / Confirmed Esophageal reflux / SNOMED CT 182949483 / Confirmed GBM (glioblastoma multiforme) / SNOMED CT 3842195565 / Confirmed History of insomnia / SNOMED CT 085281121 / Confirmed Hypercholesterolemia / SNOMED CT 68385669 / Confirmed Incarcerated right inguinal hernia / SNOMED CT 598297937 / Confirmed Brain mass / SNOMED CT 1561562239 / Confirmed Elevated PSA / SNOMED CT 4909917651 / Confirmed Rhabdomyolysis / SNOMED CT 867876703 / Confirmed Shoulder pain, bilateral / SNOMED CT 99825556 / Confirmed Thrombosis cerebral vein / SNOMED CT 497916464 / Confirmed Tobacco abuse / SNOMED CT 817014779 / Confirmed Underweight / SNOMED CT 830351498 / Confirmed Caputo catheter in place / SNOMED CT 5423737326 / Confirmed Current medications (Selected) Inpatient Medications Ordered Acetaminophen Tablet: 650 mg, Tablet, By Mouth, Every 6 hours, PRN for Pain , Mild, Routine, 05/27/23 13:01:00 EDT Bisacodyl Supp: 10 mg, Suppository, Rectally, 2 times a day, PRN for Constipation, Routine, 05/27/23 12:31:00 EDT Colace Liquid: 100 mg, Liquid, By Mouth, 2 times a day, PRN for Constipation, Routine, 05/27/23 12:31:00 EDT Duoneb Inhalation Solution: 1 vials, Inhalation Solution, BAND Nebulizer, Every 4 hours, PRN for Wheezing/Shortness of Breath, Routine, 05/27/23 13:46:00 EDT Folic Acid Tablet: 1 mg, Tablet, By Mouth, Daily, Routine, 05/27/23 13:07:00 EDT Keppra 500 mg oral tablet: 750 mg, Tablet, By Mouth, 2 times a day for 7 days, Routine, 05/27/23 21:00:00 EDT, Stop date 06/03/23 20:59:00 EDT Milk of Magnesia Liquid: 30 mL, Suspension, By Mouth, 2 times a day, PRN for Constipation, Routine,05/27/23 12:31:00 EDT Multivit Therapeutic/Minerals Tablet: 1 tablet, Tablet, By Mouth, Daily, Routine, 05/27/23 13:07:00EDT Phenobarbital Inj: 130 mg, Injection, IV Push, Once, PRN for Other, CIWA-AR Score > 13, STAT, 05/27/23 12:37:00 EDT Phenobarbital Inj: 65 mg, Injection, IV Push, Every 2 hours for 7 doses/times, - Limited # of times, Hold for: Respiratory rate < 12 and page provider for reassessment, PRN for Other, CIWA-AR Score > 10, Routine, 05/27/23 13:07:00 EDT, Stop date Limited # of times Phos-NaK Oral Powder: 2 pack/packet, Oral Powder, By Mouth, Every 4 hours for 3 doses/times, Routine, 05/28/23 7:00:00 EDT, Stop date 05/28/23 18:59:00 EDT Protonix 20 mg oral delayed release tablet: 20 mg, EC Tablet, By Mouth, 2 times a day, Indicated for: Continuation from Home, Routine, 05/27/23 21:00:00 EDT Pyridoxine Tablet: 50 mg, Tablet, By Mouth, Daily, Routine, 05/27/23 13:07:00 EDT Thiamine Tablet: 100 mg, Tablet, By Mouth, 2 times a day, Routine, 05/27/23 13:07:00 EDT Zofran Inj: 4 mg, Injection, IV Push, Every 6 hours for 30 days, PRN for Nausea & Vomiting, Routine, 05/27/23 15:23:00 EDT, Stop date 06/26/23 15:22:00 EDT atorvastatin 40 mg oral tablet: 40 mg, Tablet, By Mouth, Daily, Routine, 05/27/23 13:08:00 EDT ceFAZolin Inj *: 1 Gm, IV Push Slowly, Injection, call worker to OR for 1 doses/times, Indicated for: Surgical Prophylaxis, Routine, 05/27/23 7:02:00 EDT dexamethasone 4 mg oral tablet: 4 mg, Tablet, By Mouth, Every 6 hours, Routine, 05/27/23 14:00:00 EDT oxyCODONE 5 mg oral tablet: 5 mg, Tablet, By Mouth, Every 4 hours, PRN for Pain , Moderate, Routine, 05/27/23 13:01:00 EDT tamsulosin 0.4 mg oral capsule: 0.4 mg, Capsule, By Mouth, Daily, Routine, 05/27/23 13:08:00 EDT traZODone 50 mg oral tablet: 50 mg, Tablet, By Mouth, Daily at bedtime, PRN for Sleep, Routine, 05/27/23 13:29:00 EDT Incomplete Ancef Inj: 1 Gm, Premix, IVPB, call worker to OR for 1 doses/times, Indicated for: Surgical Prophylaxis, Routine, 04/28/23 9:46:00 EDT Prescriptions Prescribed Senna Plus 50 mg-8.6 mg oral tablet: 2 tablet, By Mouth, Daily at bedtime, PRN Constipation, # 60 tablet, 3 Refills, Maintenance, 07/29/21 15:04:00 EDT, Tablet, [facility], Partial fill upon patient request if the prescription is for a schedule II opioid drug., 2 tablet By... atorvastatin 40 mg oral tablet: 1 tablet, By Mouth, Daily, # 90 tablet, 3 Refills, Maintenance, 03/24/22 15:24:00 EST, [facility], 167, cm, 03/24/22 14:57:00 EST, Height, 55.3, kg, 03/16/22 13:19:00 EST, Dry Weight folic acid 1 mg oral tablet: 1, tablet, By Mouth, Daily, # 90 tablet, Refills 3, Maintenance, 04/19/23 14:36:00 EST, Route to Pharmacy Electronically, [facility], 167, cm, 04/12/23 13:17:00 EST, Height, 56.2, kg, 04/07/23 14:11:00 EST, Dry Weight levETIRAcetam 500 mg oral tablet: 1 tablet = 500 mg, By Mouth, 2 times a day, # 180 tablet, 3 Refills, Maintenance, 03/24/22 15:24:00 EST, [facility], 167, cm, 03/24/22 14:57:00 EST, Height, 55.3, kg, 03/16/22 13:19:00 EST, Dry Weight traZODone 50 mg oral tablet: 1, tablet, By Mouth, Daily at bedtime, # 270 tablet, Refills 0, Maintenance, 11/12/21 14:35:00 EDT, Route to Pharmacy Electronically, [facility], 167, cm, 11/10/21 10:17:00 EDT, Height, 55.4, kg, 11/10/21 10:17:00 EDT, Dry Weight Documented Medications Documented Vit B Complex Tablet: 0 Refills, Maintenance, 04/27/23 15:07:00 EDT, Partial fill upon patient request if the prescription is for a schedule II opioid drug. aspirin 81 mg oral delayed release tablet: 81 mg, 1, tablet, By Mouth, Daily, Refills 0, Maintenance, 07/29/20 13:33:00 EDT, Partial fill upon patient request if the prescription is for a schedule IIopioid drug. pantoprazole 40 mg oral delayed release tablet: 0 Refills, Maintenance, 04/12/23 13:17:00 EST tamsulosin 0.4 mg oral capsule: Refills 0, Maintenance, 04/12/23 13:17:00 EST, Partial fill upon patient request if the prescription is for a schedule II opioid drug. Results Review Recent Labs: BLOOD BANK RBC Unit ID [id number] () 05/27/2023 09:11 RBC Available RE () 05/27/2023 09:11 BLOOD COUNT & DIFF WBC 14.3 k/mm3 (High) 05/28/2023 05:18 RBC 3.77 m/mm3 (Low) 05/28/2023 05:18 Hgb 12.0 Gm/dL (Low) 05/28/2023 05:18 Hct 34.5 % (Low) 05/28/2023 05:18 MCV 91.5 femtoliters () 05/28/2023 05:18 MCH 31.8 pg () 05/28/2023 05:18 MCHC 34.8 g/dL () 05/28/2023 05:18 Platelet Count 241 k/mm3 () 05/28/2023 05:18 RDW-SD 42.9 femtoliters () 05/28/2023 05:18 MPV 9.8 femtoliters () 05/28/2023 05:18 Nucleated RBC (Automated) 0.0 #/100 WBC'S () 05/28/2023 05:18 Abs. NRBC 0.0 k/mm3 () 05/28/2023 05:18 Abs. Neut 12.8 k/mm3 (High) 05/28/2023 05:18 Abs. Lymph 0.4 k/mm3 (Low) 05/28/2023 05:18 Abs. [place] 1.0 k/mm3 () 05/28/2023 05:18 Abs. Eo 0.0 k/mm3 () 05/28/2023 05:18 Abs. Baso 0.0 k/mm3 () 05/28/2023 05:18 Neut % 89.7 % (High) 05/28/2023 05:18 Lymph % 2.9 % (Low) 05/28/2023 05:18 [place] % 6.8 % () 05/28/2023 05:18 Eos % 0.0 % () 05/28/2023 05:18 Baso % 0.1 % () 05/28/2023 05:18 Imm Gran 0.5 % () 05/28/2023 05:18 Abs. Imm Gran 0.1 k/mm3 () 05/28/2023 05:18 CHEM GENERAL Sodium 136 mmol/L () 05/28/2023 05:18 Potassium 3.8 mmol/L () 05/28/2023 05:18 Chloride 100 mmol/L () 05/28/2023 05:18 Bicarbonate Level 21 mmol/L (Low) 05/28/2023 05:18 Anion Gap 15 () 05/28/2023 05:18 Glucose Level 163 mg/dL (High) 05/28/2023 05:18 Glucose, POC 108 mg/dL (High) 05/27/2023 12:56 BUN 13 mg/dL () 05/28/2023 05:18 Creatinine-Blood 0.8 mg/dL () 05/28/2023 05:18 Estimated GFR Creatinine 96 ML/MIN/1.73 M2 () 05/28/2023 05:18 Calcium, Ionized pH Corrected 1.21 mmol/L () 05/28/2023 05:18 Phosphorus 2.7 mg/dL () 05/28/2023 05:18 Magnesium 1.7 mg/dL () 05/28/2023 05:18 URINE OTHER Est Creatinine Clearance 71.35 mL/min () 05/28/2023 06:13 VIROLOGY COVID-19 PCR Specimen Source NASAL () 05/27/2023 12:55 COVID-19 PCR Result NEGATIVE () 05/27/2023 12:55 Vital Signs Weight 05/28/2023 5:31 EDT Weight 56.5 kg Pulse Rate 05/28/2023 5:23 EDT Pulse Rate 68 bpm 05/28/2023 4:07 EDT Pulse Rate 70 bpm 05/28/2023 0:05 EDT Pulse Rate 76 bpm 05/27/2023 20:18 EDT Pulse Rate 83 bpm Respiratory Rate 05/28/2023 5:27 EDT Respiratory Rate 10 br/min L Respiratory Rate 10 br/min L 05/28/2023 5:23 EDT Respiratory Rate 12 br/min L 05/28/2023 5:00 EDT Respiratory Rate 12 br/min L 05/28/2023 4:07 EDT Respiratory Rate 14 br/min L 05/28/2023 4:00 EDT Respiratory Rate 16 br/min 05/28/2023 3:52 EDT Respiratory Rate 18 br/min 05/28/2023 3:00 EDT Respiratory Rate 21 br/min 05/28/2023 2:00 EDT Respiratory Rate 12 br/min L 05/28/2023 1:00 EDT Respiratory Rate 19 br/min 05/28/2023 0:05 EDT Respiratory Rate 14 br/min L 05/28/2023 0:00 EDT Respiratory Rate 13 br/min L 05/27/2023 23:29 EDT Respiratory Rate 14 br/min L 05/27/2023 22:29 EDT Respiratory Rate 15 br/min L 05/27/2023 22:10 EDT Respiratory Rate 12 br/min L 05/27/2023 22:00 EDT Respiratory Rate 12 br/min L 05/27/2023 21:00 EDT Respiratory Rate 14 br/min L 05/27/2023 20:54 EDT Respiratory Rate 18 br/min 05/27/2023 20:45 EDT Respiratory Rate 15 br/min L Respiratory Rate Not Done: Task Duplication (Not Done) 05/27/2023 20:18 EDT Respiratory Rate 18 br/min Temperature 05/28/2023 4:07 EDT Temperature 98 DegF 05/28/2023 4:00 EDT Temperature 98 DegF 05/28/2023 0:05 EDT Temperature 98.2 DegF 05/28/2023 0:00 EDT Temperature 98.2 DegF 05/27/2023 20:18 EDT Temperature 98.5 DegF Oxygen Saturation 05/28/2023 5:00 EDT Oxygen Saturation 91 % L 05/28/2023 4:00 EDT Oxygen Saturation 92 % L 05/28/2023 3:00 EDT Oxygen Saturation 95 % 05/28/2023 2:00 EDT Oxygen Saturation 92 % L 05/28/2023 1:00 EDT Oxygen Saturation 93 % L 05/28/2023 0:00 EDT Oxygen Saturation 93 % L 05/27/2023 23:00 EDT Oxygen Saturation 93 % L 05/27/2023 22:10 EDT Oxygen Saturation 93 % L 05/27/2023 22:00 EDT Oxygen Saturation 93 % L 05/27/2023 21:00 EDT Oxygen Saturation 93 % L 05/27/2023 20:00 EDT Oxygen Saturation 92 % L Labs WBC 05/28/2023 5:18 EDT WBC 14.3 k/mm3 H Hct 05/28/2023 5:18 EDT Hct 34.5 % L Platelet Count 05/28/2023 5:18 EDT Platelet Count 241 k/mm3 Sodium 05/28/2023 5:18 EDT Sodium 136 mmol/L Potassium 05/28/2023 5:18 EDT Potassium 3.8 mmol/L Chloride 05/28/2023 5:18 EDT Chloride 100 mmol/L Bicarbonate Level 05/28/2023 5:18 EDT Bicarbonate Level 21 mmol/L L BUN 05/28/2023 5:18 EDT BUN 13 mg/dL Creatinine-Blood 05/28/2023 5:18 EDT Creatinine-Blood 0.8 mg/dL Glucose level 05/28/2023 5:18 EDT Glucose Level 163 mg/dL H New Results 05/12/2023 14:57 EDT Calcium 9.6 mg/dL 03/08/2023 15:27 EST Calcium 9.5 mg/dL 10/26/2022 14:34 EDT Calcium 9.8 mg/dL Magnesium 05/28/2023 5:18 EDT Magnesium 1.7 mg/dL Physical Examination Vitals: Temperature 98 (05:26) Systolic Blood Pressure 116 (05:26) Diastolic Blood Pressure 57 (05:26) Pulse 70 (05:26) SpO2 91 (05:18) Respiratory Rate 10 (05:27) Tubes, Lines, & Drains- Caputo Left radial arterial line Physical Examination- Constitutional: patient lying supine in bed, responsive, follows commands. Neuro: GCS 15. 5/5 strength in right upper and lower extremities. 4/5 strength in left upper and lower extremities with some delayed response. Unable to raise right eyebrow. Slight facial droop on the right. HEENT: Head normocephalic & atraumatic. Mucous membranes pink, moist, and intact. CV: Regular rate & rhythm. Pulm: Breathing comfortably on room air. GI: Abdomen soft, non-tender, non-distended. : Acputo catheter in place with yellow urine noted. Integ/MSK: Right craniotomy incision with dressing c/d/i. Intake and Output Results This visit (24 hour periods starting at 07:00 EDT) 05/27/23 * 05/26/23 05/25/23 Total Summary Intake mL 2,212.08 -- -- Output mL 975 -- -- Fluid Balance 1,237.08 -- -- Intake (3) Magnesium Sulfate mL 52.08 -- -- Operating Room Intake mL 1,600 -- -- Oral Fluids mL 560 -- -- Total 2,212.08 -- -- Output (2) Operating Room Output mL 150 -- -- Urine Catheter mL 825 -- -- Total 975 -- -- Counts (3) Operating Room Intake mL 1,600 -- -- Oral Fluids mL 560 -- -- Urine Catheter mL 825 -- -- * This column has not completed the indicated time period. Impression and Plan Nathen Martinez is a 67yo male with prior history of glioblastoma multiforme s/p right frontal craniotomy, resection, chemotherapy and radiation (2019), cerebral venous thrombosis, prior EtOH use, COPD, HLD, and GERD. He had been doing well since his initial surgery however he was found to have a new focal uptake of contrast seen on surveillance imaging, concerning for possible tumor in the right medial temporal lobe. He presented to [facility] on 05/26 and underwent right temporal craniotomy and tumor resection with Neurosurgery. Postoperatively, he was transferred to STICU for Q1 hour neuro checksand close hemodynamic monitoring. He was found to be slightly weak on the left upper and lower extremities and had some facial drooping. STAT CT head ordered to evaluate post-operatively but did not show any evidence of LVO or post-operative hemorrhage. Patient's Keppra was increased to 750mg BID and Neurology consult was placed to evaluate for Ferrera's palsy vs. seizure vs. internal capsule edema. MRI brain was performed overnight. Patient has been transitioned to Q2 hour neuro checks and is stable for transfer out of STICU with care transitioned to Neurosurgery team. Neuro Acute postop pain Hx Glioblastoma multiforme s/p crani, rxn, chemo/rads (2019) Hx Cerebral venous thrombosis Hx Daily EtOH use Home meds: Keppra, trazodone, folic acid, Aspirin S/p craniotomy 05/26 for right temporal lesion excision Plan -Pain regimen: Tylenol 650mg Q6h PRN, Oxycodone 5mg Q6h PRN -Holding home Aspirin -Keppra 750mg BID -Trazodone 50mg PRN QHS for sleep -[facility] protocol -Phenobarbital PRN for symptoms of EtOH withdrawal -Daily multivitamin, folic acid, pyridoxine, BID thiamine -Q4 hour neuro checks -HOB >30 degrees -Dexamethasone 4mg Q6 hours -Neurology consult due to left sided weakness, appreciate recommendations -EEG pending CV Hx Hyperlipidemia Home meds: atorvastatin Plan -Continue home atorvastatin 40mg daily -Continuous cardiac monitoring -Goal SBP 100-140 -Fluid boluses as needed -Monitor BP/HR Pulm Hx COPD Plan -ABG PRN -Duonebs PRN -Incentive spirometry, acapella FEN/GI Hx GERD Home meds: omeprazole Plan -Diet: Dental soft diet -Monitor and record bowel movements -Bowel regimen: Colace, Milk of Magnesia, Suppository PRN -Omeprazole 20mg daily -Monitor daily Ins/Outs -Replete lytes per ICU Ca/Phos/Potassium protocol Renal Hx urinary incontinence Caputo placed 05/26 Baseline Cr: 1.0 Plan -Caputo catheter for critical output monitoring -Daily renal labs -Monitor urine output -Tamsulosin 0.4mg daily MSK/Integ Incisions: Right temporal craniotomy incision Plan -Dry dressing to craniotomy incision -Monitor skin for breakdown -PT consult for discharge planning Heme No active heme issues Plan -Will obtain STAT CBC and transfuse for Hgb < 7.0 per ICU protocol -Daily CBC -Monitor H/H trends -Holding chemical DVT ppx Endocrine No active endocrine issues Plan -ICU insulin protocol -Daily glucose level ID Completed Antibiotics: Ancef 2mg perioperatively Plan -Monitor fever curve -Trend WBC's Social HCP: Matt Mena [phone] Prophylaxis HOB > 30 degrees GI: Omeprazole 20mg daily DVT: Pneumoboots, holding chemical DVT ppx Code Status: Full Code Primary Team: Neurosurgery Consultants: None Disposition: Patient is appropriate for Q4 hour neuro checks and is stable for transfer out of STICU. Care will be transitioned to Neurosurgery team. Please page [phone] or call [phone] SICU Team with any questions Patient seen and plan of care discussed with attending, Dr. Castro. Patient Care team information Care Team Personnel Name: Fadumo Hu Position: [facility] Onco RN Member Role: Primary Care Nurse Name: Debbie Franks RN Position: [facility] ED RN W/OE and Tasks Member Role: Primary Care Nurse Name: Tonie Castro RN Position: [facility] Onco RN Member Role: Primary Care Nurse Name: Myrna Banda Position: [facility] Onco RN Member Role: Primary Care Nurse Name: Braden Mullins MD Position: [facility] Physician - Primary Care Member Role: PCP Address: Address: [address] [facility] [place] [facility] [place] [address]- [place] Name: Candy Moreno RN Position: [facility] OB RN Member Role: Primary Care Nurse Name: Davina Lockwood Position: S RN Member Role: Primary Care Nurse Name: Ranjit Puri RN Position: S RN Member Role: Primary Care Nurse Name: Levon Kenyon RN Position: [facility] RN Supv Member Role: Primary Care Nurse Name: Elysia Byers MA Position: [facility] Onco RN Member Role: Primary Care Nurse Name: Arnel Owens RN Position: [facility] RN Member Role: Primary Care Nurse Name: Bridgette Lewis RN Position: [facility] RN Member Role: Primary Care Nurse Name: Sonya Love RN Position: [facility] RN Member Role: Primary Care Nurse Name: Rosa Brunner RN Position: [facility] RN Member Role: Primary Care Nurse Name: Sami Phelps RN Position: [facility] RN Member Role: Primary Care Nurse Name: Christi Florentino RN Position: [facility] RN Supv Member Role: Primary Care Nurse Name: Miguel Ruiz RN Position: [facility] RN Member Role: Primary Care Nurse Care Team Related Persons Name: MATT MENA Address: [facility]
--- OUTSIDE RECORDS SUMMARY | 2023-06-10 07:59 | XMS_ITS | Continuity of Care Document ---
Author Organization [facility] Address [address] [place] [address]- Care Team Providers Care Video Specialist Name Role Phone Braden Mullins MD Primary Care Physician [phone] [place] [facility] [place] 11[place] [facility] [address] [place] [id number] Attending Physician: AdmAsya beverly Admitting Physician: AdmtrAsya Referring Physician: Admtr, Ar8 Allergies, Adverse Reactions, Alerts No Known Allergies Immunizations Given and Recorded Vaccine Date Status Refusal Reason [id number] 12y+ bivalent booster vax 02/02/22 Recorded influenza virus vaccine, inactivated 12/04/21 Mark rded influenza virus vaccine, inactivated 12/04/20 Mark rded influenza virus vaccine, inactivated 12/20/19 Give n influenza virus vaccine, inactivated 12/09/16 Mark rded SARS-CoV-2 mRNA ([id number]) vax 08/25/21 Given pneumococcal 13-valent vaccine 08/25/21 [...] tablet, 3 Refills, Maintenance, 03/24/22 15:24:00 EST, [facility], 167, cm, 03/24/22 14:57:00 EST, Height, 55.3, kg, 03/16/22 13:19:00 EST, Dry Weight Start Date: 03/24/22 Stop Date: 03/19/23 Status: Ordered folic acid 1 mg oral tablet 1, tablet, By Mouth, Daily, # 90 tablet, Refills 1, Maintenance, 09/18/22 6:30:00 EDT, Route to Pharmacy Electronically, [facility], 167, cm, 06/22/22 13:02:00 EDT, Height, 56.7, kg, 06/22/22 13:02:00 EDT, Dry Weight Start Date: 09/18/22 Status: Ordered levETIRAcetam 500 mg oral tablet 1 tablet = 500 mg, By Mouth, 2 times a day, # 180 tablet, 3 Refills, Maintenance, 03/24/22 15:24:00EST, [facility], 167, cm, 03/24/22 14:57:00 EST, [...] Care Team Personnel Name: Fadumo Hu Position: [facility] Onco RN Member Role: Primary Care Nurse Name: Manuel Rees MA Position: [facility] Onco RN Member Role: Primary Care Nurse Name: Debbie Franks RN Position: [facility] ED RN W/OE and Tasks Member Role: Primary Care Nurse Name: Tonie Castro RN Position: [facility] Onco RN Member Role: Primary Care Nurse Name: Myrna Banda Position: [facility] Onco RN Member Role: Primary Care Nurse Name: Braden Mullins MD Position: [facility] Physician - Primary Care Member Role: PCP Address: Address: [address] [facility] [place] [facility] [address]- [place] Name: Candy Moreno RN Position: [facility] OB RN Member Role: Primary Care Nurse Name: Ranjit Puri RN Position: S RN Member Role: Primary Care Nurse Name: Levon Kenyon RN Position: [facility] RN Supv Member Role: Primary Care Nurse Name: Elysia Byers MA Position: [facility] Onco RN Member Role: Primary Care Nurse Name: Bridgette Lewis RN Position: S RN Member Role: Primary Care Nurse Name: Rosa Brunner RN Position: S RN Member Role: Primary Care Nurse Name: Christi Florentino RN Position: [facility] RN Supv Member Role: Primary Care Nurse Name: Miguel Ruiz RN Position: [facility] RN Member Role: Primary Care Nurse Care Team Related Persons Name: KG RAYA
--- OUTSIDE RECORDS SUMMARY | 2023-06-10 07:59 | XMS_ITS | Continuity of Care Document ---
Author Organization [facility] Address [address] [place] [address]- Care Team Providers Care Pharmacy Intake Coordinator Name Role Phone Susanna NATH, Braden Blackburn Primary Care Physician [phone] [place] [facility] [place]18[place] 10[place]08/21 [facility] [address] [place] [id number]- Discharge Disposition: A-D/C Home Attending Physician: Tiffani Lowe MD Admitting Physician: Tiffani Lowe MD Referring Physician: Braden Mullins MD Allergies, Adverse Reactions, Alerts No Known Allergies Immunizations Given and Recorded Vaccine Date Status Refusal Reason SARS-CoV-2 mRNA ([id number]) vax 08/25/21 Given pneumococcal 13-valent vaccine 08/25/21 [...] EVERY DAY, # 30 Unknown, 5 Refills, [email or web address], 167, cm, 05/20/21 13:36:00 EDT, Height, 57.2, kg, 05/20/21 13:36:00 EDT, Dry Weight Start Date: 05/23/21 Status: Ordered dexamethasone 4 mg oral tablet See Instructions, 1 tablet By Mouth 30 min before chemotherapy, # 20 tablet, 0 Refills, Maintenance, 06/27/21 14:53:00 EDT, [email or web address], 167, cm, 06/27/21 14:31:00 EDT, Height, 57.3,kg, 06/27/21 14:31:00 EDT, Dry Weight Start Date: 06/27/21 Status: Ordered folic acid 1 mg oral tablet See Instructions, TAKE ONE TABLET BY MOUTH EVERY DAY, # 90 tablet, Refills 1, Instructions Replace Required Details, Route to Pharmacy Electronically, [facility], 167, cm, 06/27/21 14:31:00 EDT, Height, 57.3, kg, 06/27/21 14:31:00 EDT, [facility] Start Date: 07/26/21 Status: Ordered levETIRAcetam 500 mg oral tablet 1 tablet = 500 mg, By Mouth, 2 times a day, # 180 tablet, 1 Refills, Maintenance, 05/13/21 20:17:00EDT, [email or web address], 167, cm, 04/23/21 [...] tablet, 5 Refills, Maintenance, 03/20/21 13:40:00 EST, [facility], ., 167, cm, 03/20/21 [...] tablet By... Start Date: 07/29/21 Status: Ordered Temodar 100 mg oral capsule 3 capsule = 300 mg, By Mouth, Daily at bedtime, for 5 days, total daily dose 320 mg, # 15 capsule, 5 Refills, Acute 11/02/21 7:00:00 EDT, 10/03/21 7:00:00 EDT, [facility], 167, cm, 09/08/21 14:08:00 EDT, Height, 54.4, kg, 09/08/21 14:... Start Date: 10/03/21 Stop Date: 11/02/21 Status: Ordered Temozolomide Refills 0, Maintenance, 11/11/20 14:26:00 EDT, Partial fill upon patient request if the prescription is for a schedule II opioid drug. Start Date: 11/11/20 Status: Ordered temozolomide 20 mg oral capsule 1 capsule = 20 mg, By Mouth, Daily at bedtime, for 5 days, total daily dose 320 mg, # 5 capsule, 5 Refills, Acute 11/02/21 7:02:00 EDT, 10/03/21 7:02:00 EDT, [facility], Partial fillupon patient request if the prescription is for a s... Start Date: 10/03/21 Stop Date: 11/02/21 Status: Ordered traZODone 50 mg oral tablet [...] Range]: 1 2 3 Height 167 cm (09/08/21 2:08 PM) 167 cm (07/29/21 2:30 PM) 167 cm (06/27/21 2:31 PM) Weight 54.4 kg (09/08/21 2:08 PM) 55.6 kg (07/29/21 2:30 PM) 57.3 kg (06/27/21 2:31 PM) Pulse Rate [55-90 bpm] 83 bpm (09/08/21 2:08 PM) 97 bpm *H* (07/29/21 2:30 PM) 69 bpm (06/27/21 2:31 PM) Body Mass Index [18.5-24.99] 19.51 (09/08/21 2:08 PM) 19.94 (07/29/21 2:30 PM) 20.55 (06/27/21 2:31 PM) Blood Pressure [90-138/55-84 mm Hg] 121/76mm Hg (09/08/21 2:08 PM) 143/80mm Hg *H* (07/29/21 2:30 PM) 100/60mm Hg (06/27/21 2:31 PM) Temperature [96.8-100.4 DegF] 97.9 DegF (09/08/21 2:08 PM) 98.0 DegF (07/29/21 2:30 PM) 98.3 DegF (06/27/21 2:31 PM) Blood pressure sites Arm, right (09/08/21 2:08 PM) Arm, left (07/29/21 2:30 PM) Arm, left (06/27/21 2:31 PM) Temperature Route Oral (09/08/21 2:08 PM) Temporal (07/29/21 2:30 PM) Temporal (06/27/21 2:31 PM) Dry Weight 54.4 kg (09/08/21 2:08 PM) 55.6 kg (07/29/21 2:30 PM) 57.3 kg (06/27/21 2:31 PM) Weight Obtained Via Standing scale (09/08/21 2:08 PM) Standing scale (07/29/21 2:30 PM) Standing scale (06/27/21 2:31 PM) Dry Weight Obtained Via Standing scale (09/08/21 2:08 PM) Standing scale (07/29/21 2:30 PM) Standing scale (06/27/21 2:31 PM) Social History Social History Type Response Smoking Status 10 or more cigarette s (1/2 pack or more)/day in last 30 days entered on: 01/12/20 Sex
--- OUTSIDE RECORDS SUMMARY | 2023-06-10 07:59 | XMS_ITS | Continuity of Care Document ---
Author Organization [facility] Address [address] [place] [address]- Care Team Providers Care Criminal Justice Social Worker Name Role Phone Susanna NATH, Braden Blackburn Primary Care Physician Encounter [facility] [place] Date(s): 05/12/23 - 05/19/23 [facility] [address] [place], [place] [address] Attending Physician: Mik Zuluaga DO Referring Physician: Medhat Trevino MD Allergies, Adverse [...] virus vaccine, inactivated 12/09/16 Mark rded SARS-CoV-2(COVID-19)mRNA-LNP vac([id number]) 11/13/22 Recorded [id number] 12y+ bivalent booster vax 02/02/22 Recorded SARS-CoV-2 mRNA ([id number]) vax 08/25/21 Given pneumococcal 13-valent vaccine 08/25/21 [...] Refills, Maintenance, 03/24/22 15:24:00 EST, [facility], 167, cm, 03/24/22 14:57:00 EST, Height, 55.3, kg, 03/16/22 13:19:00 EST, Dry Weight Start Date: 03/24/22 Stop Date: 03/19/23 Status: Ordered folic acid 1 mg oral tablet 1, tablet, By Mouth, Daily, # 90 tablet, Refills 3, Maintenance, 04/19/23 14:36:00 EST, Route to Pharmacy Electronically, [facility], 167, cm, 04/12/23 13:17:00 EST, Height, 56.2, kg, 04/07/23 14:11:00 EST, Dry Weight Start Date: 04/19/23 Status: Ordered levETIRAcetam 500 mg oral tablet 1 tablet = 500 mg, By Mouth, 2 times a day, # 180 tablet, 3 Refills, Maintenance, 03/24/22 15:24:00EST, [facility], 167, cm, 03/24/22 14:57:00 EST, [...] Active Caputo catheter in place Confirmed Active Procedures Procedure Date Related Diagnosis Body Site Status 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 Completed ORIF - right arm, multilevel Completed ORIF - right hand fracture Completed Vital Signs Most recent to oldest [Reference Range]: 1 Height 167.0 cm (05/12/23 1:50 PM) Weight 57.2 kg (05/12/23 1:50 PM) Oxygen Saturation [94-100 %] 96 % (05/12/23 1:50 PM) Pulse Rate [55-90 bpm] 78 bpm (05/12/23 1:50 PM) Body Mass Index [18.5-24.99 kg/m2] 20.51 kg/m2 (05/12/23 1:50 PM) Blood Pressure [90-138/55-84 mm Hg] 112/ 72mm Hg (05/12/23 1:50 PM) Respiratory Rate [16-30 br/min] 16 br/mi n (05/12/23 1:50 PM) Blood pressure sites Arm, left (05/12/23 1:50 PM) Weight Obtained Via Standing scale (05/12/23 1:50 PM) Social History Social History Type Response Smoking Status 10 or more cigarette s (1/2 pack or more)/day in last 30 days; Interested in cessation: No; Patient wants NRT during admission No entered on: 05/19/23 Sex EKG study * Event Display: ECG 12-Lead Authored Date: Please click on pdf link to open report * Event Display: ECG 12-Lead Authored Date: Ventricular Rate: 74 BPM Atrial Rate: 74 BPM P-R Interval: 138 ms QRS Duration: 76 ms Q-T Interval: 402 ms QTC Calculation(Bazett): 446 ms P Reno: 72 degrees R Reno: 58 degrees T Reno: 61 degrees Normal sinus rhythm Normal ECG When compared with ECG of 02-JAN-2020 07:13, No significant change was found Confirmed by IVELISSE SKINNER MD ([id number]) on 05/12/2023 3:18:41 PM Ribera: IVELISSE SKINNER MD Patient Care team information Care Team Personnel Name: Fadumo Hu Position: [facility] Onco RN Member Role: Primary Care Nurse Name: Debbie Franks RN Position: [facility] ED RN W/OE and Tasks Member Role: Primary Care Nurse Name: Tonie Castro RN Position: S Onco RN Member Role: Primary Care Nurse Name: Myrna Banda Position: [facility] Onco RN Member Role: Primary Care Nurse Name: Braden Mullins MD Position: [facility] Physician - Primary Care Member Role: PCP Address: Address: [address] [place] [id number] Name: Candy Moreno RN Position: [facility] OB RN Member Role: Primary Care Nurse Name: Ranjit Puri RN Position: S RN Member Role: Primary Care Nurse Name: Levon Kenyon RN Position: [facility] RN Supv Member Role: Primary Care Nurse Name: Elysia Byers MA Position: [facility] Onco RN Member Role: Primary Care Nurse Name: Bridgette Lewis RN Position: [facility] RN Member Role: Primary Care Nurse Name: Rosa Brunner RN Position: [facility] RN Member Role: Primary Care Nurse Name: Christi Florentino RN Position: [facility] RN Supv Member Role: Primary Care Nurse Name: Miguel Ruiz RN Position: [facility] RN Member Role: Primary Care Nurse Care Team Related Persons Name: KG RAYA
--- OUTSIDE RECORDS SUMMARY | 2023-06-10 07:59 | XMS_ITS | Continuity of Care Document ---
Author Organization [facility] Address [address] [place] [address]- Care Team Providers Care Ekg Technician Name Role Phone Braden Mullins MD Primary Care Physician [phone] Encounter [facility] [place] Date(s): 06/18/22 - 08/22/22 [facility] [address] [place] [address] Discharge Disposition: A-D/C Home Attending Physician: Evelio NATH, Nacho Yeung Admitting Physician: Nacho Fraser MD Referring Physician: Braden Mullins MD Allergies, Adverse Reactions, Alerts No Known Allergies Immunizations Given and Recorded Vaccine Date Status Refusal Reason [id number] 12y+ bivalent booster vax 02/02/22 Recorded influenza virus vaccine, inactivated 12/04/21 Mark rded influenza virus vaccine, inactivated 12/04/20 Mark rded influenza virus vaccine, inactivated 12/20/19 Give n influenza virus vaccine, inactivated 12/09/16 Mark rded SARS-CoV-2 mRNA ([id number]) vax 08/25/21 Given pneumococcal 13-valent vaccine 08/25/21 [...] Refills, Maintenance, 03/24/22 15:24:00 EST, [facility], 167, cm, 03/24/22 14:57:00 EST, Height, 55.3, kg, 03/16/22 13:19:00 EST, Dry Weight Start Date: 03/24/22 Stop Date: 03/19/23 Status: Ordered folic acid 1 mg oral tablet 1, tablet, By Mouth, Daily, # 90 tablet, Refills 1, Maintenance, 02/18/22 7:38:00 EST, Route to Pharmacy Electronically, [facility], 167, cm, 02/02/22 12:58:00 EST, [...] oldest [Reference Range]: 1 Height 167 cm (06/22/22 1:02 PM) Weight 56.7 kg (06/22/22 1:02 PM) Oxygen Saturation [94-100 %] 96 % (06/22/22 1:02 PM) Pulse Rate [55-90 bpm] 93 bpm *H* (06/22/22 1:02 PM) Body Mass Index [18.5-24.99 kg/m2] 20.33 kg/m2 (06/22/22 1:02 PM) Blood Pressure [90-138/55-84 mm Hg] 110/ 72mm Hg (06/22/22 1:02 PM) Temperature [96.8-100.4 DegF] 98.7 DegF (06/22/22 1:02 PM) Mode of Delivery (Oxygen) Room air (06/22/22 1:02 PM) Blood pressure sites Arm, right (06/22/22 1:02 PM) Temperature Route Temporal (06/22/22 1:02 PM) Dry Weight 56.7 kg (06/22/22 1:02 PM) Weight Obtained Via Standing scale (06/22/22 1:02 PM) Dry Weight Obtained Via Standing scale (06/22/22 1:02 PM) Social History Social History Type Response Smoking Status 10 or more cigarette s (1/2 pack or more)/day in last 30 days entered on: 01/12/20 Sex Note * Myrna Banda: PERFORM, SIGN, VERIFY Event Display: Patient Education/Instruction Authored Date: [id number] [facility] *Heme/Onc Adult Clinical Summary Name COLEMAN MARTINEZ Age 66 Years 1955 PCP Susanna NATH, Braden Blackburn PCP Visit Date 06/18/2022 15:58:00 Additional Instructions: Scheduled Appointments?? Future Appointments ?No Future Appointments Scheduled Follow-Up Instructions ?? With: Address: When: Nacho Fraser [address] [place] [address] for Cancer Care, [facility] [place] [address] [facility] (1) 11/02/2022 1:30 PM Diagnosis Medications: Please continue your medications until treatment is completed or stopped by your provider. Discuss any questions related to medications with your provider. Medications to Continue with No Changes These medications were not printed or sent to your pharmacy Aspirin (aspirin 81 mg oral delayed release tablet) 1 tab(s) Oral Daily. Next Dose: Atorvastatin (atorvastatin 40 mg oral tablet) 1 tab(s) Oral Daily for 90 Days. Refills: 3. Next Dose: Docusate-Senna (Senna Plus 50 mg-8.6 mg oral tablet) 2 tab(s) Oral Daily at Bedtime as needed Constipation. Refills: 3. Next Dose: Folic Acid (folic acid 1 mg oral tablet) 1 tab(s) Oral Daily. Refills: 1. Next Dose: levETIRAcetam (levETIRAcetam 500 mg oral tablet) 1 tab(s) Oral twice a day for 90 Days. Refills: 3. Next Dose: Melatonin (Melatonin 10 mg oral tablet) 1 tab(s) Oral Daily at Bedtime for 30 Days. Refills: 11. Next Dose: Pantoprazole (pantoprazole 40 mg oral delayed release tablet) 1 tab(s) Oral Daily for 90 Days. Refills: 3. Next Dose: Trazodone (traZODone 50 mg oral tablet) 1 tab(s) Oral Daily at Bedtime. Refills: 0. Next Dose: Allergy Info:?? NKA Medications Given This Visit Future Orders ?No future orders Vital Signs Height 167 cm Weight 56.7 kg BMI 20.33 kg/m2 Blood Pressure 110 mm Hg/72 mm Hg Temperature 98.7 DegF Pulse Rate 93 bpm Respiratory Rate 02 Sat Mode of Delivery 96 %/Room air You can now view a summary of your hospital visit from the comfort of your home through a free online portal called [employer]. [employer] is a website that allows you to securely view your medical information including discharge summary, medications and follow-up visits. ??You can alsosend a secure electronic message to your doctor???s office to request appointments, renew medications or just ask a question. You can enroll at [email or web address] or register during your next office [...] primary care provider, you may find a [facility] provider by calling [facility] [employer] [facility] at [phone]. For information about the plan of care [...] Care Team Personnel Name: Fadumo Hu Position: [facility] Onco RN Member Role: Primary Care Nurse Name: Debbie Franks RN Position: [facility] ED RN W/OE and Tasks Member Role: Primary Care Nurse Name: Tonie Castro RN Position: [facility] Onco RN Member Role: Primary Care Nurse Name: Myrna Banda Position: [facility] Onco RN Member Role: Primary Care Nurse Name: Braden Mullins MD Position: [facility] Physician - Primary Care Member Role: PCP Address: Address: [address] [place] [address]- [place] Name: Candy Moreno RN Position: [facility] OB RN Member Role: Primary Care Nurse Name: Ranjit Puri RN Position: S RN Member Role: Primary Care Nurse Name: Levon Kenyon RN Position: [facility] RN Supv Member Role: Primary Care Nurse Name: Elysia Byers MA Position: [facility] Onco RN Member Role: Primary Care Nurse Name: Bridgette Lewis RN Position: [facility] RN Member Role: Primary Care Nurse Name: Rosa Brunner RN Position: [facility] RN Member Role: Primary Care Nurse Name: Christi Florentino RN Position: [facility] RN Kaley Member Role: Primary Care Nurse Name: Miguel Ruiz RN Position: [facility] RN Member Role: Primary Care Nurse Name: Roxann Estrada RN Position: [facility] RN Member Role: Primary Care Nurse Name: Nacho Fraser MD Position: [facility] Physician - Oncology Med Service: Hematology & Oncology Member Role: Admitting Physician Address: Address: [address] [place] [address] Cancer Care [facility] Hematology Oncology [address] Care Team Related Persons Name: KG RAYA
--- OUTSIDE RECORDS SUMMARY | 2023-06-10 07:59 | XMS_ITS | Continuity of Care Document ---
Author Organization [facility] Ranjit Nicholson Jack lt Address [address] [place] [address]- Care Team Providers Care Inspector Rough Castings Name Role Phone Braden Mullins MD Primary Care Physician [phone] [place] [facility] [place]12[place]20 - 03/13/20 [facility] Adult [address] [place] [address]- Allergies, Adverse Reactions, Alerts Substance Reaction Severity [...] 3 Refills, Maintenance, 01/29/20 12:17:00 EST, Tablet, [id number], Partial fill upon patient request if the [...] Route to Pharmacy Electronically, [facility] #[id number], Partial fill upon patient request if the prescription is for a schedule II opio... Start Date: 02/15/20 Stop Date: 08/13/20 Status: Ordered Keppra 500 mg oral tablet 1 tablet = 500 mg, By Mouth, 2 times a day, # 60 tablet, 11 Refills, Maintenance, 03/11/20 11:26:00EST, Tablet, [facility] #[id number], Partial fill upon patient request if the prescription is for a schedule II opioid drug., 167, cm, 03/11/20 10... Start Date: 03/11/20 Status: Ordered Melatonin 10 mg oral tablet 1 tablet = 10 mg, By Mouth, Daily at bedtime, for 30 days, need ov in 6 months, # 30 tablet, 5 Refills, Acute 08/13/20 6:50:00 EDT, 02/15/20 6:50:00 EST, [facility] #[id number], Partial fill upon patient request if the [...] 1 Refills, Maintenance, 01/30/20 13:00:00 EST, Capsule, [facility] #[id number], Partial fill upon patient request if the prescription is for a schedule II opioid drug., 167, cm, 01/29/20... Start Date: 01/30/20 Stop Date: 07/28/20 Status: Ordered traZODone 50 mg oral tablet 50 mg, 1, tablet, By Mouth, Daily at bedtime, # 30 tablet, Refills 11, Tot. Refills 11, Maintenance, 01/29/20 11:49:00 EST, Route to Pharmacy Electronically, [facility] #[id number], Partial fillupon patient request if the prescription is for a s... Start Date: 01/29/20 Stop Date: 01/23/21 Status: Ordered Vitamin B6 25 mg oral tablet 1 tablet = 25 mg, By Mouth, Daily, for 30 days, # 30 tablet, 5 Refills, Acute 08/13/20 6:50:00 EDT,02/15/20 6:50:00 EST, [facility] #[id number], Partial fill upon patient request if the [...]
--- OUTSIDE RECORDS SUMMARY | 2023-06-10 07:59 | XMS_ITS | Continuity of Care Document ---
Author Organization [facility] Ranjit Nicholson Jack lt Address [address] [place] [address]- Care Team Providers Care Dredge Pumper Name Role Phone Braden Mullins MD Primary Care Physician [place] [facility] [place] 03/[place]/20 - 04/26/20 [facility] Adult [address] [place] [address]- Allergies, Adverse Reactions, Alerts Substance Reaction Severity [...] Stop 05/28/20 12:17:00EDT, 01/29/20 12:17:00 EST, Tablet, [facility] #[id number], Partial fill upon patient request if the [...] 02/15/20 6:50:00 EST, Route to Pharmacy Electronically, [facility] #[id number], Partial fill upon patient request if the prescription is for a schedule II opio... Start Date: 02/15/20 Stop Date: 08/13/20 Status: Ordered Keppra 500 mg oral tablet 1 tablet = 500 mg, By Mouth, 2 times a day, # 60 tablet, 11 Refills, Maintenance, 03/11/20 11:26:00EST, Tablet, [facility] #[id number], Partial fill upon patient request if the [...] 01/29/20 11:49:00 EST, Route to Pharmacy Electronically, [facility] #[id number], Partial fill upon patient reque... Start Date: [...]
--- OUTSIDE RECORDS SUMMARY | 2023-06-10 07:59 | XMS_ITS | Continuity of Care Document ---
Author Organization [facility] C ancer Care Address [address] [place] [address]- Care Team Providers Care Laborer Road Name Role Phone Braden Mullins MD Primary Care Physician [phone] [place] [facility] [place](s): 10/22/22 - 01/02/23 [facility] [address] [place] [id number] Discharge Disposition: A-D/C Home Attending Physician: Nacho Fraser MD Admitting Physician: Nacho Fraser MD Referring Physician: Braden Mullins MD Allergies, Adverse Reactions, Alerts No Known Allergies Immunizations Given and Recorded Vaccine Date Status Refusal Reason [id number] 12y+ bivalent booster vax 02/02/22 Recorded influenza virus vaccine, inactivated 12/04/21 Mark rded influenza virus vaccine, inactivated 12/04/20 Mark rded influenza virus vaccine, inactivated 12/20/19 Give n influenza virus vaccine, inactivated 12/09/16 Mark rded SARS-CoV-2 mRNA ([id number]) vax 08/25/21 Given pneumococcal 13-valent vaccine 08/25/21 [...] Refills, Maintenance, 03/24/22 15:24:00 EST, [facility], 167, cm, 03/24/22 14:57:00 EST, Height, 55.3, kg, 03/16/22 13:19:00 EST, Dry Weight Start Date: 03/24/22 Stop Date: 03/19/23 Status: Ordered folic acid 1 mg oral tablet 1, tablet, By Mouth, Daily, # 90 tablet, Refills 1, Maintenance, 09/18/22 6:30:00 EDT, Route to Pharmacy Electronically, [facility], 167, cm, 06/22/22 13:02:00 EDT, Height, 56.7, kg, 06/22/22 13:02:00 EDT, Dry Weight Start Date: 09/18/22 Status: Ordered levETIRAcetam 500 mg oral tablet 1 tablet = 500 mg, By Mouth, 2 times a day, # 180 tablet, 3 Refills, Maintenance, 03/24/22 15:24:00EST, [facility], 167, cm, 03/24/22 14:57:00 EST, [...] oldest [Reference Range]: 1 Height 167 cm (11/02/22 1:50 PM) Weight 56.3 kg (11/02/22 1:50 PM) Oxygen Saturation [94-100 %] 96 % (11/02/22 1:50 PM) Pulse Rate [55-90 bpm] 83 bpm (11/02/22 1:50 PM) Body Mass Index [18.5-24.99 kg/m2] 20.19 kg/m2 (11/02/22 1:50 PM) Blood Pressure [90-138/55-84 mm Hg] 131/ 70mm Hg (11/02/22 1:50 PM) Temperature [96.8-100.4 DegF] 97.7 DegF (11/02/22 1:50 PM) Mode of Delivery (Oxygen) Room air (11/02/22 1:50 PM) Blood pressure sites Arm, right (11/02/22 1:50 PM) Temperature Route Oral (11/02/22 1:50 PM) Dry Weight 56.3 kg (11/02/22 1:50 PM) Weight Obtained Via Standing scale (11/02/22 1:50 PM) Dry Weight Obtained Via Standing scale (11/02/22 1:50 PM) Social History Social History Type Response Smoking Status 10 or more cigarette s (1/2 pack or more)/day in last 30 days entered on: 01/12/20 Sex Patient Care team information Care Team Personnel Name: Fadumo Hu Position: [facility] Onco RN Member Role: Primary Care Nurse Name: Manuel Rees MA Position: S Onco RN Member Role: Primary Care Nurse Name: Debbie Franks RN Position: [facility] ED RN W/OE and Tasks Member Role: Primary Care Nurse Name: Tonie Castro RN Position: [facility] Onco RN Member Role: Primary Care Nurse Name: Myrna Banda Position: [facility] Onco RN Member Role: Primary Care Nurse Name: Braden Mullins MD Position: [facility] Physician - Primary Care Member Role: PCP Address: Address: [address] [place] [id number] Name: Candy Moreno RN Position: [facility] OB RN Member Role: Primary Care Nurse Name: Ranjit Puri RN Position: S RN Member Role: Primary Care Nurse Name: Levon Kenyon RN Position: [facility] RN Supv Member Role: Primary Care Nurse Name: Elysia Byers MA Position: [facility] Onco RN Member Role: Primary Care Nurse Name: Bridgette Lewis RN Position: S RN Member Role: Primary Care Nurse Name: Rosa Brunner RN Position: S RN Member Role: Primary Care Nurse Name: Christi Florentino RN Position: [facility] RN Supv Member Role: Primary Care Nurse Name: Miguel Ruiz RN Position: S RN Member Role: Primary Care Nurse Name: Nacho Fraser MD Position: [facility] Physician - Oncology Med Service: Hematology & Oncology Member Role: Admitting Physician Address: Address: [address] [place] [address] Cancer Care [facility] [place] [address]- Care Team Related Persons Name: KG RAYA
--- OUTSIDE RECORDS SUMMARY | 2023-06-10 07:59 | XMS_ITS | Continuity of Care Document ---
Author Organization BRIAN Nicholson Jack lt Address [address] [place] [address]- Care Team Providers Care Qa Tech Name Role Phone Braden Mullins MD Primary Care Physician [place] [facility] [place]/10/20 - 02/09/20 [facility] Adult [address] [place] [address]- Allergies, Adverse Reactions, Alerts Substance Reaction Severity [...] 3 Refills, Maintenance, 01/29/20 12:17:00 EST, Tablet, [facility] #[id number], Partial fill upon patient request if the [...] 1 Refills, Maintenance, 01/30/20 13:00:00 EST, Capsule, [facility] #[id number], Partial fill upon patient request if the [...] 01/29/20 11:49:00 EST, Route to Pharmacy Electronically, [facility] #[id number], Partial fillupon patient request if the prescription [...]
[2023-06-10 08:00] LABS: Prothrombin Time 11.9 SEC (11.1-13.3)
[2023-06-10 08:00] LABS: Ethanol < 10 mg/dL
[2023-06-10 08:01] LABS: Alanine Aminotransferase 31 U/L (0-40); Albumin Level 4.2 g/dL (3.5-5.0); Alkaline Phosphatase 112 U/L (39-117); Anion Gap 11 (12-20); Aspartate Amino Transferase 18 U/L (5-37); Bilirubin Total 0.8 mg/dL (0.0-1.0); Blood Urea Nitrogen 22 mg/dL (9-16); Calcium 9.8 mg/dL (8.4-10.2); Carbon Dioxide 28 mmol/L (22-29); Chloride 104 mmol/L (96-108); Creatinine Clr Calc Pharmacy 63.6; Estimated Glomerular Filt Rate > 60; Glucose Random 116 mg/dL (60-115); Magnesium 1.9 mg/dL (1.6-2.6); Potassium 3.6 mmol/L (3.3-5.1); Sodium 139 mmol/L (135-145); Total Protein 7.5 g/dL (6.5-8.0)
[2023-06-10 08:59] LABS: Appearance Urine Clear; Color Urine Yellow; Glucose Urine UA Negative (Negative); Leukocyte Esterase Urine Large (3+) (Negative); Nitrite Urine Positive (Negative); PH 5.5 (5.0-9.0); UMIC TRIGGER UACC YES; Urine Blood Negative (Negative); Urine Ketones Negative (Negative); Urine Protein Trace mg/dL (Neg-Trace)
[2023-06-10 09:05] LABS: Bacteria Urine Trace (None Seen); Hyaline Casts Urine 0-2 /LPF (0-2); RBC Urine 0-2 /HPF (0-2); Squamous Epithelial Cell Urine 0-2 /HPF (0-2); UACC Culture Trigger YES; WBC Urine >50 /HPF (0-5)
--- NOTE | 2023-06-10 10:40 | PC.NURSE ---
pt has voided x2 since his arrival to the ed, total of 500ml and had a bowel movement
[2023-06-10] MEDS: Diatrizoate Meglumine, Sodium 30 ML SOLUTION PO (11:24)
[2023-06-10] MEDS: Lidocaine HCl 2 % Urojet 10 ML JEL.PF.APP TOPICAL (11:32)
[2023-06-10 13:08] VITALS: BP 108/70; PULSE 79; RESP 17; TEMP 36.6; O2SAT 98
[2023-06-10 14:18] VITALS: BP 105/72; PULSE 74; RESP 16; TEMP 36.6; O2SAT 98
== END 2023-06-10 14:29 | disposition home or self-care (01) ==
PROVIDERS: Physician Assistant; Emergency Provider Emergency Medicine; PCP Internal Medicine
DX: N39.0 Urinary tract infection, site not specified (principal); R33.9 Retention of urine, unspecified; K59.00 Constipation, unspecified; R10.2 Pelvic and perineal pain; M54.16 Radiculopathy, lumbar region; Z79.899 Other long term (current) drug therapy; Z51.81 Encounter for therapeutic drug level monitoring
CPT/HCPCS: 36415; 51702; 51798; 74176; 80053; 80307; 81001; 81003; 82550; 83735; 85025; 85610; 87086; 87088; 87186; 99285

== ENCOUNTER 2023-06-12 13:51 | Emergency (ER) | payer MEDICARE, SELFPAY ==
[2023-06-12 14:11] VITALS: BP 135/89; PULSE 97; RESP 16; TEMP 36.6; O2SAT 94; BMI 18.5
--- OUTSIDE RECORDS SUMMARY | 2023-06-12 14:29 | XMS_ITS | Continuity of Care Document ---
Author Organization [facility] Address [address] [place] [address]- Care Team Providers Care Manufacturing Technology Analyst Name Role Phone Susanna NATH, Braden Blackburn Primary Care Physician [phone] Encounter [facility] Date(s): 05/12/23 - 06/11/23 [facility] [address], [place] [address] Attending Physician: AdmAsya beverly Admitting Physician: Admtr, [id number] Referring Physician: Admtr, [...] virus vaccine, inactivated 12/09/16 Mark rded SARS-CoV-2(COVID-19)mRNA-LNP vac([id number]) 11/13/22 Recorded [id number] 12y+ bivalent booster vax 02/02/22 Recorded SARS-CoV-2 mRNA ([id number]) vax 08/25/21 Given pneumococcal 13-valent vaccine 08/25/21 [...] Refills, Maintenance, 03/24/22 15:24:00 EST, [facility], 167, cm, 03/24/22 14:57:00 EST, Height, 55.3, kg, 03/16/22 13:19:00 EST, Dry Weight Start Date: 03/24/22 Stop Date: 03/19/23 Status: Ordered folic acid 1 mg oral tablet 1, tablet, By Mouth, Daily, # 90 tablet, Refills 3, Maintenance, 04/19/23 14:36:00 EST, Route to Pharmacy Electronically, [facility], 167, cm, 04/12/23 13:17:00 EST, [...] use disorder Confirmed Active Underweight Confirmed Active Social History Social History Type Response Smoking Status 10 or more cigarette s (1/2 pack or more)/day in last 30 days; Interested in cessation: No; Patient wants NRT during admission No entered on: 05/19/23 Sex Patient Care team information Care Team Personnel Name: Fadumo Hu Position: [facility] RN Member Role: Primary Care Nurse Name: Debbie Franks RN Position: [facility] ED RN W/OE and Tasks Member Role: Primary Care Nurse Name: Tonie Castro RN Position: [facility] RN Member Role: Primary Care Nurse Name: Myrna Banda Position: [facility] Onco RN Member Role: Primary Care Nurse Name: Braden Mullins MD Position: [facility] Physician - Primary Care Member Role: PCP Address: Address: [address] [place] [address]- [place] Name: Candy Moreno RN Position: [facility] OB RN Member Role: Primary Care Nurse Name: Davina Lockwood Position: [facility] RN Member Role: Primary Care Nurse Name: Ranjit Puri RN Position: S RN Member Role: Primary Care Nurse Name: Levon Kenyon RN Position: [facility] RN Supv Member Role: Primary Care Nurse Name: Elysia Byers [place] Position: [facility] Onco RN Member Role: Primary Care Nurse Name: Arnel Owens RN Position: [facility] RN Member Role: Primary Care Nurse Name: Bridgette Lewis RN Position: [facility] RN Member Role: Primary Care Nurse Name: Sonya Love RN Position: [facility] RN Member Role: Primary Care Nurse Name: Rosa Brunner RN Position: [facility] RN Member Role: Primary Care Nurse Name: Sami Phelps RN Position: [facility] RN Member Role: Primary Care Nurse Name: Christi Florentino RN Position: [facility] RN Supv Member Role: Primary Care Nurse Name: Miguel Ruiz RN Position: [facility] RN Member Role: Primary Care Nurse Care Team Related Persons Name: KG RAYA Address: [facility]
--- NOTE | 2023-06-12 14:47 | ED.MALEGU ---
HPI - Male Genitourinary General Chief complaint: Urogenital-Male Stated complaint: cath issue Time Seen by Provider: 06/12/23 14:29 Source: patient Mode of arrival: ambulatory History of Present Illness HPI Narrative: 67-year-old male presents with request for removal of Caputo catheter, stating that it feels very uncomfortable and he no longer wants. Related Data Home Medications ?Medication ?Instructions ?Recorded ?Confirmed omeprazole magnesium 20 mg 20 mg PO DAILY 12/18/19 12/18/19 tablet,delayed release (Prilosec OTC) Previous Rx's ?Medication ?Instructions ?Recorded dexamethasone sodium phosphate 4 4 mg IVPUSH Q6H 5 days #20 mL 12/18/19 mg/mL injection solution metoprolol tartrate 25 mg tablet 25 mg PO Q6H #30 tabs 12/18/19 morphine 2 mg/mL intravenous 1 mg (0.5 mL) IVPUSH Q4H PRN Pain 12/18/19 syringe And Fever 5 days #20 mL ondansetron HCl (PF) 4 mg/2 mL 4 mg (2 mL) IVPUSH Q8H PRN Nausea 12/18/19 injection solution And Vomiting 5 days cefuroxime axetil 250 mg tablet 250 mg PO BID 7 days #14 tabs 06/10/23 docusate sodium 100 mg capsule 100 mg PO BID #20 caps 06/10/23 (Colace) polyethylene glycol 3350 17 17 g PO BID #238 grams 06/10/23 gram/dose oral powder (Miralax) sennosides 8.6 mg tablet (senna) 8.6 mg PO BEDTIME #14 tabs 06/10/23 Allergies Allergy/AdvReac Type Severity Reaction Status Date / Time No Known Allergies Allergy Verified 06/12/23 14:13 [No Known Allergies*] Review of Systems Review of Systems: Pertinent positives and negatives as stated in HPI [facility] Past Medical History Source: nursing notes reviewed Medical History Alcohol abuse COPD (chronic obstructive pulmonary disease) Social History Social History Household Members: None Housing Other:: mobile home Do you presently have visiting nurse or other home services: No Alcohol intake: current Alcohol intake frequency: 3 or more drinks per day Comment: avasystem + Cigarette Packs Per Day: 2 Cigarettes Per Day: 40.0 Smoked in Last 30 Days: Yes Use of substances other than those prescribed or required for medical reasons: Yes Substance Use Type: Marijuana Advance Directives: Yes Advance Directives on File: Yes Advance Directives Date on File: 12/19/19 Do you have a plan to hurt others: No Plan service: No Current occupational status: unemployed Physical Exam Vital Signs: Vital Signs: Last Vital Signs Temp 97.8 F 06/12/23 15:31 Pulse 76 06/12/23 15:31 Resp 16 06/12/23 15:31 BP 104/68 06/12/23 15:31 Pulse Ox 96 06/12/23 15:31 O2 Del Method Room Air 06/12/23 15:31 BMI result Body Mass Index 18.5 VITAL SIGNS: Reviewed. GENERAL: Well developed, well nourished, in no acute distress. HEAD: Normocephalic/atraumatic EYES: PERRLA, EOMI LUNGS: Normal breath sounds. No adventitious sounds or accessory muscle use. CARDIOVASCULAR: Regular rate and rhythm without noted murmurs ABDOMEN: Soft, non-tender, non-distended with bowel sounds. : Caputo catheter with patent draining yellow urine NEUROLOGIC: Alert and oriented x 4. Strength and sensation to light touch were grossly intact x 4. Medical Decision Making Medical Decision Making MDM Narrative: I discussed the risks and benefits with the patient of from moving the Caputo catheter, I also gave him strict instructions should he not have any urine output within the next 6 hours. And then I deflated the balloon of the catheter and remove the Caputo without complication. Patient is otherwise discharged and still directed to follow-up with urology. Discharge Plan Discharge Clinical Impression: Caputo catheter in place Patient Disposition: Home, Self-Care Additional Instructions: 1. Please return to the emergency room if you have not urinated in the next 6 hours. 2. Follow-up with urology as recommended previously regarding your urinary retention. Prescriptions: No Action omeprazole magnesium [Prilosec OTC] 20 mg Tablet,Delayed Release (Dr/Ec) 20 mg PO DAILY metoprolol tartrate 25 mg Tablet 25 mg PO Q6H Qty: 30 0RF Protocol: Hold for SBP/HR < HOLD for SBP < : 90 HOLD for HR < : 60 ondansetron HCl (PF) 4 mg/2 mL Solution 4 mg IVPUSH Q8H PRN (Reason: Nausea And Vomiting) 5 Days 0RF morphine 2 mg/mL Syringe 1 mg IVPUSH Q4H PRN (Reason: Pain And Fever) 5 Days Qty: 20 0RF dexamethasone sodium phosphate 4 mg/mL Solution 4 mg IVPUSH Q6H 5 Days Qty: 20 0RF cefuroxime axetil 250 mg tablet 250 mg PO BID 7 Days Qty: 14 0RF sennosides [senna] 8.6 mg tablet 8.6 mg PO BEDTIME Qty: 14 0RF docusate sodium [Colace] 100 mg capsule 100 mg PO BID Qty: 20 0RF polyethylene glycol 3350 [Miralax] 17 gram/dose powder 17 g PO BID Qty: 238 0RF Referrals: Kadeem Valenzuela MD [Physician] - Braden Mullins MD [Primary Care Provider] - Interventions: ED Discharge Assessment Last Done: 06/12/23 15:31 Discharge Date/Time: 06/12/23 15:32 Print Language: Tamazight
[2023-06-12 15:27] VITALS: BP 104/68; PULSE 76; RESP 16; TEMP 36.6; O2SAT 96
[2023-06-12 15:31] VITALS: BP 104/68; PULSE 76; RESP 16; TEMP 36.6; O2SAT 96
--- NOTE | 2023-06-12 15:31 | PC.NURSE ---
sosa catheter d/c'd by dr. aggarwal upon pt request. pt provided w/ d/c paperwork.
--- NOTE | 2023-06-14 09:48 | ED_ITS ---
HPI - Male Genitourinary General Chief complaint: Urogenital-Male Stated complaint: cath issue Time Seen by Provider: 06/12/23 14:29 Source: patient Mode of arrival: ambulatory Related Data Home Medications ?Medication ?Instructions ?Recorded ?Confirmed omeprazole magnesium 20 mg 20 mg PO DAILY 12/18/19 12/18/19 tablet,delayed release (Prilosec OTC) Previous Rx's ?Medication ?Instructions ?Recorded dexamethasone sodium phosphate 4 4 mg IVPUSH Q6H 5 days #20 mL 12/18/19 mg/mL injection solution metoprolol tartrate 25 mg tablet 25 mg PO Q6H #30 tabs 12/18/19 morphine 2 mg/mL intravenous 1 mg (0.5 mL) IVPUSH Q4H PRN Pain 12/18/19 syringe And Fever 5 days #20 mL ondansetron HCl (PF) 4 mg/2 mL 4 mg (2 mL) IVPUSH Q8H PRN Nausea 12/18/19 injection solution And Vomiting 5 days cefuroxime axetil 250 mg tablet 250 mg PO BID 7 days #14 tabs 06/10/23 docusate sodium 100 mg capsule 100 mg PO BID #20 caps 06/10/23 (Colace) polyethylene glycol 3350 17 17 g PO BID #238 grams 06/10/23 gram/dose oral powder (Miralax) sennosides 8.6 mg tablet (senna) 8.6 mg PO BEDTIME #14 tabs 06/10/23 cefuroxime axetil 500 mg tablet 500 mg PO BID #14 tabs 06/14/23 Allergies Allergy/AdvReac Type Severity Reaction Status Date / Time No Known Allergies Allergy Verified 06/12/23 14:13 [No Known Allergies*] [facility] Past Medical History Medical History Alcohol abuse COPD (chronic obstructive pulmonary disease) Social History Social History Household Members: None Housing Other:: mobile home Do you presently have visiting nurse or other home services: No Alcohol intake: current Alcohol intake frequency: 3 or more drinks per day Comment: avasystem + Cigarette Packs Per Day: 2 Cigarettes Per Day: 40.0 Smoked in Last 30 Days: Yes Use of substances other than those prescribed or required for medical reasons: Yes Substance Use Type: Marijuana Advance Directives: Yes Advance Directives on File: Yes Advance Directives Date on File: 12/19/19 Do you have a plan to hurt others: No Plan service: No Current occupational status: unemployed Physical Exam Vital Signs: Vital Signs: Last Vital Signs Temp 97.8 F 06/12/23 15:31 Pulse 76 06/12/23 15:31 Resp 16 06/12/23 15:31 BP 104/68 06/12/23 15:31 Pulse Ox 96 06/12/23 15:31 O2 Del Method Room Air 06/12/23 15:31 BMI result Body Mass Index 18.5 Course Reevaluation(s) Reevaluation #1: Urine culture positive for E coli, unable to reach patient via telephone and unable to leave voicemail as mailbox not set up. Prescription for cefuroxime b.i.d. x7 days sent to pharmacy. Time: 09:48 Discharge Plan Discharge Clinical Impression: Caputo catheter in place Patient Disposition: Home, Self-Care Additional Instructions: 1. Please return to the emergency room if you have not urinated in the next 6 hours. 2. Follow-up with urology as recommended previously regarding your urinary retention. Prescriptions: New cefuroxime axetil 500 mg tablet 500 mg PO BID Qty: 14 0RF No Action omeprazole magnesium [Prilosec OTC] 20 mg Tablet,Delayed Release (Dr/Ec) 20 mg PO DAILY metoprolol tartrate 25 mg Tablet 25 mg PO Q6H Qty: 30 0RF Protocol: Hold for SBP/HR < HOLD for SBP < : 90 HOLD for HR < : 60 ondansetron HCl (PF) 4 mg/2 mL Solution 4 mg IVPUSH Q8H PRN (Reason: Nausea And Vomiting) 5 Days 0RF morphine 2 mg/mL Syringe 1 mg IVPUSH Q4H PRN (Reason: Pain And Fever) 5 Days Qty: 20 0RF dexamethasone sodium phosphate 4 mg/mL Solution 4 mg IVPUSH Q6H 5 Days Qty: 20 0RF cefuroxime axetil 250 mg tablet 250 mg PO BID 7 Days Qty: 14 0RF sennosides [senna] 8.6 mg tablet 8.6 mg PO BEDTIME Qty: 14 0RF docusate sodium [Colace] 100 mg capsule 100 mg PO BID Qty: 20 0RF polyethylene glycol 3350 [Miralax] 17 gram/dose powder 17 g PO BID Qty: 238 0RF Referrals: Kadeem Valenzuela MD [Physician] - Braden Mullins MD [Primary Care Provider] - Interventions: ED Discharge Assessment Last Done: 06/12/23 15:31 Discharge Date/Time: 06/12/23 15:32 Print Language: Tanzanian
== END 2023-06-12 15:32 | disposition home or self-care (01) ==
PROVIDERS: Emergency Provider Student in an Organized Health Care Education/Training Program; PCP Internal Medicine
DX: Z46.6 Encounter for fitting and adjustment of urinary device (principal); R82.71 Bacteriuria
CPT/HCPCS: 99282; 99284